=== PATIENT | male | born 1935 | race Caucasian/White ===

== ENCOUNTER 2020-02-03 10:58 | Emergency (ER) | payer MEDICARE, OTHER, SELFPAY ==
[2020-02-03 11:02] VITALS: BP 136/77; PULSE 86; RESP 18; TEMP 35.9; O2SAT 96; BMI 25.1
--- NOTE | 2020-02-03 11:24 | ED_ITS ---
HPI - General Adult General: Chief complaint: General Medical Stated complaint: BLOOD IN STOOL Time Seen by Provider: 02/03/20 11:22 Source: patient and RN notes reviewed History of Present Illness: HPI narrative: 84-year-old male with bright red blood sometimes little darker in his stool for several days. He states it is painful when he has a bowel movement and feels like he cannot empty his bowels. He is on chronic opiates for back pain but there is been no change in dosages. He tells me he is tried senna and prune juice but not a stool softener, these did not help. Denies any bleeding of his gums or blood in his urine. He is on Eliquis for CABG and stent. No fever no other symptoms. Associated symptoms: Deny chest pain, dyspnea, headache(s), nausea, rash or vomiting Review of Systems General: Reports: 10 or more systems reviewed and unremarkable except in HPI and below Const: Denies: fever(s) or chills Eyes: Denies: change in vision ENMT: Denies: throat pain Card: Denies: chest pain Resp: Denies: dyspnea GI: Reports: change in bowel habits; Denies: abdominal pain, nausea or vomiting Musc: Denies: muscle weakness Skin/Breast: Denies: rash Neuro: Denies: headache(s) Psych: Denies: hopelessness or suicidal ideation Endo: Denies: polyuria Nghia/Lymph: Denies: easy bruising or easy bleeding All/Imm: Denies: urticaria PFSH ED PFSH: Medical History (Updated 02/03/20 @ 12:26 by Nelda Raymundo MD) Essential (primary) hypertension Hypercholesteremia Surgical History History of back surgery x9 History of coronary artery bypass graft History of coronary artery stent placement History of hernia repair History of mandibular surgery Status post aortic coarctation stent placement Family History Sister Cancer Brother Cancer Mother Myocardial infarct Father Alcoholism Social History Smoking and tobacco status: former smoker Alcohol intake: current Alcohol intake frequency: holidays/special occasions only Household members: spouse Housing: House Marital status: Current occupational status: retired History of recent travel: No Physical Exam Const: COMMON NORMALS: no acute distress, average body habitus, patient oriented x3, no limitations, healthy appearing, alert and well nourished HENMT: COMMON NORMALS: normocephalic, external ears normal and Normal external nose present HEAD & SCALP: normocephalic NOSE: Normal external nose presen t EXTERNAL EAR: Yes external ears normal MOUTH: Normal oral and palatal mucosa present THROAT: posterior oropharynx normal Eye: COMMON NORMALS: Equal, round and reactive pupils present, EOMs intact bilaterally, conjunctivae normal, no scleral icterus and normal visual schreiber by confrontation CONJUNCTIVA: Yes conjunctivae normal PUPIL: Yes Equal, round and reactive pupils present Neck/C-Spine: COMMON NORMALS: full ROM, no lymphadenopathy, supple, no meningeal signs and no JVD CERVICAL SPINE: Yes cervical ROM normal Lymph: LYMPHATIC: no lymphadenopathy noted Chest: COMMONS NORMALS: normal inspection of the chest Resp: COMMON NORMALS: normal respiratory effort, No retractions, No use of accessory muscles and clear to auscultation bilaterally AUSCULTATION: clear to auscultation bilaterally Cardio: COMMON NORMALS: no JVD, regular rate, regular rhythm, No gallops present (Cardio), No clicks present (Cardio), No murmurs present (Cardio) and No rub (Cardio) RATE: regular rate RHYTHM: regular rhythm GI: COMMON NORMALS: Normal to inspection, nondistended, normoactive bowel svetlana nds present, Soft to palpation and non-tender AUSCULTATION: Yes normoactive bowel sounds PALPATION: Yes Soft to palpation RECTAL EXAM: Yes visual inspection normal and No hemorrhoids : COMMON NORMALS: Yes no CVA tenderness BLADDER/KIDNEY EXAM: Yes no CVA tenderness Back/Pelvis: COMMON NORMALS: no CVA tenderness Extremity: COMMON NORMALS: normal to inspection Neuro: COMMON NORMALS: patient oriented x3 SENSORIUM/ORIENTATION: Yes alert MENINGEAL SIGNS: Yes no meningeal signs SPEECH: speech normal Psych: COMMON NORMALS: mental status grossly normal, Normal thought process present, cooperative, normal affect, speech normal, activity/motor behavior normal, denies hallucinations, denies homicidal ideation and denies suicidal ideation SPEECH: Yes normal speech THOUGHT PROCESS: Normal thought process present Skin: COMMON NORMALS: no rashes or lesions noted GENERAL SKIN EXAM: no rashes or lesions noted Course Vital Signs: Vital signs: Vital Signs Temperature 96.7 F L 02/03/20 11:02 Pulse Rate 71 02/03/20 12:52 Respiratory Rate 16 02/03/20 12:52 Blood Pressure 117/64 02/03/20 12:52 Pulse Oximetry 95 02/03/20 12:52 MDM - General Adult MDM Narrative: Medical decision making narrative: 84 yo on opiods for chronic pain with constipation. will start on colace and send home with bottle of mag citrate. xray does not show large area of impaction near rectum Lab Data: Labs: Lab Results 02/03/20 02/03/20 Range/Units 11:38 11:38 WBC 4.6 (4.0-10.0) 10^3/ uL RBC 3.86 L (4.1-5.3) 10^6/u L Hgb 11.9 (11.7-16.6) g/dL Hct 37.3 L (42.0-52.0) % MCV 96.6 H (80-94) fL MCH 30.8 (28.0-34.0) pg MCHC 31.9 (30.0-36.0) g/dL RDW 13.2 (12.1-15.1) % Plt Count 103 L (130-400) 10^3/c mm MPV 8.4 (7.4-10.4) fL Neut % (Auto) 53.8 % Lymph % (Auto) 25.9 % [place] % (Auto) 11.9 % Eos % (Auto) 7.3 % Baso % (Auto) 0.9 % Neut # (Auto) 2.49 (1.8-7.7) 10^3/u L Lymph # (Auto) 1.2 (0.8-4.8) 10^3/u L [place] # (Auto) 0.6 (0.2-0.9) 10^3/u L Eos # (Auto) 0.3 (0.0-0.8) 10^3/u L Baso # (Auto) 0.0 (0.0-0.1) 10^3/u L Nucleated RBC % (a uto) 0 % Nucleated RBCs # 0.0 /100WBC Sodium 139 (136-145) mmol/L Potassium 3.9 (3.5-5.1) mmol/L Chloride 105 (98-107) mmol/L Carbon Dioxide 26 (22-29) mmol/L Anion Gap 11.9 (5-19) BUN 23 (8-23) mg/dL Creatinine 1.5 H (0.7-1.2) mg/dL Glucose 82 (65-115) mg/dL Calculated Osmolal ity 284 L (285-295) mOsm/k g Calcium 9.0 (8.5-10.5) mg/dL Total Bilirubin 0.5 (0.15-1.2) mg/dL AST 15 (0-40) U/L ALT < 5 (0-41) U/L Alkaline Phosphata se 70 (40-130) IU/L Total Protein 6.8 (6.6-8.7) g/dL Albumin 4.3 (3.5-5.2) g/dL Globulin 2.5 (1.3-4.6) g/dL Imaging Data^: AAS xray: My impression: some retained stool no AFL's no free air Discharge Plan Discharge Patient Disposition: Home, Self-Care Clinical Impression: Hematochezia Constipation Qualifiers: Constipation type: unspecified constipation type Qualified Code(s): K59.00 - Constipation, unspecified Condition: Stable Prescriptions: New Colace 100 mg capsule 100 mg PO BID Qty: 30 RF: 0 No Action carvedilol 3.125 mg tablet 3.125 mg PO BID RF: 0 albuterol sulfate [ProAir HFA] 90 mcg/actuation HFA aerosol inhaler 2 puff INHALATION Q6H PRN (Reason: Shortness Of Breath) RF: 0 nitroglycerin [Nitrostat] 0.4 mg tablet, sublingual 0.4 mg SUBLINGUAL Q5M PRN (Reason: Chest Pain) RF: 0 Eliquis 5 mg tablet 5 mg PO BID RF: 0 isosorbide mononitrate 30 mg tablet extended release 24 hr 30 mg PO DAILY RF: 0 aspirin [Adult Aspirin Regimen] 81 mg tablet,delayed release (DR/EC) 81 mg PO DAILY RF: 0 morphine 30 mg tablet extended release 30 mg PO Q12H 30 Days Qty: 60 RF: 0 senna 2 tab PO BID RF: 0 furosemide 20 mg tablet 20 mg PO DAILY RF: 0 Lexapro 10 mg tablet 10 mg PO DAILY RF: 0 Referrals: Cristofer Barrera MD [Primary Care Provider] - Patient Instructions: Constipation - Adult, Rectal Bleeding (ED) Activity Restrictions/Additional Instructions: drink entire bottle of magnesium citrate when you get home today Start taking colace stool softener as prescribed. Call Dr Barrera for follow up appointment and return to the ER if worse Discharge Date/Time: 02/03/20 12:57 Coding Level of Care Code ED Exchange Operator for Marco Fwd Exam Comprehensive
[2020-02-03 11:38] VITALS: BP 106/66; PULSE 80; RESP 18; O2SAT 96
[2020-02-03 11:44] LABS: Basophils % 0.9 %; Eosinophils # 0.3 10^3/uL (0.0-0.8); Eosinophils % 7.3 %; Hematocrit 37.3 % (42.0-52.0); Hemoglobin 11.9 g/dL (11.7-16.6); Lymphocytes # 1.2 10^3/uL (0.8-4.8); Lymphocytes % 25.9 %; Mean Corpuscular HGB Conc 31.9 g/dL (30.0-36.0); Mean Corpuscular Hemoglobin 30.8 pg (28.0-34.0); Mean Corpuscular Volume 96.6 fL (80-94); Mean Platelet Volume 8.4 fL (7.4-10.4); Monocytes # 0.6 10^3/uL (0.2-0.9); Monocytes % 11.9 %; Neutrophils # 2.49 10^3/uL (1.8-7.7); Neutrophils % 53.8 %; Nucleated Red Blood Cells % 0 %; Platelet Count 103 10^3/cmm (130-400); Red Blood Count 3.86 10^6/uL (4.1-5.3); Red Cell Distribution Width 13.2 % (12.1-15.1); White Blood Count 4.6 10^3/uL (4.0-10.0)
[2020-02-03 11:58] LABS: Alanine Aminotransferase < 5 U/L (0-41); Albumin Level 4.3 g/dL (3.5-5.2); Alkaline Phosphatase 70 IU/L (40-130); Anion Gap 11.9 (5-19); Aspartate Amino Transferase 15 U/L (0-40); Blood Urea Nitrogen 23 mg/dL (8-23); Carbon Dioxide 26 mmol/L (22-29); Chloride 105 mmol/L (98-107); Creatinine Clr Calc Pharmacy 39.6401; Globulin 2.5 g/dL (1.3-4.6); Glucose 82 mg/dL (65-115); Osmolality Calculated 284 mOsm/kg (285-295); Potassium 3.9 mmol/L (3.5-5.1); Sodium 139 mmol/L (136-145); Total Bilirubin 0.5 mg/dL (0.15-1.2); Total Protein 6.8 g/dL (6.6-8.7)
--- NOTE | 2020-02-03 12:03 | XRR_ITS ---
PROCEDURE INFORMATION: Exam: XR Abdomen, 2 Views Exam date and time: 02/03/2020 12:18 PM Age: 84 years old Clinical indication: Other: Blood in stool, abd pain; Additional info: Blood in stool, belly pain. Shortness of breath and weakness TECHNIQUE: Imaging protocol: XR of the abdomen. Views: 2 Views. COMPARISON: CT Abdomen/Pelvis Renal 10392 09/16/2018 11:06 AM FINDINGS: Tubes, catheters and devices: Left subclavian dual lead pacemaker in place. Heart/Mediastinum: Probable prior CABG. Mild cardiomegaly. Gastrointestinal tract: Benign-appearing bowel gas pattern with modest amount of air and stool throughout the colon. Intraperitoneal space: Normal. No free air. Vasculature: Ectatic thoracic aorta. Aortoiliac stent graft in place. Bones/joints: Prior lumbar surgery with transpedicular screw and posterior tracy fixation hardware in place. XR/XR acute abdomen series 22853 IMPRESSION: No acute process evident. Chronic and postoperative findings as described above.
[2020-02-03] MEDS: magnesium citrate Btl 296 mL 150 ML PO (12:50)
[2020-02-03 12:52] VITALS: BP 117/64; PULSE 71; RESP 16; O2SAT 95
--- NOTE | 2020-02-03 12:55 | PC.NURSE ---
INFORMED DR. CHÁVEZ OF 150 ML OF MAGNESIUM CITRATE WAS PROVIDED TO PT TO TAKE WHEN HOME. DR. CHÁVEZ VERBALIZED UNDERSTANDING NO FURTHER ORDERS.
== END 2020-02-03 12:57 | disposition home or self-care (01) ==
PROVIDERS: Emergency Provider Emergency Medicine; PCP Internal Medicine
DX: K92.1 Melena (principal); K59.00 Constipation, unspecified; Z79.01 Long term (current) use of anticoagulants; Z79.82 Long term (current) use of aspirin; I10 Essential (primary) hypertension; Z95.1 Presence of aortocoronary bypass graft; Z87.891 Personal history of nicotine dependence
CPT/HCPCS: 12345; 36415; 74022; 80053; 85025; 99281; 99283

== ENCOUNTER 2020-04-27 08:46 | Outpatient (CLI) | payer MEDICARE, OTHER, SELFPAY ==
--- NOTE | 2020-04-27 08:50 | CT_ITS ---
WS: [id number] CT ABDOMEN PELVIS TECHNIQUE: Noncontrast CT of the abdomen and contrast-enhanced CT of the abdomen and pelvis with caitlyn nal and sagittal reformatted images. CLINICAL INFORMATION: GROSS HEMATURIA COMPARISON: and October 30, 2017. DLP: 2398.[address] scans at [facility] use at least one of these dose optimization techniques: automat ed exposure control; mA and/or kV adjustment per patient size (includes targeted exams where dose is matched to clinical indication); or iterative reconstruction. FINDINGS: Mild diffuse fatty infiltration liver. Portal vein and splenic vein are patent. Normal gallbladder. S mall esophageal hiatal hernia. Lung bases are well aerated. Splenic granulomas. Fatty atrophy of the pancreas. Adrenal glands are normal. Normal renal parenchymal enhancement. Bilateral renal cysts. Lar gest cyst left kidney measuring 4.5 x 3.3cm. No hydronephrosis in either kidney. Aortic endograft wit h biiliac extension. IVC filter. Normal sized periaortic lymph nodes. Hoffman catheter. Tip of the Hoffman catheter extends eccentric into the left aspect of the bladder exten ding into a small diverticulum/lobulation with soft tissue thickening. Bladder is decompressed. Prost ate calcification. Normal ureteral excretion on the delayed imaging. Left inguinal hernia containing a loop of slightly dilated bowel similar to the prior examination. No pelvic lymphadenopathy. Extensive prior postoperative changes pedicle screw fixation L2-S1. CT/CT abdomen pelvis wo/w [id number] IMPRESSION: 1. Normal bilateral renal parenchymal enhancement. No hydronephrosis. 2. Bilateral renal cysts larger on the left measuring 4.5 x 3.3 CM. 3. Both ureters are decompressed. No hydronephrosis. 4. Normal excretion on the delayed imaging. 5. Hoffman catheter in place with decompressed bladder. Hoffman catheter tip exten ds into the left aspect of the bladder within a diverticulum/lobulation with mi ld soft tissue thickening in this area. This may be related to the hematuria. 6. Prior aortic endograft with biiliac extension. 7. No other significant changes from previous. 8. Stable left inguinal hernia with herniated bowel is similar to the prior ex amination. 9. Prior postoperative changes pedicle screw fixation L2-S1.
[2020-04-27 10:06] LABS: Blood Urea Nitrogen 22 mg/dL (8-23)
[2020-04-27] MEDS: iohexol 300 mg/mL 100 mL Btl IV (10:18)
== END 2020-04-27 08:47 | disposition home or self-care (01) ==
LOC: RAD 08:49
PROVIDERS: PCP Internal Medicine; Visit Provider Nurse Practitioner Family
DX: R31.0 Gross hematuria (principal); Q61.02 Congenital multiple renal cysts; Z96.0 Presence of urogenital implants; K40.90 Unilateral inguinal hernia, without obstruction or gangrene, not specified as recurrent
CPT/HCPCS: 36415; 74178; 82565; 84520

== ENCOUNTER → 2020-04-29 12:38 | Outpatient (BNVA) | payer MEDICARE, OTHER, SELFPAY | PROVIDERS: PCP Internal Medicine; Visit Provider Urology | DX: Z11.59 Encounter for screening for other viral diseases (principal); R31.0 Gross hematuria | CPT/HCPCS: 87635 ==

== ENCOUNTER 2020-05-02 16:14 | Observation (INO) | payer MEDICARE, OTHER, SELFPAY ==
[2020-04-29 18:45] VITALS: BMI 25.1
[2020-05-02] VITALS (14 sets, daily range): BP systolic 111–157; BP diastolic 54–91; PULSE 65–70; RESP 16–20; TEMP 36.1–36.6; O2SAT 92–100
[2020-05-02] MEDS: sodium chloride 0.9% 1,000 ML 30 ML IV (14:02)
--- NOTE | 2020-05-02 14:41 | ANES.PREANE2 ---
Pre-Anesthetic Assessment Pre-Anesthetic Assessment: Height/Weight: Height 1.78 m Weight 79.379 kg Temp Pulse Resp BP Pulse Ox 97.7 F 66 18 129/69 96 05/02/20 13:30 05/02/20 13:30 05/02/20 13:30 05/02/20 13:30 05/02/20 13:30 Preop Diagnosis: Newly diagnosed bladder tumor Proposed Procedure: Operation Date: 05/02/20 14:35 Proposed Procedures p Cystoscopy 66116 C67.9(Not Applicable) - Angel Pittman MD s Transurethral Resection Bladder Tumor(Not Applicable) - Angel Pittman MD Familial anesthetic complications: none Was Beta Nichole taken within 24 hours: Yes Last intake: Intake Last Liquid Date 05/02/20 Last Liquid Time 12:00 Last Solid Date 05/01/20 Last Solid Time 19:00 Social: Social History: No alcohol and No tobacco Comment: former smoker Exam: Pre-Anes Outpt Exam: alert, oriented x 3, clear to auscultation bilaterally and regular rate & rhythm Airway: Cervical ROM: WNL (hx broken neck) MP: 2 Dentition: False Additional comments: mandibular surgery Pulmonary: Pulmonary: COPD (?) Comments: wears 2-3 L NC CV/HEM: CV/HEM: Afib (s/p cardioversion , off eliquis for several days), CAD and HTN Comments: CABG, stents, aortic coarctation stent placement Metabolic: Metabolic: Hyperlipidemia Anesthetic Plan: ASA status: 3 Anesthesia: General Risk of > 500 ml blood loss (7ml/kg in children): No Meds/Allergies Current Medications: Current Medications Generic Name Dose Route Start Last Admin Trade Name Freq PRN Reason Stop Dose Admin Sodium Chloride 1,000 mls @ 30 ml s/hr 05/02/20 13:15 05/02/20 14:02 Sodium Chloride 0.9% IV 05/03/20 13:14 30 mls/hr .Q24H MARK Administration PFSH Anesthesia PFSH: Medical History BPH loc w urin obs/LUTS Essential (primary) hypertension Gross hematuria Hypercholesteremia Surgical History History of back surgery x9 History of coronary artery bypass graft History of coronary artery stent placement History of hernia repair History of mandibular surgery Status post aortic coarctation stent placement Family History Sister Cancer Brother Cancer Mother , AT AGE 70 Myocardial infarct Father , AT AGE 70 Alcoholism Social History Smoking and tobacco status: former smoker Alcohol intake: current Alcohol intake frequency: holidays/special occasions only Household members: spouse Housing: House Marital status: Current occupational status: retired History of recent travel: No Data Anesthesia Cardiac Studies: No Data to Display
--- NOTE | 2020-05-02 14:42 | ECG_ITS ---
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 Measurements Intervals [place] Rate: 64 P: 18 NH: 273 QRS: 0 QRSD: 153 T: 224 QT: 474 QTc: 492 Interpretive Statements ELECTRONIC ATRIAL PACEMAKER LEFT BUNDLE BRANCH BLOCK [120+ ms QRS DURATION, 80+ ms Q/S IN V1/V2, 85+ ms R IN I/aVL/V5/V6] Compared to ECG 01/27/2018 06:14:01 No significant changes Electronically Signed On 05-02-2020 20:13:59 CDT by Lo Meneses M.D. [email or web address]
[2020-05-02] MEDS: levofloxacin-dextrose 5 % 500 MG/100 ML PREMIX 100 MG IV (14:58)
--- NOTE | 2020-05-02 15:01 | P.HPUD_ITS ---
Surgery/Procedure H&P Update DATE OF PROCEDURE: May 02, 2020 DATE H&P PERFORMED: 04/29/20 H&P UPDATE INFORMATION: I have reviewed H&P completed within last 30 days, I have examined patient prior to procedure, No changes to prior documentation and H&P is in [facility] E[place] on date indicated PREOP DIAGNOSIS: Newly diagnosed bladder tumor PLANNED PROCEDURE: Operation Date: 05/02/20 14:35 Proposed Procedures p Cystoscopy 64697 C67.9(Not Applicable) - Angel Pittman MD s Transurethral Resection Bladder Tumor(Not Applicable) - Angel Pittman MD
[2020-05-02] MEDS: lidocaine 2% Urojet 20 mL TOPICAL (15:29)
--- NOTE | 2020-05-02 15:43 | PM.OP ---
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 Multiple areas resected and broader area of about 4 cm fulgurated with the button probe. At the completion of the procedure no residual lesions remained Condition: stable Disposition: PACU Brief History: Mr. Wilks is a delightful 84-year-old white male recently evaluated in clinic for suspicious CT scan showing thickening of the bladder wall done at time of urinary retention. 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 No contraindications to proceeding with intervention. Procedure: After routine preoperative evaluation examination and obtaining of informed consent the patient was taken to the operating suite on 05/02/2020 where general anesthesia was administered without difficulty after appropriate timeout was performed, SCDs confirmed to be functioning, preoperative antibiotics administered, beta-ina protocol confirmed. Prepped and draped in the usual sterile fashion in dorsolithotomy position pain careful attention to avoiding pressure points. 21 [place] cystoscope with 30 degree lens was introduced into the urethral meatus and into the bladder. Bladder was systematically examined with both a 70 and 30 degree lenses. Findings as described above and consistent with TCCA of the left lateral wall. The urethra was then calibrated with [place] sounds and easily accommodated 30 [place]. 2% lidocaine jelly was instilled into the urethra and then a 25 continuous flow resectoscope sheath with visual obturator in place was advanced into the bladder without difficulty. The gyrus bipolar system with the super loop was utilized for resection. The papillary areas were resected and then multiple areas of suspicious mucosa more of a flat variety were also resected and all the specimens were sent together. The button probe was then utilized to obtain hemostasis but also to fulgurate multiple areas of suspicious mucosa more of the flat variety. At the completion of the procedure all chips were confirmed to be removed from the bladder (Deepikaik evacuator) and hemostasis was visually confirmed. The bladder was drained with a 20 [place] three-way Hoffman catheter with 10 cc placed in the balloon. Irrigation was clear. Low-flow CBI with normal saline was initiated. Tolerated the procedure well without complications and was awakened in the operating room and returned to the recovery room in stable condition. PLANS: 1. Admit to observation status and observe overnight. 2. Voiding trial tomorrow after mitomycin instillation.
--- NOTE | 2020-05-02 16:20 | PM.PACU ---
PACU note Post-Anesthesia Exam: awake and vital signs stable Disposition: admitted
[2020-05-02] MEDS: lactated ringers 1,000 ML 30 ML IV (17:12)
[2020-05-02] MEDS: docusate sodium 100 mg Capsule PO (17:13)
[2020-05-02] MEDS: carvedilol 3.125 mg Tablet PO (17:13)
[2020-05-02] MEDS: morphine ER (12 HR) 30 mg tablet PO (23:02)
[2020-05-03 04:36] VITALS: BP 146/68; PULSE 67; RESP 18; TEMP 36.9; O2SAT 98
--- NOTE | 2020-05-03 07:50 | PM.DCS ---
Discharge Providers Date of Admission: 05/02/20 16:14 Date of Discharge: May 03, 2020 Attending Provider at Admission: Angel Pittman MD Attending Provider at Discharge: Angel Pittman MD Primary Care Provider: Cristofer Barrera MD Diagnoses at Discharge Discharge Diagnosis (1) Bladder tumor: Status: Acute Problem details: TURBT 05/02/2020 (2) BPH loc w urin obs/LUTS: Status: Acute (3) Essential (primary) hypertension: Status: Acute Reason for Visit Reason for Visit: cystoschopy transurethral resection bladder tumor Hospital Course Hospital Course: Admitted on the day of the procedure which went well. He had several areas suspicious for TCCA that were completely resected. Total resection/fulguration diameter about 4 cm. Urine remained clear postoperatively and on postop day #1 he underwent mitomycin instillation into the bladder which he tolerated well. Catheter removed after draining mitomycin voided spontaneously with adequate emptying as per bladder scan. Discharged on the afternoon of postoperative day #1 for further convalescence at home. Physical Exam Const: COMMON NORMALS: no acute distress, alert and well nourished GENERAL APPEARANCE: well kempt and well developed ORIENTATION/CONSCIOUSNESS: not confused Neck/C-Spine: COMMON NORMALS: full ROM Resp: COMMON NORMALS: normal respiratory effort EFFORT & INSPECTION: No labored and No Actively coughing GI: COMMON NORMALS: Soft to palpation and non-tender PALPATION: Yes Soft to palpation : PENIS: normal penis MEATUS: meatus normal, no meatla discharge and No Blood at meatus present Neuro: COMMON NORMALS: no focal motor deficits SENSORIUM/ORIENTATION: Yes alert Psych: COMMON NORMALS: mental status grossly normal APPEARANCE: Yes grossly normal and Yes well kempt ATTITUDE: Yes calm and Yes engaged Skin: COMMON NORMALS: no rashes or lesions noted and no jaundice GENERAL SKIN EXAM: no rashes or lesions noted Urinary Catheter Management^: 3-way Urethral CBI: Cath Placed During This Visit: no Reason for Continuing Indwelling Catheter: Other Discharge Data Data Completed and Pending: Pending at discharge Category Date Time Status Pathology: Surgic al [PTH] Routine Pth 05/02/20 15:58 Ordered Vitals: Last Vital Signs Temp 98.4 F 05/03/20 04:36 Pulse 67 05/03/20 04:36 Resp 18 05/03/20 04:36 BP 146/68 05/03/20 04:36 Pulse Ox 98 05/03/20 04:36 Discharge Plan Discharge Patient Disposition: Home Condition: Stable Prescriptions: Continued carvedilol 3.125 mg tablet 3.125 mg PO BID RF: 0 nitroglycerin [Nitrostat] 0.4 mg tablet, sublingual 0.4 mg SUBLINGUAL Q5M PRN (Reason: Chest Pain) RF: 0 isosorbide mononitrate 30 mg tablet extended release 24 hr 30 mg PO DAILY RF: 0 amiodarone 100 mg tablet 100 mg PO DAILY RF: 0 tamsulosin 0.4 mg capsule 0.4 mg PO .at bedtime Qty: 30 RF: 12 morphine 30 mg tablet extended release 30 mg PO Q12H 30 Days Qty: 60 RF: 0 furosemide 20 mg tablet 20 mg PO DAILY Qty: 30 RF: 3 docusate sodium [Colace] 100 mg capsule 100 mg PO BID Qty: 30 RF: 0 escitalopram oxalate [Lexapro] 10 mg tablet 10 mg PO DAILY RF: 0 Discharge Orders: Discharge Order (Routine); Ordered 05/03/20 Ordered By: Angel Pittman Referrals: Angel Pittman MD [Physician] - 07/06/20 8:15 am Discharge Diet: Usual diet Discharge Activity: Limit activity as instructed Patient Instructions: Cystoscopy, Transurethral Resection of Bladder Tumors (GEN) Activity Restrictions/Additional Instructions: 1. Avoid lifting >10 pounds for 1 month. 2. We will need to communicate over the phone either late this week or Saturday afternoon regarding the pathology report. 3. If your urine becomes bloody it is important to drink a lot of fluids to help flush the bladder and to avoid clot formation which could potentially if it is bad because obstruction 4. We will plan on a follow-up in about 2 months for a recheck of the inside of your bladder. Discharge Attestations Time Spent in Discharge Care*: greater than 30 min Quality Metrics Clinical Quality Measures During this hospital stay, did patient experience: None Coding Level of Care Code Acute In School Suspension Coordinator for Dannag Fwd Exam Comprehensive Diagnoses Bladder tumor D49.4 BPH loc w urin obs/LUTS N40.1 Essential (primary) hypertension I10
[2020-05-03 08:10] VITALS: BP 148/56; PULSE 86; RESP 18; TEMP 36.8; O2SAT 95
--- NOTE | 2020-05-03 08:10 | ANE.PACU2 ---
Inpatient post-anesthesia follow up: Airway intact: Yes Vital signs: Temperature 98.4 F Pulse Rate 67 Respiratory Rate 18 Blood Pressure 146/68 Pulse Oximetry 98 Oxygen Delivery Me thod Nasal Cannula Oxygen Flow Rate 3 Fraction of Inspir ed Oxygen Hydration adequate: Yes Nausea and vomiting: No Pain level: 1 Mental status: Baseline
[2020-05-03] MEDS: morphine ER (12 HR) 30 mg tablet PO (08:13)
[2020-05-03] MEDS: docusate sodium 100 mg Capsule PO (08:13)
[2020-05-03] MEDS: carvedilol 3.125 mg Tablet PO (08:13)
[2020-05-03] MEDS: amiodarone 200 mg Tablet 100 MG PO (08:14)
[2020-05-03] MEDS: isosorbide mononitrate ER 30 mg Tablet PO (08:14)
[2020-05-03] MEDS: escitalopram 10 mg Tablet PO (08:14)
[2020-05-03] MEDS: FUROsemide 20 mg Tablet PO (08:14)
--- NOTE | 2020-05-03 08:55 | PC.NURSE ---
0845 moreno removal Patient moreno drained of urine with 200 ml of yellow urine noted to bag. Bladder drained of mitomycin of 120 ml noted with moreno removed after bladder being drained. Catheter balloon noted to have 10 ml ns in with removal. Catheter intact. Patient tolerated well. Patient educated on 6 bottle voic and alerting nurse to urination. Patient verbalized understanding.
--- NOTE | 2020-05-03 09:05 | PC.CHAP ---
Pastoral Care Encounter/Spiritual Assessment Type of Contact [] Declined local flatbed driver visit [] Patient/Family/Request visit [] Outpatient visit [] Follow-up visit [] Physician referral [] Code/Alert [] Routine visit [] Staff referral [] Actively dying [] Patient sleeping [] Family support [] [] Out of room [] Palliative care [] [] Receiving care in room [] Pre-surgical visit [] Trauma [] Long length of stay [] ICU visit [] Other: Relational/Emotional Strength [x] Patient feels connected with others/family/visitors/staff [] Distress [] Loneliness/isolation [] Abandonment Spirituality of Patient [x] Person of Latricia [] Attends Yarsani of their Latricia [] Believes in Prayer [] Reads Bible or Bahai materials [] There are Spiritual issues to be addressed 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 Courier Interventions [x] Prayer [] Active listening [] Non-anxious presence [] Spiritual/emotional support [] Crisis/trauma care [] Spiritual counseling [] Bereavement support [] Provided bereavement packet [] Provided Bible/devotional materials [] Provided toy/stuffed animal, coloring book to patient or family member [] Provided Communion [] Anointing/[place] [] Salvation [] Completed spiritual assessment [] Other: Impact on Illness or Injury [] Angry [] Fearful [] Anxious [] Often cries [] Exhaustion [] Unable to work [] Unable to attend yazdanism [] Unable to walk/stand [] Unable to read [] Unable to drive [] Unable to eat/drink [] Unable to sleep [] Unable to be with family [] Patient intubated [] Other: Summary patient feeling better 15 min Time spent with patient
--- NOTE | 2020-05-03 10:07 | PC.NURSE ---
Urination note Patient able to urinate 100 ml of clear margarita urine. Post void bladder scan showed less than 16 ml left in bladder. Will continue to monitor.
--- NOTE | 2020-05-03 11:57 | PC.NURSE ---
2nd void Patient voided 150 ml clear yellow urine. Bladder scan showed less than 13 ml in bladder. Will continue to monitor.
[2020-05-03 12:00] VITALS: BP 138/61; PULSE 65; RESP 18; TEMP 36.7; O2SAT 97
[2020-05-03 14:38] VITALS: BP 138/61; PULSE 65; RESP 18; TEMP 36.7; O2SAT 97
--- NOTE | 2020-05-04 15:44 | PC.RESP ---
Pulmonary Rehab packet sent to patient.
== END 2020-05-03 14:25 | disposition home or self-care (01) ==
LOC: MEDSURG 16:15
PROVIDERS: Admitting Provider Urology; PCP Internal Medicine; Visit Provider Urology
PROC: 0TJB8ZZ Inspection of Bladder, Via Natural or Artificial Opening Endoscopic (ICD-10-PCS; CPT 52000; principal; 2020-05-02 14:35)
PROC: 0TBB8ZZ Excision of Bladder, Via Natural or Artificial Opening Endoscopic (ICD-10-PCS; CPT 52235; 2020-05-02 14:35)
DX: D49.4 Neoplasm of unspecified behavior of bladder (principal); N40.1 Benign prostatic hyperplasia with lower urinary tract symptoms; N13.8 Other obstructive and reflux uropathy; J44.9 Chronic obstructive pulmonary disease, unspecified; I48.91 Unspecified atrial fibrillation; I25.10 Atherosclerotic heart disease of native coronary artery without angina pectoris; I10 Essential (primary) hypertension; Z95.1 Presence of aortocoronary bypass graft; Z95.5 Presence of coronary angioplasty implant and graft; E78.5 Hyperlipidemia, unspecified; E78.00 Pure hypercholesterolemia, unspecified; Z87.891 Personal history of nicotine dependence
CPT/HCPCS: 52235; 12345; 88305; 93005; 94664; G0378; J1956; J2405; J2704; J3010; J3490; J7030

== ENCOUNTER → 2020-09-15 12:07 | Outpatient (BNVA) | payer MEDICARE, OTHER, SELFPAY | PROVIDERS: PCP Internal Medicine; Referring Provider Internal Medicine; Visit Provider Anesthesiology Pain Medicine | DX: M51.17 Intervertebral disc disorders with radiculopathy, lumbosacral region (principal); M54.9 Dorsalgia, unspecified; Z79.899 Other long term (current) drug therapy; Z79.891 Long term (current) use of opiate analgesic | CPT/HCPCS: 99205 ==

== ENCOUNTER 2020-09-19 14:58 | Outpatient (CLI) | payer MEDICARE, OTHER, SELFPAY ==
--- NOTE | 2020-09-19 15:30 | CT_ITS ---
WS: [id number] CT LUMBAR SPINE TECHNIQUE: Noncontrast CT of the lumbar spine with coronal and sagittal reformatted images. CLINICAL INFORMATION: M54.16 - Radiculopathy, lumbar region COMPARISON: CT August 28, 2016 and DLP: 2004.[address] scans at [facility] use at least one of these dose optimization techniques: automat ed exposure control; mA and/or kV adjustment per patient size (includes targeted exams where dose is matched to clinical indication); or iterative reconstruction. FINDINGS: 4 nonrib-bearing lumbar vertebral bodies. L5 is sacralized. Alignment is unchanged from previous. Sta ble appearing postoperative changes pedicle screw fixation L1-L5 with dorsal interconnecting rods. Do rsal lateral bony fusion with laminectomy defects. No high-grade central canal stenosis. Interbody jean ny fusion L2-3. Degenerative disc disease with endplate degenerative changes and vacuum disc phenomen on at T12-L1. Epidural calcification unchanged from previous. Left renal cyst measuring 2.9 x 4.8 cm. This is increased in size since 2017. No significant screw loosening. Dorsal interconnecting rods ap pear intact. Disc space narrowing T12-L1 with vacuum disc phenomenon and mild disc bulging. Mild central canal jacinta nosis at this level. L1-L2: Prior postoperative changes. Mild bilateral bony foraminal narrowing. Spinal canal is patent. L2-L3: Postoperative changes interbody bony fusion. Stable pedicle screw fixation. Mild left and no s ignificant right foraminal narrowing. Spinal canal is patent. Laminectomy defects. Moderate facet art hropathy. L3-L4: Postoperative changes pedicle screw fixation. Laminectomy defects. Spinal canal is patent. For amen are patent. Moderate facet arthropathy. L4-L5: Mild annular bulging with vacuum disc phenomenon. Mild to moderate left and no significant rig ht foraminal narrowing. Advanced facet arthropathy. Laminectomy defects. L5-S1: L5 is sacralized. Spinal canal and foramen are patent. Moderate facet arthropathy IVC filter. Tortuous infrarenal abdominal aorta. Aortic biiliac endograft. CT/CT lumbar spine wo con* [id number] IMPRESSION: 4 nonrib-bearing lumbar vertebral bodies. L5 is sacralized. Recomme nd plain film correlation prior to surgical intervention. 1. Stable postoperative changes L1-L5 with pedicle screw fixation and dorsal i nterconnecting rods. Dorsal lateral bony fusion. No significant hardware loosen ing. 2. Prior interbody bony fusion at L2-3 with anterior wedging. 3. Laminectomy defects. No significant central canal stenosis. Stable epidural calcification. 4. IVC filter. Aortic biiliac endograft. 5. Disc space narrowing T12-L1 with vacuum disc phenomenon and mild disc bulgi ng. Mild central canal stenosis at this level. 6. Overall no significant changes since 2017
== END 2020-09-19 14:59 | disposition home or self-care (01) ==
LOC: RADWPI 15:07
PROVIDERS: PCP Internal Medicine; Visit Provider Anesthesiology Pain Medicine
DX: M54.16 Radiculopathy, lumbar region (principal); M96.1 Postlaminectomy syndrome, not elsewhere classified; M43.26 Fusion of spine, lumbar region
CPT/HCPCS: 72131

== ENCOUNTER → 2020-10-12 10:47 | Outpatient (BNVA) | payer MEDICARE, OTHER, SELFPAY | PROVIDERS: PCP Internal Medicine; Visit Provider Anesthesiology Pain Medicine | DX: M54.41 Lumbago with sciatica, right side (principal); M54.42 Lumbago with sciatica, left side; M54.9 Dorsalgia, unspecified; Z79.891 Long term (current) use of opiate analgesic | CPT/HCPCS: 99214 ==

== ENCOUNTER → 2020-10-20 11:00 | Outpatient (BNVA) | payer MEDICARE, OTHER, SELFPAY | PROVIDERS: PCP Internal Medicine; Visit Provider Internal Medicine | DX: E87.6 Hypokalemia (principal); G89.28 Other chronic postprocedural pain; I10 Essential (primary) hypertension; N40.1 Benign prostatic hyperplasia with lower urinary tract symptoms; M54.16 Radiculopathy, lumbar region; D49.4 Neoplasm of unspecified behavior of bladder | CPT/HCPCS: 80048 ==

== ENCOUNTER → 2020-11-22 10:00 | Outpatient (BNVA) | payer MEDICARE, OTHER, SELFPAY | PROVIDERS: PCP Internal Medicine; Visit Provider Internal Medicine | DX: R54 Age-related physical debility (principal); I10 Essential (primary) hypertension; G89.28 Other chronic postprocedural pain; N40.1 Benign prostatic hyperplasia with lower urinary tract symptoms | CPT/HCPCS: 80053; 82607; 82746; 84443; 85025 ==

== ENCOUNTER → 2021-02-15 14:03 | Outpatient (BNVA) | payer MEDICARE, OTHER, SELFPAY | PROVIDERS: PCP Internal Medicine; Visit Provider Urology | DX: D49.4 Neoplasm of unspecified behavior of bladder (principal) | CPT/HCPCS: 81003 ==

== ENCOUNTER 2021-07-06 10:22 | Outpatient (CLI) | payer MEDICARE, OTHER, SELFPAY ==
--- NOTE | 2021-07-06 10:30 | MM_ITS ---
WS: [id number] DIAGNOSTIC BILATERAL DIGITAL MAMMOGRAM WITH CAD LEFT breast ultrasound, limited HISTORY: LEFT breast nodule. COMPARISON: None available. TECHNIQUE: Bilateral craniocaudad, mediolateral oblique, and mediolateral views are submitted. Spot c ompression LEFT MLO. Computer aided detection utilized. Breast composition: The breasts are almost entirely fatty. Increased density posterior to the LEFT ni pple. Flame-shaped configuration. Most likely gynecomastia. Similar findings but much smaller on the RIGHT. RIGHT breast ultrasound, limited. Irregularly-shaped area with dendritic projections posterior to the LEFT nipple. This hypoechoic mass measures 11 x 7 x 13 mm. There is mild increased peripheral vascularity. Similar findings posterior to the RIGHT nipple. MM/[place] [id number] IMPRESSION: BI-RADS: 2-Benign FOLLOW UP: See Report Bilateral gynecomastia, slightly greater involvement in the LEFT subareolar reg ion corresponds to the painful nodule.
--- NOTE | 2021-07-06 11:00 | US_ITS ---
WS: [id number] DIAGNOSTIC BILATERAL DIGITAL MAMMOGRAM WITH CAD LEFT breast ultrasound, limited HISTORY: LEFT breast nodule. COMPARISON: None available. TECHNIQUE: Bilateral craniocaudad, mediolateral oblique, and mediolateral views are submitted. Spot c ompression LEFT MLO. Computer aided detection utilized. Breast composition: The breasts are almost entirely fatty. Increased density posterior to the LEFT ni pple. Flame-shaped configuration. Most likely gynecomastia. Similar findings but much smaller on the RIGHT. RIGHT breast ultrasound, limited. Irregularly-shaped area with dendritic projections posterior to the LEFT nipple. This hypoechoic mass measures 11 x 7 x 13 mm. There is mild increased peripheral vascularity. Similar findings posterior to the RIGHT nipple. US/US breast LT limited* [id number] IMPRESSION: BI-RADS: 2-Benign FOLLOW UP: See Report Bilateral gynecomastia, slightly greater involvement in the LEFT subareolar reg ion corresponds to the painful nodule.
== END 2021-07-06 10:23 | disposition home or self-care (01) ==
LOC: RADSHAW 10:28
PROVIDERS: PCP Internal Medicine; Visit Provider Internal Medicine
DX: N63.22 Unspecified lump in the left breast, upper inner quadrant (principal); N62 Hypertrophy of breast; R53.83 Other fatigue
CPT/HCPCS: 76642; 77066; 80053; 83550; 84443

== ENCOUNTER → 2021-10-10 15:30 | Outpatient (BNVA) | payer MEDICARE, OTHER, SELFPAY | PROVIDERS: PCP Internal Medicine; Visit Provider Urology | DX: D49.4 Neoplasm of unspecified behavior of bladder (principal) | CPT/HCPCS: 81003 ==

== ENCOUNTER 2022-01-14 22:19 | Emergency (ER) | payer MEDICARE, OTHER, SELFPAY ==
[2022-01-14 23:18] VITALS: BP 132/63; PULSE 71; RESP 18; TEMP 36.7; O2SAT 100; BMI 24.3
[2022-01-15 02:10] LABS: Basophils % 0.5 %; Eosinophils # 0.1 10^3/uL (0.0-0.8); Eosinophils % 3.6 %; Hematocrit 30.8 % (42.0-52.0); Lymphocytes # 1.3 10^3/uL (0.8-4.8); Lymphocytes % 32.1 %; Mean Corpuscular HGB Conc 32.5 g/dL (30.0-36.0); Mean Corpuscular Hemoglobin 31.8 pg (28.0-34.0); Mean Corpuscular Volume 98.1 fl (80-94); Mean Platelet Volume 9.3 fL (7.4-10.4); Monocytes # 0.4 10^3/uL (0.2-0.9); Monocytes % 10.5 %; Neutrophils # 2.06 10^3/uL (1.8-7.7); Nucleated Red Blood Cells % 0 %; Platelet Count 80 10^3/cmm (130-400); Red Blood Count 3.14 10^6/uL (4.1-5.3); Red Cell Distribution Width 14.5 % (12.1-15.1); White Blood Count 3.9 10^3/uL (4.0-10.0)
[2022-01-15 02:23] LABS: Partial Thromboplastin Time 31.5 SECONDS (23.9-36.7)
[2022-01-15 02:41] VITALS: BP 125/78; PULSE 70; RESP 16; O2SAT 98
[2022-01-15 02:57] LABS: INR 1.47 (0.8-1.2)
--- NOTE | 2022-01-16 02:35 | ED_ITS ---
HPI - Epistaxis General: Chief complaint: Epistaxis Stated complaint: NOSEBLEED Time Seen by Provider: 01/15/22 00:50 Source: patient History of Present Illness: 86 year old gentleman on anti coagulants. He presents with a right sided anterior Nosebleed for several hours. He notes that he lost quite a bit of blood. No bleeding from other orifices including gums, or rectum. No other recent illness. No fever. No chest pain or syncope. Bleeding has now stopped after continuous pressure. MD complaint: epistaxis Location: right nostril Onset (ago): hour(s) Duration: constant and now resolved Context: other anticoagulant use Associated symptoms: Deny fever(s), headache(s), sinus pain, syncope, vomiting or weakness Treatment prior to arrival: nose pinching Review of Systems Const: Denies: fever(s) ENMT: Denies: throat pain or sinus pain Card: Denies: chest pain or syncope GI: Denies: abdominal pain or vomiting Neuro: Denies: headache(s) [facility] ED PFSH: Medical History (Updated 01/15/22 @ 02:29 by Bright Washington DO) BPH loc w urin obs/LUTS Essential (primary) hypertension Gross hematuria H/O cervical fracture surgical repair H/O deep venous thrombosis History of COPD Hypercholesteremia Osteoarthritis Recurrent ventral hernia Surgical History History of back surgery x9 History of cataract extraction History of colonoscopy History of coronary artery bypass graft History of coronary artery stent placement History of hemorrhoidectomy History of hernia repair History of mandibular surgery History of surgery on arm History of testicular surgery S/P excision of lipoma Status post aortic coarctation stent placement Status post surgical removal and fulguration of bladder neoplasm Family History Sister Cancer Brother Cancer Mother , AT AGE 70 Myocardial infarct Father , AT AGE 70 Alcoholism Social History Smoking and tobacco status: former smoker Alcohol intake: current Alcohol intake frequency: holidays/special occasions only Household members: spouse Housing: House Marital status: Current occupational status: retired History of recent travel: No Physical Exam Const: COMMON NORMALS: no acute distress HENMT: COMMON NORMALS: normocephalic, atraumatic and Normal external nose present HEAD & SCALP: normocephalic and atraumatic FACE & SINUS: normal facial exam, sinuses nontender and face symmetric NOSE: Normal external nose present, No nasal discharge present and Abnormal mucous membranes and turbinates present (fresh clot apparent on exam of anterior right nare. ); no Epistaxis present MOUTH: Normal oral and palatal mucosa present Eye: COMMON NORMALS: Equal, round and reactive pupils present and EOMs intact bilaterally PUPIL: Yes Equal, round and reactive pupils present Neck/C-Spine: GENERAL: Yes normal visual inspection Chest: COMMONS NORMALS: normal inspection of the chest Resp: COMMON NORMALS: normal respiratory effort and No retractions Cardio: COMMON NORMALS: regular rate and regular rhythm RATE: regular rate RHYTHM: regular rhythm Course Vital Signs: Vital signs: Vital Signs Temperature 98.0 F 01/14/22 23:18 Pulse Rate 70 01/15/22 02:41 Respiratory Rate 16 01/15/22 02:41 Blood Pressure 125/78 01/15/22 02:41 Pulse Oximetry 98 01/15/22 02:41 MDM - Epistaxis Medical Decision Making Bleeding has stopped with pressure alone. No evidence or rebleeding. The patient's platelet count is in the 50s, which is concerning. He appears to have a downward trend when looking back at his indices. He will need repeat CBC later this week. He was told to stop his anticoagulants for at least 48 hours, call his doctor, and ask for advice on when to resume. In the meantime, he'll be prescribed on Afrin for vasoconstriction of the nose, for no more than three days. Lab Data : 01/15/22 02:04 Laboratory Results WBC 3.9 10^3/uL (4.0-10.0) L 01/15/22 02:04 RBC 3.14 10^6/uL (4.1-5.3) L 01/15/22 02:04 Hgb 10.0 g/dL (11.7-16.6) L 01/15/22 02:04 Hct 30.8 % (42.0-52.0) L 01/15/22 02:04 MCV 98.1 fl (80-94) H 01/15/22 02:04 MCH 31.8 pg (28.0-34.0) 01/15/22 02:04 MCHC 32.5 g/dL (30.0-36.0) 01/15/22 02:04 RDW 14.5 % (12.1-15.1) 01/15/22 02:04 Plt Count 80 10^3/cmm (130-400) L 01/15/22 02:04 MPV 9.3 fL (7.4-10.4) 01/15/22 02:04 Neut % (Auto) 53.0 % 01/15/22 02:04 Lymph % (Auto) 32.1 % 01/15/22 02:04 Hitchcock % (Auto) 10.5 % 01/15/22 02:04 Eos % (Auto) 3.6 % 01/15/22 02:04 Baso % (Auto) 0.5 % 01/15/22 02:04 Neut # (Auto) 2.06 10^3/uL (1.8-7.7) 01/15/22 02:04 Lymph # (Auto) 1.3 10^3/uL (0.8-4.8) 01/15/22 02:04 Hitchcock # (Auto) 0.4 10^3/uL (0.2-0.9) 01/15/22 02:04 Eos # (Auto) 0.1 10^3/uL (0.0-0.8) 01/15/22 02:04 Baso # (Auto) 0.0 10^3/uL (0.0-0.1) 01/15/22 02:04 Nucleated RBC % (auto) 0 % 01/15/22 02:04 Nucleated RBCs # 0.0 /100WBC 01/15/22 02:04 PT 18.10 SECONDS (12.1-14.9) H 01/15/22 02:04 INR 1.47 (0.8-1.2) H 01/15/22 02:04 APTT 31.5 SECONDS (23.9-36.7) 01/15/22 02:04 Discharge Plan Discharge Patient Disposition: Home Clinical Impression: Epistaxis, Thrombocytopenia Condition: Stable Prescriptions: No Action nitroglycerin [Nitrostat] 0.4 mg tablet, sublingual 0.4 mg SUBLINGUAL Q5M PRN (Reason: Chest Pain) 0RF isosorbide mononitrate 30 mg tablet extended release 24 hr 30 mg PO DAILY 0RF docusate sodium [Colace] 100 mg capsule 100 mg PO .PRN 0RF potassium chloride 20 mEq tablet extended release 20 meq PO DAILY 0RF amoradine 200 mg PO DAILY 0RF apixaban 5 mg tablet 5 mg PO BID 0RF furosemide 40 mg tablet 40 mg PO DAILY Qty: 90 3RF tizanidine 2 mg tablet 2 mg PO BID PRN (Reason: muscle spasticity) Qty: 60 0RF gabapentin 300 mg capsule 300 mg PO DAILY Qty: 30 0RF carvedilol 3.125 mg tablet 3.125 mg PO BID Qty: 180 3RF tamsulosin 0.4 mg capsule 0.4 mg PO .at bedtime Qty: 30 12RF escitalopram oxalate 10 mg tablet See Rx Instructions .ROUTE .COMPLEX Qty: 90 3RF Dose Instruction: TAKE ONE TABLET BY MOUTH EVERY DAY Rx Instructions: TAKE ONE TABLET BY MOUTH EVERY DAY Discharge Orders: Discharge ED (Routine); Ordered 01/15/22 Ordered By: Bright Washington Referrals: Cristofer Barrera MD [Primary Care Provider] - 1-3 days Patient Instructions: Nosebleed (ED), Thrombocytopenia (ED) Activity Restrictions/Additional Instructions: Hold your Eliquis for 2 days. Call your doctor later today. They may wish you to hold the medication for longer. Your platelet count was low this morning. You should have it rechecked this week. Nasal medication 2 sprays to the nostril twice a day for 3 days Coding Level of Care Code ED Scouring Machine Operator for Marco Taylor
== END 2022-01-15 02:42 | disposition home or self-care (01) ==
PROVIDERS: Emergency Provider Emergency Medicine; PCP Internal Medicine
DX: R04.0 Epistaxis (principal); D69.6 Thrombocytopenia, unspecified; I10 Essential (primary) hypertension; J44.9 Chronic obstructive pulmonary disease, unspecified; Z95.1 Presence of aortocoronary bypass graft; Z87.891 Personal history of nicotine dependence
CPT/HCPCS: 85025; 85610; 85730; 99282

== ENCOUNTER 2022-01-27 10:57 | Emergency (ER) | payer MEDICARE, OTHER, SELFPAY ==
[2022-01-27 11:01] VITALS: BP 130/62; PULSE 69; RESP 18; TEMP 36.6; O2SAT 98
--- NOTE | 2022-01-27 11:27 | XRR_ITS ---
PROCEDURE INFORMATION: Exam: XR Chest Exam date and time: 01/27/2022 11:54 AM Age: 86 years old Clinical indication: Cough and dyspnea; Prior surgery; Additional info: Dyspnea/cough TECHNIQUE: Imaging protocol: Radiologic exam of the chest. Views: 1 view. COMPARISON: CT abdomen pelvis wo/w [id number] 04/27/2020 10:12 AM FINDINGS: Tubes, catheters and devices: A pacemaker device is present, and its leads are in appropriate position. Lungs: There is interstitial prominence compatible with fibrosis, bronchitis, viral pneumonitis or mild interstitial edema. There is no lobar consolidation. Pleural spaces: Unremarkable. No pleural effusion. No pneumothorax. Heart/Mediastinum: The heart is enlarged. Bones/joints: Sternotomy wires and mediastinal surgical clips are present, consistent with previous coronary arterial bypass grafting. Osteopenia and diffuse moderate to severe degenerative changes are noted. XR/XR chest 1V portable [id number] IMPRESSION: There is interstitial prominence compatible with fibrosis, bronchitis, viral pneumonitis or mild interstitial edema. No lobar consolidation.
[2022-01-27 11:34] VITALS: BP 135/71; PULSE 61; RESP 14; O2SAT 95
[2022-01-27 11:55] LABS: Basophils % 0.6 %; Eosinophils # 0.1 10^3/uL (0.0-0.8); Eosinophils % 0.9 %; Hematocrit 35.2 % (42.0-52.0); Lymphocytes # 0.6 10^3/uL (0.8-4.8); Lymphocytes % 11.3 %; Mean Corpuscular HGB Conc 31.3 g/dL (30.0-36.0); Mean Corpuscular Hemoglobin 32.3 pg (28.0-34.0); Mean Corpuscular Volume 103.2 fl (80-94); Mean Platelet Volume 9.7 fL (7.4-10.4); Monocytes # 0.7 10^3/uL (0.2-0.9); Monocytes % 13.1 %; Neutrophils # 3.93 10^3/uL (1.8-7.7); Neutrophils % 73.7 %; Nucleated Red Blood Cells % 0 %; Platelet Count 105 10^3/cmm (130-400); Red Blood Count 3.41 10^6/uL (4.1-5.3); Red Cell Distribution Width 14.3 % (12.1-15.1); White Blood Count 5.3 10^3/uL (4.0-10.0)
[2022-01-27 12:04] VITALS: BP 120/57; PULSE 72; RESP 15; O2SAT 98
[2022-01-27 12:06] LABS: Alanine Aminotransferase 30 U/L (0-41); Albumin Level 4.2 g/dL (3.5-5.2); Alkaline Phosphatase 97 IU/L (40-130); Anion Gap 16.2 (5-19); Calcium 8.9 mg/dL (8.5-10.5); Carbon Dioxide 26 mmol/L (22-29); Chloride 101 mmol/L (98-107); Globulin 3.6 g/dL (1.3-4.6); Glucose 94 mg/dL (65-115); Potassium 4.2 mmol/L (3.5-5.1); Sodium 139 mmol/L (136-145); Total Bilirubin 1.1 mg/dL (0.15-1.2); Total Protein 7.8 g/dL (6.6-8.7)
[2022-01-27 12:34] VITALS: BP 135/62; PULSE 59; RESP 16; O2SAT 100
[2022-01-27 12:40] LABS: Aspartate Amino Transferase 51 U/L (0-40); Blood Urea Nitrogen 36 mg/dL (8-23); Osmolality Calculated 296 mOsm/kg (285-295)
[2022-01-27 13:08] VITALS: BP 135/62; PULSE 60; RESP 15; O2SAT 100
[2022-01-27 14:44] LABS: Adenovirus Not Detected (NOT DETECT); Chlamydia Pneumoniae Not Detected (NOT DETECT); Coronavirus 229E,HKU1,NL63,OC4 Not Detected (NOT DETECT); Human Metapneumovirus Not Detected (NOT DETECT); Human Rhinovirus/Enterovirus Not Detected (NOT DETECT); Influenza A Not Detected (NOT DETECT); Influenza A H1 Not Detected (NOT DETECT); Influenza A H1-2009 Not Detected (NOT DETECT); Influenza A H3 Not Detected (NOT DETECT); Influenza B Not Detected (NOT DETECT); Mycoplasma Pneumoniae Not Detected (NOT DETECT); Parainfluenza Virus Type 1 Not Detected (NOT DETECT); Parainfluenza Virus Type 2 Not Detected (NOT DETECT); Parainfluenza Virus Type 3 Not Detected (NOT DETECT); Parainfluenza Virus Type 4 Not Detected (NOT DETECT); Respiratory Syncytial Virus A Not Detected (NOT DETECT); Respiratory Syncytial Virus B Not Detected (NOT DETECT); SARS-COV-2 Detected (NOT DETECT)
--- NOTE | 2022-01-29 07:25 | ED_ITS ---
HPI - SOB/Dyspnea General: Chief Complaint: Shortness of Breath/Dyspnea Stated Complaint: Coughing, congestion Time Seen by Provider: 01/27/22 11:00 Source: patient Mode of arrival: ambulatory Limitations: no limitations History of Present Illness: HPI Narrative: 86-year-old male presents to the emergency room with complaints of shortness of breath productive cough for the last week. Decreased appetite generally feeling weak. Patient does not require any oxygen, does not normally use oxygen denies any hemoptysis no chest pain. MD elicited complaint: shortness of breath and cough Pertinent past history: COPD Onset (ago): day(s) Context: recent illness Timing: constant Severity: mild Exacerbating factors: exertion and coughing Relieving factors: rest Known history of: COPD Associated symptoms: Reports chest congestion and cough; Deny abdominal pain, chest pain, diaphoresis, dizziness, extremity pain, fever(s), hemoptysis, lightheadedness, myalgias, nausea, orthopnea, palpitations, paresthesias, polydipsia, polyuria, rash, sense of impending doom, syncope or vomiting Treatment prior to arrival: none Review of Systems Const: Denies: fever(s), chills, fatigue, malaise or diaphoresis ENMT: Denies: throat pain, ear or mastoid pain, nasal discharge or nasal congestion Card: Denies: chest pain, palpitations, lightheadedness, syncope or orthopnea Resp: Reports: dyspnea, productive cough, wheezing and chest congestion; Denies: hemoptysis GI: Denies: abdominal pain, nausea or vomiting : Denies: flank pain, dysuria, urinary frequency or urinary urgency Musc: Denies: extremity pain Skin/Breast: Denies: rash or pruritus Neuro: Denies: dizziness Endo: Denies: polyuria or polydipsia PFS ED PFSH: Medical History (Updated 01/27/22 @ 12:28 by Carlos Silverman DO) BPH loc w urin obs/LUTS Essential (primary) hypertension Gross hematuria H/O cervical fracture surgical repair H/O deep venous thrombosis History of COPD Hypercholesteremia Osteoarthritis Recurrent ventral hernia Surgical History History of back surgery x9 History of cataract extraction History of colonoscopy History of coronary artery bypass graft History of coronary artery stent placement History of hemorrhoidectomy History of hernia repair History of mandibular surgery History of surgery on arm History of testicular surgery S/P excision of lipoma Status post aortic coarctation stent placement Status post surgical removal and fulguration of bladder neoplasm Family History Sister Cancer Brother Cancer Mother , AT AGE 70 Myocardial infarct Father , AT AGE 70 Alcoholism Social History Smoking and tobacco status: former smoker Alcohol intake: current Alcohol intake frequency: holidays/special occasions only Household members: spouse Housing: House Marital status: Current occupational status: retired History of recent travel: No Physical Exam Const: COMMON NORMALS: no acute distress GENERAL APPEARANCE: cooperative and comfortable ORIENTATION/CONSCIOUSNESS: Yes awake, Yes oriented to person, Yes oriented to place and Yes oriented to time HENMT: COMMON NORMALS: normocephalic and atraumatic HEAD & SCALP: normocephalic and atraumatic Resp: AUSCULTATION: wheezes Cardio: COMMON NORMALS: regular rate, regular rhythm and No murmurs present (Cardio) RATE: regular rate RHYTHM: regular rhythm GI: COMMON NORMALS: Soft to palpation and No hepatosplenomegaly present AUSCULTATION: Yes normoactive bowel sounds PALPATION: Yes Soft to palpation, No Tenderness to palpation present (GI), No Guarding due to palpation present (GI) and Yes No hepatosplenomegaly present Extremity: COMMON NORMALS: normal to inspection, capillary refill normal, no clubbing, cyanosis or edema, no calf tenderness and no pedal edema Neuro: SENSORIUM/ORIENTATION: Yes oriented to person, Yes oriented to place and Yes oriented to time Skin: COMMON NORMALS: no rashes or lesions noted GENERAL SKIN EXAM: no rashes or lesions noted Course Vital Signs: Vital signs: Vital Signs Temperature 97.9 F 01/27/22 11:01 Pulse Rate 60 01/27/22 13:08 Respiratory Rate 15 01/27/22 13:08 Blood Pressure 135/62 01/27/22 13:08 Pulse Oximetry 100 01/27/22 13:08 MDM - SOB/Dyspnea Medical Decision Making Perihilar thickening. Slight expiratory wheeze started on steroids antibiotics and nebulizers return if not improving or follow-up with primary care Medical Records I reviewed the patient's medical records. Lab Data I reviewed the patient's lab results. : 01/27/22 11:40 01/27/22 11:40 Labs/Radiology: Radiology Impressions Chest X-Ray 01/27/22 11:27 IMPRESSION: There is interstitial prominence compatible with fibrosis, bronchitis, viral pneumonitis or mild interstitial edema. No lobar consolidation. Laboratory Results WBC 5.3 10^3/uL (4.0-10.0) 01/27/22 11:40 RBC 3.41 10^6/uL (4.1-5.3) L 01/27/22 11:40 Hgb 11.0 g/dL (11.7-16.6) L 01/27/22 11:40 Hct 35.2 % (42.0-52.0) L 01/27/22 11:40 MCV 103.2 fl (80-94) H 01/27/22 11:40 MCH 32.3 pg (28.0-34.0) 01/27/22 11:40 MCHC 31.3 g/dL (30.0-36.0) 01/27/22 11:40 RDW 14.3 % (12.1-15.1) 01/27/22 11:40 Plt Count 105 10^3/cmm (130-400) L 01/27/22 11:40 MPV 9.7 fL (7.4-10.4) 01/27/22 11:40 Neut % (Auto) 73.7 % 01/27/22 11:40 Lymph % (Auto) 11.3 % 01/27/22 11:40 Mcmullen % (Auto) 13.1 % 01/27/22 11:40 Eos % (Auto) 0.9 % 01/27/22 11:40 Baso % (Auto) 0.6 % 01/27/22 11:40 Neut # (Auto) 3.93 10^3/uL (1.8-7.7) 01/27/22 11:40 Lymph # (Auto) 0.6 10^3/uL (0.8-4.8) L 01/27/22 11:40 Mcmullen # (Auto) 0.7 10^3/uL (0.2-0.9) 01/27/22 11:40 Eos # (Auto) 0.1 10^3/uL (0.0-0.8) 01/27/22 11:40 Baso # (Auto) 0.0 10^3/uL (0.0-0.1) 01/27/22 11:40 Nucleated RBC % (auto) 0 % 01/27/22 11:40 Nucleated RBCs # 0.0 /100WBC 01/27/22 11:40 Sodium 139 mmol/L (136-145) 01/27/22 11:40 Potassium 4.2 mmol/L (3.5-5.1) 01/27/22 11:40 Chloride 101 mmol/L (98-107) 01/27/22 11:40 Carbon Dioxide 26 mmol/L (22-29) 01/27/22 11:40 Anion Gap 16.2 (5-19) 01/27/22 11:40 BUN 36 mg/dL (8-23) H 01/27/22 11:40 Creatinine 1.9 mg/dL (0.7-1.2) H 01/27/22 11:40 GFR Calculation Not Reportable 01/27/22 11:40 Glucose 94 mg/dL (65-115) 01/27/22 11:40 Calculated Osmolality 296 mOsm/kg (285-295) H 01/27/22 11:40 Calcium 8.9 mg/dL (8.5-10.5) 01/27/22 11:40 Total Bilirubin 1.1 mg/dL (0.15-1.2) 01/27/22 11:40 AST 51 U/L (0-40) H 01/27/22 11:40 ALT 30 U/L (0-41) 01/27/22 11:40 Alkaline Phosphatase 97 IU/L (40-130) 01/27/22 11:40 Total Protein 7.8 g/dL (6.6-8.7) 01/27/22 11:40 Albumin 4.2 g/dL (3.5-5.2) 01/27/22 11:40 Globulin 3.6 g/dL (1.3-4.6) 01/27/22 11:40 Coronavirus 229E (PCR) Not detected (NOT DETECT) 01/27/22 11:45 SARS-CoV-2 (PCR) Detected (NOT DETECT) A 01/27/22 11:45 Discharge Plan Discharge Patient Disposition: Home Clinical Impression: Suspected COVID-19 virus infection Condition: Stable Prescriptions: No Action nitroglycerin [Nitrostat] 0.4 mg tablet, sublingual 0.4 mg SUBLINGUAL Q5M PRN (Reason: Chest Pain) 0RF isosorbide mononitrate 30 mg tablet extended release 24 hr 30 mg PO DAILY 0RF docusate sodium [Colace] 100 mg capsule 100 mg PO .PRN 0RF potassium chloride 20 mEq tablet extended release 20 meq PO DAILY 0RF apixaban 5 mg tablet 5 mg PO BID 0RF furosemide 40 mg tablet 40 mg PO DAILY Qty: 90 3RF tizanidine 2 mg tablet 2 mg PO BID PRN (Reason: muscle spasticity) Qty: 60 0RF gabapentin 300 mg capsule 300 mg PO DAILY Qty: 30 0RF carvedilol 3.125 mg tablet 3.125 mg PO BID Qty: 180 3RF amiodarone 200 mg tablet 200 mg PO DAILY 0RF metoprolol succinate 25 mg tablet extended release 24 hr 25 mg PO DAILY 0RF tamsulosin 0.4 mg capsule 0.4 mg PO BEDTIME 0RF escitalopram oxalate 10 mg tablet 10 mg PO DAILY 0RF Discharge Orders: Discharge ED (Routine); Ordered 01/27/22 Ordered By: Carlos Silverman Referrals: Cristofer Barrera MD [Primary Care Provider] - Discharge Diet: Usual diet Discharge Activity: Increase activity as tolerated Patient Instructions: COVID-19 (Coronavirus Disease 2019) (ED), Opioid Safety Activity Restrictions/Additional Instructions: Clinically suspect that you do have COVID. We will contact you with the results when they become available. Recommend you maintain self quarantine until results are available beyond that as per recommendation of health department. Return if you have worsening shortness of breath. Coding Level of Care Code ED Agronomy Supervisor for Marco Taylor
== END 2022-01-27 13:10 | disposition home or self-care (01) ==
PROVIDERS: Emergency Provider Family Medicine; PCP Internal Medicine
DX: R06.2 Wheezing (principal); R06.02 Shortness of breath; R05.9 Cough, unspecified
CPT/HCPCS: 71045; 80053; 85025; 87635; 99284

== ENCOUNTER 2023-05-11 09:08 | Inpatient (IN) | payer MEDICARE, OTHER, SELFPAY ==
[2023-05-11] VITALS (17 sets, daily range): BP systolic 147–204; BP diastolic 72–105; PULSE 65–100; RESP 16–25; TEMP 36.5–36.7; O2SAT 88–100; BMI 23.7
--- NOTE | 2023-05-11 09:39 | XRR_ITS ---
PROCEDURE INFORMATION: Exam: XR Chest Exam date and time: 05/11/2023 9:53 AM Age: 87 years old Clinical indication: Shortness of breath; Prior surgery; Surgery date: 6+ months; Surgery type: Pacer; Additional info: SOB and near syncope TECHNIQUE: Imaging protocol: Radiologic exam of the chest. Views: 1 view. COMPARISON: CR XR chest 1V portable [id number] 01/27/2022 11:54 AM FINDINGS: Tubes, catheters and devices: A permanent pacemaker overlies and obscures the lateral left chest and axilla with atrial and ventricular wire leads. Lungs: There are mildly increased interstitial markings noted. Pleural spaces: There is opacity at the right costophrenic sulcus may represent small effusion. No pneumothorax. Heart/Mediastinum: Unremarkable. No cardiomegaly. Bones/joints: The patient is post sternotomy with surgical clips overlying mediastinum. The bones are osteopenic. XR/XR chest 1V portable [id number] IMPRESSION: Mild interstitial disease. Query small right pleural effusion.
--- NOTE | 2023-05-11 09:40 | ECG_ITS ---
[facility] Test Date: 2023-05-11 Pat Name: Popeye Wilks Department: Room: Gender: Male Director Nursing Service: : 1935 Requested By: Mehul Galicia Order Number: [id number] Phan MD: Lo Meneses M.D. Measurements Intervals [place] Rate: 66 P: 194 TX: 237 QRS: 24 QRSD: 166 T: 258 QT: 437 QTc: 460 Interpretive Statements ELECTRONIC ATRIAL PACEMAKER LEFT BUNDLE BRANCH BLOCK [120+ ms QRS DURATION, 80+ ms Q/S IN V1/V2, 85+ ms R IN I/aVL/V5/V6] Compared to ECG 05/02/2020 14:54:44 No significant changes Electronically Signed On 05-13-2023 12:43:46 CDT by Lo Meneses M.D. [email or web address].[email or web address]/store/NU/[id number]
--- NOTE | 2023-05-11 09:41 | W.ED.SOB ---
HPI - SOB/Dyspnea General: Chief Complaint: Shortness of Breath/Dyspnea Stated Complaint: SOB Time Seen by Provider: 05/11/23 09:21 History of Present Illness: HPI Narrative: Popeye Wilks is an 87-year-old man that presents to the emergency department with complaints of shortness of breath. He has chronicly short of breath but in the last 48 hours it is worsened. He has a nonproductive cough but he reports this is unchanged from baseline. He is on home O2?3 L. At baseline he is unable to ambulate very far due to his shortness of breath He has a history of heart disease, DVT, hypertension, and COPD. He also reports GI bleeding on and off for the last 2 years. This morning he again notes bright red stools. He is anticoagulated with apixaban. He is also on amiodarone, carvedilol, isosorbide. For his COPD he is treated with albuterol and Advair. He 8% but on 3 L 93. He denies fever chills. Denies chest pain. Reports presyncope. He states that he was lying in bed when he felt Like he could pass out . Associated symptoms: Reports orthopnea; Deny abdominal pain, chest congestion, chest pain, dizziness, extremity pain, fever(s), hemoptysis, nausea, palpitations, polydipsia, polyuria or vomiting Review of Systems General: Reports: 10 or more systems reviewed and unremarkable except in HPI and below Const: Denies: fever(s), chills, change in appetite, change in weight, fatigue or malaise Eyes: Denies: change in vision, eye discomfort, eye discharge or eye redness ENMT: Denies: throat pain, enlarged tonsils, odynophagia, hoarseness, ear or mastoid pain, ear discharge, change in hearing, tinnitus, nasal discharge, nasal congestion, post nasal drip or sinus pain Card: Reports: edema, swelling of feet/ankles, pre-syncope, dyspnea on exertion and orthopnea; Denies: chest pain, palpitations, irregular heart rhythm or leg pain with exertion Resp: Reports: dyspnea and non-productive cough; Denies: productive cough, wheezing, stridor, change in phlegm color, hemoptysis or chest congestion GI: Denies: abdominal pain, nausea, vomiting, dysphagia, diarrhea, constipation, bloating, GI cramping or hematochezia : Denies: flank pain, dysuria, urinary frequency, urinary urgency, urinary hesitancy, oliguria or hematuria Musc: Denies: neck pain, back pain, extremity pain, joint pain, joint swelling, joint redness, joint warmth or muscle weakness Skin/Breast: Denies: rash, pruritus, erythema, photosensitivity or new lesions Neuro: Denies: headache(s), numbness in extremities, weakness in extremities, sensory changes, lack of coordination, difficulty walking, frequent falls, dizziness, confusion, Slurred speech present, difficulty communicating thoughts, seizure-like activity or involuntary movements Endo: Denies: polyuria, polydipsia or tired all the time Nghia/Lymph: Denies: easy bruising or easy bleeding PFSH ED PFSH: Medical History (Updated 05/11/23 @ 15:50 by PAUL Wanye) BPH loc w urin obs/LUTS Essential (primary) hypertension Gross hematuria H/O cervical fracture surgical repair H/O deep venous thrombosis History of COPD Hypercholesteremia Osteoarthritis Recurrent ventral hernia Surgical History History of back surgery x9 History of cataract extraction History of colonoscopy History of coronary artery bypass graft History of coronary artery stent placement History of hemorrhoidectomy History of hernia repair History of mandibular surgery History of surgery on arm History of testicular surgery S/P excision of lipoma Status post aortic coarctation stent placement Status post surgical removal and fulguration of bladder neoplasm Family History Sister Cancer Brother Cancer Mother , AT AGE 70 Myocardial infarct Father , AT AGE 70 Alcoholism Social History Smoking and tobacco/nicotine status: former use of tobacco/nicotine Alcohol intake: current Alcohol intake frequency: holidays/special occasions only Substance/Drug Use: never Household members: spouse Housing: House Marital status: Current occupational status: retired Physical Exam Const: COMMON NORMALS: no acute distress, patient oriented x3 and alert GENERAL APPEARANCE: cooperative ORIENTATION/CONSCIOUSNESS: Yes awake, Yes oriented to person, Yes oriented to place and Yes oriented to time HENMT: COMMON NORMALS: normocephalic and atraumatic HEAD & SCALP: normocephalic and atraumatic FACE & SINUS: normal facial exam MOUTH: Normal oral and palatal mucosa present THROAT: posterior oropharynx normal Eye: COMMON NORMALS: Equal, round and reactive pupils present, EOMs intact bilaterally, conjunctivae normal and no scleral icterus GENERAL EYE: appearance normal, both eyes and all related structures ALIGNMENT: Yes alignment normal PERIORBITAL: periorbital findings normal CONJUNCTIVA: Yes conjunctivae normal PUPIL: Yes Equal, round and reactive pupils present Neck/C-Spine: COMMON NORMALS: full ROM GENERAL: Yes normal visual inspection Lymph: LYMPHATIC: no lymphadenopathy noted Chest: COMMONS NORMALS: normal inspection of the chest Breast/axilla inspection: Yes no chest deformity, asymmetry, normal contours, no nodules, masses, tenderness Resp: COMMON NORMALS: normal respiratory effort, No retractions and No use of accessory muscles EFFORT & INSPECTION: Yes able to speak in complete sentences, Yes symmetric chest movement, Yes tachypneic, No respiratory distress, No decreased respiratory effort, No labored and Yes other (Coarse bs) AUSCULTATION: crackles Laterality: bilateral Cardio: COMMON NORMALS: regular rate, regular rhythm and Peripheral pulses 2+ throughout RATE: regular rate RHYTHM: regular rhythm PERIPHERAL PULSES: Peripheral pulses 2+ throughout GI: COMMON NORMALS: Normal to inspection, nondistended, normoactive bowel sounds present, Soft to palpation, non-tender and No hepatosplenomegaly present INSPECTION: Yes normal to inspection and No Laceration(s) present (GI) AUSCULTATION: Yes normoactive bowel sounds PALPATION: Yes Soft to palpation and Yes No hepatosplenomegaly present RECTAL EXAM: Yes visual inspection normal, Yes normal sphincter tone, Yes heme positive stool gross blood, No hemorrhoids, No Rectal prolapse and No Laceration(s) present (GI) Extremity: COMMON NORMALS: normal to inspection GENERAL: Yes normal exam except as noted Neuro: COMMON NORMALS: patient oriented x3 SENSORIUM/ORIENTATION: Yes alert, Yes oriented to person, Yes oriented to place and Yes oriented to time CRANIAL NERVES: Yes CN normal except as noted Psych: COMMON NORMALS: mental status grossly normal, Normal thought process present, cooperative, activity/motor behavior normal, denies homicidal ideation and denies suicidal ideation THOUGHT PROCESS: Normal thought process present Skin: COMMON NORMALS: no rashes or lesions noted, no wounds and turgor normal GENERAL SKIN EXAM: no rashes or lesions noted and turgor normal Course Vital Signs: Vital signs: Vital Signs Temperature 98.1 F 05/11/23 09:09 Pulse Rate 85 05/11/23 14:58 Respiratory Rate 19 H 05/11/23 12:42 Blood Pressure 204/105 05/11/23 14:58 Pulse Oximetry 93 05/11/23 12:42 Oxygen Delivery Me thod Nasal Cannula 05/11/23 09:54 Oxygen Flow Rate 3 05/11/23 09:54 MDM - SOB/Dyspnea Medical Decision Making Patient was evaluated in the emergency department for shortness of breath. Incidentally the patient notes that he has some bright red stools which is unchanged from baseline over the last 2 years. Patient denies any abdominal pain, nausea vomiting or diarrhea. He does report bright red stools this morning. Patient primary concern is his shortness of breath. His differential diagnosis includes pneumonia, COPD exacerbation, anemia, AMI, heart failure, Patient has a history of anemia and underwent laboratory evaluation. His hemoglobin is 9.4 which is lower than what it usually is. He is also thrombocytopenic; while this is unchanged from his baseline he is at 80 on his platelet count which is usually around 100. He has no leukocytosis. His chest x-ray reveals mild interstitial disease. He also underwent a troponin and BNP which were both elevated. His initial troponin was 27 and his delta was 0.55. His BNP is 6800. Creatinine is elevated, 2.0, above his normal. In all, patient's anemia is worsening with worsening thrombocytopenia and his BNP is mildly elevated. EKGs completed today revealed a paced rhythm without ST elevation or ectopy. They are unchanged from previous EKGs. I did perform a Hemoccult with his rectal exam which is grossly positive. Hospitalist consulted 1400 and to see patient [id number] Lab Data 05/11/23 09:19 05/11/23 09:19 Labs/Radiology: Radiology Impressions Chest X-Ray 05/11/23 09:39 IMPRESSION: Mild interstitial disease. Query small right pleural effusion. Laboratory Results WBC 5.19 10^3/uL (3.29-11.43) 05/11/23 09:19 RBC 2.94 10^6/uL (3.85-5.65) L 05/11/23 09:19 Hgb 9.40 g/dL (11.27-16.99) L 05/11/23 09:19 Hct 31.3 % (37-53) L 05/11/23 09:19 MCV 106.5 fl (82-101) H 05/11/23 09:19 MCH 32.0 pg (27-33) 05/11/23 09:19 MCHC 30.0 g/dL (30-55) 05/11/23 09:19 RDW 13.9 % (12.1-15.1) 05/11/23 09:19 Plt Count 80 10^3/cmm (157-399) L 05/11/23 09:19 MPV 9.2 fL (7.4-10.4) 05/11/23 09:19 Neut % (Auto) 71.9 % 05/11/23 09:19 Lymph % (Auto) 14.8 % 05/11/23 09:19 Dawes % (Auto) 9.4 % 05/11/23 09:19 Eos % (Auto) 3.1 % 05/11/23 09:19 Baso % (Auto) 0.4 % 05/11/23 09:19 Neut # (Auto) 3.73 10^3/uL (1.8-7.7) 05/11/23 09:19 Lymph # (Auto) 0.8 10^3/uL (0.8-4.8) 05/11/23 09:19 Dawes # (Auto) 0.5 10^3/uL (0.2-0.9) 05/11/23 09:19 Eos # (Auto) 0.2 10^3/uL (0.0-0.8) 05/11/23 09:19 Baso # (Auto) 0.0 10^3/uL (0.0-0.1) 05/11/23 09:19 Nucleated RBC % (auto) 0 % 05/11/23 09:19 Nucleated RBCs # 0.0 /100WBC 05/11/23 09:19 PT 17.10 SECONDS (12.1-14.9) H 05/11/23 09:19 INR 1.34 (0.8-1.2) H 05/11/23 09:19 Sodium 141 mmol/L (136-145) 05/11/23 09:19 Potassium 4.8 mmol/L (3.5-5.1) 05/11/23 09:19 Chloride 108 mmol/L (98-107) H 05/11/23 09:19 Carbon Dioxide 24 mmol/L (22-29) 05/11/23 09:19 Anion Gap 13.8 (5-19) 05/11/23 09:19 BUN 28 mg/dL (8-23) H 05/11/23 09:19 Creatinine 2.0 mg/dL (0.7-1.2) H 05/11/23 09:19 GFR Calculation Not Reportable 05/11/23 09:19 Glucose 90 mg/dL (65-115) 05/11/23 09:19 Calculated Osmolality 297 mOsm/kg (285-295) H 05/11/23 09:19 Calcium 8.2 mg/dL (8.5-10.5) L 05/11/23 09:19 Total Bilirubin 0.5 mg/dL (0.15-1.2) 05/11/23 09:19 AST 49 U/L (0-40) H 05/11/23 09:19 ALT 25 U/L (0-41) 05/11/23 09:19 Alkaline Phosphatase 83 U/L (40-130) 05/11/23 09:19 Troponin T Baseline 27 ng/L (0-15) H 05/11/23 09:19 Troponin T 120 Minute 27.55 ng/L (0-15) H 05/11/23 11:02 Delta Troponin T 0.55 ABS# (0-10) 05/11/23 11:02 NT-Pro-B Natriuret Pep 6928 pg/mL (0-450) H 05/11/23 09:19 Total Protein 6.0 g/dL (6.6-8.7) L 05/11/23 09:19 Albumin 3.7 g/dL (3.5-5.2) 05/11/23 09:19 Globulin 2.3 g/dL (1.3-4.6) 05/11/23 09:19 SARS-CoV-2 Ag (Rapid) negative (Negative) 05/11/23 09:57 All radiology interpretation(s) finalized by discharge Discharge Plan Discharge Patient Disposition: Admitted As Inpatient Clinical Impression: Breath shortness, Chronic shortness of breath, Thrombocytopenia, Anemia, GI (gastrointestinal bleed), COPD (chronic obstructive pulmonary disease) Condition: Stable Prescriptions: No Action carvedilol 3.125 mg tablet 3.125 mg PO BID Qty: 180 3RF nitroglycerin [Nitrostat] 0.4 mg tablet, sublingual 0.4 mg SUBLINGUAL Q5M PRN (Reason: Chest Pain) Qty: 30 3RF Aspir-81 81 mg Tablet,Delayed Release (Dr/Ec) 81 mg PO QAM Advair Diskus 500-50 mcg/dose blister with device 1 inh INHALATION BID albuterol sulfate 90 mcg/actuation HFA aerosol inhaler 2 inh INHALATION Q4H PRN (Reason: Shortness Of Breath) amiodarone 200 mg tablet 100 mg PO QAM isosorbide mononitrate 30 mg tablet extended release 24 hr 30 mg PO QAM apixaban 5 mg tablet 2.5 mg PO BID potassium chloride 20 mEq tablet extended release 20 meq PO QAM Referrals: Cristofer Barrera MD [Primary Care Provider] - Coding Level of Care Code ED [employer] for Marco Taylor
[2023-05-11 09:55] LABS: Basophils % 0.4 %; Eosinophils # 0.2 10^3/uL (0.0-0.8); Eosinophils % 3.1 %; Hematocrit 31.3 % (37-53); Lymphocytes # 0.8 10^3/uL (0.8-4.8); Lymphocytes % 14.8 %; Mean Corpuscular Volume 106.5 fl (82-101); Mean Platelet Volume 9.2 fL (7.4-10.4); Monocytes # 0.5 10^3/uL (0.2-0.9); Monocytes % 9.4 %; Neutrophils # 3.73 10^3/uL (1.8-7.7); Neutrophils % 71.9 %; Nucleated Red Blood Cells % 0 %; Platelet Count 80 10^3/cmm (157-399); Red Blood Count 2.94 10^6/uL (3.85-5.65); Red Cell Distribution Width 13.9 % (12.1-15.1); White Blood Count 5.19 10^3/uL (3.29-11.43)
[2023-05-11] MEDS: ipratropium-albuterol 3 mL Neb INHALATION ×3 (09:55→21:40)
[2023-05-11 09:59] LABS: INR 1.34 (0.8-1.2)
[2023-05-11 10:08] LABS: Troponin(5th) Baseline 27 ng/L (0-15)
[2023-05-11 10:12] LABS: Alanine Aminotransferase 25 U/L (0-41); Albumin Level 3.7 g/dL (3.5-5.2); Alkaline Phosphatase 83 U/L (40-130); Anion Gap 13.8 (5-19); Aspartate Amino Transferase 49 U/L (0-40); Blood Urea Nitrogen 28 mg/dL (8-23); Calcium 8.2 mg/dL (8.5-10.5); Carbon Dioxide 24 mmol/L (22-29); Chloride 108 mmol/L (98-107); Globulin 2.3 g/dL (1.3-4.6); Glucose 90 mg/dL (65-115); NT Pro B Type Natriuretic Pept 6928 pg/mL (0-450); Osmolality Calculated 297 mOsm/kg (285-295); Potassium 4.8 mmol/L (3.5-5.1); Sodium 141 mmol/L (136-145); Total Bilirubin 0.5 mg/dL (0.15-1.2)
[2023-05-11 10:50] LABS: SARS Covid-2 Antigen negative (Negative)
[2023-05-11 11:27] LABS: Troponin 5 2HR 27.55 ng/L (0-15)
[2023-05-11 11:30] LABS: Troponin 5 2HR Delta 0.55 ABS# (0-10)
[2023-05-11] MEDS: methylPREDNISolone sod succ 125 MG in water for injection-sterile 2 ML 24 MG IVP (11:40)
--- NOTE | 2023-05-11 11:46 | ECG_ITS ---
[facility] Test Date: 2023-05-11 Pat Name: Popeye Wilks Department: Room: Gender: Male Uat Tester: : 1935 Requested By: Mehul Galicia Order Number: [id number] Phan MD: Lo Meneses M.D. Measurements Intervals [place] Rate: 65 P: 196 CT: 250 QRS: -4 QRSD: 169 T: 234 QT: 450 QTc: 468 Interpretive Statements ELECTRONIC ATRIAL PACEMAKER LEFT BUNDLE BRANCH BLOCK [120+ ms QRS DURATION, 80+ ms Q/S IN V1/V2, 85+ ms R IN I/aVL/V5/V6] Compared to ECG 05/11/2023 09:11:01 No significant changes Electronically Signed On 05-13-2023 12:45:17 CDT by Lo Meneses M.D. [email or web address].[employer]/store/OM/[id number]
--- NOTE | 2023-05-11 15:40 | ECG_ITS ---
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 Measurements Intervals [place] Rate: 83 P: 159 ME: 240 QRS: 5 QRSD: 178 T: 250 QT: 435 QTc: 513 Interpretive Statements ELECTRONIC ATRIAL PACEMAKER LEFT BUNDLE BRANCH BLOCK [120+ ms QRS DURATION, 80+ ms Q/S IN V1/V2, 85+ ms R IN I/aVL/V5/V6] Compared to ECG 05/11/2023 11:46:19 No significant changes Electronically Signed On 05-13-2023 12:44:42 CDT by Lo Meneses M.D. [email or web address] Group[facility].[email or web address]/store/OM/[id number]
--- NOTE | 2023-05-11 15:47 | PM.HP ---
Providers/Chief Complaint Primary Care Provider: Cristofer Barrera MD Chief Complaint: SOB History of Present Illness Popeye Wilks is a 87 year old male With history of prostate cancer was following up with Dr. Pittman, hypertensive, DVT, on Eliquis, bright blood per rectum, uses oxygen 3 L at baseline, lives alone presented with chief complaint of shortness of breath. Patient has been experiencing shortness of breath for last few months which has gotten worse in last 48 hours, he has not noticed any fever productive cough, he is endorsing bright bleed per rectum, he is taking Eliquis, he never had EGD or colonoscopy, his oxygen requirement has not worsened however he is extremely short of breath on exertion, on ambulation and heart rate does go up however blood pressure did not drop he is hypertensive, requested COVID PCR, patient uses a cane to ambulate at home, but stating that he would like to stay full code and outlive his who is demented at the skilled nursing at [place]. He is denying chest pain, fever, Review of Systems Const: Reports: change in weight; Denies: fever(s) Eyes: Denies: change in vision ENMT: Denies: throat pain Card: Reports: swelling of feet/ankles; Denies: chest pain Resp: Reports: dyspnea; Denies: productive cough GI: Reports: nausea : Denies: flank pain Musc: Reports: neck pain and back pain Medications/Allergies Home Medications Medication Instructions Recorded Confirmed Last Taken Type carvedilol 3.125 mg tablet 3.125 mg PO BID #180 tabs 05/21/22 05/11/23 05/11/23 Rx nitroglycerin 0.4 mg sublingual 0.4 mg sublingual Q5M PRN Chest 05/21/22 05/11/23 Unknown Rx tablet (Nitrostat) Pain #30 tabs albuterol sulfate 90 mcg/actuation 2 inh inhalation Q4H PRN Shortness 05/11/23 05/11/23 Unknown History aerosol inhaler Of Breath amiodarone 200 mg tablet 100 mg PO QAM 05/11/23 05/11/23 05/11/23 History apixaban 5 mg tablet 2.5 mg PO BID 05/11/23 05/11/23 05/11/23 History aspirin 81 mg tablet,delayed 81 mg PO QAM 10/05/11/23 05/11/23 History release fluticasone 500 mcg-salmeterol 50 1 inh inhalation BID 05/11/23 05/11/23 Unknown History mcg/dose blistr powdr for inhalation (Advair Diskus) isosorbide mononitrate 30 mg 30 mg PO QAM 05/11/23 05/11/23 05/11/23 History tablet,extended release 24 hr potassium chloride 20 mEq 20 meq PO QAM 05/11/23 05/11/23 05/11/23 History tablet,extended release Allergies Allergy/AdvReac Type Severity Reaction Status Date / Time erythromycin base Allergy Unknown Verified 05/11/23 09:17 lorazepam [From Ativan] Allergy Unknown Verified 05/11/23 09:17 PFSH Acute PFSH: Medical History (Updated 05/11/23 @ 16:07 by Helen Lares MD) BPH loc w urin obs/LUTS Essential (primary) hypertension Gross hematuria H/O cervical fracture surgical repair H/O deep venous thrombosis History of COPD Hypercholesteremia Osteoarthritis Recurrent ventral hernia Surgical History History of back surgery x9 History of cataract extraction History of colonoscopy History of coronary artery bypass graft History of coronary artery stent placement History of hemorrhoidectomy History of hernia repair History of mandibular surgery History of surgery on arm History of testicular surgery S/P excision of lipoma Status post aortic coarctation stent placement Status post surgical removal and fulguration of bladder neoplasm Family History Sister Cancer Brother Cancer Mother , AT AGE 70 Myocardial infarct Father , AT AGE 70 Alcoholism Social History Smoking and tobacco/nicotine status: former use of tobacco/nicotine Alcohol intake: current Alcohol intake frequency: holidays/special occasions only Substance/Drug Use: never Household members: spouse Housing: House Marital status: Current occupational status: retired Vitals/I&O/Wt Last Vital Signs Temp 98.1 F 05/11/23 09:09 Pulse 85 05/11/23 14:58 Resp 19 H 05/11/23 12:42 BP 204/105 05/11/23 14:58 Pulse Ox 93 05/11/23 12:42 O2 Del Method Nasal Cannula 05/11/23 09:54 O2 Flow Rate 3 05/11/23 09:54 05/11/23 05/11/23 05/11/23 06:59 14:59 22:59 Intake Total 2 / 2 Balance 2 / 2 Weight last 48 hrs Weight 77.111 kg Physical Exam Narrative: Frail male Currently on 3 L Hypertensive GCS 15 Nonfocal neuro exam Lower extremity edema 2+ Abdomen soft S1, S2 variable Paced rhythm Conversational dyspnea Pleasant and cooperative Data 05/11/23 09:19 05/11/23 09:19 A&P Assessment and plan (1) Breath shortness: (2) Chronic shortness of breath: (3) Thrombocytopenia: (4) Anemia: (5) GI (gastrointestinal bleed): (6) COPD (chronic obstructive pulmonary disease): (7) Fatigue: (8) BPH loc w urin obs/LUTS: (9) Bladder cancer: Plan Acute on chronic shortness of breath Patient extremely short of breath on minimal exertion At baseline requires 3 L, on ambulation requires more than 3 L We will give him doxycycline X-ray showing interstitial disease Low extremity edema, check echo to rule out CHF Patient clinically looks fluid overloaded I do believe he has new onset congestive heart failure We will add Lasix Acute on chronic GI blood loss anemia Hemoglobin 9, blood pressure stable, We will consult general surgery for endoscopy We will keep him n.p.o. after midnight Start Protonix Discontinue Eliquis Hypertensive Add hydralazine Not a candidate to be on ARTHUR or ARB because of chronic kidney disease Add amlodipine Continue Coreg Patient wants to stay full code and stating that he would like to outlive his who is demented and at the skilled nursing Stating that he has not seen his children for about a year Full code Clear liquid diet N.p.o. after midnight DVT prophylaxis contraindicated Prostate cancer, he does not want to pursue any treatment Attestations Medical Necessity Statement*: More than 2 midnights anticipated Diagnoses Breath shortness R06.02 Chronic shortness of breath R06.02 Thrombocytopenia D69.6 Anemia D64.9 GI (gastrointestinal bleed) K92.2 COPD (chronic obstructive pulmonary disease) J44.9 Fatigue R53.83 BPH loc w urin obs/LUTS N40.1 Bladder cancer C67.9
[2023-05-11 16:04] LABS: Troponin 5 6HR 27.78 ng/L (0-15)
[2023-05-11 16:07] LABS: Troponin 5 6HR Delta 0.78 ng/L (0-12)
[2023-05-11 16:27] LABS: Procalcitonin 0.08 ng/mL (0-0.5)
--- NOTE | 2023-05-11 18:06 | XRR_ITS ---
PROCEDURE INFORMATION: Exam: XR Chest Exam date and time: 05/11/2023 6:15 PM Age: 87 years old Clinical indication: Condition or disease; Lung condition and disease; Other: SOB; Prior surgery; Surgery date: 6+ months; Surgery type: Pacemaker TECHNIQUE: Imaging protocol: Radiologic exam of the chest. Views: 1 view. COMPARISON: CR (CHEST, ) 05/11/2023 9:53 AM FINDINGS: Tubes, catheters and devices: Pacemaker. Lungs: Patchy bilateral airspace infiltrates. Pleural spaces: Small bilateral pleural effusions. Heart/Mediastinum: Cardiomegaly. Bones/joints: Sternotomy wires. XR/XR chest 1V portable [id number] IMPRESSION: 1. Small bilateral pleural effusions. 2. Patchy bilateral airspace infiltrates. 3. Cardiomegaly. 4. Pacemaker. 5. Sternotomy wires.
[2023-05-11 18:39] LABS: ABG PCO2 47.5 mmHg (35-45); ABG PH Result 7.23 (7.35-7.45); Alveolar-Arterial Oxygen Gradi 16.6 mmHg (5-10); Arterial Blood Gas Hematocrit 37.1 % (42-52); Base Excess ABG -7.4 mmol/L (-2.0-2.0); Blood Gas Operator Identificat AMH; Blood Gas Sample Site Brachial, left; Blood Gas Sample Type Arterial; Carboxyhemoglobin 1.6 %THgb (0.4-20.1); HGB O2 Sat 90.4 % (95-100); Ionized Calcium Level - ABG 1.2 mmol/L (1.1-1.4); Methemoglobin 0.8 % (0.4-1.5); Oxygen Device NC; Oxygen Saturation ABG 92.6; PO2 ABG 69.5 mmHg (80.0-100.0); Potassium Level - ABG 5.4 mmol/L (3.5-5.0); Total Hemoglobin 12.1 g/dL (14-18)
[2023-05-11 19:57] LABS: Thyroid Stimulating Hormone 1.45 uIU/mL (0.27-4.20); Vitamin B12 259 pg/mL (232-1245)
[2023-05-11] MEDS: doxycycline 100 mg Tablet PO (20:15)
[2023-05-11] MEDS: carvedilol 3.125 mg Tablet PO (20:15)
[2023-05-11] MEDS: hyDRALAzine 25 mg Tablet PO (20:15)
[2023-05-11] MEDS: FUROsemide 10 mg/mL SDV 4mL 40 MG IVP (20:28)
[2023-05-11] MEDS: pantoprazole 40 mg SDV IVP (20:29)
[2023-05-11 21:21] LABS: Estmated Average Glucose 103; Hemoglobin A1C 5.2 % (4.0-6.0)
[2023-05-11 23:00] LABS: Adenovirus Not Detected (NOT DETECT); Chlamydia Pneumoniae Not Detected (NOT DETECT); Coronavirus 229E,HKU1,NL63,OC4 Not Detected (NOT DETECT); Human Metapneumovirus Not Detected (NOT DETECT); Human Rhinovirus/Enterovirus Detected (NOT DETECT); Influenza A Not Detected (NOT DETECT); Influenza A H1 Not Detected (NOT DETECT); Influenza A H1-2009 Not Detected (NOT DETECT); Influenza A H3 Not Detected (NOT DETECT); Influenza B Not Detected (NOT DETECT); Mycoplasma Pneumoniae Not Detected (NOT DETECT); Parainfluenza Virus Type 1 Not Detected (NOT DETECT); Parainfluenza Virus Type 2 Not Detected (NOT DETECT); Parainfluenza Virus Type 3 Not Detected (NOT DETECT); Parainfluenza Virus Type 4 Not Detected (NOT DETECT); Respiratory Syncytial Virus A Not Detected (NOT DETECT); Respiratory Syncytial Virus B Not Detected (NOT DETECT); SARS-COV-2 Not Detected (NOT DETECT)
[2023-05-11 23:01] LABS: Human Metapneumovirus Not Detected (NOT DETECT); Human Rhinovirus/Enterovirus Detected (NOT DETECT); Results from GEN
[2023-05-12] VITALS (8 sets, daily range): BP systolic 115–164; BP diastolic 51–73; PULSE 68–83; RESP 16–20; TEMP 36.4–36.8; O2SAT 96–100
--- NOTE | 2023-05-12 06:00 | USR_ITS ---
PROCEDURE INFORMATION: Exam: US Duplex Lower Extremity Veins, Bilateral Exam date and time: 05/12/2023 6:32 AM Age: 87 years old Clinical indication: Screening exam; Additional info: Dvt TECHNIQUE: Imaging protocol: Real-time duplex ultrasound of the bilateral extremities with 2-D lozada scale, color Doppler flow and spectral waveform analysis including responses to compression and other maneuvers (when performed) with image documentation. Complete exam focused on the lower extremity veins. COMPARISON: CT abdomen pelvis wo/w [id number] 04/27/2020 10:12 AM FINDINGS: Right deep veins: Unremarkable. The common femoral, femoral, proximal profunda femoral and popliteal veins are patent without thrombus. Normal Doppler waveforms. Normal compressibility and/or augmentation response. Left deep veins: Unremarkable. The common femoral, femoral, proximal profunda femoral and popliteal veins are patent without thrombus. Normal Doppler waveforms. Normal compressibility and/or augmentation response. Superficial veins: Bilateral saphenofemoral junctions are patent without thrombus. Soft tissues: Unremarkable. US/CV venous duplex [facility] [id number] IMPRESSION: No evidence of deep vein thrombosis.
--- NOTE | 2023-05-12 06:00 | USCV_ITS ---
Popeye Wilks Age: 87 Gender: M : 1935 Exam Date: 05/12/2023 06:54 Ordering Phys: Helen Lares MD Technologist: Gideon Gutierrez Exam Location: [facility] [place] Indication: Congestive heart failure BP: 122 / 60 HR: 61 Rhythm: Sinus Technical Quality: Adequate MEASUREMENTS (Male / Female) Normal Values 2D ECHO LVOT Diameter 2.2 cm LV Ejection Fraction MOD 2C 27.1 % LV Ejection Fraction 2C AL 29.1 % LA Diameter 3.8 cm LA Width 3.2 cm LA Height 5.5 cm RA Width 3.8 cm RA Height 4.2 cm Aorta at Sinotubular Diameter 2.6 cm M-MODE Aortic Annulus Diameter 3.2 cm LA Ao Ratio MM 1.2 MV E Point Septal Separation 1.6 cm DOPPLER AV Peak Velocity 230.0 cm/s LVOT Peak Velocity 69.0 cm/s AV Area Cont Eq vti 1.2 cm squared AV Area Cont Eq pk 1.1 cm squared MV Peak Velocity 162.0 cm/s MV Area PHT 2.7 cm squared Mitral E to A Ratio 0.8 MV E' Velocity 36.0 cm/s Mitral E to MV E' Ratio 14.2 Mitral E to LV E' Lateral Ratio 15.5 Mitral E to LV E' Septal Ratio 13.1 TR Peak Velocity 211.4 cm/s TR Peak Gradient 17.9 mmHg TR Mean Velocity 139.3 cm/s TR Mean Gradient 9.2 mmHg TR Velocity Time Integral 56.3 cm Right Atrial Pressure 8.0 mmHg Pulmonary Artery Systolic Pressu 25.9 mmHg PV Peak Velocity 88.0 cm/s RV Acceleration Time 0.1 s RV Ejection Time 0.3 s RV AcT/ET 0.4 FINDINGS Left Ventricle Dilated left ventricle. Severely decreased left ventricular systolic function. Left ventricular ejection fraction is estimated at 15 %. Severe global left ventricular hypokinesis. Grade II diastolic dysfunction, moderately elevated filling pressures. Right Ventricle Normal right ventricular size and systolic function. Right Atrium Right atrium not well visualized. Left Atrium Left atrium not well visualized. Probably mildly increased left atrial size. Mitral Valve Moderate mitral annular calcification. Mildly thickened mitral valve. No mitral valve stenosis. Aortic Valve Mildly thickened trileaflet aortic valve. Mild aortic valve regurgitation. Tricuspid Valve Structurally normal tricuspid valve. Pulmonic Valve Pulmonic valve not well visualized. No pulmonary valve stenosis. No significant pulmonary valve regurgitation. Pericardium No pericardial effusion. Aorta Normal size aortic root and proximal ascending aorta. IVC Inferior vena cava not visualized. CONCLUSIONS 1. Dilated left ventricle. Severely decreased left ventricular systolic function. Left ventricular ejection fraction is estimated at 15 %. Severe global left ventricular hypokinesis. Grade II diastolic dysfunction, moderately elevated filling pressures. 2. Mild aortic valve regurgitation. 3. No prior similar studies to compare. Lo Meneses MD (Electronically Signed) Final Date: 12 May 2023 11:28 S
[2023-05-12 06:19] LABS: Hematocrit 32.7 % (37-53); Lymphocytes # 0.3 10^3/uL (0.8-4.8); Lymphocytes % 5.5 %; Mean Corpuscular HGB Conc 31.2 g/dL (30-55); Mean Corpuscular Hemoglobin 32.3 pg (27-33); Mean Corpuscular Volume 103.5 fl (82-101); Mean Platelet Volume 9.5 fL (7.4-10.4); Monocytes # 0.3 10^3/uL (0.2-0.9); Neutrophils # 4.83 10^3/uL (1.8-7.7); Neutrophils % 88.1 %; Nucleated Red Blood Cells % 0 %; Platelet Count 80 10^3/cmm (157-399); Red Blood Count 3.16 10^6/uL (3.85-5.65); Red Cell Distribution Width 13.6 % (12.1-15.1); White Blood Count 5.48 10^3/uL (3.29-11.43)
[2023-05-12] MEDS: amiodarone 200 mg Tablet 100 MG PO (06:37)
[2023-05-12] MEDS: isosorbide mononitrate ER 30 mg Tablet PO (06:37)
[2023-05-12 06:39] LABS: Blood Urea Nitrogen 37 mg/dL (8-23); C Reactive Protein 7.3 mg/L (0.0-4.9); Calcium 8.9 mg/dL (8.5-10.5); Carbon Dioxide 25 mmol/L (22-29); Chloride 104 mmol/L (98-107); Glucose 141 mg/dL (65-115); Magnesium 2.3 mg/dL (1.7-2.3); Osmolality Calculated 301 mOsm/kg (285-295); Sodium 140 mmol/L (136-145)
[2023-05-12] MEDS: pantoprazole 40 mg SDV IVP ×2 (08:19→17:26)
[2023-05-12] MEDS: doxycycline 100 mg Tablet PO ×2 (08:19→17:26)
[2023-05-12] MEDS: FUROsemide 10 mg/mL SDV 4mL 40 MG IVP (08:19)
[2023-05-12] MEDS: carvedilol 3.125 mg Tablet PO ×2 (08:20→17:26)
[2023-05-12] MEDS: hyDRALAzine 25 mg Tablet PO ×2 (08:20→17:26)
[2023-05-12] MEDS: peg /e-lyte soln 4,000 mL Btl 4000 ML PO (10:52)
--- NOTE | 2023-05-12 14:15 | PM.PN ---
Subjective Subjective: No overnight events. Says that he does feel some better today. He is aware that he is having EGD and colonoscopy tomorrow for GI bleed eval. No questions at this time. Medications: Reviewed: Yes Vitals/I&O/Wt Last Vital Signs Temp 97.6 F 05/12/23 12:00 Pulse 69 05/12/23 12:00 Resp 16 05/12/23 12:00 BP 127/61 05/12/23 12:00 Pulse Ox 98 05/12/23 12:00 O2 Del Method Nasal Cannula 05/12/23 12:00 O2 Flow Rate 3 05/12/23 08:00 FiO2 40 05/12/23 01:03 05/11/23 05/12/23 05/12/23 22:59 06:59 14:59 Intake Total 240 / 240 Output Total 1999 900 / 900 Balance -1999 -660 / -660 Weight last 48 hrs Weight 170 lb Physical Exam Narrative: General: Cooperative patient in no apparent distress. Well developed. HEENT: Normocephalic, Atraumatic. External ears normal. Nasal passages patent without drainage. MMM. Heart: Irregular rhythm, normal rate. 2/6 systolic murmur. Resp: LCTA. No respiratory distress, no use of accessory muscles. Abd: Soft, mild epigastric tenderness non-distended. Extremities: No edema. Skin: No rash or lesions on exposed areas. Urinary Catheter Management: Hoffman: Cath Placed During This Visit: yes Reason for Continuing Indwelling Catheter: Other Urinary Catheter Date of Insertion: 05/11/23 Urinary Catheter Time of Insertion: 20:08 Data 05/12/23 05:11 05/12/23 05:11 Micro: Microbiology 05/11/23 21:49 Occult Blood (FIT) - Final Stool - Stool Aspirate A&P Assessment and plan (1) Breath shortness: (2) Chronic shortness of breath: (3) Thrombocytopenia: (4) Anemia: (5) GI (gastrointestinal bleed): (6) COPD (chronic obstructive pulmonary disease): (7) Fatigue: (8) BPH loc w urin obs/LUTS: (9) Bladder cancer: Plan 87-year-old male admitted for acute on chronic GI bleed, dyspnea, CHF. Continue close inpatient monitoring. NPO at midnight tonight for EGD, colonoscopy. Dyspnea is improved. Remains on 3 L oxygen with sats in the 90s. Continue doxycycline for now. Discussed his echo results with Dr. Meneses. His EF was noted to be 15%. No previous records are available for comparison. Uncertain at this time as to the chronicity. Continue amiodorone for A-fib. Can consider cardiology referral in the a.m. For his persistent dyspnea, continue O2 protocol, RAAT and BIPAP as needed. Continue IV diuresis for now. Hgb is currently stable at 10.2 Start Go-Litely in prep for endoscopy. NPO after midnight tonight. Continue protonix. Holding Eliquis for now. BP is stable. Currently 127/61. Continue antihypertensives as ordered. Currently diagnosed with prostate CA. He does not wish to pursue treatment at this time. Code Status: Full code IVF: None DVT PPx: None GI PPx: Protonix ABx: Doxycycline Diet: Clear liquid, NPO after midnight. Discharge plan: TBD. Attestations Medical Necessity Statement*: More than 2 midnights anticipated for work-up on GI bleed, dyspnea, and HFrEF. Coding Level of Care Code Acute Code for Chg Fwd Moderate MDM includes number and complexity of problems actively addressed during encounter, amount and/or complexity of data reviewed/ordered and described risk of complication, morbidity or mortality of management as documented Diagnoses Breath shortness R06.02 Chronic shortness of breath R06.02 Thrombocytopenia D69.6 Anemia D64.9 GI (gastrointestinal bleed) K92.2 COPD (chronic obstructive pulmonary disease) J44.9 Fatigue R53.83 BPH loc w urin obs/LUTS N40.1 Bladder cancer C67.9
--- NOTE | 2023-05-12 16:56 | PM.CONSULT ---
Providers/Reason For Consult Consulting Physician/Specialty*: Dr. Theo Low, DO/General surgery Reason for Consult*: GI bleed Attending Physician: Helen Lares MD Primary Care Provider: Cristofer Barrera MD History of Present Illness History of Present Illness Popeye Wilks is a 87 year old male who presented to the hospital with weakness. He was found to be anemic and having hematochezia in the ER. He takes Eliquis at home. His last colonoscopy was greater than 10 years ago he believes. Many of his siblings have had colon cancer. He denies any nausea, emesis, diarrhea, constipation, and/or heartburn. He is unsure how long hematochezia is been going on because he has not noticed it. Review of Systems General: Reports: 10 or more systems reviewed and unremarkable except in HPI and below Medications/Allergies Home Medications Medication Instructions Recorded Confirmed Last Taken Type carvedilol 3.125 mg tablet 3.125 mg PO BID #180 tabs 05/21/22 05/11/23 05/11/23 Rx nitroglycerin 0.4 mg sublingual 0.4 mg sublingual Q5M PRN Chest 05/21/22 05/11/23 Unknown Rx tablet (Nitrostat) Pain #30 tabs albuterol sulfate 90 mcg/actuation 2 inh inhalation Q4H PRN Shortness 05/11/23 05/11/23 Unknown History aerosol inhaler Of Breath amiodarone 200 mg tablet 100 mg PO QAM 05/11/23 05/11/23 05/11/23 History apixaban 5 mg tablet 2.5 mg PO BID 05/11/23 05/11/23 05/11/23 History aspirin 81 mg tablet,delayed 81 mg PO QAM 05/11/23 05/11/23 05/11/23 History release fluticasone 500 mcg-salmeterol 50 1 inh inhalation BID 05/11/23 05/11/23 Unknown History mcg/dose blistr powdr for inhalation (Advair Diskus) isosorbide mononitrate 30 mg 30 mg PO QAM 05/11/23 05/11/23 05/11/23 History tablet,extended release 24 hr potassium chloride 20 mEq 20 meq PO QAM 05/11/23 05/11/23 05/11/23 History tablet,extended release Allergies Allergy/AdvReac Type Severity Reaction Status Date / Time erythromycin base Allergy Unknown Verified 05/11/23 09:17 lorazepam [From Ativan] Allergy Unknown Verified 05/11/23 09:17 Current Medications Generic Name Dose Route Start Last Admin Trade Name Freq PRN Reason Stop Dose Admin Albuterol/Ipratropium 3 ml 05/11/23 18:49 05/11/23 21:40 Ipratropium-Albuterol 3 Ml Neb INHALATION 3 ml Q6H PRN Administration SHORTNESS OF BREATH Amiodarone HCl 100 mg 05/12/23 06:00 05/12/23 06:37 Amiodarone 200 Mg Tablet PO 100 mg QAM MARK Administration Carvedilol 3.125 mg 05/11/23 18:49 05/12/23 08:20 Carvedilol 3.125 Mg Tablet PO 3.125 mg BID MARK Administration Doxycycline Monohydrate 100 mg 05/11/23 18:49 05/12/23 08:19 Doxycycline 100 Mg Tablet PO 100 mg BID MARK Administration Protocol Furosemide 40 mg 05/11/23 18:49 05/12/23 08:19 Furosemide 10 Mg/Ml Sdv 4ml IVP 40 mg DAILY MRAK Administration Hydralazine HCl 25 mg 05/11/23 18:49 05/12/23 08:20 Hydralazine 25 Mg Tablet PO 25 mg BID MARK Administration Isosorbide Mononitrate 30 mg 05/12/23 06:00 05/12/23 06:37 Isosorbide Mononitrate Er 30 Mg Tablet PO 30 mg QAM MARK Administration Pantoprazole Sodium 40 mg 05/11/23 18:49 05/12/23 08:19 Pantoprazole 40 Mg Sdv IVP 40 mg BID MARK Administration PFSH Acute PFSH: Medical History BPH loc w urin obs/LUTS Essential (primary) hypertension Gross hematuria H/O cervical fracture surgical repair H/O deep venous thrombosis History of COPD Hypercholesteremia Osteoarthritis Recurrent ventral hernia Surgical History History of back surgery x9 History of cataract extraction History of colonoscopy History of coronary artery bypass graft History of coronary artery stent placement History of hemorrhoidectomy History of hernia repair History of mandibular surgery History of surgery on arm History of testicular surgery S/P excision of lipoma Status post aortic coarctation stent placement Status post surgical removal and fulguration of bladder neoplasm Family History Sister Cancer Brother Cancer Mother , AT AGE 70 Myocardial infarct Father , AT AGE 70 Alcoholism Social History Smoking and tobacco/nicotine status: former use of tobacco/nicotine Alcohol intake: current Alcohol intake frequency: holidays/special occasions only Substance/Drug Use: never Household members: spouse Housing: House Marital status: Current occupational status: retired Vitals/I&O/Wt Last Vital Signs Temp 97.7 F 05/12/23 15:58 Pulse 70 05/12/23 15:58 Resp 18 05/12/23 15:58 BP 143/62 05/12/23 15:58 Pulse Ox 100 05/12/23 15:58 O2 Del Method Nasal Cannula 05/12/23 15:58 O2 Flow Rate 3 05/12/23 14:31 FiO2 40 05/12/23 01:03 05/12/23 05/12/23 05/12/23 06:59 14:59 22:59 Intake Total 240 / 240 Output Total 1999 900 / 900 Balance -1999 / -1997 -660 / -660 Weight last 48 hrs Weight 170 lb Physical Exam Narrative: General : Patient is well developed , no acute distress, oriented x3 Head : Normal cephalic, a-traumatic. Ears : Pinnae and external canal are normal. Hearing is normal. Eyes : PERRLA, Sclera and injection are normal. No conjunctival discharge. Nose : Mucous membranes are without erythema. Throat : buccal mucosa is normal, gums are without significant recession or hypertrophy. Lungs : Equal chest rise bilaterally, no use of accessory muscles, trachea is midline. Cor : Rate and rhythm are normal. Abdomen : Soft, ND, NT, no g/r/m Extremities : No edema, no cyanosis or clubbing, dorsalis pedis pulses are present bilaterally, non-tender to palpation of calves. Upper extremities are normal bilaterally. Back : non-tender to palpation, no CVA tenderness. Neuro : CN II - XII intact, Upper and lower extremities have equal and full strength Urinary Catheter Management: Hoffman: Cath Placed During This Visit: yes Reason for Continuing Indwelling Catheter: Other Urinary Catheter Date of Insertion: 05/11/23 Urinary Catheter Time of Insertion: 20:08 Data 05/12/23 05:11 05/12/23 05:11 Micro: Microbiology 05/11/23 21:49 Occult Blood (FIT) - Final Stool - Stool Aspirate A&P Assessment and plan (1) GI (gastrointestinal bleed): (2) Anemia: Plan EGD Diagnostic colonoscopy The risks and benefits of the procedure, including bleeding, infection, intestinal perforation requiring surgery, missed lesion were explained to the patient. The patient is understanding of the risks and wishes to proceed. Coding Level of Care Code 84774 Diagnoses GI (gastrointestinal bleed) K92.2 Anemia D64.9
[2023-05-12] MEDS: magnesium citrate Btl 296 mL PO (17:26)
[2023-05-13] VITALS (10 sets, daily range): BP systolic 121–155; BP diastolic 50–68; PULSE 68–76; RESP 14–20; TEMP 36.1–37; O2SAT 90–100
[2023-05-13 05:04] LABS: Basophils % 0.3 %; Eosinophils # 0.1 10^3/uL (0.0-0.8); Eosinophils % 0.8 %; Hematocrit 32.7 % (37-53); Lymphocytes # 0.9 10^3/uL (0.8-4.8); Lymphocytes % 12.7 %; Mean Corpuscular HGB Conc 31.5 g/dL (30-55); Mean Corpuscular Hemoglobin 32.4 pg (27-33); Mean Corpuscular Volume 102.8 fl (82-101); Mean Platelet Volume 9.2 fL (7.4-10.4); Monocytes % 13.5 %; Neutrophils # 5.24 10^3/uL (1.8-7.7); Neutrophils % 72.4 %; Nucleated Red Blood Cells % 0 %; Platelet Count 106 10^3/cmm (157-399); Red Blood Count 3.18 10^6/uL (3.85-5.65); Red Cell Distribution Width 13.9 % (12.1-15.1); White Blood Count 7.24 10^3/uL (3.29-11.43)
[2023-05-13] MEDS: amiodarone 200 mg Tablet 100 MG PO (05:31)
[2023-05-13] MEDS: isosorbide mononitrate ER 30 mg Tablet PO (05:31)
[2023-05-13 05:37] LABS: Anion Gap 15.3 (5-19); Blood Urea Nitrogen 37 mg/dL (8-23); Calcium 8.9 mg/dL (8.5-10.5); Carbon Dioxide 27 mmol/L (22-29); Chloride 105 mmol/L (98-107); Glucose 83 mg/dL (65-115); NT Pro B Type Natriuretic Pept 16272 pg/mL (0-450); Osmolality Calculated 304 mOsm/kg (285-295); Potassium 4.3 mmol/L (3.5-5.1); Sodium 143 mmol/L (136-145)
--- NOTE | 2023-05-13 07:07 | P.PN_ITS ---
Vitals/I&O/Wt Last Vital Signs Temp 98.3 F 05/13/23 04:00 Pulse 71 05/13/23 04:00 Resp 18 05/13/23 04:00 BP 149/66 05/13/23 04:00 Pulse Ox 90 05/13/23 04:00 O2 Del Method Nasal Cannula 05/12/23 20:00 O2 Flow Rate 3 05/12/23 20:00 FiO2 40 05/12/23 01:03 05/12/23 05/13/23 05/13/23 22:59 06:59 14:59 Output Total 2425 / 3325 Balance -2425 / -3085 Weight last 48 hrs Weight 170 lb Physical Exam Urinary Catheter Management: Hoffman: Cath Placed During This Visit: yes Reason for Continuing Indwelling Catheter: Acute Urinary Retention or Ob struction Urinary Catheter Date of Insertion: 05/11/23 Urinary Catheter Time of Insertion: 20:08 Data 05/13/23 04:20 05/13/23 04:20 A&P Assessment and plan (1) GI (gastrointestinal bleed): (2) Anemia: Plan EGD Diagnostic colonoscopy The risks and benefits of the procedure, including bleeding, infection, intestinal perforation requiring surgery, missed lesion were explained to the patient. The patient is understanding of the risks and wishes to proceed. Attestations Medical Necessity Statement*: Per primary Coding Level of Care Code Acute Code for Chg Fwd Diagnoses GI (gastrointestinal bleed) K92.2 Anemia D64.9
[2023-05-13] MEDS: carvedilol 3.125 mg Tablet PO ×2 (07:54→17:14)
[2023-05-13] MEDS: hyDRALAzine 25 mg Tablet PO (07:54)
[2023-05-13] MEDS: doxycycline 100 mg Tablet PO ×2 (07:54→17:14)
[2023-05-13] MEDS: sodium chloride 0.9% 1,000 ML 30 ML IV (09:20)
--- NOTE | 2023-05-13 10:58 | ANES.PREANE2 ---
Pre-Anesthetic Assessment Height/Weight: Height 1.8 m Weight 77.111 kg Temp Pulse Resp BP Pulse Ox O2 Del Method O2 Flow Rate 97 F L 72 18 150/68 100 Nasal Cannula 3 05/13/23 09:17 05/13/23 09:17 05/13/23 09:17 05/13/23 09:17 05/13/23 09:17 05/13/23 09:17 05/13/23 09:17 FiO2 40 05/12/23 01:03 Operation Date: 05/13/23 10:10 Proposed Procedures p EGD(Not Applicable) - Theo Low DO s Colonoscopy(Not Applicable) - Theo Low DO Familial anesthetic complications: none Was Beta Nichole taken within 24 hours: Yes Was Clonidine taken within 24 hours: N/A Last intake: Intake Last Liquid Date 05/12/23 Last Solid Date 05/10/23 Social No alcohol and No tobacco (h/o smoking) Exam alert, oriented x 3 and regular rate & rhythm Airway Submandibular: within normal limits Cervical ROM: within normal limits Mallampati: Class II Dentition: false Pulmonary Chronic Obstructive Pulmonary Disease Home O2 3-4L CV/HEM Atrial Fibrillation, Anemia, Coronary Artery Disease, Congestive Heart Failure (EF 15%), Deep Vein Thrombosis and Hypertension ?CONCLUSIONS ?1. Dilated left ventricle. Severely decreased left ventricular ?systolic function. Left ventricular ejection fraction is ?estimated at 15 %.? Severe global left ventricular hypokinesis. ?Grade II diastolic dysfunction, moderately elevated filling ?pressures. ?2. Mild aortic valve regurgitation. ?3. No prior similar studies to compare. ?Lo Mensees MD ?(Electronically Signed) ?Final Date:? ? ? 12 May 2023 Bladder CA Neuropsych Chronic pain Anesthetic Plan ASA status: 4 Anesthesia: MAC Medications/Allergies Home Medications Medication Instructions Recorded Confirmed Last Taken Type carvedilol 3.125 mg tablet 3.125 mg PO BID #180 tabs 05/21/22 05/11/23 05/11/23 Rx nitroglycerin 0.4 mg sublingual 0.4 mg sublingual Q5M PRN Chest 05/21/22 05/11/23 Unknown Rx tablet (Nitrostat) Pain #30 tabs albuterol sulfate 90 mcg/actuation 2 inh inhalation Q4H PRN Shortness 05/11/23 05/11/23 Unknown History aerosol inhaler Of Breath amiodarone 200 mg tablet 100 mg PO QAM 05/11/23 05/11/23 05/11/23 History apixaban 5 mg tablet 2.5 mg PO BID 05/11/23 05/11/23 05/11/23 History aspirin 81 mg tablet,delayed 81 mg PO QAM 05/11/23 05/11/23 05/11/23 History release fluticasone 500 mcg-salmeterol 50 1 inh inhalation BID 05/11/23 05/11/23 Unknown History mcg/dose blistr powdr for inhalation (Advair Diskus) isosorbide mononitrate 30 mg 30 mg PO QAM 05/11/23 05/11/23 05/11/23 History tablet,extended release 24 hr potassium chloride 20 mEq 20 meq PO QAM 05/11/23 05/11/23 05/11/23 History tablet,extended release Allergies Allergy/AdvReac Type Severity Reaction Status Date / Time erythromycin base Allergy Unknown Verified 05/11/23 09:17 lorazepam [From Ativan] Allergy Unknown Verified 05/11/23 09:17 Current Medications Generic Name Dose Route Start Last Admin Trade Name Freq PRN Reason Stop Dose Admin Albuterol/Ipratropium 3 ml 05/11/23 18:49 05/11/23 21:40 Ipratropium-Albuterol 3 Ml Neb INHALATION 3 ml Q6H PRN Administration SHORTNESS OF BREATH Amiodarone HCl 100 mg 05/12/23 06:00 05/13/23 05:31 Amiodarone 200 Mg Tablet PO 100 mg QAM MARK Administration Carvedilol 3.125 mg 05/11/23 18:49 05/13/23 07:54 Carvedilol 3.125 Mg Tablet PO 3.125 mg BID MARK Administration Doxycycline Monohydrate 100 mg 05/11/23 18:49 05/13/23 07:54 Doxycycline 100 Mg Tablet PO 100 mg BID MARK Administration Protocol Furosemide 40 mg 05/11/23 18:49 05/12/23 08:19 Furosemide 10 Mg/Ml Sdv 4ml IVP 40 mg DAILY MARK Administration Hydralazine HCl 25 mg 05/11/23 18:49 05/13/23 07:54 Hydralazine 25 Mg Tablet PO 25 mg BID MARK Administration Isosorbide Mononitrate 30 mg 05/12/23 06:00 05/13/23 05:31 Isosorbide Mononitrate Er 30 Mg Tablet PO 30 mg QAM MARK Administration Pantoprazole Sodium 40 mg 05/11/23 18:49 05/12/23 17:26 Pantoprazole 40 Mg Sdv IVP 40 mg BID MARK Administration PFSH Anesthesia Medical History BPH loc w urin obs/LUTS Essential (primary) hypertension Gross hematuria H/O cervical fracture surgical repair H/O deep venous thrombosis History of COPD Hypercholesteremia Osteoarthritis Recurrent ventral hernia Surgical History History of back surgery x9 History of cataract extraction History of colonoscopy History of coronary artery bypass graft History of coronary artery stent placement History of hemorrhoidectomy History of hernia repair History of mandibular surgery History of surgery on arm History of testicular surgery S/P excision of lipoma Status post aortic coarctation stent placement Status post surgical removal and fulguration of bladder neoplasm Family History Sister Cancer Brother Cancer Mother , AT AGE 70 Myocardial infarct Father , AT AGE 70 Alcoholism Social History Smoking and tobacco/nicotine status: former use of tobacco/nicotine Alcohol intake: current Alcohol intake frequency: holidays/special occasions only Substance/Drug Use: never Household members: spouse Housing: House Marital status: Current occupational status: retired Data Anesthesia 05/13/23 04:20 05/13/23 04:20 Short CBC 05/12/23 05/13/23 Range/Units 05:11 04:20 WBC 5.48 7.24 (3.29-11.43) 10^3/uL Hgb 10.20 L 10.30 L (11.27-16.99) g/dL Hct 32.7 L 32.7 L (37-53) % MCV 103.5 H 102.8 H (82-101) fl Plt Count 80 L 106 L D (157-399) 10^3/cmm Neut % (Auto) 88.1 72.4 % Neut # (Auto) 4.83 5.24 (1.8-7.7) 10^3/uL BMP 05/12/23 05/13/23 05:11 04:20 Sodium 140 143 Potassium 5.0 4.3 Chloride 104 105 Carbon Dioxide 25 27 BUN 37 H 37 H Creatinine 2.2 H 2.2 H Glucose 141 H 83 Calcium 8.9 8.9 Cardiac Enzymes 05/11/23 05/11/23 05/13/23 Range/Units 11:02 15:20 04:20 Troponin T 120 Minute 27.55 H (0-15) ng/L Delta Troponin T 0.55 (0-10) ABS# Troponin T Hi Sens 6Hr 27.78 H (0-15) ng/L Troponin T Hi Sens 6Hr Delta 0.78 (0-12) ng/L NT-Pro-B Natriuret Pep 51624 H (0-450) pg/mL COVID Results 05/11/23 20:30 Coronavirus 229E (PCR) Not detected SARS-CoV-2 (PCR) Not detected Coags 05/12/23 05:11 C-Reactive Protein 7.3 H ABG 05/11/23 18:28 Specimen Type Arterial Sample Site Brachial, left ABG pH 7.23 L ABG pCO2 47.5 H ABG pO2 69.5 L ABG HCO3 20.0 L ABG O2 Saturation 92.6 ABG Base Excess -7.4 L A-a O2 Gradient 16.6 H O2 Delivery Device Nc O2 Liters/Min 4.0 FiO2 36.0 Cardiac Studies: Echocardiogram 05/12/23
--- NOTE | 2023-05-13 12:28 | PM.PN ---
Subjective Subjective: Hemoglobin 10.3 Status post EGD and colonoscopy, 2 polyps were removed EGD showed no active signs of bleeding, patient has been started on regular diet with Protonix Vitals/I&O/Wt Last Vital Signs Temp 97 F L 05/13/23 11:58 Pulse 69 05/13/23 12:12 Resp 18 05/13/23 12:12 BP 137/60 05/13/23 12:12 Pulse Ox 100 05/13/23 12:12 O2 Del Method Nasal Cannula 05/13/23 12:12 O2 Flow Rate 3 05/13/23 12:12 FiO2 40 05/12/23 01:03 05/12/23 05/13/23 05/13/23 22:59 06:59 14:59 Intake Total 800 / 800 Output Total 2425 / 3325 Balance -2425 / -3085 800 / 800 Physical Exam Narrative: Signs of fluid overload Hemodynamically stable GCS 15 Awake and alert Pleasant and cooperative S1, S2 Currently on 3 L nasal cannula Urinary Catheter Management: Hoffman: Cath Placed During This Visit: yes Reason for Continuing Indwelling Catheter: Acute Urinary Retention or Obstruction Urinary Catheter Date of Insertion: 05/11/23 Urinary Catheter Time of Insertion: 20:08 Data 05/13/23 04:20 05/13/23 04:20 A&P Assessment and plan (1) Bladder cancer: (2) Breath shortness: (3) Chronic shortness of breath: (4) Thrombocytopenia: (5) Anemia: (6) GI (gastrointestinal bleed): (7) COPD (chronic obstructive pulmonary disease): (8) New onset of congestive heart failure: (9) BPH loc w urin obs/LUTS: (10) Bladder tumor: (11) Essential (primary) hypertension: Plan Acute GI blood loss anemia Status post blood transfusion Status post EGD and colonoscopy 2 sigmoid polyps removed, no active gastric ulcer bleed Acute systolic CHF exacerbation Continue Lasix EF 15% Not a good candidate for angiogram Optimize goal-directed medical therapy Acute on chronic kidney disease Likely cardiorenal in nature Continue diuresis Poor functional status Currently on cardiac diet Guarded prognosis History of prostate cancer Full code Cardiac diet Attestations Medical Necessity Statement*: Patient will need cardiac evaluation Diagnoses Bladder cancer C67.9 Breath shortness R06.02 Chronic shortness of breath R06.02 Thrombocytopenia D69.6 Anemia D64.9 GI (gastrointestinal bleed) K92.2 COPD (chronic obstructive pulmonary disease) J44.9 New onset of congestive heart failure I50.9 BPH loc w urin obs/LUTS N40.1 Bladder tumor D49.4 Essential (primary) hypertension I10
--- NOTE | 2023-05-13 12:52 | ANE.PACU2 ---
Inpatient post-anesthesia follow up: Airway intact: Yes Vital signs: Temperature 97 F Pulse Rate [Orthos tatic 100 Standing Left Brac hial] Pulse Rate [Orthos tatic 90 Sitting Left Brach ial] Pulse Rate [Orthos tatic Lying 85 Left Brachial] Pulse Rate 69 Respiratory Rate 18 Blood Pressure [Or thostatic 183/98 Standing Left Arm] Blood Pressure [Or thostatic 176/90 Sitting Left Arm] Blood Pressure [Or thostatic 204/105 Lying Left Arm] Blood Pressure 137/60 Pulse Oximetry 100 Oxygen Delivery Me thod Nasal Cannula Oxygen Flow Rate 3 Fraction of Inspir ed Oxygen 40 Hydration adequate: Yes Nausea and vomiting: No Pain level: 2 Mental status: Baseline
[2023-05-14] VITALS (7 sets, daily range): BP systolic 110–153; BP diastolic 46–65; PULSE 67–76; RESP 16–17; TEMP 36.3–37; O2SAT 98–100
[2023-05-14] MEDS: isosorbide mononitrate ER 30 mg Tablet PO (06:02)
[2023-05-14] MEDS: amiodarone 200 mg Tablet 100 MG PO (06:02)
[2023-05-14 06:24] LABS: Basophils % 0.2 %; Eosinophils # 0.1 10^3/uL (0.0-0.8); Eosinophils % 1.8 %; Hematocrit 30.5 % (37-53); Lymphocytes # 0.9 10^3/uL (0.8-4.8); Lymphocytes % 16.6 %; Mean Corpuscular HGB Conc 31.5 g/dL (30-55); Mean Corpuscular Volume 101.7 fl (82-101); Mean Platelet Volume 8.8 fL (7.4-10.4); Monocytes # 0.8 10^3/uL (0.2-0.9); Monocytes % 13.4 %; Neutrophils % 67.6 %; Nucleated Red Blood Cells % 0 %; Platelet Count 97 10^3/cmm (157-399); Red Cell Distribution Width 14.1 % (12.1-15.1); White Blood Count 5.61 10^3/uL (3.29-11.43)
[2023-05-14 06:42] LABS: Anion Gap 10.1 (5-19); Blood Urea Nitrogen 37 mg/dL (8-23); Calcium 8.9 mg/dL (8.5-10.5); Carbon Dioxide 29 mmol/L (22-29); Chloride 106 mmol/L (98-107); Glucose 95 mg/dL (65-115); Osmolality Calculated 300 mOsm/kg (285-295); Potassium 4.1 mmol/L (3.5-5.1); Sodium 141 mmol/L (136-145)
[2023-05-14] MEDS: carvedilol 3.125 mg Tablet PO ×2 (09:09→17:24)
[2023-05-14] MEDS: doxycycline 100 mg Tablet PO ×2 (09:09→17:24)
[2023-05-14] MEDS: hyDRALAzine 25 mg Tablet PO ×2 (09:09→17:24)
[2023-05-14] MEDS: pantoprazole 40 mg SDV IVP (09:10)
[2023-05-14] MEDS: FUROsemide 10 mg/mL SDV 4mL 40 MG IVP (09:10)
--- NOTE | 2023-05-14 11:34 | P.PN_ITS ---
Subjective Subjective: We will consult cardiology today, patient is stating that he would opt for any intervention that is needed to prolong his life He is willing to take the risk if angiogram is needed No overnight events Patient endorsing feeling better Currently on 3 L at baseline Vitals/I&O/Wt Last Vital Signs Temp 98.4 F 05/14/23 08:00 Pulse 72 05/14/23 08:12 Resp 17 05/14/23 08:12 BP 146/65 05/14/23 08:00 Pulse Ox 98 05/14/23 08:12 O2 Del Method Nasal Cannula 05/14/23 08:12 O2 Flow Rate 3 05/14/23 08:12 FiO2 40 05/12/23 01:03 05/13/23 05/14/23 05/14/23 22:59 06:59 14:59 Intake Total 360 / 1160 120 / 1280 360 / 360 Output Total 900 / 900 200 / 1100 600 / 600 Balance -540 / 260 -80 / 180 -240 / -240 Physical Exam Narrative: At 3 L Awake and alert Signs of fluid load improving Abdomen soft Pleasant and cooperative GCS 15 Nonfocal neuro exam S1, S2 Pleasant and cooperative In good spirits Urinary Catheter Management: Hoffman: Cath Placed During This Visit: yes Reason for Continuing Indwelling Catheter: Accurate Measurement of Urinary Output in Critically Ill Patients Urinary Catheter Date of Insertion: 05/11/23 Urinary Catheter Time of Insertion: 20:08 Data 05/14/23 06:13 05/14/23 06:13 A&P Assessment and plan (1) New onset of congestive heart failure: (2) Bladder cancer: (3) Breath shortness: (4) Chronic shortness of breath: (5) Anemia: (6) GI (gastrointestinal bleed): (7) COPD (chronic obstructive pulmonary disease): (8) Fatigue: (9) Essential (primary) hypertension: Plan New onset systolic CHF exacerbation Continue IV Lasix Adequate response Patient endorsing feeling better No active chest pain, troponin without significant delta Chronic hypoxia at baseline uses 3 L Acute GI blood loss anemia EGD colonoscopy done by Dr. Low No active gastric ulcer 2 polyps were removed Acute on chronic kidney disease: Baseline creatinine seems to be around 1.5-2 improving with diuresis Chronic fatigue: Likely exacerbation from heart failure Poor functional status, currently on cardiac diet Patient carries history of prostate cancer, patient stating that he did not opt for treatment of prostate cancer he has seen Dr. Pittman in the past He is full code Cardiac diet We will follow-up with cardiology recommendations Patient is stating that he does not have any family, his fourth is demented and currently in a half-way He is not in touch with his children who are currently in [place] He thinks his caregiver is a trustworthy friend but she is not DURABLE POWER OF DIRECTOR PUBLIC POLICY stating that he will appoint her as DPOA once he is discharged from the hospital Attestations Medical Necessity Statement*: Continue medical management Diagnoses New onset of congestive heart failure I50.9 Bladder cancer C67.9 Breath shortness R06.02 Chronic shortness of breath R06.02 Anemia D64.9 GI (gastrointestinal bleed) K92.2 COPD (chronic obstructive pulmonary disease) J44.9 Fatigue R53.83 Essential (primary) hypertension I10
--- NOTE | 2023-05-14 12:07 | PM.CONSULT ---
Providers/Reason For Consult Consulting Physician/Specialty*: Magdy Trevizo MD/ Cardiology Reason for Consult*: Congestive heart failure Requesting Physician: Dr Lares Attending Physician: Helen Lares MD Primary Care Provider: Cristofer Barrera MD History of Present Illness History of Present Illness Popeye Wilks is a 87 year old male with past medical history of prostate cancer, DVT on Eliquis who presented to hospital with shortness of breath. He also was having GI bleeding. At he underwent EGD and polyps were removed however no active source of bleeding was noted. Echocardiogram showed severely reduced LV systolic function with EF of 15%. He denies chest pain. EKG not showing ischemic changes. He also has lower extremity edema. Review of Systems Const: Reports: change in weight; Denies: fever(s) Eyes: Denies: change in vision ENMT: Denies: throat pain Card: Reports: swelling of feet/ankles; Denies: chest pain Resp: Reports: dyspnea; Denies: productive cough GI: Reports: nausea : Denies: flank pain Musc: Reports: neck pain and back pain Medications/Allergies Home Medications Medication Instructions Recorded Confirmed Last Taken Type carvedilol 3.125 mg tablet 3.125 mg PO BID #180 tabs 05/21/22 05/22/23 05/11/23 Rx nitroglycerin 0.4 mg sublingual 0.4 mg sublingual Q5M PRN Chest 05/21/22 05/22/23 Unknown Rx tablet (Nitrostat) Pain #30 tabs albuterol sulfate 90 mcg/actuation 2 inh inhalation Q4H PRN Shortness 05/11/23 05/22/23 Unknown History aerosol inhaler Of Breath amiodarone 200 mg tablet 100 mg PO QAM 05/11/23 05/22/23 05/11/23 History apixaban 5 mg tablet 2.5 mg PO BID 05/11/23 05/22/23 05/11/23 History fluticasone 500 mcg-salmeterol 50 1 inh inhalation BID 05/11/23 05/22/23 Unknown History mcg/dose blistr powdr for inhalation (Advair Diskus) isosorbide mononitrate 30 mg 30 mg PO QAM 05/11/23 05/22/23 05/11/23 History tablet,extended release 24 hr furosemide 20 mg tablet (Lasix) 20 mg PO DAILY #90 tabs 05/15/23 05/22/23 Unknown Rx hydralazine 25 mg tablet 25 mg PO BID #60 tabs 05/15/23 05/22/23 Unknown Rx potassium chloride 20 mEq 20 meq PO QAM #60 tabs 05/15/23 05/22/23 05/11/23 Rx tablet,extended release Allergies Allergy/AdvReac Type Severity Reaction Status Date / Time erythromycin base Allergy Unknown Verified 05/22/23 10:47 lorazepam [From Ativan] Allergy Unknown Verified 05/22/23 10:47 Current Medications Generic Name Dose Route Start Last Admin Trade Name Freq PRN Reason Stop Dose Admin Albuterol/Ipratropium 3 ml 05/11/23 18:49 05/11/23 21:40 Ipratropium-Albuterol 3 Ml Neb INHALATION 3 ml Q6H PRN Administration SHORTNESS OF BREATH Amiodarone HCl 100 mg 05/12/23 06:00 05/14/23 06:02 Amiodarone 200 Mg Tablet PO 100 mg QAM MARK Administration Carvedilol 3.125 mg 05/11/23 18:49 05/14/23 09:09 Carvedilol 3.125 Mg Tablet PO 3.125 mg BID MARK Administration Doxycycline Monohydrate 100 mg 05/11/23 18:49 05/14/23 09:09 Doxycycline 100 Mg Tablet PO 100 mg BID MARK Administration Protocol Furosemide 40 mg 05/11/23 18:49 05/14/23 09:10 Furosemide 10 Mg/Ml Sdv 4ml IVP 40 mg DAILY MARK Administration Hydralazine HCl 25 mg 05/11/23 18:49 05/14/23 09:09 Hydralazine 25 Mg Tablet PO 25 mg BID MARK Administration Isosorbide Mononitrate 30 mg 05/12/23 06:00 05/14/23 06:02 Isosorbide Mononitrate Er 30 Mg Tablet PO 30 mg QAM MARK Administration Pantoprazole Sodium 40 mg 05/14/23 09:00 05/14/23 09:10 Pantoprazole 40 Mg Sdv IVP 40 mg DAILY MARK Administration PFSH Acute PFSH: Medical History (Updated 05/22/23 @ 12:43 by HAL Barr) Anemia Bladder cancer Bladder tumor TURBT 05/02/2020 BPH loc w urin obs/LUTS Breath shortness Chronic shortness of breath COPD (chronic obstructive pulmonary disease) 3 L at baseline Essential (primary) hypertension Fatigue GI (gastrointestinal bleed) Gross hematuria H/O cervical fracture surgical repair H/O deep venous thrombosis History of COPD Hypercholesteremia New onset of congestive heart failure Osteoarthritis Recurrent ventral hernia Thrombocytopenia Surgical History History of back surgery x9 History of cataract extraction History of colonoscopy History of coronary artery bypass graft History of coronary artery stent placement History of hemorrhoidectomy History of hernia repair History of mandibular surgery History of surgery on arm History of testicular surgery S/P excision of lipoma Status post aortic coarctation stent placement Status post surgical removal and fulguration of bladder neoplasm Family History Sister Cancer Brother Cancer Mother , AT AGE 70 Myocardial infarct Father , AT AGE 70 Alcoholism Social History Smoking and tobacco/nicotine status: former use of tobacco/nicotine Alcohol intake: current Alcohol intake frequency: holidays/special occasions only Substance/Drug Use: never Household members: spouse Housing: House Marital status: Current occupational status: retired Vitals/I&O/Wt Last Vital Signs Temp 98.4 F 05/14/23 08:00 Pulse 72 05/14/23 08:12 Resp 17 05/14/23 08:12 BP 146/65 05/14/23 08:00 Pulse Ox 98 05/14/23 08:12 O2 Del Method Nasal Cannula 05/14/23 08:12 O2 Flow Rate 3 05/14/23 08:12 FiO2 40 05/12/23 01:03 05/13/23 05/14/23 05/14/23 22:59 06:59 14:59 Intake Total 360 / 1160 120 / 1280 360 / 360 Output Total 900 / 900 200 / 1100 600 / 600 Balance -540 / 260 -80 / 180 -240 / -240 Physical Exam Narrative: GENERAL: Patient is alert, awake and oriented x3. [] NECK: No jugular vein distension. [] HEENT: No cyanosis. No icterus. No pallor. [] HEART: Regular S1 and S2. No murmur, rub or gallop. [] LUNGS: Clear to auscultate bilaterally. [] CENTRAL NERVOUS SYSTEM: Grossly nonfocal. [] EXTREMITIES: Lower extremities with 1+ edema bilaterally. Urinary Catheter Management: Hoffman: Cath Placed During This Visit: yes Reason for Continuing Indwelling Catheter: Accurate Measurement of Urinary Output in Critically Ill Patients Urinary Catheter Date of Insertion: 05/11/23 Urinary Catheter Time of Insertion: 20:08 Data 05/15/23 05:55 05/15/23 05:55 A&P Assessment and plan (1) New onset of congestive heart failure: Plan I had a detailed discussion with patient regarding all possible options including medical therapy versus invasive angiogram. He has decided to proceed with medical therapy at this time. Renal function is also abnormal. Has Gi bleed too Beta-ina and Lasix. Thank you for involving us with care of this patient. We will continue to follow. Please call with questions. Consult Attestations Medical Necessity Statement: Care expected to cross 2 midnights. Coding Level of Care Code Acute Code for Chg Fwd Diagnoses New onset of congestive heart failure I50.9
[2023-05-15] VITALS: BP 111/64; PULSE 74; RESP 18; TEMP 36.8; O2SAT 99
[2023-05-15 04:57] VITALS: BP 110/66; PULSE 76; RESP 17; TEMP 37.1; O2SAT 99
[2023-05-15 06:10] LABS: Basophils % 0.4 %; Eosinophils # 0.2 10^3/uL (0.0-0.8); Hematocrit 29.3 % (37-53); Lymphocytes # 1.2 10^3/uL (0.8-4.8); Lymphocytes % 20.9 %; Mean Corpuscular HGB Conc 31.4 g/dL (30-55); Mean Corpuscular Hemoglobin 32.3 pg (27-33); Mean Corpuscular Volume 102.8 fl (82-101); Mean Platelet Volume 9.2 fL (7.4-10.4); Monocytes # 0.9 10^3/uL (0.2-0.9); Monocytes % 15.3 %; Neutrophils # 3.44 10^3/uL (1.8-7.7); Neutrophils % 60.2 %; Nucleated Red Blood Cells % 0 %; Platelet Count 90 10^3/cmm (157-399); Red Blood Count 2.85 10^6/uL (3.85-5.65); Red Cell Distribution Width 13.9 % (12.1-15.1)
[2023-05-15] MEDS: amiodarone 200 mg Tablet 100 MG PO (06:23)
[2023-05-15] MEDS: isosorbide mononitrate ER 30 mg Tablet PO (06:24)
[2023-05-15 06:29] LABS: Anion Gap 8.9 (5-19); Blood Urea Nitrogen 40 mg/dL (8-23); Calcium 8.7 mg/dL (8.5-10.5); Carbon Dioxide 33 mmol/L (22-29); Chloride 107 mmol/L (98-107); Glucose 100 mg/dL (65-115); Osmolality Calculated 310 mOsm/kg (285-295); Potassium 3.9 mmol/L (3.5-5.1); Sodium 145 mmol/L (136-145)
[2023-05-15 08:00] VITALS: PULSE 71; RESP 16; O2SAT 100
--- NOTE | 2023-05-15 08:03 | PM.DCS ---
Discharge Providers Date of Admission: 05/11/23 15:48 Date of Discharge: May 15, 2023 Attending Provider at Admission: Helen Lares MD Attending Provider at Discharge: Helen Lares MD Primary Care Provider: Cristofer Barrera MD Diagnoses at Discharge Discharge Diagnosis (1) New onset of congestive heart failure: Status: Acute (2) Bladder cancer: Status: Acute (3) Breath shortness: Status: Acute (4) Chronic shortness of breath: Status: Acute (5) Anemia: Status: Acute (6) GI (gastrointestinal bleed): Status: Acute (7) COPD (chronic obstructive pulmonary disease): Status: Acute Permanent problem details: 3 L at baseline (8) Fatigue: Status: Acute (9) Essential (primary) hypertension: Status: Acute Reason for Visit Reason for Visit: SOB Hospital Course Hospital Course 87-year-old male who was admitted for management evaluation of generalized weakness and fatigue, positive occult blood Dr. Low was consulted, hemoglobin remained stable, EGD unremarkable colonoscopy 2 sigmoid polyps were removed, patient had new onset systolic CHF diagnosis during this hospitalization, EF 15%, troponin unremarkable, no active chest pain, patient remained hypertensive, cardiology was consulted, patient has chronic kidney disease which improved to some extent with diuresis, patient stating that he is feeling better with diuresis his breathing is much easier, at baseline he is using 3 L of oxygen. He has refused interventions offered by cardiology including LifeVest. He has change his CODE STATUS to DNR/DNI as well patient is stating that he has to take care of a lot of things before he dies and he wants to go home today I will discontinue aspirin at the time of discharge, hold Eliquis for a few days, patient may need enteroscopy to find etiology of occult GI bleed. Patient has remained hypertensive, added hydralazine, patient will get potassium and Lasix on daily basis Continue Imdur and Coreg. I had a pretty bridget discussion with the patient regarding his refusal for angiogram and LifeVest, he will be considered high risk for sudden cardiac arrest including ventricular arrhythmia, V-fib, patient is stating that he has left his life and does not want to be resuscitated or shocked he wants to change his CODE STATUS to DNR/DNI, Physical Exam Narrative: Awake and alert Signs of fluid load improving GCS 15 Currently on 3 L S1S2 Urinary Catheter Management: Hoffman: Cath Placed During This Visit: yes Reason for Continuing Indwelling Catheter: Other Urinary Catheter Date of Insertion: 05/11/23 Urinary Catheter Time of Insertion: 20:08 Discharge Data Studies Completed and Pending Completed Studies During Hospitalization Category Date Time Status XR chest 1V portable [id number] Routine Exams 05/11/23 18:06 Completed XR chest 1V portable [id number] Stat Exams 05/11/23 09:39 Completed Pathology: Surgical [PTH] Routine Pth 05/13/23 11:57 [place] [id number] Routine Ultrasound 05/12/23 06:00 Completed CV. echo complete* [id number] Routine Ultrasound 05/12/23 06:00 Completed Pending at discharge Category Date Time Status Sputum Culture and Gram Stain Stat Lab 05/11/23 15:50 Uncollected Radiology Impressions Chest X-Ray 05/11/23 18:06 IMPRESSION: 1. Small bilateral pleural effusions. 2. Patchy bilateral airspace infiltrates. 3. Cardiomegaly. 4. Pacemaker. 5. Sternotomy wires. Venous Duplex 05/12/23 06:00 IMPRESSION: No evidence of deep vein thrombosis. Laboratory Results WBC 5.70 10^3/uL (3.29-11.43) 05/15/23 05:55 RBC 2.85 10^6/uL (3.85-5.65) L 05/15/23 05:55 Hgb 9.20 g/dL (11.27-16.99) L 05/15/23 05:55 Hct 29.3 % (37-53) L 05/15/23 05:55 MCV 102.8 fl (82-101) H 05/15/23 05:55 MCH 32.3 pg (27-33) 05/15/23 05:55 MCHC 31.4 g/dL (30-55) 05/15/23 05:55 RDW 13.9 % (12.1-15.1) 05/15/23 05:55 Plt Count 90 10^3/cmm (157-399) L 05/15/23 05:55 MPV 9.2 fL (7.4-10.4) 05/15/23 05:55 Neut % (Auto) 60.2 % 05/15/23 05:55 Lymph % (Auto) 20.9 % 05/15/23 05:55 Osborne % (Auto) 15.3 % 05/15/23 05:55 Eos % (Auto) 3.0 % 05/15/23 05:55 Baso % (Auto) 0.4 % 05/15/23 05:55 Neut # (Auto) 3.44 10^3/uL (1.8-7.7) 05/15/23 05:55 Lymph # (Auto) 1.2 10^3/uL (0.8-4.8) 05/15/23 05:55 Osborne # (Auto) 0.9 10^3/uL (0.2-0.9) 05/15/23 05:55 Eos # (Auto) 0.2 10^3/uL (0.0-0.8) 05/15/23 05:55 Baso # (Auto) 0.0 10^3/uL (0.0-0.1) 05/15/23 05:55 Nucleated RBC % (auto) 0 % 05/15/23 05:55 Nucleated RBCs # 0.0 /100WBC 05/15/23 05:55 PT 17.10 SECONDS (12.1-14.9) H 05/11/23 09:19 INR 1.34 (0.8-1.2) H 05/11/23 09:19 Specimen Type Arterial 05/11/23 18:28 Sample Site Brachial, left 05/11/23 18:28 ABG pH 7.23 (7.35-7.45) L 05/11/23 18:28 ABG pCO2 47.5 mmHg (35-45) H 05/11/23 18:28 ABG pO2 69.5 mmHg (80.0-100.0) L 05/11/23 18:28 ABG HCO3 20.0 mmol/L (22-26) L 05/11/23 18:28 ABG O2 Saturation 92.6 05/11/23 18:28 ABG Base Excess -7.4 mmol/L (-2.0-2.0) L 05/11/23 18:28 Guero Test N/a 05/11/23 18:28 A-a O2 Gradient 16.6 mmHg (5-10) H 05/11/23 18:28 Hematocrit 37.1 % (42-52) L 05/11/23 18:28 Hgb O2 Saturation 90.4 % (95-100) L 05/11/23 18:28 Carboxyhemoglobin 1.6 %THgb (0.4-20.1) 05/11/23 18:28 Methemoglobin 0.8 % (0.4-1.5) 05/11/23 18:28 Total Hemoglobin 12.1 g/dL (14-18) L 05/11/23 18:28 Sodium 140.0 mmol/L (131-143) 05/11/23 18:28 Potassium 5.4 mmol/L (3.5-5.0) H 05/11/23 18:28 Glucose 172.0 mg/dL (70-115) H 05/11/23 18:28 Ionized Calcium 1.2 mmol/L (1.1-1.4) 05/11/23 18:28 O2 Delivery Device Nc 05/11/23 18:28 O2 Liters/Min 4.0 % 05/11/23 18:28 FiO2 36.0 % 05/11/23 18:28 Retail Worker ID Amh 05/11/23 18:28 Sodium 145 mmol/L (136-145) 05/15/23 05:55 Potassium 3.9 mmol/L (3.5-5.1) 05/15/23 05:55 Chloride 107 mmol/L (98-107) 05/15/23 05:55 Carbon Dioxide 33 mmol/L (22-29) H 05/15/23 05:55 Anion Gap 8.9 (5-19) 05/15/23 05:55 BUN 40 mg/dL (8-23) H 05/15/23 05:55 Creatinine 2.1 mg/dL (0.7-1.2) H 05/15/23 05:55 GFR Calculation Not Reportable 05/15/23 05:55 Glucose 100 mg/dL (65-115) 05/15/23 05:55 Estimat Average Glucose 103 05/11/23 09:09 Hemoglobin A1c 5.2 % (4.0-6.0) 05/11/23 09:09 Calculated Osmolality 310 mOsm/kg (285-295) H 05/15/23 05:55 Calcium 8.7 mg/dL (8.5-10.5) 05/15/23 05:55 Magnesium 2.3 mg/dL (1.7-2.3) 05/12/23 05:11 Total Bilirubin 0.5 mg/dL (0.15-1.2) 05/11/23 09:19 AST 49 U/L (0-40) H 05/11/23 09:19 ALT 25 U/L (0-41) 05/11/23 09:19 Alkaline Phosphatase 83 U/L (40-130) 05/11/23 09:19 Troponin T Baseline 27 ng/L (0-15) H 05/11/23 09:19 Troponin T 120 Minute 27.55 ng/L (0-15) H 05/11/23 11:02 Delta Troponin T 0.55 ABS# (0-10) 05/11/23 11:02 Troponin T Hi Sens 6Hr 27.78 ng/L (0-15) H 05/11/23 15:20 Troponin T Hi Sens 6Hr Delta 0.78 ng/L (0-12) 05/11/23 15:20 C-Reactive Protein 7.3 mg/L (0.0-4.9) H 05/12/23 05:11 NT-Pro-B Natriuret Pep 96778 pg/mL (0-450) H 05/13/23 04:20 Total Protein 6.0 g/dL (6.6-8.7) L 05/11/23 09:19 Albumin 3.7 g/dL (3.5-5.2) 05/11/23 09:19 Globulin 2.3 g/dL (1.3-4.6) 05/11/23 09:19 Vitamin B12 259 pg/mL (232-1245) 05/11/23 15:20 Procalcitonin 0.08 ng/mL (0-0.5) 05/11/23 15:20 TSH 1.45 uIU/mL (0.27-4.20) 05/11/23 15:20 Coronavirus 229E (PCR) Not detected (NOT DETECT) 05/11/23 20:30 Human Metapneumovir PCR Not detected (NOT DETECT) 05/11/23 23:01 Entero/Rhino (PCR) Detected (NOT DETECT) A 05/11/23 23:01 SARS-CoV-2 (PCR) Not detected (NOT DETECT) 05/11/23 20:30 SARS-CoV-2 Ag (Rapid) negative (Negative) 05/11/23 09:57 Vitals Last Vital Signs Temp 98.8 F 05/15/23 04:57 Pulse 76 05/15/23 04:57 Resp 17 05/15/23 04:57 BP 110/66 05/15/23 04:57 Pulse Ox 99 05/15/23 04:57 O2 Del Method Nasal Cannula 05/14/23 20:00 O2 Flow Rate 3 05/14/23 20:00 FiO2 40 05/12/23 01:03 Discharge Plan Discharge Patient Disposition: Home Condition: Stable Prescriptions: New hydralazine 25 mg Tablet 25 mg PO BID Qty: 60 0RF furosemide [Lasix] 20 mg tablet 20 mg PO DAILY Qty: 90 3RF Continued carvedilol 3.125 mg tablet 3.125 mg PO BID Qty: 180 3RF nitroglycerin [Nitrostat] 0.4 mg tablet, sublingual 0.4 mg SUBLINGUAL Q5M PRN (Reason: Chest Pain) Qty: 30 3RF Advair Diskus 500-50 mcg/dose blister with device 1 inh INHALATION BID albuterol sulfate 90 mcg/actuation HFA aerosol inhaler 2 inh INHALATION Q4H PRN (Reason: Shortness Of Breath) amiodarone 200 mg tablet 100 mg PO QAM isosorbide mononitrate 30 mg tablet extended release 24 hr 30 mg PO QAM Changed potassium chloride 20 mEq tablet extended release 20 meq PO QAM Qty: 60 0RF Held apixaban 5 mg tablet 2.5 mg PO BID Hold Instructions: Resume on 05/22/23. Discontinued Aspir-81 81 mg Tablet,Delayed Release (Dr/Ec) 81 mg PO QAM Discharge Orders: Discharge Order (Routine); Ordered 05/15/23 Ordered By: Helen Lares Referrals: Cristofer Barrera MD [Primary Care Provider] - 7-10 days Discharge Diet: Cardiac Discharge Activity: Increase activity as tolerated Patient Instructions: GI Discharge Instructions, Opioid Safety Discharge Attestations Time Spent in Discharge Care*: greater than 30 min Quality Metrics Clinical Quality Measures [ No reported AMI, CVA or VTE this stay] Coding Level of Care Code Acute Code for Chg Fwd Diagnoses New onset of congestive heart failure I50.9 Bladder cancer C67.9 Breath shortness R06.02 Chronic shortness of breath R06.02 Anemia D64.9 GI (gastrointestinal bleed) K92.2 COPD (chronic obstructive pulmonary disease) J44.9 Fatigue R53.83 Essential (primary) hypertension I10
--- NOTE | 2023-05-15 08:13 | PM.PN ---
Subjective Subjective: Patient doing well. Denies chest pain. Vitals/I&O/Wt Last Vital Signs Temp 98.8 F 05/15/23 04:57 Pulse 76 05/15/23 04:57 Resp 17 05/15/23 04:57 BP 110/66 05/15/23 04:57 Pulse Ox 99 05/15/23 04:57 O2 Del Method Nasal Cannula 05/14/23 20:00 O2 Flow Rate 3 05/14/23 20:00 FiO2 40 05/12/23 01:03 05/14/23 05/15/23 05/15/23 22:59 06:59 14:59 Intake Total 720 / 1560 240 / 1800 Output Total 300 / 1400 1700 / 3100 Balance 420 / 160 -1460 / -1300 Physical Exam Narrative: GENERAL: Patient is alert, awake and oriented x3. [] NECK: No jugular vein distension. [] HEENT: No cyanosis. No icterus. No pallor. [] HEART: Regular S1 and S2. No murmur, rub or gallop. [] LUNGS: Diminished air entry CENTRAL NERVOUS SYSTEM: Grossly nonfocal. [] EXTREMITIES: Lower extremities with 1+ edema bilaterally. Urinary Catheter Management: Hoffman: Cath Placed During This Visit: yes Reason for Continuing Indwelling Catheter: Other Urinary Catheter Date of Insertion: 05/11/23 Urinary Catheter Time of Insertion: 20:08 Data 05/15/23 05:55 05/15/23 05:55 A&P Assessment and plan (1) New onset of congestive heart failure: Plan Continue aggressive medical therapy. As decision made to pursue medical therapy,we will sign off. Can follow-up with cardiology as outpatient. Please call with questions. Attestations Medical Necessity Statement*: Care expected to cross 2 midnight Coding Level of Care Code Acute Code for Chg Fwd Diagnoses New onset of congestive heart failure I50.9
[2023-05-15] MEDS: doxycycline 100 mg Tablet PO (09:27)
[2023-05-15] MEDS: pantoprazole 40 mg SDV IVP (09:27)
[2023-05-15] MEDS: carvedilol 3.125 mg Tablet PO (09:27)
[2023-05-15] MEDS: hyDRALAzine 25 mg Tablet PO (09:27)
[2023-05-15] MEDS: FUROsemide 10 mg/mL SDV 4mL 40 MG IVP (09:27)
--- NOTE | 2023-05-15 10:40 | PC.CHAP ---
Pastoral Care Encounter/Spiritual Assessment Type of Contact [] Declined political researcher visit [] Patient/Family/Request visit [] Outpatient visit [] Follow-up visit [] Physician referral [] Code/Alert [] Routine visit [x] Staff referral [x] Actively dying [] Patient sleeping [] Family support [] [] Out of room [] Palliative care [] [] Receiving care in room [] Pre-surgical visit [] Trauma [] Long length of stay [] ICU visit [] Other: Relational/Emotional Strength [] Patient feels connected with others/family/visitors/staff [] Distress [] Loneliness/isolation [] Abandonment Spirituality of Patient [] Person of Latricia [] Attends Episcopalian of their Latricia [x] Believes in Prayer [] Reads Bible or Evangelical materials [] There are Spiritual issues to be addressed Passenger Car Cleaning Supervisor Interventions [x] Prayer [] Active listening [] Non-anxious presence [x] Spiritual/emotional support [] Crisis/trauma care [] Spiritual counseling [] Bereavement support [] Provided bereavement packet [] Provided Bible/devotional materials [] Provided toy/stuffed animal, coloring book to patient or family member [] Provided Communion [] Anointing/[place] [] Salvation [] Completed spiritual assessment [] Other: Impact on Illness or Injury [] Angry [] Fearful [] Anxious [] Often cries [] Exhaustion [] Unable to work [] Unable to attend yazdanism [] Unable to walk/stand [] Unable to read [] Unable to drive [] Unable to eat/drink [] Unable to sleep [] Unable to be with family [] Patient intubated [] Other: Summary Popeye, has heart problem, Shannan elmore believe he has much longer. Spoke with him about his Spiritual welfare. He professes to know the Lord, been born Again. Praise God, Glory to God. Time spent with patient 20 min
[2023-05-15 12:31] VITALS: O2SAT 87
[2023-05-15 14:06] VITALS: PULSE 71; RESP 16; O2SAT 100
== END 2023-05-15 14:07 | disposition home or self-care (01) | DRG 377 ==
LOC: ER 15:50 → MEDSURG 18:27
PROVIDERS: Family Medicine; Surgery; Admitting Provider Internal Medicine; Emergency Provider Nurse Practitioner; PCP Internal Medicine; Visit Provider Internal Medicine
PROC: 0DJ08ZZ Inspection of Upper Intestinal Tract, Via Natural or Artificial Opening Endoscopic (ICD-10-PCS; CPT 43235; principal; 2023-05-13 10:10)
PROC: 0DJD8ZZ Inspection of Lower Intestinal Tract, Via Natural or Artificial Opening Endoscopic (ICD-10-PCS; CPT 45378; 2023-05-13 10:10)
DX: K92.2 Gastrointestinal hemorrhage, unspecified (principal); I50.21 Acute systolic (congestive) heart failure; I13.0 Hypertensive heart and chronic kidney disease with heart failure and stage 1 through stage 4 chronic kidney disease, or unspecified chronic kidney disease; D62 Acute posthemorrhagic anemia; N17.9 Acute kidney failure, unspecified; N18.9 Chronic kidney disease, unspecified; D37.4 Neoplasm of uncertain behavior of colon; Z85.51 Personal history of malignant neoplasm of bladder; J44.9 Chronic obstructive pulmonary disease, unspecified; Z99.81 Dependence on supplemental oxygen; Z66 Do not resuscitate; Z95.0 Presence of cardiac pacemaker; C61 Malignant neoplasm of prostate; Z86.718 Personal history of other venous thrombosis and embolism; Z79.01 Long term (current) use of anticoagulants; Z11.52 Encounter for screening for COVID-19; N40.1 Benign prostatic hyperplasia with lower urinary tract symptoms; K44.9 Diaphragmatic hernia without obstruction or gangrene; I48.91 Unspecified atrial fibrillation; D69.6 Thrombocytopenia, unspecified; Z87.891 Personal history of nicotine dependence; Z95.1 Presence of aortocoronary bypass graft; Z95.5 Presence of coronary angioplasty implant and graft; M19.90 Unspecified osteoarthritis, unspecified site; E78.00 Pure hypercholesterolemia, unspecified
CPT/HCPCS: 36415; 36600; 43235; 45382; 45385; 51702; 71045; 80048; 80051; 80053; 82274; 82330; 82607; 82805; 83036; 83735; 83880; 84145; 84443; 84484; 85025; 85610; 86140; 87426; 87635; 87801; 88305; 93005; 93306; 93970; 94640; 94660; 94760; 96374; 97116; 97161; 97530; 99285; C9113; J1940; J2704; J2930; J7030

== ENCOUNTER → 2023-05-22 10:37 | Outpatient (BNVA) | payer MEDICARE, OTHER, SELFPAY | PROVIDERS: PCP Internal Medicine; Visit Provider Nurse Practitioner Family | DX: I11.0 Hypertensive heart disease with heart failure (principal); I50.20 Unspecified systolic (congestive) heart failure; Z87.891 Personal history of nicotine dependence | CPT/HCPCS: 99213 ==

== ENCOUNTER 2023-06-07 11:06 | Emergency (ER) | payer OTHER, SELFPAY ==
[2023-06-07 11:07] VITALS: BP 180/82; PULSE 75; RESP 25; TEMP 37.1; O2SAT 100; BMI 25.1
[2023-06-07 11:20] VITALS: BP 180/82; PULSE 71; RESP 25; O2SAT 98
--- NOTE | 2023-06-07 11:33 | XR_ITS ---
WS: [id number] Exam: XR chest 1V portable [id number] Date/Time of Exam: 06/07/2023 11:33 AM Reason For Exam: SOB Comparison 05/11/2023. There is marked cardiac enlargement unchanged. No consolidating infiltrates are seen. Probable residu al left-sided pleural effusion is noted. No pneumothorax. Signs of previous CABG surgery. A permanent cardiac pacer superimposes the LEFT chest. Bony structures are intact. IMPRESSION: 1. Marked cardiac enlargement unchanged. Small left-sided pleural effusion. 2. No consolidating infiltrates noted.
[2023-06-07 11:48] LABS: Basophils % 0.4 %; Eosinophils # 0.1 10^3/uL (0.0-0.8); Eosinophils % 2.8 %; Hematocrit 28.6 % (37-53); Lymphocytes # 0.6 10^3/uL (0.8-4.8); Lymphocytes % 12.4 %; Mean Corpuscular HGB Conc 30.4 g/dL (30-55); Mean Corpuscular Hemoglobin 32.5 pg (27-33); Mean Corpuscular Volume 106.7 fl (82-101); Monocytes # 0.7 10^3/uL (0.2-0.9); Neutrophils # 3.45 10^3/uL (1.8-7.7); Nucleated Red Blood Cells % 0 %; Platelet Count 76 10^3/cmm (157-399); Red Blood Count 2.68 10^6/uL (3.85-5.65); White Blood Count 4.93 10^3/uL (3.29-11.43)
[2023-06-07 12:14] LABS: Influenza A by IFA negative (Negative); Influenza B by IFA negative (Negative)
[2023-06-07 12:14] LABS: Anion Gap 15.4 (5-19); Blood Urea Nitrogen 30 mg/dL (8-23); Calcium 8.7 mg/dL (8.5-10.5); Carbon Dioxide 25 mmol/L (22-29); Chloride 106 mmol/L (98-107); Glucose 98 mg/dL (65-115); NT Pro B Type Natriuretic Pept 6060 pg/mL (0-450); Osmolality Calculated 300 mOsm/kg (285-295); Potassium 4.4 mmol/L (3.5-5.1); Sodium 142 mmol/L (136-145)
--- NOTE | 2023-06-07 13:02 | PC.PHAR ---
pt states he takes care of his own medications-pt states he doesnt think he takes metoprolol succinate er 25mg daily ext shows last filled 09/20/22 [facility] states pt had them dc rx in september-pt states he is unsure if he is taking flomax 0.4mg hs ext shows last filled 09/03/22 [facility] states rx has [facility] only mail eliquis 2.5mg bid to the pt ext shows last filled 04/22/23 90d[facility] [place] [facility]-still waiting for hi med list
[2023-06-07 13:13] VITALS: BP 114/82; PULSE 70; RESP 24; O2SAT 100
[2023-06-07 13:41] LABS: Adenovirus Not Detected (NOT DETECT); Chlamydia Pneumoniae Not Detected (NOT DETECT); Coronavirus 229E,HKU1,NL63,OC4 Not Detected (NOT DETECT); Human Metapneumovirus Not Detected (NOT DETECT); Human Rhinovirus/Enterovirus Not Detected (NOT DETECT); Influenza A Detected (NOT DETECT); Influenza A H1 Not Detected (NOT DETECT); Influenza A H1-2009 Detected (NOT DETECT); Influenza A H3 Not Detected (NOT DETECT); Influenza B Not Detected (NOT DETECT); Mycoplasma Pneumoniae Not Detected (NOT DETECT); Parainfluenza Virus Type 1 Not Detected (NOT DETECT); Parainfluenza Virus Type 2 Not Detected (NOT DETECT); Parainfluenza Virus Type 3 Not Detected (NOT DETECT); Parainfluenza Virus Type 4 Not Detected (NOT DETECT); Respiratory Syncytial Virus A Not Detected (NOT DETECT); Respiratory Syncytial Virus B Not Detected (NOT DETECT); SARS-COV-2 Not Detected (NOT DETECT)
[2023-06-07 13:52] LABS: Influenza A Detected (NOT DETECT); Influenza A H1 Not Detected (NOT DETECT); Influenza A H1-2009 Detected (NOT DETECT); Influenza A H3 Not Detected (NOT DETECT); Influenza B Not Detected (NOT DETECT); Results from GEN
[2023-06-07 15:15] VITALS: BP 167/69; PULSE 72; RESP 14; O2SAT 99
[2023-06-07 15:26] LABS: Add Urine Culture? No; Add Urine Microscopic? YES; Bacteria Urine TRACE /hpf; Bilirubin Urine Neg (Negative); Blood Urine 3+ (Negative); Glucose Urine UA Norm (Normal); Ketones Urine Negative (Negative); Leukocyte Esterase Urine Negative (Negative); Nitrate Urine Negative (Negative); Protein Urine Neg (Negative); RBC Urine 0-4 /hpf (0-2); Specific Gravity, Urine 1.005 (1.005-1.030); Squamous Epithelial Cell Urine RARE /hpf (0-5); Urine Appearance Clear (CLEAR); Urine Color Yellow (Yellow); Urobilinogen Urine Neg (Negative); WBC Urine RARE /hpf (0-5); pH Urine 5 (5-7)
[2023-06-07 16:16] VITALS: BP 167/69; PULSE 72; RESP 14; O2SAT 99
--- NOTE | 2023-06-07 16:44 | ED_ITS ---
HPI - Weakness General: Chief complaint: Shortness of Breath/Dyspnea Stated complaint: SOB, Weakness Time Seen by Provider: 06/07/23 11:10 History of Present Illness: This patient is an 87-year-old white male who presents to the emergency department stating that he woke up this morning with generalized weakness. He does have shortness of breath but he states that is chronic and unchanged. He has not had a fever. No chest pain. Has not had any nausea or vomiting. No constipation or diarrhea. No urinary symptoms. Patient does have a history of COPD and does wear 3 L of oxygen at home. He also has a history of anemia, bladder cancer, hypertension, DVT and congestive heart failure. Review of Systems General: Reports: 10 or more systems reviewed and unremarkable except in HPI and below Const: Reports: other (Generalized weakness) [facility] PFSH: Medical History (Updated 06/07/23 @ 15:55 by Cristopher Ramires MD) Anemia Bladder cancer Bladder tumor TURBT 05/02/2020 BPH loc w urin obs/LUTS Breath shortness Chronic shortness of breath COPD (chronic obstructive pulmonary disease) 3 L at baseline Essential (primary) hypertension Fatigue GI (gastrointestinal bleed) Gross hematuria H/O cervical fracture surgical repair H/O deep venous thrombosis History of COPD Hypercholesteremia New onset of congestive heart failure Osteoarthritis Recurrent ventral hernia Thrombocytopenia Surgical History History of back surgery x9 History of cataract extraction History of colonoscopy History of coronary artery bypass graft History of coronary artery stent placement History of hemorrhoidectomy History of hernia repair History of mandibular surgery History of surgery on arm History of testicular surgery S/P excision of lipoma Status post aortic coarctation stent placement Status post surgical removal and fulguration of bladder neoplasm Family History Sister Cancer Brother Cancer Mother , AT AGE 70 Myocardial infarct Father , AT AGE 70 Alcoholism Social History Smoking and tobacco/nicotine status: former use of tobacco/nicotine Alcohol intake: current Alcohol intake frequency: holidays/special occasions only Substance/Drug Use: never Household members: spouse Housing: House Marital status: Current occupational status: retired Physical Exam Const: COMMON NORMALS: no acute distress, patient oriented x3 and no limitations GENERAL APPEARANCE: cooperative and comfortable HENMT: COMMON NORMALS: normocephalic, atraumatic, Normal nasal mucous membranes and turbinates present, moist oral mucous membranes and oropharynx normal HEAD & SCALP: normal to inspection, normocephalic and atraumatic FACE & SINUS: normal facial exam NOSE: Normal nasal mucous membranes and turbinates present Eye: COMMON NORMALS: Equal, round and reactive pupils present, EOMs intact bilaterally and conjunctivae normal GENERAL EYE: appearance normal, both eyes and all related structures CONJUNCTIVA: Yes conjunctivae normal PUPIL: Yes Equal, round and reactive pupils present Neck/C-Spine: COMMON NORMALS: supple and no JVD Chest: COMMONS NORMALS: normal inspection of the chest Resp: COMMON NORMALS: normal respiratory effort and clear to auscultation bilaterally AUSCULTATION: clear to auscultation bilaterally Cardio: COMMON NORMALS: no JVD, regular rate, regular rhythm, No gallops present (Cardio), No murmurs present (Cardio) and No rub (Cardio) RATE: regular rate RHYTHM: regular rhythm GI: COMMON NORMALS: Normal to inspection, nondistended, normoactive bowel sounds present, Soft to palpation and non-tender AUSCULTATION: Yes no rmoactive bowel sounds PALPATION: Yes Soft to palpation : COMMON NORMALS: Yes no CVA tenderness BLADDER/KIDNEY EXAM: Yes no CVA tenderness Back/Pelvis: COMMON NORMALS: no CVA tenderness and thoracic and lumbar spine normal to inspection Extremity: COMMON NORMALS: normal to inspection Neuro: COMMON NORMALS: patient oriented x3 and CN's II-XII intact bilaterally Psych: COMMON NORMALS: mental status grossly normal, Normal thought process present and cooperative THOUGHT PROCESS: Normal thought process present Skin: COMMON NORMALS: no rashes or lesions noted, turgor normal and no jaundice GENERAL SKIN EXAM: no rashes or lesions noted and turgor normal Course Vital Signs: Vital signs: Vital Signs Temperature 98.7 F 06/07/23 11:07 Pulse Rate 72 06/07/23 16:16 Respiratory Rate 14 06/07/23 16:16 Blood Pressure 167/69 06/07/23 16:16 Pulse Oximetry 99 06/07/23 16:16 Oxygen Delivery Me thod Room Air 06/07/23 15:15 Oxygen Flow Rate 3 06/07/23 11:20 MDM - Weakness Medical Decision Making CBC reveals a hemoglobin of 8.7, recently it was 9.2. Platelet count 76 and patient also has a chronically low platelet count. His BUN was 30 with a creatinine of 2.3 and these levels are also stable. BNP was 6060 again this is stable for him. Influenza and COVID-negative. Urinalysis was normal. Chest x- ray reveals cardiomegaly with a small left pleural effusion and no infiltrates. Cardiomegaly is unchanged. Not sure what is causing the patient's sudden onset of generalized weakness. I discussed this with him as and went over all of his tests. He is feeling better after a lengthy stay in the emergency department. I do not see any indication for admission at this time. Recommended he follow- up with his primary care provider for recheck next week. He was discharged in stable condition. Lab Data 06/07/23 11:44 06/07/23 11:44 Laboratory Results WBC 4.93 10^3/uL (3.29-11.43) 06/07/23 11:44 RBC 2.68 10^6/uL (3.85-5.65) L 06/07/23 11:44 Hgb 8.70 g/dL (11.27-16.99) L 06/07/23 11:44 Hct 28.6 % (37-53) L 06/07/23 11:44 MCV 106.7 fl (82-101) H 06/07/23 11:44 MCH 32.5 pg (27-33) 06/07/23 11:44 MCHC 30.4 g/dL (30-55) 06/07/23 11:44 RDW 14.0 % (12.1-15.1) 06/07/23 11:44 Plt Count 76 10^3/cmm (157-399) L 06/07/23 11:44 MPV 9.0 fL (7.4-10.4) 06/07/23 11:44 Neut % (Auto) 70.0 % 06/07/23 11:44 Lymph % (Auto) 12.4 % 06/07/23 11:44 [place] % (Auto) 14.0 % 06/07/23 11:44 Eos % (Auto) 2.8 % 06/07/23 11:44 Baso % (Auto) 0.4 % 06/07/23 11:44 Neut # (Auto) 3.45 10^3/uL (1.8-7.7) 06/07/23 11:44 Lymph # (Auto) 0.6 10^3/uL (0.8-4.8) L 06/07/23 11:44 Hall # (Auto) 0.7 10^3/uL (0.2-0.9) 06/07/23 11:44 Eos # (Auto) 0.1 10^3/uL (0.0-0.8) 06/07/23 11:44 Baso # (Auto) 0.0 10^3/uL (0.0-0.1) 06/07/23 11:44 Nucleated RBC % (auto) 0 % 06/07/23 11:44 Nucleated RBCs # 0.0 /100WBC 06/07/23 11:44 Sodium 142 mmol/L (136-145) 06/07/23 11:44 Potassium 4.4 mmol/L (3.5-5.1) 06/07/23 11:44 Chloride 106 mmol/L (98-107) 06/07/23 11:44 Carbon Dioxide 25 mmol/L (22-29) 06/07/23 11:44 Anion Gap 15.4 (5-19) 06/07/23 11:44 BUN 30 mg/dL (8-23) H 06/07/23 11:44 Creatinine 2.3 mg/dL (0.7-1.2) H 06/07/23 11:44 GFR Calculation Not Reportable 06/07/23 11:44 Glucose 98 mg/dL (65-115) 06/07/23 11:44 Calculated Osmolality 300 mOsm/kg (285-295) H 06/07/23 11:44 Calcium 8.7 mg/dL (8.5-10.5) 06/07/23 11:44 NT-Pro-B Natriuret Pep 6060 pg/mL (0-450) H 06/07/23 11:44 Urine Color Yellow (Yellow) 06/07/23 14:52 Urine Appearance Clear (CLEAR) 06/07/23 14:52 Urine pH 5 (5-7) 06/07/23 14:52 Ur Specific [place] 1.005 (1.005-1.030) 06/07/23 14:52 Urine Protein Neg (Negative) 06/07/23 14:52 Urine Glucose (UA) Norm (Normal) 06/07/23 14:52 Urine Ketones Negative (Negative) 06/07/23 14:52 Urine Blood 3+ (Negative) H 06/07/23 14:52 Urine Nitrate Negative (Negative) 06/07/23 14:52 Urine Bilirubin Neg (Negative) 06/07/23 14:52 Urine Urobilinogen Neg mg/dL (Negative) 06/07/23 14:52 Ur Leukocyte Esterase Negative (Negative) 06/07/23 14:52 Urine RBC 0-4 /hpf (0-2) H 06/07/23 14:52 Urine WBC Rare /hpf (0-5) 06/07/23 14:52 Ur Squamous Epith Cells Rare /hpf (0-5) 06/07/23 14:52 Amorphous Sediment Not Reportable 06/07/23 14:52 Urine Bacteria Trace /hpf (NONE) 06/07/23 14:52 Nasal Influ A H1 2009 PCR Detected (NOT DETECT) A 06/07/23 13:51 Coronavirus 229E (PCR) Not detected (NOT DETECT) 06/07/23 11:51 Influenza A (H1) PCR Not detected (NOT DETECT) 06/07/23 13:51 Influenza A (H3) PCR Not detected (NOT DETECT) 06/07/23 13:51 Influenza Type A Ag negative (Negative) 06/07/23 11:51 Influenza Type A (PCR) Detected (NOT DETECT) A 06/07/23 13:51 Influenza Type B Ag negative (Negative) 06/07/23 11:51 Influenza Type B (PCR) Not detected (NOT DETECT) 06/07/23 13:51 SARS-CoV-2 (PCR) Not detected (NOT DETECT) 06/07/23 11:51 All radiology interpretation(s) finalized by discharge Discharge Plan Discharge Patient Disposition: Home Clinical Impression: Generalized weakness Condition: Stable Prescriptions: No Action carvedilol 3.125 mg tablet 3.125 mg PO BID Qty: 180 3RF nitroglycerin [Nitrostat] 0.4 mg Tablet, Sublingual 0.4 mg SUBLINGUAL Q5M PRN (Reason: Chest Pain) Rx Instructions: do not exceed 3 doses per episode Eliquis 2.5 mg tablet 2.5 mg PO BID Lasix 20 mg tablet 20 mg PO QAM Colace 100 mg Capsule 100 mg PO DAILY PRN (Reason: Constipation) fluticasone propion-salmeterol [Advair Diskus] 500-50 mcg/dose blister with device 1 inh INHALATION BID albuterol sulfate 90 mcg/actuation HFA aerosol inhaler 2 inh INHALATION Q4H PRN (Reason: Shortness Of Breath) amiodarone 200 mg tablet 100 mg PO QAM isosorbide mononitrate 30 mg tablet extended release 24 hr 30 mg PO QAM hydralazine 25 mg Tablet 25 mg PO BID Qty: 60 0RF potassium chloride 20 mEq tablet extended release 20 meq PO QAM Qty: 60 0RF Discharge Orders: Discharge ED (Routine); Ordered 06/07/23 Ordered By: Cristopher Ramires Referrals: Cristofer Barrera MD [Primary Care Provider] - Patient Instructions: Weakness (Generalized) Coding Level of Care Code ED Surgery Aide for Marco Taylor
== END 2023-06-07 16:18 | disposition home or self-care (01) ==
PROVIDERS: Emergency Provider Emergency Medicine; PCP Internal Medicine
DX: R53.1 Weakness (principal); Z79.01 Long term (current) use of anticoagulants; Z11.52 Encounter for screening for COVID-19; Z87.891 Personal history of nicotine dependence; Z85.51 Personal history of malignant neoplasm of bladder; J44.9 Chronic obstructive pulmonary disease, unspecified; I11.0 Hypertensive heart disease with heart failure; I50.9 Heart failure, unspecified; Z95.1 Presence of aortocoronary bypass graft
CPT/HCPCS: 36415; 71045; 80048; 81001; 83880; 85025; 87631; 87635; 87804; 99284

== ENCOUNTER 2023-06-08 07:19 | Inpatient (IN) | payer OTHER, SELFPAY ==
[2023-06-08] VITALS (22 sets, daily range): BP systolic 131–161; BP diastolic 54–91; PULSE 75–98; RESP 18–30; TEMP 37.3; O2SAT 90–96; BMI 25.8
--- NOTE | 2023-06-08 07:26 | XRR_ITS ---
PROCEDURE INFORMATION: Exam: XR Chest Exam date and time: 06/08/2023 7:28 AM Age: 87 years old Clinical indication: Cough and dyspnea; Additional info: Dyspnea/cough TECHNIQUE: Imaging protocol: Radiologic exam of the chest. Views: 1 view. COMPARISON: CR XR chest 1V portable [id number] 06/07/2023 11:48 AM FINDINGS: Tubes, catheters and devices: Multi lead pacemaker/defibrillator. Lungs: Scattered pulmonary infiltrates, greatest in the right lower lobe. Multifocal pneumonia versus CHF with edema. Pleural spaces: Unremarkable. No pleural effusion. No pneumothorax. Heart/Mediastinum: Cardiomegaly. Bones/joints: Status post median sternotomy. XR/XR chest 1V portable [id number] IMPRESSION: CHF versus pneumonia.
--- NOTE | 2023-06-08 07:26 | ECG_ITS ---
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 Measurements Intervals [place] Rate: 88 P: 0 ID: 0 QRS: 4 QRSD: 167 T: 267 QT: 413 QTc: 501 Interpretive Statements Demand AV paced rhythm Further interpretation is not possible Electronically Signed On 06-08-2023 15:39:05 HYDROSTATIC TESTER by Winter Mcconnell M.D. [id number]
--- NOTE | 2023-06-08 07:27 | ED_ITS ---
HPI - SOB/Dyspnea General: Chief Complaint: Shortness of Breath/Dyspnea Stated Complaint: SOB Time Seen by Provider: 06/08/23 07:24 Source: patient Mode of arrival: ambulatory History of Present Illness: HPI Narrative: 79-year-old male presents emergency room complaining of shortness of breath difficulty breathing his home oxygen is usually at 2 L/min he is increased to 3 EMS increased to 4 when they arrived there and is maintaining sats in the low 90s. He has had some increasing productive cough as well as some back pain he denies any chest pain. MD elicited complaint: shortness of breath and cough Pertinent past history: COPD Exacerbating factors: nothing Relieving factors: nothing Known history of: COPD Associated symptoms: Deny abdominal pain, chest congestion, chest pain, cough, diaphoresis, dizziness, extremity pain, fever(s), hemoptysis, lightheadedness, myalgias, nausea, orthopnea, palpitations, paresthesias, polydipsia, polyuria, rash, sense of impending doom, syncope or vomiting Review of Systems Const: Denies: fever(s), chills, fatigue, malaise or diaphoresis Card: Denies: chest pain, palpitations, lightheadedness, syncope or orthopnea Resp: Denies: dyspnea, hemoptysis or chest congestion GI: Denies: abdominal pain, nausea or vomiting : Reports: flank pain; Denies: dysuria, urinary frequency or urinary urgency Musc: Denies: extremity pain Skin/Breast: Denies: rash Neuro: Denies: dizziness Endo: Denies: polyuria or polydipsia PFSH ED PFSH: Medical History Anemia Bladder cancer Bladder tumor TURBT 05/02/2020 BPH loc w urin obs/LUTS Breath shortness Chronic shortness of breath COPD (chronic obstructive pulmonary disease) 3 L at baseline Essential (primary) hypertension Fatigue GI (gastrointestinal bleed) Gross hematuria H/O cervical fracture surgical repair H/O deep venous thrombosis History of COPD Hypercholesteremia New onset of congestive heart failure Osteoarthritis Recurrent ventral hernia Thrombocytopenia Surgical History History of back surgery x9 History of cataract extraction History of colonoscopy History of coronary artery bypass graft History of coronary artery stent placement History of hemorrhoidectomy History of hernia repair History of mandibular surgery History of surgery on arm History of testicular surgery S/P excision of lipoma Status post aortic coarctation stent placement Status post surgical removal and fulguration of bladder neoplasm Family History Sister Cancer Brother Cancer Mother , AT AGE 70 Myocardial infarct Father , AT AGE 70 Alcoholism Social History Smoking and tobacco/nicotine status: former use of tobacco/nicotine Alcohol intake: current Alcohol intake frequency: holidays/special occasions on ly Substance/Drug Use: never Household members: spouse Housing: House Marital status: Current occupational status: retired Physical Exam Const: GENERAL APPEARANCE: cooperative and lethargic ORIENTATI ON/CONSCIOUSNESS: Yes lethargic HENMT: COMMON NORMALS: normocephalic, atraumatic and hearing grossly normal bilaterally HEAD & SCALP: normocephalic and atraumatic Resp: COMMON NORMALS: normal respiratory effort, No retractions and No use of accessory muscles AUSCULTATION: rhonchi and wheezes Cardio: COMMON NORMALS: regular rate, regular rhythm and No murmurs present (Cardio) RATE: regular rate RHYTHM: regular rhythm GI: COMMON NORMALS: Soft to palpation and No hepatosplenomegaly present AUSCULTATION: Yes normoactive bowel sounds PALPATION: Yes Soft to palpation, No Tenderness to palpation present (GI), No Guarding due to palpation present (GI) and Yes No hepatosplenomegaly present Extremity: COMMON NORMALS: normal to inspection, capillary refill normal, no clubbing, cyanosis or edema, no calf tenderness and no pedal edema Neuro: SENSORIUM/ORIENTATION: Yes lethargic Skin: COMMON NORMALS: no rashes or lesions noted GENERAL SKIN EXAM: no rashes or lesions noted Course Vital Signs: Vital signs: Vital Signs Temperature 97.7 F 06/15/23 13:54 Pulse Rate 79 06/15/23 13:54 Respiratory Rate 18 06/15/23 11:22 Blood Pressure 123/51 06/15/23 13:54 Pulse Oximetry 93 06/15/23 13:54 Oxygen Delivery Me thod Nasal Cannula 06/15/23 12:00 Oxygen Flow Rate 2 06/15/23 11:22 Fraction of Inspir ed Oxygen 35 06/15/23 07:51 MDM - SOB/Dyspnea Medical Decision Making Admit with acute exacerbation congestive heart failure exacerbation COPD. Patient given Lasix in the ER. Will admit discussed with hospitalist orders written Medical Records I reviewed the patient's medical records. Lab Data I reviewed the patient's lab results. 06/15/23 04:47 06/15/23 04:47 Labs/Radiology: Radiology Impressions Gallbladder Ultrasound 06/08/23 08:42 IMPRESSION: 1. Mild hepatic findings are nonspecific and could be artifactual or possibly indicate hepatitis or other infiltrative process. Correlate with laboratory values. 2. Small right pleural effusion. 3. Right renal atrophy with increased echogenicity compatible with medical renal disease. Venous Duplex 06/08/23 11:58 IMPRESSION: 1. No evidence of acute deep vein thrombosis. 2. 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 Chest CT 06/09/23 08:52 IMPRESSION: 1. Cardiomegaly and coronary atherosclerosis. 2. Multifocal ground-glass opacities, somewhat more geographically distributed than is typical for edema although that remains a possibility. Atypical infection including COVID-19 could produce such an appearance. Follow-up recommended to confirm resolution. 3. Multifocal small nodular/tree-in-bud opacities, suggesting bronchiolitis or aspiration. Follow-up recommended to confirm resolution. 4. Few enlarged mediastinal nodes, nonspecific but likely reactive in this context. 5. Dilatation of the ascending aorta at 4 cm diameter, clinical assessment and follow-up recommended. 6. Dilated main pulmonary artery, finding which may be associated with pulmonary hypertension. 7. 5 cm left renal cyst incompletely characterized. New line 8. COMMENTS: 1. Consistent with the [place] [employer]'s Incidental Findings Committee white paper (J Am Ann Radiol 2018): Any incidental renal lesion less than 1 cm or classified as too small to characterize, or any incidental cystic renal lesion characterized as simple-appearing, is likely benign. No follow-up imaging is recommended for these lesions per consensus recommendations based on imaging criteria. 2. Consistent with the [place]'s Incidental Findings Committee white paper (J Am Ann Radiol 2015): In patients aged 35 years and older with an incidental thyroid nodule equal to or greater than 1.[address], MRI or extrathyroidal US, further evaluation with dedicated thyroid US is recommended for patients with normal life expectancy and without comorbidities. For smaller nodules without suspicious features, no further evaluation or follow up is recommended. Chest X-Ray 06/13/23 08:58 IMPRESSION: 1. No acute findings. 2. Waxing and waning infiltrates. Abdomen Ultrasound 06/14/23 08:33 IMPRESSION: No acute findings. Laboratory Results WBC 6.01 10^3/uL (3.29-11.43) 06/08/23 07:34 RBC 3.05 10^6/uL (3.85-5.65) L 06/08/23 07:34 Hgb 9.80 g/dL (11.27-16.99) L 06/08/23 07:34 Hct 31.7 % (37-53) L 06/08/23 07:34 MCV 103.9 fl (82-101) H 06/08/23 07:34 MCH 32.1 pg (27-33) 06/08/23 07:34 MCHC 30.9 g/dL (30-55) 06/08/23 07:34 RDW 13.9 % (12.1-15.1) 06/08/23 07:34 Plt Count 91 10^3/cmm (157-399) L 06/08/23 07:34 MPV 9.8 fL (7.4-10.4) 06/08/23 07:34 Neut % (Auto) 79.4 % 06/08/23 07:34 Lymph % (Auto) 7.3 % 06/08/23 07:34 Jack % (Auto) 12.3 % 06/08/23 07:34 Eos % (Auto) 0.2 % 06/08/23 07:34 Baso % (Auto) 0.3 % 06/08/23 07:34 Neut # (Auto) 4.77 10^3/uL (1.8-7.7) 06/08/23 07:34 Lymph # (Auto) 0.4 10^3/uL (0.8-4.8) L 06/08/23 07:34 Jack # (Auto) 0.7 10^3/uL (0.2-0.9) 06/08/23 07:34 Eos # (Auto) 0.0 10^3/uL (0.0-0.8) 06/08/23 07:34 Baso # (Auto) 0.0 10^3/uL (0.0-0.1) 06/08/23 07:34 Nucleated RBC % (auto) 0 % 06/08/23 07:34 Nucleated RBCs # 0.0 /100WBC 06/08/23 07:34 PT 17.40 SECONDS (12.1-14.9) H 06/08/23 07:34 INR 1.37 (0.8-1.2) H 06/08/23 07:34 Sodium 142 mmol/L (136-145) 06/08/23 07:34 Potassium 5.1 mmol/L (3.5-5.1) 06/08/23 07:34 Chloride 106 mmol/L (98-107) 06/08/23 07:34 Carbon Dioxide 22 mmol/L (22-29) 06/08/23 07:34 Anion Gap 19.1 (5-19) H 06/08/23 07:34 BUN 28 mg/dL (8-23) H 06/08/23 07:34 Creatinine 2.0 mg/dL (0.7-1.2) H 06/08/23 07:34 GFR Calculation Not Reportable 06/08/23 07:34 Glucose 144 mg/dL (65-115) H 06/08/23 07:34 Calculated Osmolality 302 mOsm/kg (285-295) H 06/08/23 07:34 Lactic Acid 2.0 mmol/L (0.5-2.2) 06/08/23 07:34 Calcium 9.0 mg/dL (8.5-10.5) 06/08/23 07:34 Total Bilirubin 1.3 mg/dL (0.15-1.2) H 06/08/23 07:34 AST 61 U/L (0-40) H 06/08/23 07:34 ALT 36 U/L (0-41) 06/08/23 07:34 Alkaline Phosphatase 120 U/L (40-130) 06/08/23 07:34 Troponin T Baseline 40 ng/L (0-15) H 06/08/23 07:34 NT-Pro-B Natriuret Pep 92939 pg/mL (0-450) H 06/08/23 07:34 Total Protein 6.7 g/dL (6.6-8.7) 06/08/23 07:34 Albumin 3.9 g/dL (3.5-5.2) 06/08/23 07:34 Globulin 2.8 g/dL (1.3-4.6) 06/08/23 07:34 Procalcitonin 0.22 ng/mL (0-0.5) 06/08/23 07:34 All radiology interpretation(s) finalized by discharge Discharge Plan Discharge Patient Disposition: Admitted As Inpatient Admit Provider: Umair Wilson Clinical Impression: Acute hypoxemic respiratory failure, Influenza A, Systolic congestive heart failure, Pneumonia Condition: Stable Discharge Diet: Cardiac Discharge Activity: Resume usual activity Coding Level of Care Code ED Window Shade Cutter And Mounter for Marco Taylor
[2023-06-08 07:43] LABS: Basophils % 0.3 %; Eosinophils % 0.2 %; Hematocrit 31.7 % (37-53); Lymphocytes # 0.4 10^3/uL (0.8-4.8); Lymphocytes % 7.3 %; Mean Corpuscular HGB Conc 30.9 g/dL (30-55); Mean Corpuscular Hemoglobin 32.1 pg (27-33); Mean Corpuscular Volume 103.9 fl (82-101); Mean Platelet Volume 9.8 fL (7.4-10.4); Monocytes # 0.7 10^3/uL (0.2-0.9); Monocytes % 12.3 %; Neutrophils # 4.77 10^3/uL (1.8-7.7); Neutrophils % 79.4 %; Nucleated Red Blood Cells % 0 %; Platelet Count 91 10^3/cmm (157-399); Red Blood Count 3.05 10^6/uL (3.85-5.65); Red Cell Distribution Width 13.9 % (12.1-15.1); White Blood Count 6.01 10^3/uL (3.29-11.43)
--- NOTE | 2023-06-08 07:56 | PC.PHAR ---
pt states his meds are the same as they were yesterday when he was here on 06/07/23-pt states only gets eliquis from mail order ([facility]) ext shows last filled 04/22/23 90d/s
[2023-06-08 08:11] LABS: Troponin(5th) Baseline 40 ng/L (0-15)
[2023-06-08 08:12] LABS: Alanine Aminotransferase 36 U/L (0-41); Albumin Level 3.9 g/dL (3.5-5.2); Alkaline Phosphatase 120 U/L (40-130); Anion Gap 19.1 (5-19); Aspartate Amino Transferase 61 U/L (0-40); Blood Urea Nitrogen 28 mg/dL (8-23); Carbon Dioxide 22 mmol/L (22-29); Chloride 106 mmol/L (98-107); Globulin 2.8 g/dL (1.3-4.6); Glucose 144 mg/dL (65-115); Osmolality Calculated 302 mOsm/kg (285-295); Potassium 5.1 mmol/L (3.5-5.1); Sodium 142 mmol/L (136-145); Total Bilirubin 1.3 mg/dL (0.15-1.2); Total Protein 6.7 g/dL (6.6-8.7)
--- NOTE | 2023-06-08 08:42 | USR_ITS ---
PROCEDURE INFORMATION: Exam: US Abdomen, Limited; Right Upper Quadrant Exam date and time: 06/08/2023 9:02 AM Age: 87 years old Clinical indication: Abdominal pain; Generalized; Additional info: Elevated t bili TECHNIQUE: Imaging protocol: Real time ultrasound of the abdomen with image documentation. Limited exam focused on the right upper quadrant. COMPARISON: CT abdomen pelvis wo/w [id number] 04/27/2020 10:12 AM FINDINGS: Pleural spaces: Small right pleural effusion. Liver: Mild relative hypoechogenic parenchyma with some scattered small hyperechoic foci. Gallbladder: Normal. No gallstones. There is no gallbladder wall thickening. Biliary ducts: Normal. No stones. No dilation. Visualized common duct measures 3 mm in diameter. Pancreas: Obscured by poor acoustic windows with shadowing bowel gas. Right kidney: Atrophic, measuring 8.6 cm in length, with mildly increased echogenicity. 1.0 x 0.9 x 1.5 cm circumscribed round avascular anechoic simple cyst. Smaller simple cysts also noted. No solid mass. No hydronephrosis. US/US gall bladder [id number] IMPRESSION: 1. Mild hepatic findings are nonspecific and could be artifactual or possibly indicate hepatitis or other infiltrative process. Correlate with laboratory values. 2. Small right pleural effusion. 3. Right renal atrophy with increased echogenicity compatible with medical renal disease.
[2023-06-08 08:58] LABS: NT Pro B Type Natriuretic Pept 19511 pg/mL (0-450)
--- NOTE | 2023-06-08 09:26 | ECG_ITS ---
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 Measurements Intervals [place] Rate: 91 P: -28 [place]: 119 QRS: -6 QRSD: 170 T: -89 QT: 406 QTc: 502 Interpretive Statements Positive SINUS RHYTHM WITH SHORT [place] INTERVAL LEFT BUNDLE BRANCH BLOCK [120+ ms QRS DURATION, 80+ ms Q/S IN V1/V2, 85+ ms R IN I/aVL/V5/V6] Compared to ECG 06/08/2023 07:39:50 Short [place] interval now present Electronically Signed On 06-08-2023 16:02:32 SOLO MUSICIAN by Winter Mcconnell M.D. [id number]
[2023-06-08] MEDS: FUROsemide 10 mg/mL SDV 4mL 40 MG IVP ×2 (10:03→16:00)
--- NOTE | 2023-06-08 10:35 | PM.HP ---
Providers/Chief Complaint Primary Care Provider: Cristofer Barrera MD Chief Complaint: SOB History of Present Illness Popeye Wilks is a 87 year old male with a history of systolic CHF, newly diagnosed with EF of 15%, history of Hemoccult positive stool with anemia, EGD unremarkable, colonoscopy polyps removed, patient during his last hospitalization declined angiogram, LifeVest, who presents to [facility] due to worsening shortness of breath. Patient tells me that for the last few days, he continues to feel short of breath, shortness of breath with exertion, lower extremity FREDY, no chest pain, no palpitations, does report a nonproductive cough, no fevers, no chills, does report fatigue, malaise, patient tells me he understands his end-stage heart failure, he tells me that he has been on the ventilator before, he has been near in the past before, he has had extensive neck surgery back surgery, in the past, and had postoperative complications, at that time he thought he was going to , he tells me that he wants to remain a full code, however he does not want to remain on life support for the rest of his life significantly, and he does not want to have heroic measures, but he understands the severity and morbidity and mortality of his underlying heart disease Review of Systems Const: Denies: fever(s) Card: Denies: chest pain Resp: Reports: dyspnea and non-productive cough GI: Denies: abdominal pain : Denies: flank pain Musc: Denies: neck pain or back pain Neuro: Denies: headache(s) Medications/Allergies Home Medications Medication Instructions Recorded Confirmed Last Taken Type carvedilol 3.125 mg tablet 3.125 mg PO BID #180 tabs 05/21/22 06/08/23 06/06/23 Rx albuterol sulfate 90 mcg/actuation 2 inh inhalation Q4H PRN Shortness 05/11/23 06/08/23 Unknown History aerosol inhaler Of Breath amiodarone 200 mg tablet 100 mg PO QAM 05/11/23 06/08/23 05/11/23 History fluticasone 500 mcg-salmeterol 50 1 inh inhalation BID 05/11/23 06/08/23 Unknown History mcg/dose blistr powdr for inhalation (Advair Diskus) isosorbide mononitrate 30 mg 30 mg PO QAM 05/11/23 06/08/23 06/06/23 History tablet,extended release 24 hr hydralazine 25 mg tablet 25 mg PO BID #60 tabs 05/15/23 06/08/23 06/06/23 Rx potassium chloride 20 mEq 20 meq PO QAM #60 tabs 05/15/23 06/08/23 06/06/23 Rx tablet,extended release apixaban 2.5 mg tablet (Eliquis) 2.5 mg PO BID 06/07/23 06/08/23 06/06/23 History docusate sodium 100 mg capsule 100 mg PO DAILY PRN Constipation 06/07/23 06/08/23 Unknown History (Colace) furosemide 20 mg tablet (Lasix) 20 mg PO QAM 06/07/23 06/08/23 06/06/23 History nitroglycerin 0.4 mg sublingual 0.4 mg sublingual Q5M PRN Chest 06/07/23 06/08/23 Unknown History tablet (Nitrostat) Pain Allergies Allergy/AdvReac Type Severity Reaction Status Date / Time erythromycin base Allergy Unknown Verified 06/08/23 07:54 lorazepam [From Ativan] Allergy Unknown Verified 06/08/23 07:54 PFSH Acute PFSH: Medical History Anemia Bladder cancer Bladder tumor TURBT 05/02/2020 BPH loc w urin obs/LUTS Breath shortness Chronic shortness of breath COPD (chronic obstructive pulmonary disease) 3 L at baseline Essential (primary) hypertension Fatigue GI (gastrointestinal bleed) Gross hematuria H/O cervical fracture surgical repair H/O deep venous thrombosis History of COPD Hypercholesteremia New onset of congestive heart failure Osteoarthritis Recurrent ventral hernia Thrombocytopenia Surgical History History of back surgery x9 History of cataract extraction History of colonoscopy History of coronary artery bypass graft History of coronary artery stent placement History of hemorrhoidectomy History of hernia repair History of mandibular surgery History of surgery on arm History of testicular surgery S/P excision of lipoma Status post aortic coarctation stent placement Status post surgical removal and fulguration of bladder neoplasm Family History Sister Cancer Brother Cancer Mother , AT AGE 70 Myocardial infarct Father , AT AGE 70 Alcoholism Social History Smoking and tobacco/nicotine status: former use of tobacco/nicotine Alcohol intake: current Alcohol intake frequency: holidays/special occasions only Substance/Drug Use: never Household members: spouse Housing: House Marital status: Current occupational status: retired Vitals/I&O/Wt Last Vital Signs Pulse 85 06/08/23 07:57 Resp 27 H 06/08/23 07:19 BP 153/91 06/08/23 07:57 Pulse Ox 92 06/08/23 07:57 O2 Del Method Nasal Cannula 06/08/23 07:57 O2 Flow Rate 4 06/08/23 07:57 Weight last 48 hrs Weight 81.647 kg Physical Exam Const: COMMON NORMALS: no acute distress and patient oriented x3 HENMT: COMMON NORMALS: normocephalic HEAD & SCALP: normocephalic Eye: COMMON NORMALS: Equal, round and reactive pupils present and EOMs intact bilaterally Resp: COMMON NORMALS: normal respiratory effort, No retractions and No use of accessory muscles AUSCULTATION: crackles and wheezes Cardio: COMMON NORMALS: no JVD, regular rate, regular rhythm, S1 normal heart sound present and S2 normal heart sound present RATE: regular rate RHYTHM: regular rhythm HEART SOUNDS: S1 normal heart sound present and S2 normal heart sound present GI: COMMON NORMALS: Normal to inspection, nondistended, normoactive bowel sounds present, Soft to palpation and non-tender Extremity: NARRATIVE EXTREMITY EXAM: 3+ pitting edema lower extremities OTHER: On examination, does have left leg swelling, does have calf and thigh muscle wasting, bilateral shoulder and arm wasting, bilateral temporal muscle wasting Neuro: COMMON NORMALS: patient oriented x3 Psych: COMMON NORMALS: mental status grossly normal Data 06/08/23 07:34 06/08/23 07:34 A&P Assessment and plan (1) Acute hypoxemic respiratory failure: (2) 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, NYHA class 4: (3) Systolic CHF, acute: (4) Physical deconditioning: (5) Protein calorie malnutrition: (6) Muscle wasting: (7) Acute renal failure: (8) Cardiac cirrhosis: (9) Influenza A: (10) Pneumonia: Plan Acute hypoxic respiratory failure ? Multifactorial, ? From pneumonia, influenza A, acute systolic CHF Pneumonia, ? Sputum cultures, blood cultures, ? CT of the chest, ? Rocephin, azithromycin, ? DuoNeb, ?, Monitor respiratory status closely, Influenza A, ? Tested positive yesterday, has not received treatment, ? Given his shortness of breath, fatigue, malaise, will treat for influenza A, ? Renally dose, Tamiflu 30 mg p.o. once daily for 5 days ? Isolation precautions, Acute on chronic systolic CHF exacerbation, ? EF of 15%, etiology unclear, could be ischemic cardiomyopathy versus nonischemic ? New onset, patient has declined LifeVest, and angiogram, ? Place Hoffman catheter, ? We will discuss with cardiology about potentially placing on Entresto ? Fluid restrictions at 1000 cc, ? Lasix 40 IV every 8 hours ? Might require dobutamine drip to help with diuresis based on clinical progress ? Monitor creatinine, monitor urine output, ? We will consider further diuretics based on clinical progress History of DVT ? Continue Eliquis, History of GI bleed, negative EGD, status post polypectomy, monitor hemoglobin closely no reported bloody or black stools, Hypertension, continue home blood pressure medications, No complaints of chest pain, serial EKGs, serial troponins, telemetry monitoring, Congestive hepatopathy, cardiac cirrhosis, likely secondary to heart failure, monitor bili, monitor liver function Physical deconditioning, protein calorie malnutrition, muscle wasting, PT OT, consult dietary, consult speech ? Likely secondary to end-stage heart failure Full code, ? Eliquis for DVT prophylaxis Attestations Medical Necessity Statement*: Patient requires hospitalization, inpatient, greater than 2 midnights, for acute hypoxic respiratory failure secondary to systolic CHF, influenza A, concerns for pneumonia, Diagnoses Acute hypoxemic respiratory failure J96.01 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, NYHA class 4 I50.20 Systolic CHF, acute I50.21 Physical deconditioning R53.81 Protein calorie malnutrition E46 Muscle wasting M62.50 Acute renal failure N17.9 Cardiac cirrhosis K76.1 Influenza A J10.1 Pneumonia J18.9
[2023-06-08 10:36] LABS: Troponin 5 2HR 39.66 ng/L (0-15)
[2023-06-08 10:37] LABS: Troponin 5 2HR Delta -0.34 ABS# (0-10)
[2023-06-08 11:09] LABS: Procalcitonin 0.22 ng/mL (0-0.5)
--- NOTE | 2023-06-08 11:14 | PC.NURSE ---
Report called to JAELYN Gonzales
[2023-06-08 11:17] LABS: Add Urine Microscopic? YES; Bilirubin Urine Neg (Negative); Blood Urine 2+ (Negative); Glucose Urine UA Norm (Normal); Ketones Urine Negative (Negative); Leukocyte Esterase Urine Negative (Negative); Nitrate Urine Negative (Negative); Protein Urine Neg (Negative); Specific Gravity, Urine 1.015 (1.005-1.030); Urine Appearance Clear (CLEAR); Urine Color Yellow (Yellow); Urobilinogen Urine Norm (Negative); pH Urine 5 (5-7)
[2023-06-08 11:18] LABS: Add Urine Culture? No; Bacteria Urine 1+ /hpf; Squamous Epithelial Cell Urine 0-4 /hpf (0-5)
[2023-06-08 11:24] LABS: INR 1.37 (0.8-1.2)
[2023-06-08 11:41] LABS: ABG PCO2 40.9 mmHg (35-45); ABG PH Result 7.38 (7.35-7.45); Arterial Blood Gas Hematocrit 30.5 % (42-52); Base Excess ABG -1.2 mmol/L (-2.0-2.0); Blood Gas Allen Test Pos; Blood Gas Operator Identificat CAK; Blood Gas Sample Site Radial, left; Blood Gas Sample Type Arterial; HCO3 ABG 23.9 mmol/L (22-26); Oxygen Device NC; PO2 ABG 72.3 mmHg (80.0-100.0)
[2023-06-08] MEDS: cefTRIAXone 1,000 MG in sodium chloride 0.9% (plus) 50 ML 100 MG IV (11:57)
--- NOTE | 2023-06-08 11:58 | USR_ITS ---
PROCEDURE INFORMATION: Exam: US Duplex Lower Extremity Veins, Bilateral Exam date and time: 06/08/2023 1:43 PM Age: 87 years old Clinical indication: Swelling (edema) of limb; Lower extremity, bilateral; Additional info: Leg swelling TECHNIQUE: Imaging protocol: Real-time duplex ultrasound of the bilateral extremities with 2-D lozada scale, color Doppler flow and spectral waveform analysis including responses to compression and other maneuvers (when performed) with image documentation. Complete exam focused on the lower extremity veins. COMPARISON: 1. CT abdomen pelvis wo/w [id number] 04/27/2020 10:12 AM 2. [place] [id number] 05/12/2023 6:32 AM FINDINGS: Right deep veins: Thin linear echoes within the compressible common femoral and proximal profunda femoral veins suggest chronic nonocclusive thrombus. Normal Doppler waveforms. The femoral and popliteal veins are patent without thrombus. Normal Doppler waveforms. Normal compressibility and/or augmentation response. Interrogated peroneal and posterior tibial veins are patent. Left deep veins: Mild peripheral shadowing calcification at the compressible posterior common femoral vein corresponds to similar finding on comparison CT from April 2020. Normal Doppler waveform. The femoral, proximal profunda femoral and popliteal veins are patent without thrombus. Normal Doppler waveforms. Normal compressibility and/or augmentation response. Interrogated peroneal and posterior tibial veins are patent. Superficial veins: Bilateral saphenofemoral junctions are patent without thrombus. Soft tissues: Reticulated superficial soft tissue edema at the level of the calves. US/[place] [id number] IMPRESSION: 1. No evidence of acute deep vein thrombosis. 2. 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
[2023-06-08] MEDS: pantoprazole 40 mg SDV IVP (11:59)
[2023-06-08] MEDS: oseltamivir phosphate 30 mg Capsule PO (11:59)
[2023-06-08] MEDS: azithromycin 500 MG in sodium chloride 0.9% 250 ML 250 MG IV (12:27)
[2023-06-08] MEDS: ipratropium-albuterol 3 mL Neb INHALATION ×3 (12:27→20:44)
--- NOTE | 2023-06-08 12:31 | ECG_ITS ---
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 Measurements Intervals [place] Rate: 92 P: -36 OK: 123 QRS: 6 QRSD: 173 T: -46 QT: 410 QTc: 509 Interpretive Statements SINUS RHYTHM LEFT BUNDLE BRANCH BLOCK [120+ ms QRS DURATION, 80+ ms Q/S IN V1/V2, 85+ ms R IN I/aVL/V5/V6] Compared to ECG 06/08/2023 09:24:26 Short OK interval no longer present Electronically Signed On 06-08-2023 16:03:10 [employer]AND[employer] by Winter Mcconnell M.D. [id number]
[2023-06-08 15:17] LABS: Adenovirus Not Detected (NOT DETECT); Chlamydia Pneumoniae Not Detected (NOT DETECT); Coronavirus 229E,HKU1,NL63,OC4 Not Detected (NOT DETECT); Human Metapneumovirus Not Detected (NOT DETECT); Human Rhinovirus/Enterovirus Not Detected (NOT DETECT); Influenza A Detected (NOT DETECT); Influenza A H1 Not Detected (NOT DETECT); Influenza A H1-2009 Detected (NOT DETECT); Influenza A H3 Not Detected (NOT DETECT); Influenza B Not Detected (NOT DETECT); Mycoplasma Pneumoniae Not Detected (NOT DETECT); Parainfluenza Virus Type 1 Not Detected (NOT DETECT); Parainfluenza Virus Type 2 Not Detected (NOT DETECT); Parainfluenza Virus Type 3 Not Detected (NOT DETECT); Parainfluenza Virus Type 4 Not Detected (NOT DETECT); Respiratory Syncytial Virus A Not Detected (NOT DETECT); Respiratory Syncytial Virus B Not Detected (NOT DETECT); SARS-COV-2 Not Detected (NOT DETECT)
[2023-06-08 15:53] LABS: Troponin 5 6HR 46.05 ng/L (0-15)
[2023-06-08 15:54] LABS: Troponin 5 6HR Delta 6.05 ng/L (0-12)
[2023-06-08] MEDS: apixaban 5 mg Tablet 2.5 MG PO (17:39)
[2023-06-08] MEDS: hyDRALAzine 25 mg Tablet PO (17:39)
[2023-06-08] MEDS: carvedilol 3.125 mg Tablet PO (17:39)
[2023-06-09] VITALS (15 sets, daily range): BP systolic 103–126; BP diastolic 51–68; PULSE 73–104; RESP 15–29; TEMP 36.7–37.9; O2SAT 92–98; BMI 25.8
[2023-06-09] MEDS: FUROsemide 10 mg/mL SDV 4mL 40 MG IVP ×2 (00:05→09:43)
[2023-06-09] MEDS: acetaminophen 325 mg Tablet 650 MG PO (00:06)
[2023-06-09] MEDS: ipratropium-albuterol 3 mL Neb INHALATION ×6 (00:40→19:50)
[2023-06-09 03:57] LABS: Basophils % 0.2 %; Hematocrit 27.8 % (37-53); Lymphocytes # 0.5 10^3/uL (0.8-4.8); Lymphocytes % 7.9 %; Mean Corpuscular HGB Conc 31.3 g/dL (30-55); Mean Corpuscular Hemoglobin 32.2 pg (27-33); Mean Platelet Volume 8.9 fL (7.4-10.4); Monocytes # 0.8 10^3/uL (0.2-0.9); Monocytes % 12.7 %; Neutrophils # 5.08 10^3/uL (1.8-7.7); Neutrophils % 78.6 %; Nucleated Red Blood Cells % 0 %; Platelet Count 70 10^3/cmm (157-399); White Blood Count 6.46 10^3/uL (3.29-11.43)
[2023-06-09 04:14] LABS: Alanine Aminotransferase 37 U/L (0-41); Albumin Level 3.2 g/dL (3.5-5.2); Alkaline Phosphatase 95 U/L (40-130); Anion Gap 15.5 (5-19); Aspartate Amino Transferase 67 U/L (0-40); Blood Urea Nitrogen 35 mg/dL (8-23); Calcium 8.5 mg/dL (8.5-10.5); Carbon Dioxide 26 mmol/L (22-29); Chloride 102 mmol/L (98-107); Globulin 2.7 g/dL (1.3-4.6); Glucose 109 mg/dL (65-115); Osmolality Calculated 299 mOsm/kg (285-295); Phosphorus 3.5 mg/dL (2.5-4.5); Potassium 3.5 mmol/L (3.5-5.1); Sodium 140 mmol/L (136-145); Total Bilirubin 0.8 mg/dL (0.15-1.2); Total Protein 5.9 g/dL (6.6-8.7)
[2023-06-09] MEDS: amiodarone 200 mg Tablet 100 MG PO (07:14)
[2023-06-09] MEDS: isosorbide mononitrate ER 30 mg Tablet PO (07:14)
--- NOTE | 2023-06-09 08:52 | CTR_ITS ---
PROCEDURE INFORMATION: Exam: CT Chest Without Contrast; Diagnostic Exam date and time: 06/09/2023 10:12 AM Age: 87 years old Clinical indication: Shortness of breath; Prior surgery; Surgery date: 6+ months; Surgery type: Pacer back open heart; Additional info: SOB TECHNIQUE: Imaging protocol: Diagnostic computed tomography of the chest without contrast. Radiation optimization: All CT scans at this facility use at least one of these dose optimization techniques: automated exposure control; mA and/or kV adjustment per patient size (includes targeted exams where dose is matched to clinical indication); or iterative reconstruction. REPORTING DATA: Count of CT and Cardiac NM exams in prior 12 months: This patient has received 0 known CTs and 0 known cardiac nuclear medicine studies in the 12 months prior to the current study. COMPARISON: CR (CHEST, ) 06/08/2023 7:28 AM RADIATION DOSE METRICS: Total DLP (mGy-cm): 401.99 FINDINGS: Tubes, catheters and devices: There is artifact from a cardiac pacemaker, the leads of which terminate in the right atrium and right ventricle. Thyroid: A 1.4 cm right thyroid nodule is present which can be further assessed by follow-up ultrasound. Trachea: Imaged portions of the distal trachea, as well as right and left mainstem bronchi, are patent. Lungs: Multifocal ground-glass opacities are demonstrated in the lungs bilaterally somewhat more so on the right. These have a somewhat geographic distribution. Additionally, there are multiple small nodular opacities, predominating in the right lower lobe. Tree-in-bud opacities are also noted in the left lower lobe. Pleural spaces: Small pleural effusion on the right, approximately 1.3 cm in depth. Trace left-sided pleural effusion. Heart: Moderate cardiomegaly.. No pericardial effusion. Aortic valve calcifications are also noted. Coronary arteries: Moderate coronary artery calcification, consistent with coronary artery atherosclerosis. Lymph nodes: There is an enlarged, 1.3 cm node immediately anterior to the proximal right mainstem bronchus, and a similarly enlarged subcarinal node. Small focus of calcification also appears to be associated with this subcarinal node. Right hilar shimon calcification also present. Assessment for hilar adenopathy is limited in the absence of IV contrast. Vasculature: There is dilatation of the ascending thoracic aorta at 4 cm diameter. Imaged upper abdomen demonstrates vascular stent in the aorta. The pulmonary artery is dilated at 3.3 cm diameter. Spleen: Granulomatous calcification of the spleen. Kidneys and ureters: Partially imaged and not fully evaluated is a 5 cm left renal cyst. Bones/joints: . Prior median sternotomy. Skeletal windows partially imaged hardware related to a previous lumbar fusion procedure. Multilevel degenerative changes Soft tissues: No acute abnormality identified in the subcutaneous tissues. CT/CT chest wo con [id number] IMPRESSION: 1. Cardiomegaly and coronary atherosclerosis. 2. Multifocal ground-glass opacities, somewhat more geographically distributed than is typical for edema although that remains a possibility. Atypical infection including COVID-19 could produce such an appearance. Follow-up recommended to confirm resolution. 3. Multifocal small nodular/tree-in-bud opacities, suggesting bronchiolitis or aspiration. Follow-up recommended to confirm resolution. 4. Few enlarged mediastinal nodes, nonspecific but likely reactive in this context. 5. Dilatation of the ascending aorta at 4 cm diameter, clinical assessment and follow-up recommended. 6. Dilated main pulmonary artery, finding which may be associated with pulmonary hypertension. 7. 5 cm left renal cyst incompletely characterized. New line 8. COMMENTS: 1. Consistent with the [employer]'s Incidental Findings Committee white paper (J Am Ann Radiol 2018): Any incidental renal lesion less than 1 cm or classified as too small to characterize, or any incidental cystic renal lesion characterized as simple-appearing, is likely benign. No follow-up imaging is recommended for these lesions per consensus recommendations based on imaging criteria. 2. Consistent with the [employer]'s Incidental Findings Committee white paper (J Am Ann Radiol 2015): In patients aged 35 years and older with an incidental thyroid nodule equal to or greater than 1.[address], MRI or extrathyroidal US, further evaluation with dedicated thyroid US is recommended for patients with normal life expectancy and without comorbidities. For smaller nodules without suspicious features, no further evaluation or follow up is recommended.
[2023-06-09] MEDS: apixaban 5 mg Tablet 2.5 MG PO ×2 (09:00→16:55)
[2023-06-09] MEDS: metOLazone 5 MG Tablet PO (09:43)
[2023-06-09] MEDS: potassium chloride ER 20 mEq Tablet 40 MEQ PO (09:43)
[2023-06-09] MEDS: hyDRALAzine 25 mg Tablet PO ×2 (09:44→16:55)
[2023-06-09] MEDS: carvedilol 3.125 mg Tablet PO ×2 (09:44→16:55)
[2023-06-09] MEDS: albumin 50 G/200 ML BAG 60 G IV (10:58)
[2023-06-09] MEDS: oseltamivir phosphate 30 mg Capsule PO (11:49)
[2023-06-09] MEDS: pantoprazole 40 mg SDV IVP (13:27)
[2023-06-09] MEDS: cefTRIAXone 1,000 MG in sodium chloride 0.9% (plus) 50 ML 100 MG IV (14:30)
--- NOTE | 2023-06-09 15:31 | PM.PN ---
Subjective Subjective: Patient was seen this morning, he tells me he feels significantly better his edema is improving, continues to have shortness of breath, wheezing on examination, no fevers overnight Vitals/I&O/Wt Last Vital Signs Temp 98.2 F 06/09/23 12:00 Pulse 81 06/09/23 12:00 Resp 26 H 06/09/23 12:00 BP 109/68 06/09/23 12:00 Pulse Ox 97 06/09/23 12:00 O2 Del Method Nasal Cannula 06/09/23 12:00 O2 Flow Rate 4 06/09/23 11:27 FiO2 30 06/09/23 07:34 06/09/23 06/09/23 06/09/23 06:59 14:59 22:59 Intake Total 800 / 800 50 / 850 Balance 800 / 800 50 / 850 Weight last 48 hrs Weight 81.647 kg Weight 81.647 kg Weight 81.647 kg Physical Exam Const: COMMON NORMALS: no acute distress and patient oriented x3 Resp: COMMON NORMALS: normal respiratory effort, No retractions and No use of accessory muscles AUSCULTATION: crackles Cardio: COMMON NORMALS: regular rate, regular rhythm, S1 normal heart sound present and S2 normal heart sound present RATE: regular rate RHYTHM: regular rhythm HEART SOUNDS: S1 normal heart sound present and S2 normal heart sound present GI: COMMON NORMALS: Normal to inspection, nondistended, normoactive bowel sounds present and non-tender Extremity: COMMON NORMALS: no pedal edema Neuro: COMMON NORMALS: patient oriented x3 Psych: COMMON NORMALS: mental status grossly normal Urinary Catheter Management: Hoffman: Cath Placed During This Visit: yes Reason for Continuing Indwelling Catheter: Not indwelling catheter Urinary Catheter Date of Insertion: 06/08/23 Urinary Catheter Time of Insertion: 12:30 Data 06/09/23 03:21 06/09/23 03:21 Micro: Microbiology 06/08/23 10:55 Blood Culture - Preliminary Blood NEGATIVE TO DATE 06/08/23 10:50 Blood Culture - Preliminary Blood NEGATIVE TO DATE A&P Assessment and plan (1) Acute hypoxemic respiratory failure: (2) 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 Multifactorial, ? From pneumonia, influenza A pneumonia, acute systolic CHF Pneumonia, bacterial ? Sputum cultures, blood cultures, ? CT of the chest, 1. ? Cardiomegaly and coronary atherosclerosis. 2. ? Multifocal ground-glass opacities, somewhat more geographically distributed than is typical for edema although that remains a possibility. Atypical infection including COVID-19 could produce such an appearance. Follow-up recommended to confirm resolution. 3. ? Multifocal small nodular/tree-in-bud opacities, suggesting bronchiolitis or aspiration.? Follow-up recommended to confirm resolution. ?4. ? Few enlarged mediastinal nodes, nonspecific but likely reactive in this context. 5. ? Dilatation of the ascending aorta at 4 cm diameter, clinical assessment and follow-up recommended. 6. ? Dilated main pulmonary artery, finding which may be associated with pulmonary hypertension. 7. ? 5 cm left renal cyst incompletely characterized.? -Speech therapy eval, aspiration precautions ? Rocephin, azithromycin, ? DuoNeb, ?, Monitor respiratory status closely, Influenza A, viral pneumonia ? Tested positive yesterday, has not received treatment, ? Given his shortness of breath, fatigue, malaise, will treat for influenza A, ? Renally dose, Tamiflu 30 mg p.o. once daily for 5 days ? Isolation precautions, Acute on chronic systolic CHF exacerbation, ? EF of 15%, etiology unclear, could be ischemic cardiomyopathy versus nonischemic ? New onset, patient has declined LifeVest, and angiogram, ? Place Hoffman catheter, ? We will discuss with cardiology about potentially placing on Entresto ? Fluid restrictions at 1000 cc, ? Lasix 40 IV, with metolazone, with albumin ? Might require dobutamine drip to help with diuresis based on clinical progress ? Monitor creatinine, monitor urine output, ? We will consider further diuretics based on clinical progress History of DVT ? Continue Eliquis, History of GI bleed, negative EGD, status post polypectomy, monitor hemoglobin closely no reported bloody or black stools, Hypertension, continue home blood pressure medications, No complaints of chest pain, serial EKGs, serial troponins, telemetry monitoring, Congestive hepatopathy, cardiac cirrhosis, likely secondary to heart failure, monitor bili, monitor liver function Physical deconditioning, protein calorie malnutrition, muscle wasting, PT OT, consult dietary, consult speech ? Likely secondary to end-stage heart failure Full code, ? Eliquis for DVT prophylaxis Attestations Medical Necessity Statement*: Patient requires hospitalization, inpatient, for viral pneumonia, influenza A, bacterial pneumonia, fluid overload requiring IV diuresis, Diagnoses Acute hypoxemic respiratory failure J96.01 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, NYHA class 4 I50.20 Systolic CHF, acute I50.21 Physical deconditioning R53.81 Protein calorie malnutrition E46 Muscle wasting M62.50 Acute renal failure N17.9 Cardiac cirrhosis K76.1 Influenza A J10.1 Pneumonia J18.9 Viral pneumonia J12.9
[2023-06-09] MEDS: azithromycin 500 MG in sodium chloride 0.9% 250 ML 250 MG IV (16:17)
[2023-06-09] MEDS: budesonide 0.5 mg/2 mL Neb INHALATION (19:50)
[2023-06-10] VITALS (15 sets, daily range): BP systolic 92–126; BP diastolic 41–66; PULSE 72–91; RESP 17–28; TEMP 36.8–38.1; O2SAT 93–98
[2023-06-10] MEDS: ipratropium-albuterol 3 mL Neb INHALATION ×5 (00:40→21:44)
[2023-06-10 04:23] LABS: Basophils % 0.2 %; Eosinophils % 0.3 %; Hematocrit 26.9 % (37-53); Lymphocytes # 0.7 10^3/uL (0.8-4.8); Lymphocytes % 12.3 %; Mean Corpuscular HGB Conc 31.6 g/dL (30-55); Mean Corpuscular Hemoglobin 31.6 pg (27-33); Mean Platelet Volume 9.5 fL (7.4-10.4); Monocytes # 0.8 10^3/uL (0.2-0.9); Monocytes % 14.4 %; Neutrophils # 4.22 10^3/uL (1.8-7.7); Neutrophils % 72.3 %; Nucleated Red Blood Cells % 0 %; Platelet Count 95 10^3/cmm (157-399); Red Blood Count 2.69 10^6/uL (3.85-5.65); Red Cell Distribution Width 13.9 % (12.1-15.1); White Blood Count 5.84 10^3/uL (3.29-11.43)
[2023-06-10 04:37] LABS: Alanine Aminotransferase 46 U/L (0-41); Albumin Level 3.6 g/dL (3.5-5.2); Alkaline Phosphatase 83 U/L (40-130); Anion Gap 14.4 (5-19); Aspartate Amino Transferase 82 U/L (0-40); Blood Urea Nitrogen 44 mg/dL (8-23); Calcium 8.7 mg/dL (8.5-10.5); Carbon Dioxide 31 mmol/L (22-29); Chloride 97 mmol/L (98-107); Globulin 2.5 g/dL (1.3-4.6); Glucose 98 mg/dL (65-115); Magnesium 2.1 mg/dL (1.7-2.3); Osmolality Calculated 299 mOsm/kg (285-295); Phosphorus 3.5 mg/dL (2.5-4.5); Potassium 3.4 mmol/L (3.5-5.1); Sodium 139 mmol/L (136-145); Total Bilirubin 0.7 mg/dL (0.15-1.2); Total Protein 6.1 g/dL (6.6-8.7)
[2023-06-10 05:08] LABS: NT Pro B Type Natriuretic Pept 29628 pg/mL (0-450)
[2023-06-10] MEDS: isosorbide mononitrate ER 30 mg Tablet PO (05:58)
[2023-06-10] MEDS: amiodarone 200 mg Tablet 100 MG PO (05:58)
[2023-06-10] MEDS: budesonide 0.5 mg/2 mL Neb INHALATION ×2 (07:54→21:44)
[2023-06-10] MEDS: pantoprazole 40 mg SDV IVP (09:19)
[2023-06-10] MEDS: oseltamivir phosphate 30 mg Capsule PO (09:20)
[2023-06-10] MEDS: potassium chloride ER 20 mEq Tablet 40 MEQ PO (09:20)
[2023-06-10] MEDS: hyDRALAzine 25 mg Tablet PO ×2 (09:20→18:15)
[2023-06-10] MEDS: apixaban 5 mg Tablet 2.5 MG PO ×2 (09:20→18:14)
[2023-06-10] MEDS: carvedilol 3.125 mg Tablet PO ×2 (09:20→18:15)
[2023-06-10] MEDS: lidocaine 5% Patch 1 PATCH TOPICAL (10:44)
[2023-06-10 13:49] LABS: Methicillin-Resist S.aureu PCR NOT DETECTED (NOT DETECTED)
--- NOTE | 2023-06-10 14:18 | P.PN_ITS ---
Subjective Subjective: Patient was seen this morning, he tells me he is feeling significantly better, no fevers, no chills, no cough, no chest pain, no palpitation continues to have generalized weakness Vitals/I&O/Wt Last Vital Signs Temp 100.6 F H 06/10/23 04:00 Pulse 79 06/10/23 12:00 Resp 24 H 06/10/23 12:00 BP 103/49 06/10/23 12:00 Pulse Ox 95 06/10/23 12:00 O2 Del Method Nasal Cannula 06/10/23 12:00 O2 Flow Rate 2 06/10/23 10:22 FiO2 30 06/09/23 19:52 06/09/23 06/10/23 06/10/23 22:59 06:59 14:59 Intake Total 1140 / 1940 600 / 600 Output Total 2400 / 4000 950 / 4950 Balance -1260 / -2060 -950 / -3010 600 / 600 Weight last 48 hrs Weight 81.647 kg Physical Exam Const: COMMON NORMALS: no acute distress and patient oriented x3 Resp: COMMON NORMALS: normal respiratory effort, No retractions and No use of accessory muscles AUSCULTATION: rhonchi and wheezes Cardio: COMMON NORMALS: regular rate, regular rhythm, S1 normal heart sound present and S2 normal heart sound present RATE: regular rate RHYTHM: regular rhythm HEART SOUNDS: S1 normal heart sound present and S2 normal heart sound present GI: COMMON NORMALS: Normal to inspection, nondistended, normoactive bowel sounds present and non-tender Extremity: COMMON NORMALS: no pedal edema Neuro: COMMON NORMALS: patient oriented x3 Psych: COMMON NORMALS: mental status grossly normal Urinary Catheter Management: Hoffman: Cath Placed During This Visit: yes Reason for Continuing Indwelling Catheter: Not indwelling catheter Urinary Catheter Date of Insertion: 06/08/23 Urinary Catheter Time of Insertion: 12:30 Data 06/10/23 03:50 06/10/23 03:50 Micro: Microbiology 06/09/23 15:15 Gram Stain - Final Sputum - Expectorated Sputum 06/08/23 10:55 Blood Culture - Preliminary Blood NEGATIVE TO DATE 06/08/23 10:50 Blood Culture - Preliminary Blood NEGATIVE TO DATE A&P Assessment and plan (1) Acute hypoxemic respiratory failure: (2) 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 Multifactorial, ? From pneumonia, influenza A pneumonia, acute systolic CHF Pneumonia, bacterial ? Sputum cultures, blood cultures, ? CT of the chest, 1. ? Cardiomegaly and coronary atherosclerosis. 2. ? Multifocal ground-glass opacities, somewhat more geographically distributed than is typical for edema although that remains a possibility. Atypical infection including COVID-19 could produce such an appearance. Follow-up recommended to confirm resolution. 3. ? Multifocal small nodular/tree-in-bud opacities, suggesting bronchiolitis or aspiration.? Follow-up recommended to confirm resolution. ?4. ? Few enlarged mediastinal nodes, nonspecific but likely reactive in this context. 5. ? Dilatation of the ascending aorta at 4 cm diameter, clinical assessment and follow-up recommended. 6. ? Dilated main pulmonary artery, finding which may be associated with pulmonary hypertension. 7. ? 5 cm left renal cyst incompletely characterized.? -Speech therapy eval, aspiration precautions ? Rocephin, azithromycin, ? DuoNeb, ?, Monitor respiratory status closely, Influenza A, viral pneumonia ? Tested positive yesterday, has not received treatment, ? Given his shortness of breath, fatigue, malaise, will treat for influenza A, ? Renally dose, Tamiflu 30 mg p.o. once daily for 5 days ? Isolation precautions, Acute on chronic systolic CHF exacerbation, ? EF of 15%, etiology unclear, could be ischemic cardiomyopathy versus nonischemic ? New onset, patient has declined LifeVest, and angiogram, ? Place Hoffman catheter, ? We will discuss with cardiology about potentially placing on Entresto ? Fluid restrictions at 1000 cc, ? Creatinine up to 2.4 hold Lasix for today, -5 L ? ? Monitor creatinine, monitor urine output, ? We will consider further diuretics based on clinical progress History of DVT ? Continue Eliquis, History of GI bleed, negative EGD, status post polypectomy, monitor hemoglobin closely no reported bloody or black stools, Hypertension, continue home blood pressure medications, No complaints of chest pain, serial EKGs, serial troponins, monitoring engineer ing, Congestive hepatopathy, cardiac cirrhosis, likely secondary to heart failure, monitor bili, monitor liver function Physical deconditioning, protein calorie malnutrition, muscle wasting, PT OT, consult dietary, consult speech ? Likely secondary to end-stage heart failure Full code, ? Eliquis for DVT prophylaxis Attestations Medical Necessity Statement*: Patient requires hospitalization for acute hypoxic respiratory failure with pneumonia, with systolic CHF with influenza A Coding Level of Care Code 69769 Moderate MDM includes number and complexity of problems actively addressed during encounter, amount and/or complexity of data reviewed/ordered and described risk of complication, morbidity or mortality of management as docu mented Diagnoses Acute hypoxemic respiratory failure J96.01 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, NYHA class 4 I50.20 Systolic CHF, acute I50.21 Physical deconditioning R53.81 Protein calorie malnutrition E46 Muscle wasting M62.50 Acute renal failure N17.9 Cardiac cirrhosis K76.1 Influenza A J10.1 Pneumonia J18.9 Viral pneumonia J12.9
[2023-06-10] MEDS: azithromycin 500 MG in sodium chloride 0.9% 250 ML 250 MG IV (16:10)
[2023-06-10] MEDS: cefTRIAXone 1,000 MG in sodium chloride 0.9% (plus) 50 ML 100 MG IV (16:10)
[2023-06-11] VITALS (20 sets, daily range): BP systolic 110–123; BP diastolic 52–63; PULSE 72–85; RESP 16–26; TEMP 36.8–37.7; O2SAT 92–99
[2023-06-11] MEDS: ipratropium-albuterol 3 mL Neb INHALATION ×7 (01:18→23:22)
[2023-06-11 04:55] LABS: Eosinophils % 0.5 %; Lymphocytes % 23.6 %; Mean Corpuscular HGB Conc 31.5 g/dL (30-55); Mean Corpuscular Hemoglobin 31.5 pg (27-33); Mean Platelet Volume 9.8 fL (7.4-10.4); Monocytes # 0.7 10^3/uL (0.2-0.9); Monocytes % 16.9 %; Neutrophils # 2.43 10^3/uL (1.8-7.7); Neutrophils % 58.5 %; Nucleated Red Blood Cells % 0 %; Platelet Count 87 10^3/cmm (157-399); Red Cell Distribution Width 13.5 % (12.1-15.1); White Blood Count 4.15 10^3/uL (3.29-11.43)
[2023-06-11] MEDS: amiodarone 200 mg Tablet 100 MG PO (05:16)
[2023-06-11] MEDS: isosorbide mononitrate ER 30 mg Tablet PO (05:16)
[2023-06-11 05:33] LABS: Alanine Aminotransferase 34 U/L (0-41); Albumin Level 3.4 g/dL (3.5-5.2); Alkaline Phosphatase 75 U/L (40-130); Anion Gap 17.3 (5-19); Aspartate Amino Transferase 57 U/L (0-40); Blood Urea Nitrogen 47 mg/dL (8-23); Calcium 8.2 mg/dL (8.5-10.5); Carbon Dioxide 25 mmol/L (22-29); Chloride 98 mmol/L (98-107); Globulin 2.2 g/dL (1.3-4.6); Glucose 89 mg/dL (65-115); Magnesium 2.1 mg/dL (1.7-2.3); NT Pro B Type Natriuretic Pept 21653 pg/mL (0-450); Osmolality Calculated 296 mOsm/kg (285-295); Phosphorus 2.7 mg/dL (2.5-4.5); Potassium 3.3 mmol/L (3.5-5.1); Sodium 137 mmol/L (136-145); Total Bilirubin 0.7 mg/dL (0.15-1.2); Total Protein 5.6 g/dL (6.6-8.7)
--- NOTE | 2023-06-11 07:42 | PC.SOCIAL ---
Late entry: IMM Update 06/10/23 @ 1000: IMM updated and reviewed w/ patient. Copy provided and Copy dated, initialed and placed in chart.
[2023-06-11] MEDS: oseltamivir phosphate 30 mg Capsule PO (09:39)
[2023-06-11] MEDS: hyDRALAzine 25 mg Tablet PO ×2 (09:39→17:38)
[2023-06-11] MEDS: potassium chloride ER 20 mEq Tablet 40 MEQ PO (09:39)
[2023-06-11] MEDS: apixaban 5 mg Tablet 2.5 MG PO ×2 (09:39→17:38)
[2023-06-11] MEDS: carvedilol 3.125 mg Tablet PO ×2 (09:39→17:38)
[2023-06-11] MEDS: lidocaine 5% Patch 1 PATCH TOPICAL (11:22)
[2023-06-11] MEDS: pantoprazole 40 mg SDV IVP (11:22)
[2023-06-11] MEDS: budesonide 0.5 mg/2 mL Neb INHALATION ×2 (11:27→19:20)
--- NOTE | 2023-06-11 12:19 | P.PN_ITS ---
Subjective Subjective: Patient tells me this morning that, he feels significantly better, no chest pain overnight, his edema is improving, still has generalized weakness, which is improving with physical therapy, also reports persistent wheezing, and shortness of breath but overall improving, no cough, no fevers, he does not want to go to halfway facility, Vitals/I&O/Wt Last Vital Signs Temp 98.3 F 06/11/23 08:00 Pulse 77 06/11/23 11:42 Resp 16 06/11/23 11:42 BP 122/58 06/11/23 08:00 Pulse Ox 97 06/11/23 11:42 O2 Del Method Nasal Cannula 06/11/23 11:42 O2 Flow Rate 2.5 06/11/23 11:42 FiO2 30 06/11/23 04:53 06/10/23 06/11/23 06/11/23 22:59 06:59 14:59 Intake Total 611 / 1211 360 / 360 Output Total 930 / 930 350 / 350 Balance -319 / 281 Weight last 48 hrs Weight 81.647 kg Physical Exam Const: COMMON NORMALS: no acute distress and patient oriented x3 Resp: COMMON NORMALS: normal respiratory effort, No retractions and No use of accessory muscles AUSCULTATION: crackles and wheezes Cardio: COMMON NORMALS: regular rate, regular rhythm, S1 normal heart sound present and S2 normal heart sound present RATE: regular rate RHYTHM: regular rhythm HEART SOUNDS: S1 normal heart sound present and S2 normal heart sound present GI: COMMON NORMALS: Normal to inspection, nondistended, normoactive bowel sounds present and non-tender Extremity: COMMON NORMALS: no pedal edema Neuro: COMMON NORMALS: patient oriented x3 Psych: COMMON NORMALS: mental status grossly normal Urinary Catheter Management: Hoffman: Cath Placed During This Visit: yes Reason for Continuing Indwelling Catheter: Accurate Measurement of Urinary Output in Critically Ill Patients Urinary Catheter Date of Insertion: 06/08/23 Urinary Catheter Time of Insertion: 12:30 Data 06/11/23 03:50 06/11/23 03:50 Micro: Microbiology 06/09/23 15:15 Gram Stain - Final Sputum - Expectorated Sputum A&P Assessment and plan (1) Acute hypoxemic respiratory failure: (2) 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 Multifactorial, ? From pneumonia, influenza A pneumonia, acute systolic CHF Pneumonia, bacterial ? Sputum cultures, blood cultures, ? CT of the chest, 1. ? Cardiomegaly and coronary atherosclerosis. 2. ? Multifocal ground-glass opacities, somewhat more geographically distributed than is typical for edema although that remains a possibility. Atypical infection including COVID-19 could produce such an appearance. Follow-up recommended to confirm resolution. 3. ? Multifocal small nodular/tree-in-bud opacities, suggesting bronchiolitis or aspiration.? Follow-up recommended to confirm resolution. ?4. ? Few enlarged mediastinal nodes, nonspecific but likely reactive in this context. 5. ? Dilatation of the ascending aorta at 4 cm diameter, clinical assessment and follow-up recommended. 6. ? Dilated main pulmonary artery, finding which may be associated with pulmonary hypertension. 7. ? 5 cm left renal cyst incompletely characterized.? -Speech therapy eval, aspiration precautions ? Rocephin, azithromycin, ? DuoNeb, ?, Monitor respiratory status closely, Influenza A, viral pneumonia ? Tested positive yesterday, has not received treatment, ? Given his shortness of breath, fatigue, malaise, will treat for influenza A, ? Renally dose, Tamiflu 30 mg p.o. once daily for 5 days ? Isolation precautions, Acute on chronic systolic CHF exacerbation, ? EF of 15%, etiology unclear, could be ischemic cardiomyopathy versus nonischemic ? New onset, patient has declined LifeVest, and angiogram, ? Place Hoffman catheter, ? We will discuss with cardiology about potentially placing on Entresto ? Fluid restrictions at 1000 cc, ? Creatinine up to 2.4 hold Lasix for today, -5 L ? ? Monitor creatinine, monitor urine output, ? We will consider further diuretics based on clinical progress History of DVT ? Continue Eliquis, History of GI bleed, negative EGD, status post polypectomy, monitor hemoglobin closely no reported bloody or black stools, Hypertension, continue home blood pressure medications, No complaints of chest pain, serial EKGs, serial troponins, telemetry monitoring, Congestive hepatopathy, cardiac cirrhosis, likely secondary to heart failure, monitor bili, monitor liver function Physical deconditioning, protein calorie malnutrition, muscle wasting, PT OT, consult dietary, consult speech ? Likely secondary to end-stage heart failure Full code, ? Eliquis for DVT prophylaxis Attestations Medical Necessity Statement*: Patient requires hospitalization for for pneumonia, fluid overload, influenza, requiring IV antibiotics, Tamiflu, creatinine up to 2.4 requiring inpatient monitoring Diagnoses Acute hypoxemic respiratory failure J96.01 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, NYHA class 4 I50.20 Systolic CHF, acute I50.21 Physical deconditioning R53.81 Protein calorie malnutrition E46 Muscle wasting M62.50 Acute renal failure N17.9 Cardiac cirrhosis K76.1 Influenza A J10.1 Pneumonia J18.9 Viral pneumonia J12.9
[2023-06-11] MEDS: cefTRIAXone 1,000 MG in sodium chloride 0.9% (plus) 50 ML 100 MG IV (15:51)
[2023-06-11] MEDS: azithromycin 500 MG in sodium chloride 0.9% 250 ML 250 MG IV (16:40)
[2023-06-12] VITALS (20 sets, daily range): BP systolic 113–134; BP diastolic 56–68; PULSE 7–86; RESP 16–26; TEMP 36.5–37.2; O2SAT 96–99
[2023-06-12] MEDS: ipratropium-albuterol 3 mL Neb INHALATION ×5 (03:14→20:22)
[2023-06-12] MEDS: isosorbide mononitrate ER 30 mg Tablet PO (06:07)
[2023-06-12] MEDS: amiodarone 200 mg Tablet 100 MG PO (06:07)
[2023-06-12] MEDS: budesonide 0.5 mg/2 mL Neb INHALATION ×2 (07:41→20:22)
--- NOTE | 2023-06-12 08:57 | PC.SOCIAL ---
IMM Update pg 2 of IMM updated and reviewed w/ patient. Copy provided and copy dated, initialed and placed in chart.
[2023-06-12 09:05] LABS: Basophils % 0.2 %; Eosinophils # 0.1 10^3/uL (0.0-0.8); Eosinophils % 2.9 %; Hematocrit 27.9 % (37-53); Mean Corpuscular HGB Conc 31.5 g/dL (30-55); Mean Corpuscular Volume 101.5 fl (82-101); Mean Platelet Volume 9.2 fL (7.4-10.4); Monocytes # 0.6 10^3/uL (0.2-0.9); Monocytes % 15.4 %; Neutrophils # 2.38 10^3/uL (1.8-7.7); Neutrophils % 57.3 %; Nucleated Red Blood Cells % 0 %; Platelet Count 79 10^3/cmm (157-399); Red Blood Count 2.75 10^6/uL (3.85-5.65); Red Cell Distribution Width 13.6 % (12.1-15.1); White Blood Count 4.16 10^3/uL (3.29-11.43)
[2023-06-12 09:30] LABS: Alanine Aminotransferase 27 U/L (0-41); Albumin Level 3.5 g/dL (3.5-5.2); Alkaline Phosphatase 79 U/L (40-130); Anion Gap 16.6 (5-19); Aspartate Amino Transferase 42 U/L (0-40); Blood Urea Nitrogen 45 mg/dL (8-23); Calcium 8.5 mg/dL (8.5-10.5); Carbon Dioxide 26 mmol/L (22-29); Chloride 99 mmol/L (98-107); Globulin 2.8 g/dL (1.3-4.6); Glucose 99 mg/dL (65-115); NT Pro B Type Natriuretic Pept 11617 pg/mL (0-450); Osmolality Calculated 298 mOsm/kg (285-295); Potassium 3.6 mmol/L (3.5-5.1); Sodium 138 mmol/L (136-145); Total Bilirubin 0.6 mg/dL (0.15-1.2); Total Protein 6.3 g/dL (6.6-8.7)
[2023-06-12] MEDS: hyDRALAzine 25 mg Tablet PO ×2 (10:23→17:48)
[2023-06-12] MEDS: apixaban 5 mg Tablet 2.5 MG PO ×2 (10:23→17:48)
[2023-06-12] MEDS: oseltamivir phosphate 30 mg Capsule PO (10:23)
[2023-06-12] MEDS: carvedilol 3.125 mg Tablet PO ×2 (10:24→17:48)
[2023-06-12] MEDS: pantoprazole 40 mg SDV IVP (11:17)
--- NOTE | 2023-06-12 12:10 | P.PN_ITS ---
Subjective Subjective: Patient was seen this morning, he denies any fevers, no chills, no cough, still has some wheezing, lower extremity edema has improved, Vitals/I&O/Wt Last Vital Signs Temp 98.9 F 06/12/23 12:00 Pulse 74 06/12/23 12:00 Resp 26 H 06/12/23 12:00 BP 113/56 06/12/23 12:00 Pulse Ox 98 06/12/23 12:00 O2 Del Method Nasal Cannula 06/12/23 12:00 O2 Flow Rate 3 06/12/23 11:24 FiO2 30 06/12/23 03:14 06/11/23 06/12/23 06/12/23 22:59 06:59 14:59 Intake Total 980 / 1700 240 / 240 Output Total 500 / 850 Balance 480 / 850 240 / 240 Weight last 48 hrs Weight 81.647 kg Weight 81.647 kg Physical Exam Const: COMMON NORMALS: no acute distress and patient oriented x3 Resp: COMMON NORMALS: normal respiratory effort, No retractions and No use of accessory muscles AUSCULTATION: crackles Cardio: COMMON NORMALS: regular rate, regular rhythm, S1 normal heart sound present and S2 normal heart sound present RATE: regular rate RHYTHM: regular rhythm HEART SOUNDS: S1 normal heart sound present and S2 normal heart sound present GI: COMMON NORMALS: Normal to inspection, nondistended, normoactive bowel sounds present and non-tender Extremity: COMMON NORMALS: no pedal edema Neuro: COMMON NORMALS: patient oriented x3 Psych: COMMON NORMALS: mental status grossly normal Urinary Catheter Management: Hoffman: Cath Placed During This Visit: yes Reason for Continuing Indwelling Catheter: Accurate Measurement of Urinary Outpu t in Critically Ill Patients Urinary Catheter Date of Insertion: 06/08/23 Urinary Catheter Time of Insertion: 12:30 Data 06/12/23 08:37 06/12/23 08:37 Micro: Microbiology 06/09/23 15:15 Gram Stain - Final Sputum - Expectorated Sputum Sputum Culture - Final A&P Assessment and plan (1) Acute hypoxemic respiratory failure: (2) 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 Multifactorial, ? From pneumonia, influenza A pneumonia, acute systolic CHF Pneumonia, bacterial ? Sputum cultures, blood cultures, ? CT of the chest, 1. ? Cardiomegaly and coronary atherosclerosis. 2. ? Multifocal ground-glass opacities, somewhat more geographically distributed than is typical for edema although that remains a possibility. Atypical infection including COVID-19 could produce such an appearance. Follow-up recommended to confirm resolution. 3. ? Multifocal small nodular/tree-in-bud opacities, suggesting bronchiolitis or aspiration.? Follow-up recommended to confirm resolution. ?4. ? Few enlarged mediastinal nodes, nonspecific but likely reactive in this context. 5. ? Dilatation of the ascending aorta at 4 cm diameter, clinical assessment and follow-up recommended. 6. ? Dilated main pulmonary artery, finding which may be associated with pulmonary hypertension. 7. ? 5 cm left renal cyst incompletely characterized.? -Speech therapy eval, aspiration precautions ? Rocephin, azithromycin, ? DuoNeb, ?, Monitor respiratory status closely, Influenza A, viral pneumonia ? Tested positive yesterday, has not received treatment, ? Given his shortness of breath, fatigue, malaise, will treat for influenza A, ? Renally dose, Tamiflu 30 mg p.o. once daily for 5 days ? Isolation precautions, Acute on chronic systolic CHF exacerbation, ? EF of 15%, etiology unclear, could be ischemic cardiomyopathy versus nonischemic ? New onset, patient has declined LifeVest, and angiogram, ? Place Hoffman catheter, ? We will discuss with cardiology about potentially placing on Entresto ? Fluid restrictions at 1000 cc, ? Creatinine up to 2.2, 1 more dose of IV Lasix today ? ? Monitor creatinine, monitor urine output, ? We will consider further diuretics based on clinical progress History of DVT ? Continue Eliquis, History of GI bleed, negative EGD, status post polypectomy, monitor hemoglobin closely no reported bloody or black stools, Hypertension, continue home blood pressure medications, No complaints of chest pain, serial EKGs, serial troponins, telemetry monitoring, Congestive hepatopathy, cardiac cirrhosis, likely secondary to heart failure, monitor bili, monitor liver function Physical deconditioning, protein calorie malnutrition, muscle wasting, PT OT, consult dietary, consult speech ? Likely secondary to end-stage heart failure Full code, ? Eliquis for DVT prophylaxis, Plan for IV Lasix today, continue antibiotics, Attestations Medical Necessity Statement*: Patient requires hospitalization for fluid overload, requiring diuresis, crackles on exam today, continue IV antibiotics Diagnoses Acute hypoxemic respiratory failure J96.01 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, NYHA class 4 I50.20 Systolic CHF, acute I50.21 Physical deconditioning R53.81 Protein calorie malnutrition E46 Muscle wasting M62.50 Acute renal failure N17.9 Cardiac cirrhosis K76.1 Influenza A J10.1 Pneumonia J18.9 Viral pneumonia J12.9
[2023-06-12] MEDS: FUROsemide 10 mg/mL SDV 4mL 40 MG IVP (12:27)
[2023-06-12] MEDS: potassium chloride ER 20 mEq Tablet 40 MEQ PO (12:27)
[2023-06-12] MEDS: cefTRIAXone 1,000 MG in sodium chloride 0.9% (plus) 50 ML 100 MG IV (15:36)
[2023-06-12] MEDS: azithromycin 500 MG in sodium chloride 0.9% 250 ML 250 MG IV (17:48)
[2023-06-13] VITALS (19 sets, daily range): BP systolic 118–137; BP diastolic 57–78; PULSE 69–78; RESP 14–28; TEMP 36.5–37; O2SAT 94–99; BMI 25.8
[2023-06-13] MEDS: ipratropium-albuterol 3 mL Neb INHALATION ×6 (00:57→22:09)
[2023-06-13 04:06] LABS: Basophils % 0.2 %; Eosinophils # 0.2 10^3/uL (0.0-0.8); Hematocrit 27.6 % (37-53); Lymphocytes # 0.8 10^3/uL (0.8-4.8); Lymphocytes % 15.2 %; Mean Corpuscular HGB Conc 30.8 g/dL (30-55); Mean Corpuscular Hemoglobin 30.8 pg (27-33); Mean Platelet Volume 9.6 fL (7.4-10.4); Monocytes # 0.7 10^3/uL (0.2-0.9); Neutrophils % 68.2 %; Nucleated Red Blood Cells % 0 %; Platelet Count 78 10^3/cmm (157-399); Red Blood Count 2.76 10^6/uL (3.85-5.65); Red Cell Distribution Width 13.5 % (12.1-15.1); White Blood Count 4.99 10^3/uL (3.29-11.43)
[2023-06-13 04:28] LABS: Alanine Aminotransferase 24 U/L (0-41); Albumin Level 3.4 g/dL (3.5-5.2); Alkaline Phosphatase 87 U/L (40-130); Anion Gap 15.8 (5-19); Aspartate Amino Transferase 37 U/L (0-40); Blood Urea Nitrogen 51 mg/dL (8-23); Calcium 8.5 mg/dL (8.5-10.5); Carbon Dioxide 30 mmol/L (22-29); Chloride 101 mmol/L (98-107); Globulin 2.8 g/dL (1.3-4.6); Glucose 112 mg/dL (65-115); Magnesium 2.3 mg/dL (1.7-2.3); Osmolality Calculated 310 mOsm/kg (285-295); Phosphorus 3.2 mg/dL (2.5-4.5); Potassium 3.8 mmol/L (3.5-5.1); Sodium 143 mmol/L (136-145); Total Bilirubin 0.4 mg/dL (0.15-1.2); Total Protein 6.2 g/dL (6.6-8.7)
[2023-06-13 04:39] LABS: NT Pro B Type Natriuretic Pept 11707 pg/mL (0-450)
[2023-06-13] MEDS: isosorbide mononitrate ER 30 mg Tablet PO (06:07)
[2023-06-13] MEDS: amiodarone 200 mg Tablet 100 MG PO (06:07)
[2023-06-13] MEDS: apixaban 5 mg Tablet 2.5 MG PO ×2 (08:52→17:42)
[2023-06-13] MEDS: carvedilol 3.125 mg Tablet PO ×2 (08:52→17:42)
[2023-06-13] MEDS: hyDRALAzine 25 mg Tablet PO ×2 (08:52→17:43)
[2023-06-13] MEDS: guaiFENesin 600 mg Tablet PO ×2 (08:52→17:42)
[2023-06-13] MEDS: oseltamivir phosphate 30 mg Capsule PO (08:52)
--- NOTE | 2023-06-13 08:58 | XRR_ITS ---
PROCEDURE INFORMATION: Exam: XR Chest Exam date and time: 06/13/2023 10:36 AM Age: 87 years old Clinical indication: Shortness of breath; Prior surgery; Surgery date: 6+ months; Surgery type: Pacemaker TECHNIQUE: Imaging protocol: Radiologic exam of the chest. Views: 1 view. COMPARISON: CT chest [facility] [id number] 06/09/2023 10:12 AM FINDINGS: Tubes, catheters and devices: Multi lead pacemaker/defibrillator. Lungs: Mild pulmonary infiltrates, greatest in the right upper lobe. When compared to the prior exam from 06/08/2023 the infiltrates are shifting, they have improved at the lung bases and progressed in the right upper lobe. Pleural spaces: Unremarkable. No pleural effusion. No pneumothorax. Heart/Mediastinum: See Vasculature finding. Vasculature: Mild/moderate cardiomegaly and uncoiling of the thoracic aorta each accentuated by the AP positioning. Bones/joints: Status post median sternotomy. XR/XR chest 1V portable [id number] IMPRESSION: 1. No acute findings. 2. Waxing and waning infiltrates.
[2023-06-13] MEDS: budesonide 0.5 mg/2 mL Neb INHALATION ×2 (09:10→22:08)
[2023-06-13] MEDS: pantoprazole 40 mg SDV IVP (12:38)
[2023-06-13] MEDS: lidocaine 5% Patch 1 PATCH TOPICAL (12:39)
--- NOTE | 2023-06-13 14:43 | PM.PN ---
Subjective Subjective: Patient was seen this morning, continues to complain of wheezing, shortness of breath, no fevers, no cough, feeling weak Vitals/I&O/Wt Last Vital Signs Temp 98.2 F 06/13/23 11:28 Pulse 77 06/13/23 14:00 Resp 18 06/13/23 12:39 BP 137/57 06/13/23 11:28 Pulse Ox 96 06/13/23 12:39 O2 Del Method Nasal Cannula 06/13/23 12:39 O2 Flow Rate 3 06/13/23 12:39 FiO2 35 06/13/23 04:05 06/12/23 06/13/23 06/13/23 22:59 06:59 14:59 Intake Total 540 / 1020 220 / 220 Output Total 350 / 350 550 / 550 Balance 190 / 670 -330 / -330 Weight last 48 hrs Weight 81.647 kg Weight 81.647 kg Physical Exam Const: COMMON NORMALS: no acute distress and patient oriented x3 Resp: COMMON NORMALS: normal respiratory effort, No retractions and No use of accessory muscles AUSCULTATION: wheezes Cardio: COMMON NORMALS: regular rate, regular rhythm, S1 normal heart sound present and S2 normal heart sound present RATE: regular rate RHYTHM: regular rhythm HEART SOUNDS: S1 normal heart sound present and S2 normal heart sound present GI: COMMON NORMALS: Normal to inspection, nondistended, normoactive bowel sounds present and non-tender Extremity: COMMON NORMALS: no pedal edema Neuro: COMMON NORMALS: patient oriented x3 Psych: COMMON NORMALS: mental status grossly normal Urinary Catheter Management: Hoffman: Cath Placed During This Visit: yes, but has since been removed by the nurse Reason for Continuing Indwelling Catheter: Accurate Measurement of Urinary Output in Critically Ill Patients Urinary Catheter Date of Insertion: 06/08/23 Urinary Catheter Time of Insertion: 12:30 Date Urinary Catheter Removed: 06/12/23 Time Urinary Catheter Discontinued: 18:36 Data 06/13/23 03:30 06/13/23 03:30 Micro: Microbiology 06/08/23 10:55 Blood Culture - Final Blood NO GROWTH AFTER 5 DAYS 06/08/23 10:50 Blood Culture - Final Blood NO GROWTH AFTER 5 DAYS 06/09/23 15:15 Gram Stain - Final Sputum - Expectorated Sputum Sputum Culture - Final A&P Assessment and plan (1) Acute hypoxemic respiratory failure: (2) 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 Multifactorial, ? From pneumonia, influenza A pneumonia, acute systolic CHF, COPD COPD exacerbation start Decadron, continue DuoNeb budesonide Pneumonia, bacterial ? Sputum cultures, blood cultures, ? CT of the chest, 1. ? Cardiomegaly and coronary atherosclerosis. 2. ? Multifocal ground-glass opacities, somewhat more geographically distributed than is typical for edema although that remains a possibility. Atypical infection including COVID-19 could produce such an appearance. Follow-up recommended to confirm resolution. 3. ? Multifocal small nodular/tree-in-bud opacities, suggesting bronchiolitis or aspiration.? Follow-up recommended to confirm resolution. ?4. ? Few enlarged mediastinal nodes, nonspecific but likely reactive in this context. 5. ? Dilatation of the ascending aorta at 4 cm diameter, clinical assessment and follow-up recommended. 6. ? Dilated main pulmonary artery, finding which may be associated with pulmonary hypertension. 7. ? 5 cm left renal cyst incompletely characterized.? -Speech therapy eval, aspiration precautions ? Rocephin, azithromycin, last dose today ? DuoNeb, ?, Monitor respiratory status closely, Influenza A, viral pneumonia ? Tested positive yesterday, has not received treatment, ? Given his shortness of breath, fatigue, malaise, will treat for influenza A, ? Renally dose, Tamiflu 30 mg p.o. once daily for 5 days, completed ? Isolation precautions, Acute on chronic systolic CHF exacerbation, ? EF of 15%, etiology unclear, could be ischemic cardiomyopathy versus nonischemic ? New onset, patient has declined LifeVest, and angiogram, ? Place Hoffman catheter, ? We will discuss with cardiology about potentially placing on Entresto ? Fluid restrictions at 1000 cc, ? Creatinine up to 2.4, looks euvolemic hold off on further Lasix ? ? Monitor creatinine, monitor urine output, ? We will consider further diuretics based on clinical progress History of DVT ? Continue Eliquis, History of GI bleed, negative EGD, status post polypectomy, monitor hemoglobin closely no reported bloody or black stools, Hypertension, continue home blood pressure medications, No complaints of chest pain, serial EKGs, serial troponins, telemetry monitoring, Congestive hepatopathy, cardiac cirrhosis, likely secondary to heart failure, monitor bili, monitor liver function Physical deconditioning, protein calorie malnutrition, muscle wasting, PT OT, consult dietary, consult speech ? Likely secondary to end-stage heart failure Full code, ? Eliquis for DVT prophylaxis, Plan for continue IV antibiotics, Decadron, due to respiratory treatment Attestations Medical Necessity Statement*: Patient requires hospitalization for acute hypoxic respiratory failure, now with a component of COPD exacerbation requiring steroids continue antibiotic therapy creatinine up to 2.4 holding Lasix, continue clinical monitoring Diagnoses Acute hypoxemic respiratory failure J96.01 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, NYHA class 4 I50.20 Systolic CHF, acute I50.21 Physical deconditioning R53.81 Protein calorie malnutrition E46 Muscle wasting M62.50 Acute renal failure N17.9 Cardiac cirrhosis K76.1 Influenza A J10.1 Pneumonia J18.9 Viral pneumonia J12.9
[2023-06-13] MEDS: dexamethasone 10 mg/mL INJ 6 MG IVP (15:07)
[2023-06-13] MEDS: cefTRIAXone 1,000 MG in sodium chloride 0.9% (plus) 50 ML 100 MG IV (15:59)
[2023-06-13] MEDS: azithromycin 500 MG in sodium chloride 0.9% 250 ML 250 MG IV (16:51)
[2023-06-13] MEDS: diphenhydrAMINE 50 mg/mL SDV 1mL 25 MG IVP (18:01)
--- NOTE | 2023-06-13 18:07 | PC.NURSE ---
Nurse goes into to patients room to give him his 1800 medications. After being in the room for several minutes patient started saying his arm was itchy. He had a rash on his left arm up to his axilla and a few spots his chest. Provider is called and ordered benadryl 25mg IVP which is given and azithromycin is stopped. Provider then ordered decadron 4mg IVP once. Order entered.
[2023-06-13] MEDS: dexamethasone 4 mg/mL INJ IVP (18:21)
[2023-06-13] MEDS: trazodone 50 mg Tablet PO (20:10)
[2023-06-14] VITALS (17 sets, daily range): BP systolic 111–138; BP diastolic 51–80; PULSE 70–77; RESP 14–23; TEMP 36.3–36.7; O2SAT 94–99
[2023-06-14] MEDS: ipratropium-albuterol 3 mL Neb INHALATION ×5 (01:43→19:18)
[2023-06-14] MEDS: amiodarone 200 mg Tablet 100 MG PO (04:03)
[2023-06-14] MEDS: isosorbide mononitrate ER 30 mg Tablet PO (04:03)
[2023-06-14 04:50] LABS: Hematocrit 28.5 % (37-53); Lymphocytes # 0.3 10^3/uL (0.8-4.8); Lymphocytes % 12.8 %; Mean Corpuscular HGB Conc 31.2 g/dL (30-55); Mean Corpuscular Hemoglobin 31.4 pg (27-33); Mean Corpuscular Volume 100.7 fl (82-101); Monocytes # 0.1 10^3/uL (0.2-0.9); Neutrophils # 1.86 10^3/uL (1.8-7.7); Neutrophils % 82.3 %; Nucleated Red Blood Cells % 0 %; Platelet Count 92 10^3/cmm (157-399); Red Blood Count 2.83 10^6/uL (3.85-5.65); Red Cell Distribution Width 13.4 % (12.1-15.1); White Blood Count 2.26 10^3/uL (3.29-11.43)
[2023-06-14 05:23] LABS: Alanine Aminotransferase 89 U/L (0-41); Albumin Level 3.5 g/dL (3.5-5.2); Alkaline Phosphatase 285 U/L (40-130); Aspartate Amino Transferase 203 U/L (0-40); Blood Urea Nitrogen 50 mg/dL (8-23); Calcium 8.9 mg/dL (8.5-10.5); Carbon Dioxide 29 mmol/L (22-29); Chloride 99 mmol/L (98-107); Globulin 3.2 g/dL (1.3-4.6); Glucose 159 mg/dL (65-115); Magnesium 2.5 mg/dL (1.7-2.3); NT Pro B Type Natriuretic Pept 13659 pg/mL (0-450); Osmolality Calculated 311 mOsm/kg (285-295); Phosphorus 4.5 mg/dL (2.5-4.5); Sodium 142 mmol/L (136-145); Total Bilirubin 0.4 mg/dL (0.15-1.2); Total Protein 6.7 g/dL (6.6-8.7)
[2023-06-14 05:25] LABS: Slide Review Slide Review Perform
[2023-06-14] MEDS: budesonide 0.5 mg/2 mL Neb INHALATION ×2 (07:41→19:18)
--- NOTE | 2023-06-14 08:00 | PC.SOCIAL ---
IMM Update pg 2 of IMM updated and reviewed w/ patient. Copy provided and copy dated, initialed and placed in chart.
[2023-06-14] MEDS: carvedilol 3.125 mg Tablet PO ×2 (08:19→17:30)
[2023-06-14] MEDS: hyDRALAzine 25 mg Tablet PO ×2 (08:19→17:30)
[2023-06-14] MEDS: fluticasone nasal spray 16gm Btl 1 SPRAY NASAL ×2 (08:19→17:31)
[2023-06-14] MEDS: lidocaine 5% Patch 1 PATCH TOPICAL (08:19)
[2023-06-14] MEDS: guaiFENesin 600 mg Tablet PO ×2 (08:19→17:30)
[2023-06-14] MEDS: apixaban 5 mg Tablet 2.5 MG PO ×2 (08:19→17:30)
--- NOTE | 2023-06-14 08:33 | USR_ITS ---
PROCEDURE INFORMATION: Exam: US Abdomen, Limited; Right Upper Quadrant Exam date and time: 06/14/2023 2:16 PM Age: 87 years old Clinical indication: Abdominal pain; Generalized; Additional info: Gallbladder and liver, patient just ate breakfast. Nurse notified to keep him npo and will scan TECHNIQUE: Imaging protocol: Real time ultrasound of the abdomen with image documentation. Limited exam focused on the right upper quadrant. COMPARISON: US gall bladder [id number] 06/08/2023 9:02 AM FINDINGS: Liver: Normal. No masses. Gallbladder: Normal. No gallstones. There is no gallbladder wall thickening. Biliary ducts: Normal. No stones. No dilation. 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 No solid mass. No hydronephrosis. US/US abdomen limited [id number] IMPRESSION: No acute findings.
--- NOTE | 2023-06-14 11:49 | PM.PN ---
Subjective Subjective: Patient was seen this morning, he continues to complain of weakness, fatigue, we discussed his elevated liver functions alk phos, no nausea, vomiting, abdominal pain, no right upper quadrant tenderness, will do ultrasound gallbladder, Vitals/I&O/Wt Last Vital Signs Temp 98.0 F 06/14/23 07:30 Pulse 71 06/14/23 11:31 Resp 20 H 06/14/23 11:31 BP 111/51 06/14/23 07:30 Pulse Ox 98 06/14/23 11:31 O2 Del Method Nasal Cannula 06/14/23 11:31 O2 Flow Rate 2 06/14/23 11:31 FiO2 35 06/13/23 22:09 06/13/23 06/14/23 06/14/23 22:59 06:59 14:59 Intake Total 300 / 520 1100 / 1620 120 / 120 Output Total 200 / 750 200 / 950 Balance 100 / -230 900 / 670 120 / 120 Weight last 48 hrs Weight 81.647 kg Weight 81.647 kg Physical Exam Const: COMMON NORMALS: no acute distress and patient oriented x3 Resp: COMMON NORMALS: normal respiratory effort, No retractions, No use of accessory muscles and clear to auscultation bilaterally AUSCULTATION: clear to auscultation bilaterally Cardio: COMMON NORMALS: regular rate, regular rhythm, S1 normal heart sound present and S2 normal heart sound present RATE: regular rate RHYTHM: regular rhythm HEART SOUNDS: S1 normal heart sound present and S2 normal heart sound present GI: COMMON NORMALS: Normal to inspection, nondistended, normoactive bowel sounds present and non-tender Extremity: COMMON NORMALS: no pedal edema Neuro: COMMON NORMALS: patient oriented x3 Psych: COMMON NORMALS: mental status grossly normal Urinary Catheter Management: Hoffman: Cath Placed During This Visit: yes, but has since been removed by the nurse Reason for Continuing Indwelling Catheter: Accurate Measurement of Urinary Output in Critically Ill Patients Urinary Catheter Date of Insertion: 06/08/23 Urinary Catheter Time of Insertion: 12:30 Date Urinary Catheter Removed: 06/12/23 Time Urinary Catheter Discontinued: 18:36 Data 06/14/23 03:55 06/14/23 03:55 Micro: Microbiology 06/08/23 10:55 Blood Culture - Final Blood NO GROWTH AFTER 5 DAYS 06/08/23 10:50 Blood Culture - Final Blood NO GROWTH AFTER 5 DAYS A&P Assessment and plan (1) Acute hypoxemic respiratory failure: (2) 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 Multifactorial, ? From pneumonia, influenza A pneumonia, acute systolic CHF, COPD COPD exacerbation start Decadron, continue DuoNeb budesonide Pneumonia, bacterial ? Sputum cultures, blood cultures, ? CT of the chest, 1. ? Cardiomegaly and coronary atherosclerosis. 2. ? Multifocal ground-glass opacities, somewhat more geographically distributed than is typical for edema although that remains a possibility. Atypical infection including COVID-19 could produce such an appearance. Follow-up recommended to confirm resolution. 3. ? Multifocal small nodular/tree-in-bud opacities, suggesting bronchiolitis or aspiration.? Follow-up recommended to confirm resolution. ?4. ? Few enlarged mediastinal nodes, nonspecific but likely reactive in this context. 5. ? Dilatation of the ascending aorta at 4 cm diameter, clinical assessment and follow-up recommended. 6. ? Dilated main pulmonary artery, finding which may be associated with pulmonary hypertension. 7. ? 5 cm left renal cyst incompletely characterized.? -Speech therapy eval, aspiration precautions ? Rocephin, azithromycin, has completed 5 days of IV antibiotics, ? DuoNeb, ?, Monitor respiratory status closely, Influenza A, viral pneumonia ? Tested positive yesterday, has not received treatment, ? Given his shortness of breath, fatigue, malaise, will treat for influenza A, ? Renally dose, Tamiflu 30 mg p.o. once daily for 5 days, completed ? Isolation precautions, Acute on chronic systolic CHF exacerbation, ? EF of 15%, etiology unclear, could be ischemic cardiomyopathy versus nonischemic ? New onset, patient has declined LifeVest, and angiogram, ? Place Hoffman catheter, ? We will discuss with cardiology about potentially placing on Entresto ? Fluid restrictions at 1000 cc, ? Creatinine up to 2.4, looks euvolemic hold off on further Lasix ? ? Monitor creatinine, monitor urine output, ? We will consider further diuretics based on clinical progress History of DVT ? Continue Eliquis, History of GI bleed, negative EGD, status post polypectomy, monitor hemoglobin closely no reported bloody or black stools, Hypertension, continue home blood pressure medications, No complaints of chest pain, serial EKGs, serial troponins, telemetry monitoring, Congestive hepatopathy, cardiac cirrhosis, likely secondary to heart failure, monitor bili, monitor liver function Physical deconditioning, protein calorie malnutrition, muscle wasting, PT OT, consult dietary, consult speech ? Likely secondary to end-stage heart failure Allergic reaction, possibly sec to azithromycin, likely stopped yesterday, received Decadron Full code, ? 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
[2023-06-15] VITALS (13 sets, daily range): BP systolic 111–129; BP diastolic 51–66; PULSE 70–79; RESP 15–24; TEMP 36.5–36.6; O2SAT 93–100; BMI 23.2
[2023-06-15] MEDS: ipratropium-albuterol 3 mL Neb INHALATION ×3 (00:13→07:51)
[2023-06-15 06:05] LABS: Hematocrit 27.2 % (37-53); Lymphocytes # 0.6 10^3/uL (0.8-4.8); Mean Corpuscular HGB Conc 31.3 g/dL (30-55); Mean Corpuscular Hemoglobin 31.3 pg (27-33); Mean Platelet Volume 9.9 fL (7.4-10.4); Monocytes # 0.5 10^3/uL (0.2-0.9); Neutrophils # 3.24 10^3/uL (1.8-7.7); Neutrophils % 74.3 %; Nucleated Red Blood Cells % 0 %; Platelet Count 132 10^3/cmm (157-399); Red Blood Count 2.72 10^6/uL (3.85-5.65); Red Cell Distribution Width 13.2 % (12.1-15.1); White Blood Count 4.36 10^3/uL (3.29-11.43)
[2023-06-15 06:20] LABS: Alanine Aminotransferase 52 U/L (0-41); Albumin Level 3.3 g/dL (3.5-5.2); Alkaline Phosphatase 210 U/L (40-130); Anion Gap 15.2 (5-19); Aspartate Amino Transferase 82 U/L (0-40); Blood Urea Nitrogen 58 mg/dL (8-23); Calcium 8.6 mg/dL (8.5-10.5); Carbon Dioxide 29 mmol/L (22-29); Chloride 101 mmol/L (98-107); Globulin 2.9 g/dL (1.3-4.6); Glucose 114 mg/dL (65-115); Magnesium 2.6 mg/dL (1.7-2.3); Osmolality Calculated 309 mOsm/kg (285-295); Phosphorus 3.3 mg/dL (2.5-4.5); Potassium 4.2 mmol/L (3.5-5.1); Sodium 141 mmol/L (136-145); Total Bilirubin 0.3 mg/dL (0.15-1.2); Total Protein 6.2 g/dL (6.6-8.7)
[2023-06-15] MEDS: isosorbide mononitrate ER 30 mg Tablet PO (06:46)
[2023-06-15] MEDS: amiodarone 200 mg Tablet 100 MG PO (06:46)
[2023-06-15 07:07] LABS: NT Pro B Type Natriuretic Pept 12748 pg/mL (0-450)
[2023-06-15] MEDS: budesonide 0.5 mg/2 mL Neb INHALATION (07:51)
[2023-06-15] MEDS: carvedilol 3.125 mg Tablet PO (09:14)
[2023-06-15] MEDS: apixaban 5 mg Tablet 2.5 MG PO (09:14)
[2023-06-15] MEDS: pantoprazole DR 40 mg Tablet PO (09:14)
[2023-06-15] MEDS: lidocaine 5% Patch 1 PATCH TOPICAL (09:14)
[2023-06-15] MEDS: guaiFENesin 600 mg Tablet PO (09:14)
[2023-06-15] MEDS: hyDRALAzine 25 mg Tablet PO (09:14)
--- NOTE | 2023-06-15 10:57 | P.DS_ITS ---
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, NYHA class 4: Status: Acute (3) Systolic CHF, acute: Status: Acute (4) Physical deconditioning: Status: Acute (5) Protein calorie malnutrition: Status: Acute (6) Muscle wasting: Status: Acute (7) Acute renal failure: Status: Acute (8) Cardiac cirrhosis: Status: Acute (9) Influenza A: Status: Acute (10) Pneumonia: Status: Acute (11) Viral pneumonia: Status: Acute Reason for Visit Reason for Visit: SOB Hospital Course Hospital Course Popeye Wilks is a 87 year old male with a history of systolic CHF, newly diagnosed with EF of 15%, history of Hemoccult positive stool with anemia, EGD unremarkable, colonoscopy polyps removed, patient during his last hospitalization declined angiogram, LifeVest, who presents to [facility] due to worsening shortness of breath.? Patient tells me that for the last few days, he continues to feel short of breath, shortness of breath with exertion, lower extremity FREDY, no chest pain, no palpitations, does report a nonproductive cough, no fevers, no chills, does report fatigue, malaise, patient tells me he understands his end-stage heart failure, he tells me that he has been on the ventilator before, he has been near in the past before, he has had extensive neck surgery back surgery, in the past, and had postoperative complications, at that time he thought he was going to , he tells me that he wants to remain a full code, however he does not want to remain on life support for the rest of his life significantly, and he does not want to have heroic measures, but he understands the severity and morbidity and mortality of his underlying heart disease, Patient had a prolonged hospitalization due to acute hypoxic respiratory failure, multifactorial from pneumonia, bacterial pneumonia, influenza A, acute systolic CHF, COPD, For bacterial pneumonia, received broad-spectrum antibiotic therapy, completed inpatient IV of antibiotic therapy, discharged home For influenza A, viral pneumonia, received 5 days of Tamiflu as inpatient, COPD exacerbation received Decadron, as inpatient, For acute on chronic systolic CHF exacerbation, EF 15%, patient has declined LifeVest, and angiogram as per documentation, we had extensive discussion during his hospitalization for now he continues to decline. He understands morbidity and mortality, associated with his systolic CHF, concern for underlying CAD, however he does not want aggressive interventions, he tells me that he knows that it is time, and he has made peace with it. Discussed risks and benefits of LifeVest and angiogram, he voiced understanding, all questions are, declined for now. Due to his blood pressures unfortunately Entresto is not a reasonable option due to concerns for hypotension. He was diuresed as inpatient, did quite well, creatinine went up to 2.4 requiring diuresis to be held, on discharge she will be discharged on Lasix 20 mg once daily and potassium replacement therapy. I was upfront and honest with patient, given his low ejection fraction he has a high risk of recurrent hospitalizations, morbidity or mortality with CHF exacerbations, CAD, he voiced understanding, all questions answered, shared decision making declines angiogram, declines LifeVest, declines going to a [place] [facility] facility For his physical deconditioning, protein calorie malnutrition, physical deconditioning, muscle wasting, he has a high risk of falls, I am worried about morbidity or mortality about him going home without enough help, however he has declined [place] [facility] Congestive hepatopathy, cardiac cirrhosis, likely secondary to heart failure, monitor bili, monitor liver function Physical Exam Const: COMMON NORMALS: no acute distress and patient oriented x3 Resp: COMMON NORMALS: normal respiratory effort, No retractions, No use of accessory muscles and clear to auscultation bilaterally AUSCULTATION: clear to auscultation bilaterally Cardio: COMMON NORMALS: regular rate, regular rhythm, S1 normal heart sound p resent and S2 normal heart sound present RATE: regular rate RHYTHM: regular rhythm HEART SOUNDS: S1 normal heart sound present and S2 normal heart sound present GI: COMMON NORMALS: Normal to inspection, nondistended, normoactive bowel sounds present and non-tender Extremity: COMMON NORMALS: no pedal edema Neuro: COMMON NORMALS: patient oriented x3 Psych: COMMON NORMALS: mental status grossly normal Urinary Catheter Management: Hoffman: Cath Placed During This Visit: yes, but has since been removed by the nurse Reason for Continuing Indwelling Catheter: Accurate Measurement of Urinary Output in Critically Ill Patients Urinary Catheter Date of Insertion: 06/08/23 Urinary Catheter Time of Insertion: 12:30 Date Urinary Catheter Removed: 06/12/23 Time Urinary Catheter Discontinued: 18:36 Discharge Data Studies Completed and Pending Completed Studies During Hospitalization Category Date Time Status CT chest wo con [id number] Stat Cat Scan 06/09/23 08:52 Completed XR chest 1V portable [id number] Routine Exams 06/13/23 08:58 Completed XR chest 1V portable [id number] Stat Exams 06/08/23 07:26 [place] [id number] Routine Ultrasound 06/08/23 11:58 Completed US abdomen limited [id number] Stat Ultrasound 06/14/23 08:33 Completed US gall bladder [id number] Stat Ultrasound 06/08/23 08:42 Completed Radiology Impressions Gallbladder Ultrasound 06/08/23 08:42 IMPRESSION: 1. Mild hepatic findings are nonspecific and could be artifactual or possibly indicate hepatitis or other infiltrative process. Correlate with laboratory values. 2. Small right pleural effusion. 3. Right renal atrophy with increased echogenicity compatible with medical renal disease. Venous Duplex 06/08/23 11:58 IMPRESSION: 1. No evidence of acute deep vein thrombosis. 2. 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 Chest CT 06/09/23 08:52 IMPRESSION: 1. Cardiomegaly and coronary atherosclerosis. 2. Multifocal ground-glass opacities, somewhat more geographically distributed than is typical for edema although that remains a possibility. Atypical infection including COVID-19 could produce such an appearance. Follow-up recommended to confirm resolution. 3. Multifocal small nodular/tree-in-bud opacities, suggesting bronchiolitis or aspiration. Follow-up recommended to confirm resolution. 4. Few enlarged mediastinal nodes, nonspecific but likely reactive in this context. 5. Dilatation of the ascending aorta at 4 cm diameter, clinical assessment and follow-up recommended. 6. Dilated main pulmonary artery, finding which may be associated with pulmonary hypertension. 7. 5 cm left renal cyst incompletely characterized. New line 8. COMMENTS: 1. Consistent with the [employer]'s Incidental Findings Committee white paper (J Am Ann Radiol 2018): Any incidental renal lesion less than 1 cm or classified as too small to characterize, or any incidental cystic renal lesion characterized as simple-appearing, is likely benign. No follow-up imaging is recommended for these lesions per consensus recommendations based on imaging criteria. 2. Consistent with the [employer]'s Incidental Findings Committee white paper (J Am Ann Radiol 2015): In patients aged 35 years and older with an incidental thyroid nodule equal to or greater than 1.[address], MRI or extrathyroidal US, further evaluation with dedicated thyroid US is recommended for patients with normal life expectancy and without comorbidities. For smaller nodules without suspicious features, no further evaluation or follow up is recommended. Chest X-Ray 06/13/23 08:58 IMPRESSION: 1. No acute findings. 2. Waxing and waning infiltrates. Abdomen Ultrasound 06/14/23 08:33 IMPRESSION: No acute findings. Laboratory Results WBC 4.36 10^3/uL (3.29-11.43) 06/15/23 04:47 RBC 2.72 10^6/uL (3.85-5.65) L 06/15/23 04:47 Hgb 8.50 g/dL (11.27-16.99) L 06/15/23 04:47 Hct 27.2 % (37-53) L 06/15/23 04:47 MCV 100.0 fl (82-101) 06/15/23 04:47 MCH 31.3 pg (27-33) 06/15/23 04:47 MCHC 31.3 g/dL (30-55) 06/15/23 04:47 RDW 13.2 % (12.1-15.1) 06/15/23 04:47 Plt Count 132 10^3/cmm (157-399) L D 06/15/23 04:47 MPV 9.9 fL (7.4-10.4) 06/15/23 04:47 Neut % (Auto) 74.3 % 06/15/23 04:47 Lymph % (Auto) 14.0 % 06/15/23 04:47 [place] % (Auto) 11.0 % 06/15/23 04:47 Eos % (Auto) 0.0 % 06/15/23 04:47 Baso % (Auto) 0.0 % 06/15/23 04:47 Neut # (Auto) 3.24 10^3/uL (1.8-7.7) 06/15/23 04:47 Lymph # (Auto) 0.6 10^3/uL (0.8-4.8) L 06/15/23 04:47 [place] # (Auto) 0.5 10^3/uL (0.2-0.9) 06/15/23 04:47 Eos # (Auto) 0.0 10^3/uL (0.0-0.8) 06/15/23 04:47 Baso # (Auto) 0.0 10^3/uL (0.0-0.1) 06/15/23 04:47 Nucleated RBC % (auto) 0 % 06/15/23 04:47 Nucleated RBCs # 0.0 /100WBC 06/15/23 04:47 PT 17.40 SECONDS (12.1-14.9) H 06/08/23 07:34 INR 1.37 (0.8-1.2) H 06/08/23 07:34 Specimen Type Arterial 06/08/23 11:30 Sample Site Radial, left 06/08/23 11:30 ABG pH 7.38 (7.35-7.45) 06/08/23 11:30 ABG pCO2 40.9 mmHg (35-45) 06/08/23 11:30 ABG pO2 72.3 mmHg (80.0-100.0) L 06/08/23 11:30 ABG HCO3 23.9 mmol/L (22-26) 06/08/23 11:30 ABG Base Excess -1.2 mmol/L (-2.0-2.0) 06/08/23 11:30 Guero Test Pos 06/08/23 11:30 Hematocrit 30.5 % (42-52) L 06/08/23 11:30 O2 Delivery Device Nc 06/08/23 11:30 O2 Liters/Min 5.0 % 06/08/23 11:30 [employer]fuels Operations Manager ID Cak 06/08/23 11:30 Sodium 141 mmol/L (136-145) 06/15/23 04:47 Potassium 4.2 mmol/L (3.5-5.1) 06/15/23 04:47 Chloride 101 mmol/L (98-107) 06/15/23 04:47 Carbon Dioxide 29 mmol/L (22-29) 06/15/23 04:47 Anion Gap 15.2 (5-19) 06/15/23 04:47 BUN 58 mg/dL (8-23) H 06/15/23 04:47 Creatinine 2.2 mg/dL (0.7-1.2) H 06/15/23 04:47 GFR Calculation Not Reportable 06/15/23 04:47 Glucose 114 mg/dL (65-115) 06/15/23 04:47 Calculated Osmolality 309 mOsm/kg (285-295) H 06/15/23 04:47 Lactic Acid 2.0 mmol/L (0.5-2.2) 06/08/23 07:34 Calcium 8.6 mg/dL (8.5-10.5) 06/15/23 04:47 Phosphorus 3.3 mg/dL (2.5-4.5) 06/15/23 04:47 Magnesium 2.6 mg/dL (1.7-2.3) H 06/15/23 04:47 Total Bilirubin 0.3 mg/dL (0.15-1.2) 06/15/23 04:47 AST 82 U/L (0-40) H 06/15/23 04:47 ALT 52 U/L (0-41) H 06/15/23 04:47 Alkaline Phosphatase 210 U/L (40-130) H 06/15/23 04:47 Troponin T Baseline 40 ng/L (0-15) H 06/08/23 07:34 Troponin T 120 Minute 39.66 ng/L (0-15) H 06/08/23 10:06 Delta Troponin T -0.34 ABS# (0-10) L 06/08/23 10:06 Troponin T Hi Sens 6Hr 46.05 ng/L (0-15) H 06/08/23 15:15 Troponin T Hi Sens 6Hr Delta 6.05 ng/L (0-12) 06/08/23 15:15 NT-Pro-B Natriuret Pep 65380 pg/mL (0-450) H 06/15/23 04:47 Total Protein 6.2 g/dL (6.6-8.7) L 06/15/23 04:47 Albumin 3.3 g/dL (3.5-5.2) L 06/15/23 04:47 Globulin 2.9 g/dL (1.3-4.6) 06/15/23 04:47 Procalcitonin 0.22 ng/mL (0-0.5) 06/08/23 07:34 Urine Color Yellow (Yellow) 06/08/23 10:55 Urine Appearance Clear (CLEAR) 06/08/23 10:55 Urine pH 5 (5-7) 06/08/23 10:55 Ur Specific [place] 1.015 (1.005-1.030) 06/08/23 10:55 Urine Protein Neg (Negative) 06/08/23 10:55 Urine Glucose (UA) Norm (Normal) 06/08/23 10:55 Urine Ketones Negative (Negative) 06/08/23 10:55 Urine Blood 2+ (Negative) H 06/08/23 10:55 Urine Nitrate Negative (Negative) 06/08/23 10:55 Urine Bilirubin Neg (Negative) 06/08/23 10:55 Urine Urobilinogen Norm mg/dL (Negative) 06/08/23 10:55 Ur Leukocyte Esterase Negative (Negative) 06/08/23 10:55 Urine RBC 5-10 /hpf (0-2) H 06/08/23 10:55 Urine WBC None /hpf (0-5) 06/08/23 10:55 Ur Squamous Epith Cells 0-4 /hpf (0-5) H 06/08/23 10:55 Amorphous Sediment Not Reportable 06/08/23 10:55 Urine Bacteria 1+ /hpf (NONE) H 06/08/23 10:55 Nasal Influ A H1 2008 PCR Detected (NOT DETECT) A 06/08/23 12:30 Adenovirus (PCR) Not detected (NOT DETECT) 06/08/23 12:30 C. pneumoniae DNA (PCR) Not detected (NOT DETECT) 06/08/23 12:30 Coronavirus 229E (PCR) Not detected (NOT DETECT) 06/08/23 12:30 Human Metapneumovir PCR Not detected (NOT DETECT) 06/08/23 12:30 Influenza A (H1) PCR Not detected (NOT DETECT) 06/08/23 12:30 Influenza A (H3) PCR Not detected (NOT DETECT) 06/08/23 12:30 Influenza Type A (PCR) Detected (NOT DETECT) A 06/08/23 12:30 Influenza Type B (PCR) Not detected (NOT DETECT) 06/08/23 12:30 M. pneumoniae (PCR) Not detected (NOT DETECT) 06/08/23 12:30 Parainfluenza 1 (PCR) Not detected (NOT DETECT) 06/08/23 12:30 Parainfluenza 2 (PCR) Not detected (NOT DETECT) 06/08/23 12:30 Parainfluenza 3 (PCR) Not detected (NOT DETECT) 06/08/23 12:30 Parainfluenza 4 (PCR) Not detected (NOT DETECT) 06/08/23 12:30 RSV Type A (PCR) Not detected (NOT DETECT) 06/08/23 12:30 RSV Type B (PCR) Not detected (NOT DETECT) 06/08/23 12:30 Entero/Rhino (PCR) Not detected (NOT DETECT) 06/08/23 12:30 SARS-CoV-2 (PCR) Not detected (NOT DETECT) 06/08/23 12:30 MRSA (PCR) Not detected (NOT DETECTED) 06/08/23 12:30 Vitals Last Vital Signs Temp 97.8 F 06/15/23 05:04 Pulse 70 06/15/23 07:51 Resp 18 06/15/23 07:51 BP 111/55 06/15/23 07:45 Pulse Ox 100 06/15/23 07:51 O2 Del Method BiPAP 06/15/23 07:51 O2 Flow Rate 3 06/14/23 20:00 FiO2 35 06/15/23 07:51 Discharge Plan Discharge Patient Disposition: Home Health Service Condition: Stable Prescriptions: Continued carvedilol 3.125 mg tablet 3.125 mg PO BID Qty: 180 3RF nitroglycerin [Nitrostat] 0.4 mg Tablet, Sublingual 0.4 mg SUBLINGUAL Q5M PRN (Reason: Chest Pain) Rx Instructions: do not exceed 3 doses per episode Eliquis 2.5 mg tablet 2.5 mg PO BID furosemide [Lasix] 20 mg tablet 20 mg PO QAM docusate sodium [Colace] 100 mg Capsule 100 mg PO DAILY PRN (Reason: Constipation) fluticasone propion-salmeterol [Advair Diskus] 500-50 mcg/dose blister with device 1 inh INHALATION BID albuterol sulfate 90 mcg/actuation HFA aerosol inhaler 2 inh INHALATION Q4H PRN (Reason: Shortness Of Breath) amiodarone 200 mg tablet 100 mg PO QAM isosorbide mononitrate 30 mg tablet extended release 24 hr 30 mg PO QAM hydralazine 25 mg Tablet 25 mg PO BID Qty: 60 0RF potassium chloride 20 mEq tablet extended release 20 meq PO QAM Qty: 60 0RF Discharge Orders: Discharge Order (Routine); Ordered 06/15/23 Ordered By: Umair Wilson Referrals: [facility] ([facility]) [Outside] Cristofer Barrera MD [Primary Care Provider] - 1-3 days Magdy Trevizo M.D [Physician] - 1-3 days Discharge Diet: Cardiac Discharge Activity: Resume usual activity Patient Instructions: Heart Failure (DC), CHF Stoplight, Opioid Safety Activity Restrictions/Additional Instructions: ? Please limit fluid intake to 1 L of fluid a day, ? Take Lasix 20 mg once daily with potassium replacement therapy, ? Please have your primary care provider recheck your kidney function on Saturday, ? Please have your primary care provider follow your liver function ? If you have worsening shortness of breath please go to emergency room Discharge Attestations Time Spent in Discharge Care*: greater than 30 min Quality Metrics Clinical Quality Measures [ No reported AMI, CVA or VTE this stay] Coding Level of Care Code 95638 Total time (in minutes) for Discharge: 45 Diagnoses Acute hypoxemic respiratory failure J96.01 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, NYHA class 4 I50.20 Systolic CHF, acute I50.21 Physical deconditioning R53.81 Protein calorie malnutrition E46 Muscle wasting M62.50 Acute renal failure N17.9 Cardiac cirrhosis K76.1 Influenza A J10.1 Pneumonia J18.9 Viral pneumonia J12.9
--- NOTE | 2023-06-15 14:35 | PC.NURSE ---
called [facility] for a portable oxygen and they brought it now. called a cartender for his transportation per patient request. her ride carla(friend) was called this morning, and she is unable to pick him up today due to work. discharge papers provided to pt. educated pt on his continued meds and doctors additional instructions.
== END 2023-06-15 14:39 | disposition home health service (06) | DRG 291 ==
LOC: ER 08:25 → ICU 10:46 → CSU 06-09 01:04
PROVIDERS: Admitting Provider Family Medicine; Emergency Provider Family Medicine; PCP Internal Medicine; Visit Provider Family Medicine
DX: I11.0 Hypertensive heart disease with heart failure (principal); I50.23 Acute on chronic systolic (congestive) heart failure; J96.01 Acute respiratory failure with hypoxia; J12.9 Viral pneumonia, unspecified; J15.9 Unspecified bacterial pneumonia; E46 Unspecified protein-calorie malnutrition; N17.9 Acute kidney failure, unspecified; J44.1 Chronic obstructive pulmonary disease with (acute) exacerbation; J44.0 Chronic obstructive pulmonary disease with (acute) lower respiratory infection; K76.1 Chronic passive congestion of liver; J10.1 Influenza due to other identified influenza virus with other respiratory manifestations; I50.84 End stage heart failure; N40.0 Benign prostatic hyperplasia without lower urinary tract symptoms; E78.00 Pure hypercholesterolemia, unspecified; I25.10 Atherosclerotic heart disease of native coronary artery without angina pectoris; Z86.718 Personal history of other venous thrombosis and embolism; Z85.51 Personal history of malignant neoplasm of bladder; Z79.01 Long term (current) use of anticoagulants; Z68.23 Body mass index [BMI] 23.0-23.9, adult; Z11.52 Encounter for screening for COVID-19; Z95.1 Presence of aortocoronary bypass graft; Z95.5 Presence of coronary angioplasty implant and graft; Z87.891 Personal history of nicotine dependence
CPT/HCPCS: 36415; 36600; 51702; 71045; 71250; 76705; 80053; 81001; 82803; 83605; 83735; 83880; 84100; 84145; 84484; 85025; 85610; 87040; 87070; 87205; 87486; 87581; 87633; 87641; 92526; 92610; 93005; 93970; 94640; 94660; 96365; 96366; 96375; 96376; 97110; 97116; 97161; 97165; 97530; 99285; C9113; J0456; J0696; J1100; J1200; J1940; J7050; J7626; P9046

== ENCOUNTER 2023-06-29 16:31 | Inpatient (IN) | payer OTHER, SELFPAY ==
[2023-06-29 16:32] VITALS: BP 130/57; PULSE 70; RESP 18; TEMP 36.7; O2SAT 100; BMI 25.8
--- NOTE | 2023-06-29 16:42 | ED_ITS ---
HPI - SOB/Dyspnea 2 General: Chief Complaint: Shortness of Breath/Dyspnea Stated Complaint: LEFT CHEST PRESSURE Time Seen by Provider: 06/29/23 16:32 History of Present Illness: HPI Narrative: 87-year-old male presents to the emergen cy department stating that he feels like he is losing his breath . He states this has been ongoing for the previous 1 month and that he was initially hospitalized here and then has recently been in a long-term care rehabilitation facility. He states he normally uses 4 L of nasal cannula oxygen and has not had an increase in his oxygen demand. He states he feels like he has pressure to the middle of his back when he attempts to take a deep breath in. He states he has seen his primary care provider within the last 2 weeks and that there is nothing additional that was provided for his treatment of feeling like he is losing his breath. Review of Systems 2 General: Reports: 10 or more systems reviewed and unremarkable except in HPI and below Resp: Reports: dyspnea PFSH ED 2 PFSH: Medical History New onset of congestive heart failure Bladder cancer COPD (chronic obstructive pulmonary disease) 3 L at baseline GI (gastrointestinal bleed) Anemia Thrombocytopenia Chronic shortness of breath Breath shortness Fatigue History of COPD Recurrent ventral hernia H/O deep venous thrombosis Osteoarthritis H/O cervical fracture surgical repair Bladder tumor TURBT 05/02/2020 BPH loc w urin obs/LUTS Gross hematuria Hypercholesteremia Essential (primary) hypertension Surgical History History of colonoscopy S/P excision of lipoma History of cataract extraction History of hemorrhoidectomy History of testicular surgery History of surgery on arm Status post surgical removal and fulguration of bladder neoplasm History of coronary artery bypass graft History of coronary artery stent placement Status post aortic coarctation stent placement History of mandibular surgery History of hernia repair History of back surgery x9 Family History Sister Cancer Brother Cancer Mother , AT AGE 70 Myocardial infarct Father , AT AGE 70 Alcoholism Social History Smoking and tobacco/nicotine status: former use of tobacco/nicotine Alcohol intake: current Alcohol intake frequency: holidays/special occasions only Substance/Drug Use: never Household members: spouse Housing: House Marital status: Current occupational status: retired Physical Exam 2 Narrative: EXAM NARRATIVE: Constitutional: the patient appears well nourished and with normal development. Vital signs reviewed as documented. HENMT: Normocephalic, atraumatic. Extermal ears with normal appearance without drainage. Nose without drainage, normal appearance. Mucus membranes moist. Neck is supple, No jugular venous distension, trachea is midline, no appreciable carotid bruits. No lymphadenopathy. No meningeal signs. Flexion, extension and lateral rotation is without pain. Eyes: Pupils are equal, round, reactive to light and accommodation. No scleral icterus. Extra-ocular movement are intact. Thorax is symmetrical and with equal rise and fall with respirations. Resp: Decreased bilaterally in the bases. Intermittent mild expiratory wheezes bilaterally. No rales, crackles or ronchi at present. Cardio: Dual-chamber pacemaker rate controlled. Positive S1, S2. No appreciable murmurs, rubs or gallops. GI: Abdominal exam reveals normal bowel sounds to all quadrants. No organomegaly. No obvious palpable masses noted. No hepatomegally appreciated. Soft, nontender to palpation. Extremity: Extremities are non-edematous and both femoral and pedal pulses are 2+ and equal bilaterally. Moves all extremities well, sensation in all extremities. Neuro: Alert and oriented x4, person, place, time and situation. Cranial nerves II through XII are grossly intact, there is no focal neurological deficits that I can appreciate at present. Motor strength in the upper and lower extremities are equal and bilateral 5/5. Psych: Cooperative, calm, normal thought process, appropriate judgment. Skin: No lesions, rashes. No gross abnormalities noted. Back: Symmetrical, no obvious deformity, No CVA tenderness Course 2 Vital Signs: Vital signs: Vital Signs Temperature 97.9 F 06/30/23 04:00 Pulse Rate 67 06/30/23 09:58 Respiratory Rate 20 H 06/30/23 09:58 Blood Pressure 132/69 06/30/23 04:00 Pulse Oximetry 98 06/30/23 09:58 Oxygen Delivery Me thod Nasal Cannula 06/30/23 09:58 Oxygen Flow Rate 3 06/30/23 09:58 MDM - SOB/Dyspnea Medical Decision Making Physical exam completed and documented, I will obtain serial cardiac enzymes, serial twelve-lead EKGs, chest x-ray, CBC, CMP, urinalysis, B-type natriuretic peptide, PT/PTT/INR, and a chest x-ray. I will provide for additional evaluation a CT scan of the chest with IV contrast given his chest x-ray findings. I have reviewed any pervious and pertinent medical records for assist in obtaining beneficial medical information to improved the care and treatment of the patient. I will contact the hospitalist for admission of the patient for his acute on chronic renal failure and congestive heart failure. Medical Records I reviewed the patient's medical records. Lab Data 06/30/23 04:15 06/30/23 04:15 Labs/Radiology: Radiology Impressions Chest X-Ray 06/29/23 16:43 IMPRESSION: 1. Patchy bilateral ground-glass airspace opacities may reflect a combination of alveolar edema and bronchopneumonia. 2. Left-sided pacemaker. 3. Sternotomy wires. 4. Cardiomegaly. 5. Small right pleural effusion. Laboratory Results WBC 5.95 10^3/uL (3.29-11.43) 06/29/23 17:02 RBC 2.56 10^6/uL (3.85-5.65) L 06/29/23 17:02 Hgb 8.10 g/dL (11.27-16.99) L 06/29/23 17:02 Hct 26.9 % (37-53) L 06/29/23 17:02 MCV 105.1 fl (82-101) H 06/29/23 17:02 MCH 31.6 pg (27-33) 06/29/23 17:02 MCHC 30.1 g/dL (30-55) 06/29/23 17:02 RDW 14.4 % (12.1-15.1) 06/29/23 17:02 Plt Count 103 10^3/cmm (157-399) L 06/29/23 17:02 MPV 9.6 fL (7.4-10.4) 06/29/23 17:02 Neut % (Auto) 65.9 % 06/29/23 17:02 Lymph % (Auto) 18.8 % 06/29/23 17:02 Gosper % (Auto) 12.8 % 06/29/23 17:02 Eos % (Auto) 1.5 % 06/29/23 17:02 Baso % (Auto) 0.5 % 06/29/23 17:02 Neut # (Auto) 3.92 10^3/uL (1.8-7.7) 06/29/23 17:02 Lymph # (Auto) 1.1 10^3/uL (0.8-4.8) 06/29/23 17:02 Gosper # (Auto) 0.8 10^3/uL (0.2-0.9) 06/29/23 17:02 Eos # (Auto) 0.1 10^3/uL (0.0-0.8) 06/29/23 17:02 Baso # (Auto) 0.0 10^3/uL (0.0-0.1) 06/29/23 17:02 Nucleated RBC % (auto) 0 % 06/29/23 17:02 Nucleated RBCs # 0.0 /100WBC 06/29/23 17:02 PT 17.80 SECONDS (12.1-14.9) H 06/29/23 17:02 INR 1.42 (0.8-1.2) H 06/29/23 17:02 Specimen Type Arterial 06/29/23 16:49 Sample Site Brachial, left 06/29/23 16:49 ABG pH 7.35 (7.35-7.45) 06/29/23 16:49 ABG pCO2 41.9 mmHg (35-45) 06/29/23 16:49 ABG pO2 125.0 mmHg (80.0-100.0) H 06/29/23 16:49 ABG PO2/FiO2 Ratio 0 06/29/23 16:49 ABG HCO3 23.3 mmol/L (22-26) 06/29/23 16:49 ABG Base Excess -2.2 mmol/L (-2.0-2.0) L 06/29/23 16:49 Guero Test N/a 06/29/23 16:49 Hematocrit 25.0 % (42-52) L 06/29/23 16:49 Hgb O2 Saturation 97.1 % (95-100) 06/29/23 16:49 Carboxyhemoglobin 1.6 %THgb (0.4-20.1) 06/29/23 16:49 Methemoglobin 1.1 % (0.4-1.5) 06/29/23 16:49 Total Hemoglobin 8.2 g/dL (14-18) L 06/29/23 16:49 O2 Delivery Device Nc 06/29/23 16:49 O2 Liters/Min 4.0 % 06/29/23 16:49 FiO2 36.0 % 06/29/23 16:49 Is/It Project Manager ID [id number] 06/29/23 16:49 Sodium 141 mmol/L (136-145) 06/29/23 18:39 Potassium 4.7 mmol/L (3.5-5.1) 06/29/23 18:39 Chloride 106 mmol/L (98-107) 06/29/23 18:39 Carbon Dioxide 23 mmol/L (22-29) 06/29/23 18:39 Anion Gap 16.7 (5-19) 06/29/23 18:39 BUN 48 mg/dL (8-23) H 06/29/23 18:39 Creatinine 2.6 mg/dL (0.7-1.2) H 06/29/23 18:39 GFR Calculation Not Reportable 06/29/23 18:39 Glucose 89 mg/dL (65-115) 06/29/23 18:39 Calculated Osmolality 304 mOsm/kg (285-295) H 06/29/23 18:39 Calcium 8.5 mg/dL (8.5-10.5) 06/29/23 18:39 Total Bilirubin 0.6 mg/dL (0.15-1.2) 06/29/23 18:39 AST 82 U/L (0-40) H 06/29/23 18:39 ALT 52 U/L (0-41) H 06/29/23 18:39 Alkaline Phosphatase 136 U/L (40-130) H 06/29/23 18:39 Troponin T Baseline 41 ng/L (0-15) H 06/29/23 17:02 Troponin T 120 Minute 40.51 ng/L (0-15) H 06/29/23 18:39 Delta Troponin T -0.49 ABS# (0-10) L 06/29/23 18:39 NT-Pro-B Natriuret Pep 58758 pg/mL (0-450) H 06/29/23 18:39 Total Protein 6.1 g/dL (6.6-8.7) L 06/29/23 18:39 Albumin 3.6 g/dL (3.5-5.2) 06/29/23 18:39 Globulin 2.5 g/dL (1.3-4.6) 06/29/23 18:39 All radiology interpretation(s) finalized by discharge EKG Data EKG 1: Interpretation: Twelve-lead EKG obtained at 1736 and reviewed at 1739 demonstrates a ventricular paced rhythm at 69 bpm, QRS duration 229, QTc 521, QTc 541, there is no ST elevation or depression to demonstrate or and for acute infarction or ischemia at present. Discharge Plan Discharge Patient Disposition: Admitted As Inpatient Admit Provider: Helen Lares Clinical Impression: CHF exacerbation Condition: Stable Coding Level of Care Code ED Video Recorder Mechanic for Marco Taylor
--- NOTE | 2023-06-29 16:43 | XRR_ITS ---
PROCEDURE INFORMATION: Exam: XR Chest Exam date and time: 06/29/2023 4:46 PM Age: 87 years old Clinical indication: Dyspnea TECHNIQUE: Imaging protocol: Radiologic exam of the chest. Views: 1 view. COMPARISON: CR (CHEST, ) 06/13/2023 10:36 AM FINDINGS: Tubes, catheters and devices: Left-sided pacemaker. Lungs: Patchy bilateral ground-glass airspace opacities may reflect a combination of alveolar edema and bronchopneumonia. Pleural spaces: Small right pleural effusion. Heart/Mediastinum: Cardiomegaly. Bones/joints: Sternotomy wires. XR/XR chest 1V portable [id number] IMPRESSION: 1. Patchy bilateral ground-glass airspace opacities may reflect a combination of alveolar edema and bronchopneumonia. 2. Left-sided pacemaker. 3. Sternotomy wires. 4. Cardiomegaly. 5. Small right pleural effusion.
[2023-06-29 17:00] LABS: ABG PCO2 41.9 mmHg (35-45); ABG PH Result 7.35 (7.35-7.45); Base Excess ABG -2.2 mmol/L (-2.0-2.0); Blood Gas Operator Identificat AMH; Blood Gas Sample Site Brachial, left; Blood Gas Sample Type Arterial; Carboxyhemoglobin 1.6 %THgb (0.4-20.1); HCO3 ABG 23.3 mmol/L (22-26); HGB O2 Sat 97.1 % (95-100); Methemoglobin 1.1 % (0.4-1.5); Oxygen Device NC; PO2 FiO2 Ratio Arterial Blood 0; Total Hemoglobin 8.2 g/dL (14-18)
[2023-06-29 17:12] LABS: Basophils % 0.5 %; Eosinophils # 0.1 10^3/uL (0.0-0.8); Eosinophils % 1.5 %; Hematocrit 26.9 % (37-53); Lymphocytes # 1.1 10^3/uL (0.8-4.8); Lymphocytes % 18.8 %; Mean Corpuscular HGB Conc 30.1 g/dL (30-55); Mean Corpuscular Hemoglobin 31.6 pg (27-33); Mean Corpuscular Volume 105.1 fl (82-101); Mean Platelet Volume 9.6 fL (7.4-10.4); Monocytes # 0.8 10^3/uL (0.2-0.9); Monocytes % 12.8 %; Neutrophils # 3.92 10^3/uL (1.8-7.7); Neutrophils % 65.9 %; Nucleated Red Blood Cells % 0 %; Platelet Count 103 10^3/cmm (157-399); Red Blood Count 2.56 10^6/uL (3.85-5.65); Red Cell Distribution Width 14.4 % (12.1-15.1); White Blood Count 5.95 10^3/uL (3.29-11.43)
[2023-06-29 17:35] LABS: INR 1.42 (0.8-1.2)
--- NOTE | 2023-06-29 17:36 | ECG_ITS ---
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 Measurements Intervals [place] Rate: 69 P: 0 OK: 0 QRS: -68 QRSD: 229 T: 112 QT: 521 QTc: 562 Interpretive Statements ELECTRONIC VENTRICULAR PACEMAKER ABNORMAL RHYTHM ECG Compared to ECG 06/08/2023 12:31:12 Sinus rhythm no longer present Left bundle-branch block no longer present Electronically Signed On 06-30-2023 8:35:24 BOTTOM POLISHER by Santana Wooten M.D. [id number]
[2023-06-29 17:46] LABS: Troponin(5th) Baseline 41 ng/L (0-15)
--- NOTE | 2023-06-29 18:43 | ECG_ITS ---
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 Measurements Intervals [place] Rate: 69 P: 0 [place]: 0 QRS: -69 QRSD: 229 T: 108 QT: 513 QTc: 553 Interpretive Statements ELECTRONIC VENTRICULAR PACEMAKER ABNORMAL RHYTHM ECG Compared to ECG 06/29/2023 17:36:04 No significant changes Electronically Signed On 06-30-2023 8:40:20 CORPORATE TAX PREPARER by Santana Wooten M.D. [id number]
[2023-06-29 19:24] LABS: Troponin 5 2HR 40.51 ng/L (0-15)
[2023-06-29 19:25] LABS: Troponin 5 2HR Delta -0.49 ABS# (0-10)
[2023-06-29 19:45] LABS: Alanine Aminotransferase 52 U/L (0-41); Albumin Level 3.6 g/dL (3.5-5.2); Alkaline Phosphatase 136 U/L (40-130); Anion Gap 16.7 (5-19); Aspartate Amino Transferase 82 U/L (0-40); Blood Urea Nitrogen 48 mg/dL (8-23); Calcium 8.5 mg/dL (8.5-10.5); Carbon Dioxide 23 mmol/L (22-29); Chloride 106 mmol/L (98-107); Globulin 2.5 g/dL (1.3-4.6); Glucose 89 mg/dL (65-115); NT Pro B Type Natriuretic Pept 12373 pg/mL (0-450); Osmolality Calculated 304 mOsm/kg (285-295); Potassium 4.7 mmol/L (3.5-5.1); Sodium 141 mmol/L (136-145); Total Bilirubin 0.6 mg/dL (0.15-1.2); Total Protein 6.1 g/dL (6.6-8.7)
--- NOTE | 2023-06-29 20:50 | P.HP_ITS ---
Providers/Chief Complaint 2 Primary Care Provider: Cristofer Barrera MD Chief Complaint: LEFT CHEST PRESSURE History of Present Illness Popeye Wilks is a 87 year old male with history of systolic CHF EF 15%, patient did not want angiogram or LifeVest, presenting from home, he lives alone, not able to care for himself requesting halfway placement long-term, he was discharged last month after management of CHF exacerbation, he also has chronic kidney disease presenting with chief complaint of worsening of shortness of breath. Patient is stating that baseline he requires 3 to 4 L of oxygen, experiencing orthopnea PND and shortness of breath on minimal activity, he has not increased his oxygen more than 3 L at home, he has not noticed fever, diarrhea, chest pain. In the ER he has been diagnosed with pneumonia and CHF exacerbation patient is in hypervolemic state Patient is DNR/DNI Physically very deconditioned Patient was recently treated for influenza A with Tamiflu he received Decadron as well on previous admission Review of Systems 2 Const: Denies: fever(s) Eyes: Denies: change in vision ENMT: Denies: throat pain Card: Reports: swelling of feet/ankles; Denies: chest pain Resp: Reports: dyspnea GI: Denies: abdominal pain : Denies: flank pain Musc: Denies: neck pain Skin/Breast: Denies: rash Neuro: Denies: headache(s) Psych: Reports: anxiety Medications/Allergies Home Medications Medication Instructions Recorded Confirmed Last Taken Type carvedilol 3.125 mg tablet 3.125 mg PO BID #180 tabs 05/21/22 06/08/23 06/06/23 Rx albuterol sulfate 90 mcg/actuation 2 inh inhalation Q4H PRN Shortness 05/11/23 06/08/23 Unknown History aerosol inhaler Of Breath amiodarone 200 mg tablet 100 mg PO QAM 05/11/23 06/08/23 05/11/23 History fluticasone 500 mcg-salmeterol 50 1 inh inhalation BID 05/11/23 06/08/23 Unknown History mcg/dose blistr powdr for inhalation (Advair Diskus) isosorbide mononitrate 30 mg 30 mg PO QAM 05/11/23 06/08/23 06/06/23 History tablet,extended release 24 hr hydralazine 25 mg tablet 25 mg PO BID #60 tabs 05/15/23 06/08/23 06/06/23 Rx potassium chloride 20 mEq 20 meq PO QAM #60 tabs 05/15/23 06/08/23 06/06/23 Rx tablet,extended release apixaban 2.5 mg tablet (Eliquis) 2.5 mg PO BID 06/07/23 06/08/23 06/06/23 History docusate sodium 100 mg capsule 100 mg PO DAILY PRN Constipation 06/07/23 06/08/23 Unknown History (Colace) furosemide 20 mg tablet (Lasix) 20 mg PO QAM 06/07/23 06/08/23 06/06/23 History nitroglycerin 0.4 mg sublingual 0.4 mg sublingual Q5M PRN Chest 06/07/23 06/08/23 Unknown History tablet (Nitrostat) Pain Allergies Allergy/AdvReac Type Severity Reaction Status Date / Time erythromycin base Allergy Unknown Verified 06/08/23 07:54 lorazepam [From Ativan] Allergy Unknown Verified 06/08/23 07:54 PFSH Acute 2 PFSH: Medical History New onset of congestive heart failure Bladder cancer COPD (chronic obstructive pulmonary disease) 3 L at baseline GI (gastrointestinal bleed) Anemia Thrombocytopenia Chronic shortness of breath Breath shortness Fatigue History of COPD Recurrent ventral hernia H/O deep venous thrombosis Osteoarthritis H/O cervical fracture surgical repair Bladder tumor TURBT 05/02/2020 BPH loc w urin obs/LUTS Gross hematuria Hypercholesteremia Essential (primary) hypertension Surgical History History of colonoscopy S/P excision of lipoma History of cataract extraction History of hemorrhoidectomy History of testicular surgery History of surgery on arm Status post surgical removal and fulguration of bladder neoplasm History of coronary artery bypass graft History of coronary artery stent placement Status post aortic coarctation stent placement History of mandibular surgery History of hernia repair History of back surgery x9 Family History Sister Cancer Brother Cancer Mother , AT AGE 70 Myocardial infarct Father , AT AGE 70 Alcoholism Social History Smoking and tobacco/nicotine status: former use of tobacco/nicotine Alcohol intake: current Alcohol intake frequency: holidays/special occasions only Substance/Drug Use: never Household members: spouse Housing: House Marital status: Current occupational status: retired Vitals/I&O/Wt Last Vital Signs Temp 98.0 F 06/29/23 16:32 Pulse 70 06/29/23 16:32 Resp 18 06/29/23 16:32 BP 130/57 06/29/23 16:32 Pulse Ox 100 06/29/23 16:32 O2 Del Method Nasal Cannula 06/29/23 16:32 O2 Flow Rate 3 06/29/23 16:32 Weight last 48 hrs Weight 81.647 kg Physical Exam 2 Narrative: Patient is clinically fluid overloaded Currently on 3 L GCS 15 Pleasant cooperative Anasarca Lower extremity 3+ edema GCS 15 Nonfocal neuroexam Mild rhonchi and crackles Abdomen distended nontender Data 06/29/23 17:02 06/29/23 18:39 A&P Assessment and plan (1) Pneumonia: (2) Systolic congestive heart failure: (3) Cardiac cirrhosis: (4) Muscle wasting: (5) Protein calorie malnutrition: (6) Physical deconditioning: (7) 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, NYHA class 4: Plan Acute systolic CHF exacerbation Patient lives alone Requesting halfway placement Sodium restricted diet Will continue Lasix drip overnight however to avoid hypotension and further kidney worsening will switch to IV Lasix twice daily regimen in the morning Aggressive electrolyte replenishment Patient was newly diagnosed with reduced ejection fraction heart failure EF 15% he refused angiogram and LifeVest Patient is stating that he is DNR/DNI he does not have any family, Physical deconditioning Will require PT, patient requesting halfway placement Acute on chronic kidney disease baseline creatinine 2.2-2.4 Anticipate improvement with diuresis History of A-fib continue amiodarone Coreg and Eliquis DNR/DNI Cardiac diet Chronic hypoxia requires 3 L at baseline no acute worsening Community-acquired pneumonia we will give him antibiotics no signs of sepsis Attestations 2 Medical Necessity Statement*: More than 2 midnights anticipated Diagnoses Pneumonia J18.9 Systolic congestive heart failure I50.20 Cardiac cirrhosis K76.1 Muscle wasting M62.50 Protein calorie malnutrition E46 Physical deconditioning R53.81 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, NYHA class 4 I50.20
[2023-06-29 21:18] VITALS: BP 152/76; PULSE 70; RESP 16; O2SAT 97
[2023-06-29] MEDS: FUROsemide 100 MG in sodium chloride 0.9% 40 ML 10 MG IV (21:39)
[2023-06-29 22:04] VITALS: BMI 25.9
[2023-06-29] MEDS: cyanocobalamin 1,000 mcg/mL SDV 1000 MCG IM (22:43)
--- NOTE | 2023-06-29 22:43 | ECG_ITS ---
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 Measurements Intervals [place] Rate: 69 P: 0 HI: 0 QRS: -66 QRSD: 229 T: 108 QT: 523 QTc: 564 Interpretive Statements ELECTRONIC VENTRICULAR PACEMAKER ABNORMAL RHYTHM ECG Compared to ECG 06/29/2023 18:57:04 No significant changes Electronically Signed On 06-30-2023 8:40:26 SHIRT IRONER SUPERVISOR by Santana Wooten M.D. [email or web address] [id number]
[2023-06-29 23:13] VITALS: BP 131/69; PULSE 70; RESP 17; TEMP 36.6; O2SAT 98
[2023-06-30] VITALS (69 sets, daily range): BP systolic 113–155; BP diastolic 53–89; PULSE 63–98; RESP 13–29; TEMP 36.6–36.8; O2SAT 90–100
[2023-06-30 00:27] LABS: Troponin 5 6HR 41.84 ng/L (0-15); Troponin 5 6HR Delta 0.84 ng/L (0-12)
[2023-06-30] MEDS: FUROsemide 100 MG in sodium chloride 0.9% 40 ML 10 MG IV (01:39)
[2023-06-30 04:52] LABS: Basophils % 0.6 %; Eosinophils # 0.1 10^3/uL (0.0-0.8); Hematocrit 27.1 % (37-53); Lymphocytes # 1.1 10^3/uL (0.8-4.8); Lymphocytes % 23.7 %; Mean Corpuscular HGB Conc 29.9 g/dL (30-55); Mean Corpuscular Hemoglobin 31.6 pg (27-33); Mean Corpuscular Volume 105.9 fl (82-101); Mean Platelet Volume 9.4 fL (7.4-10.4); Monocytes # 0.6 10^3/uL (0.2-0.9); Monocytes % 12.3 %; Neutrophils # 2.83 10^3/uL (1.8-7.7); Nucleated Red Blood Cells % 0 %; Platelet Count 93 10^3/cmm (157-399); Red Blood Count 2.56 10^6/uL (3.85-5.65); Red Cell Distribution Width 14.4 % (12.1-15.1); White Blood Count 4.72 10^3/uL (3.29-11.43)
[2023-06-30 05:11] LABS: Anion Gap 15.3 (5-19); Blood Urea Nitrogen 45 mg/dL (8-23); Calcium 8.6 mg/dL (8.5-10.5); Carbon Dioxide 23 mmol/L (22-29); Chloride 106 mmol/L (98-107); Glucose 74 mg/dL (65-115); Magnesium 2.4 mg/dL (1.7-2.3); Osmolality Calculated 300 mOsm/kg (285-295); Phosphorus 3.6 mg/dL (2.5-4.5); Potassium 4.3 mmol/L (3.5-5.1); Sodium 140 mmol/L (136-145)
[2023-06-30] MEDS: amiodarone 200 mg Tablet 100 MG PO (06:03)
[2023-06-30] MEDS: sennosides-docusate Tablet 1 TAB PO (09:04)
[2023-06-30] MEDS: apixaban 5 mg Tablet 2.5 MG PO ×2 (09:05→17:52)
[2023-06-30] MEDS: potassium chloride ER 20 mEq Tablet 40 MEQ PO ×2 (09:05→17:52)
[2023-06-30] MEDS: FUROsemide 10 mg/mL SDV 10mL 40 MG IVP (09:28)
--- NOTE | 2023-06-30 10:35 | DCPLANNER ---
Patient's family does not want patient to return to [facility]
--- NOTE | 2023-06-30 14:10 | P.PN_ITS ---
Subjective 2 Subjective: Denies chest pain or pressure. Breathing is okay with current oxygenation. Vitals/I&O/Wt Last Vital Signs Temp 97.9 F 06/30/23 04:00 Pulse 67 06/30/23 09:58 Resp 20 H 06/30/23 09:58 BP 132/69 06/30/23 04:00 Pulse Ox 98 06/30/23 09:58 O2 Del Method Nasal Cannula 06/30/23 09:58 O2 Flow Rate 3 06/30/23 09:58 06/29/23 06/30/23 06/30/23 22:59 06:59 14:59 Intake Total 85 / 85 Output Total 950 / 950 Balance -865 / -865 Weight last 48 hrs Weight 81.42 kg Weight 82.191 kg Weight 81.647 kg Physical Exam 2 Narrative: Accompanied by female visitor. Const: COMMON NORMALS: patient oriented x3 and alert GENERAL APPEARANCE: c ooperative ORIENTATION/CONSCIOUSNESS: Yes awake HENMT: COMMON NORMALS: oropharynx normal Neck/C-Spine: COMMON NORMALS: no JVD Resp: COMMON NORMALS: normal respiratory effort and clear to auscultation bilaterally AUSCULTATION: clear to auscultation bilaterally Cardio: COMMON NORMALS: no JVD, regular rhythm, S1 normal heart sound present, S2 normal heart sound present and No murmurs present (Cardio) RHYTHM: regular rhythm HEART SOUNDS: S1 normal heart sound present and S2 normal heart sound present GI: COMMON NORMALS: Normal to inspection, nondistended, normoactive bowel sounds present, Soft to palpation and non-tender PALPATION: Yes Soft to palpation Extremity: COMMON NORMALS: no joint enlargement GENERAL: Yes edema (3+) Neuro: COMMON NORMALS: patient oriented x3 and moves all extremities S ENSORIUM/ORIENTATION: Yes alert Skin: COMMON NORMALS: no rashes or lesions noted GENERAL SKIN EXAM: no rashes or lesions noted Urinary Catheter Management: Hoffman: Cath Placed During This Visit: yes Reason for Continuing Indwelling Catheter: Other Urinary Catheter Date of Insertion: 06/29/23 Urinary Catheter Time of Insertion: 21:30 Data 06/30/23 04:15 06/30/23 04:15 A&P Assessment and plan (1) Pneumonia: (2) Systolic congestive heart failure: (3) Cardiac cirrhosis: (4) Muscle wasting: (5) Protein calorie malnutrition: (6) Physical deconditioning: (7) 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, NYHA class 4: Plan Acute systolic CHF exacerbation Continue IV diuretics. At risk of electrolyte related, renal dysfunction, reassess chemistry in the morning. Reviewed chemistry, BUN, creatinine, reviewed phosphorus, reviewed magnesium. Reviewed troponin series. Mild to moderate elevation, flat trend, he is chest pain-free. Noted significant elevation of NT proBNP but in the setting of KLARISSA on CKD. Renal function unchanged today. Continue cautious diuresis with Lasix drip. Monitor on telemetry due to risk of arrhythmia. He is quite deconditioned on trying to get up with physical therapy. Would benefit from rehabilitation. Discussed with physical therapist. Case management consultation requested. He additionally reports productive cough with yellow sputum. Chest x-ray noted with suspected possible pneumonia. Not on antibiotics. Allergy to erythromycin. Will start ceftriaxone, doxycycline. Request sputum culture. Patient was newly diagnosed with reduced ejection fraction heart failure EF 15% he refused angiogram and LifeVest Patient is stating that he is DNR/DNI he does not have any family, Acute on chronic kidney disease baseline creatinine 2.2-2.4 Anticipate improvement with diuresis History of A-fib continue amiodarone Coreg and Eliquis DNR/DNI Cardiac diet Chronic hypoxia requires 3 L at baseline no acute worsening Community-acquired pneumonia: As above. Attestations 2 Medical Necessity Statement*: Continue admission for assessment management of decompensated CHF, community- acquired pneumonia initial management with acute kidney injury on chronic kidney disease of advanced age, disposition planning and arrangements with physical deconditioning. and High MDM includes amount and/or complexity of data reviewed/ordered [ resulted lab(s)/test(s), ordered lab(s)/test(s) and other healthcare professional discussion] and described risk of complication, morbidity or mortality of management as documented Diagnoses Pneumonia J18.9 Systolic congestive heart failure I50.20 Cardiac cirrhosis K76.1 Muscle wasting M62.50 Protein calorie malnutrition E46 Physical deconditioning R53.81 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, NYHA class 4 I50.20
[2023-06-30] MEDS: doxycycline 100 MG in sodium chloride 0.9% (plus) 100 ML IV (16:16)
[2023-06-30] MEDS: cefTRIAXone 1,000 MG in sodium chloride 0.9% (plus) 50 ML 100 MG IV (16:17)
[2023-07-01] VITALS (12 sets, daily range): BP systolic 101–151; BP diastolic 47–84; PULSE 71–78; RESP 16–30; TEMP 36.7–37.2; O2SAT 95–100
[2023-07-01] MEDS: doxycycline 100 MG in sodium chloride 0.9% (plus) 100 ML IV (02:57)
[2023-07-01 05:30] LABS: Basophils % 0.4 %; Eosinophils # 0.1 10^3/uL (0.0-0.8); Eosinophils % 2.6 %; Hematocrit 28.4 % (37-53); Lymphocytes # 1.1 10^3/uL (0.8-4.8); Lymphocytes % 20.1 %; Mean Corpuscular HGB Conc 30.6 g/dL (30-55); Mean Corpuscular Hemoglobin 31.8 pg (27-33); Mean Corpuscular Volume 103.6 fl (82-101); Mean Platelet Volume 9.7 fL (7.4-10.4); Monocytes # 0.9 10^3/uL (0.2-0.9); Monocytes % 15.7 %; Neutrophils # 3.28 10^3/uL (1.8-7.7); Neutrophils % 60.6 %; Nucleated Red Blood Cells % 0 %; Platelet Count 90 10^3/cmm (157-399); Red Blood Count 2.74 10^6/uL (3.85-5.65); Red Cell Distribution Width 14.6 % (12.1-15.1); White Blood Count 5.41 10^3/uL (3.29-11.43)
[2023-07-01 05:56] LABS: Alanine Aminotransferase 39 U/L (0-41); Albumin Level 3.5 g/dL (3.5-5.2); Alkaline Phosphatase 131 U/L (40-130); Anion Gap 16.5 (5-19); Aspartate Amino Transferase 48 U/L (0-40); Blood Urea Nitrogen 46 mg/dL (8-23); Calcium 8.7 mg/dL (8.5-10.5); Carbon Dioxide 21 mmol/L (22-29); Chloride 107 mmol/L (98-107); Globulin 2.9 g/dL (1.3-4.6); Glucose 112 mg/dL (65-115); Osmolality Calculated 301 mOsm/kg (285-295); Potassium 5.5 mmol/L (3.5-5.1); Sodium 139 mmol/L (136-145); Total Bilirubin 0.5 mg/dL (0.15-1.2); Total Protein 6.4 g/dL (6.6-8.7)
[2023-07-01] MEDS: amiodarone 200 mg Tablet 100 MG PO (06:12)
[2023-07-01] MEDS: potassium chloride ER 20 mEq Tablet 40 MEQ PO (09:12)
[2023-07-01] MEDS: apixaban 5 mg Tablet 2.5 MG PO ×2 (09:12→17:16)
[2023-07-01] MEDS: bumetanide 0.25 mg/mL SDV 10 mL 2 MG IVP ×2 (14:35→22:04)
[2023-07-01] MEDS: cefTRIAXone 1,000 MG in sodium chloride 0.9% (plus) 50 ML 100 MG IV (14:35)
[2023-07-01] MEDS: metOLazone 5 MG Tablet PO (14:35)
--- NOTE | 2023-07-01 15:56 | PC.SOCIAL ---
IMM Update pg 2 of IMM updated and reviewed w/ patient. Copy provided and copy dated, initialed and placed in chart.
--- NOTE | 2023-07-01 16:41 | P.PN_ITS ---
Subjective 2 Subjective: Hospital course, labs appreciated. Patient seen sitting up in recliner today. Denies any nausea, vomiting, headache. States he still having extreme weakness and difficulty in breathing on minimal ambulation. States he is able to lie down to sleep at night. Denies any orthopnea. Denies any chest pain. Patient is awake and alert x 3. Blood work appreciated. Vitals/I&O/Wt Last Vital Signs Temp 98.0 F 07/01/23 15:48 Pulse 74 07/01/23 15:48 Resp 20 H 07/01/23 15:48 BP 117/74 07/01/23 15:48 Pulse Ox 100 07/01/23 15:48 O2 Del Method Nasal Cannula 07/01/23 15:48 O2 Flow Rate 3 07/01/23 07:24 07/01/23 07/01/23 07/01/23 06:59 14:59 22:59 Intake Total 100 / 490 480 / 480 290 / 770 Output Total 300 / 790 Balance -200 / -300 480 / 480 290 / 770 Weight last 48 hrs Weight 83.461 kg Weight 81.42 kg Weight 82.191 kg Physical Exam 2 Narrative: General: No acute distress, AO x3, chronically sick appearing, pallor present HEENT: PERRLA, pupils bilaterally equal and reactive Chest: Normal vesicular breath sounds, bilateral fine crackles, decreased air entry bilaterally in lower zone, equal good air entry bilaterally CVS: S1-S2 regular, , no tachycardia, no gallops, no rubs Abdomen: Soft, nontender, no organomegaly, bowel sounds present Neuro: No focal deficits, no facial deformity, AO x3, power 5/5 in all limbs Urinary Catheter Management: Hoffman: Cath Placed During This Visit: yes Reason for Continuing Indwelling Catheter: Accurate Measurement of Urinary Output in Critically Ill Patients Urinary Catheter Date of Insertion: 06/29/23 Urinary Catheter Time of Insertion: 21:30 Data 07/01/23 04:31 07/01/23 04:31 A&P Assessment and plan (1) 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, NYHA class 4: (2) Pneumonia: (3) CKD (chronic kidney disease) stage 3, GFR 30-59 ml/min: (4) Hyperkalemia: (5) Cardiac cirrhosis: (6) Muscle wasting: (7) Protein calorie malnutrition: (8) Physical deconditioning: Plan Acute hypoxia in setting of acute decompensated systolic CHF exacerbation: Last known EF 15%. Patient had refused cardiac angiogram and LifeVest in past. Last dose of Lasix received yesterday morning. Start on Bumex 2 mg every 8 hourly, metolazone 5 mg daily. Strict input output charting, daily weights. Fluid restriction up to 1500 cc. Continue with IV ceftriaxone for community-acquired pneumonia though chances of pneumonia less likely for now. Sputum cultures so far uncollected. Oxygen supplementation keeping saturation over 90%. Wean accordingly. CKD: Baseline creatinine 2-2.4. Currently creatinine 2.6. Most likely patient is at baseline renal functions. Medical reconciliation done for nephrotoxic drugs. Patient does have hyperkalemia today going up to 5.5. Hold off on standing potassium supplementation for now. Monitor BMP daily. A-fib: Rate controlled. Continue with current dose of amiodarone. Patient also on Coreg which has been held to maximize diuresis for now. Continue with home dose of Eliquis. Protein energy malnutrition Physical deconditioning Cardiac cirrhosis Discussed safe discharge planning in detail with the patient. Discussed that given his severe deconditioning and congestive heart failure he would need constant monitoring and further help taking care of his ADLs. Discussed that patient should be in more controlled settings and it would be not medically capellan for patient to live by himself. Patient's currently at shelter [facility]. Patient states he has a neighbor and a friend who is a caregiver. He wants to go back home. DPOA is patient's friend Ms. Stragne. She will be at bedside tomorrow for further discussion. CODE STATUS: Discussed in detail. DNR/DNI. Cardiac diet Famotidine for PUD prophylaxis Eliquis will suffice for DVT prophylaxis. Attestations 2 Medical Necessity Statement*: Requires further hospitalization for management of acute decompensated congestive heart failure while safe discharge planning to start, CKD, hyperkalemia Diagnoses 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, NYHA class 4 I50.20 Pneumonia J18.9 CKD (chronic kidney disease) stage 3, GFR 30-59 ml/min N18.30 Hyperkalemia E87.5 Cardiac cirrhosis K76.1 Muscle wasting M62.50 Protein calorie malnutrition E46 Physical deconditioning R53.81
[2023-07-01] MEDS: famotidine 20 mg Tablet PO (17:16)
[2023-07-01 18:16] LABS: Iron 38 ug/dL (59-158); Percent Saturation 19.7 % (20-50); Total Iron Binding Capacity 192 mcg/dl; Unsaturated Iron Binding 154 ug/dL (112-347)
[2023-07-02] VITALS (57 sets, daily range): BP systolic 106–166; BP diastolic 52–71; PULSE 70–82; RESP 16–34; TEMP 36.7; O2SAT 93–100; BMI 26.1; BMI 25.4
[2023-07-02 03:59] LABS: Basophils % 0.2 %; Eosinophils # 0.2 10^3/uL (0.0-0.8); Eosinophils % 3.5 %; Hematocrit 26.8 % (37-53); Lymphocytes # 1.3 10^3/uL (0.8-4.8); Lymphocytes % 24.1 %; Mean Corpuscular HGB Conc 30.2 g/dL (30-55); Mean Corpuscular Hemoglobin 30.9 pg (27-33); Mean Corpuscular Volume 102.3 fl (82-101); Mean Platelet Volume 9.5 fL (7.4-10.4); Monocytes # 0.8 10^3/uL (0.2-0.9); Monocytes % 14.6 %; Neutrophils # 3.07 10^3/uL (1.8-7.7); Neutrophils % 57.2 %; Nucleated Red Blood Cells % 0 %; Platelet Count 85 10^3/cmm (157-399); Red Blood Count 2.62 10^6/uL (3.85-5.65); Red Cell Distribution Width 14.6 % (12.1-15.1); White Blood Count 5.36 10^3/uL (3.29-11.43)
[2023-07-02 04:24] LABS: Alanine Aminotransferase 27 U/L (0-41); Albumin Level 3.3 g/dL (3.5-5.2); Alkaline Phosphatase 119 U/L (40-130); Anion Gap 13.5 (5-19); Aspartate Amino Transferase 31 U/L (0-40); Blood Urea Nitrogen 45 mg/dL (8-23); Calcium 8.9 mg/dL (8.5-10.5); Carbon Dioxide 27 mmol/L (22-29); Chloride 104 mmol/L (98-107); Chol HDL Ratio 4.45 mg/dL (1.0-5.00); Cholesterol 196 mg/dL (0-200); Globulin 2.9 g/dL (1.3-4.6); Glucose 93 mg/dL (65-115); HDL Cholesterol 44 mg/dL (60-100); LDL Cholesterol Calculated 140 mg/dL (50-129); Osmolality Calculated 301 mOsm/kg (285-295); Potassium 4.5 mmol/L (3.5-5.1); Sodium 140 mmol/L (136-145); Total Bilirubin 0.5 mg/dL (0.15-1.2); Total Protein 6.2 g/dL (6.6-8.7); Triglycerides 58 mg/dL (0-150); VLDL Cholestrol Calculation 12 mg/dL (0-30)
[2023-07-02 04:38] LABS: Folate Level 7.8 ng/mL (4.5-32.2)
[2023-07-02] MEDS: bumetanide 0.25 mg/mL SDV 10 mL 2 MG IVP ×3 (06:15→22:19)
[2023-07-02] MEDS: amiodarone 200 mg Tablet 100 MG PO (06:16)
[2023-07-02] MEDS: apixaban 5 mg Tablet 2.5 MG PO ×2 (09:07→17:07)
[2023-07-02] MEDS: sennosides-docusate Tablet 1 TAB PO (09:07)
[2023-07-02] MEDS: famotidine 20 mg Tablet PO ×2 (09:07→17:07)
[2023-07-02] MEDS: metOLazone 5 MG Tablet PO (09:07)
[2023-07-02] MEDS: cefTRIAXone 1,000 MG in sodium chloride 0.9% (plus) 50 ML 100 MG IV (14:10)
--- NOTE | 2023-07-02 15:29 | P.PN_ITS ---
Subjective 2 Subjective: No acute events overnight. Patient remains hemodynamically stable and afebrile. As per the nurse patient has had significant urine output since yesterday though documentation not corrected in the chart. Blood work appreciated. Vitals/I&O/Wt Last Vital Signs Temp 98.0 F 07/02/23 08:00 Pulse 72 07/02/23 12:00 Resp 18 07/02/23 12:00 BP 136/56 07/02/23 12:00 Pulse Ox 98 07/02/23 12:00 O2 Del Method Nasal Cannula 07/02/23 12:00 O2 Flow Rate 3 07/02/23 08:32 07/02/23 07/02/23 07/02/23 06:59 14:59 22:59 Intake Total 600 / 600 50 / 650 Output Total 1000 / 67706 2400 / 2400 Balance -1000 / -16881 -1800 / -1800 50 / -1750 Weight last 48 hrs Weight 80.371 kg Weight 82.639 kg Weight 83.461 kg Physical Exam 2 Narrative: General: No acute distress, AO x3, chronically sick appearing, pallor present HEENT: PERRLA, pupils bilaterally equal and reactive Chest: Normal vesicular breath sounds, bilateral fine crackles, decreased air entry bilaterally in lower zone, equal good air entry bilaterally CVS: S1-S2 regular, , no tachycardia, no gallops, no rubs Abdomen: Soft, nontender, no organomegaly, bowel sounds present Neuro: No focal deficits, no facial deformity, AO x3, power 5/5 in all limbs Urinary Catheter Management: Hoffman: Cath Placed During This Visit: yes Reason for Continuing Indwelling Catheter: Accurate Measurement of Urinary Output in Critically Ill Patients Urinary Catheter Date of Insertion: 06/29/23 Urinary Catheter Time of Insertion: 21:30 Data 07/02/23 03:26 07/02/23 03:26 A&P Assessment and plan (1) 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, NYHA class 4: (2) Pneumonia: (3) CKD (chronic kidney disease) stage 3, GFR 30-59 ml/min: (4) Hyperkalemia: (5) Cardiac cirrhosis: (6) Muscle wasting: (7) Protein calorie malnutrition: (8) Physical deconditioning: Plan Acute hypoxia in setting of acute decompensated systolic CHF exacerbation: Last known EF 15%. Patient had refused cardiac angiogram and LifeVest in past. Last dose of Lasix received yesterday morning. Start on Bumex 2 mg every 8 hourly, metolazone 5 mg daily. Strict input output charting, daily weights. Fluid restriction up to 1500 cc. Continue with IV ceftriaxone for community-acquired pneumonia though chances of pneumonia less likely for now. Sputum cultures so far uncollected. Oxygen supplementation keeping saturation over 90%. Wean accordingly. CKD: Baseline creatinine 2-2.4. Currently creatinine 2.6. Most likely patient is at baseline renal functions. Medical reconciliation done for nephrotoxic drugs. Patient does have hyperkalemia today going up to 5.5. Hold off on standing potassium supplementation for now. Monitor BMP daily. A-fib: Rate controlled. Continue with current dose of amiodarone. Patient also on Coreg which has been held to maximize diuresis for now. Continue with home dose of Eliquis. Protein energy malnutrition Physical deconditioning Cardiac cirrhosis Discussed safe discharge planning in detail with the patient. Discussed that given his severe deconditioning and congestive heart failure he would need constant monitoring and further help taking care of his ADLs. Discussed that patient should be in more controlled settings and it would be not medically capellan for patient to live by himself. Patient's currently at [facility]. Patient states he has a neighbor and a friend who is a caregiver. He wants to go back home. DPOA is patient's friend Ms. Strange. She will be at bedside tomorrow for further discussion. CODE STATUS: Discussed in detail. DNR/DNI. Cardiac diet Famotidine for PUD prophylaxis Eliquis will suffice for DVT prophylaxis. Plan for the day: Continue with aggressive IV diuresis with Bumex 2 mg every 8 hourly along with oral metolazone. Monitor BMP daily. Potassium so far stable. Hold off on oral potassium supplementation. As patient is on aggressive IV diuresis will plan for repeating potassium in afternoon. Continue with IV ceftriaxone for now. Continue with oral amiodarone. Holding off on home dose of Imdur and hydralazine for now. Out of bed to chair. Oxygen supplementation keeping saturation over 90%. Had a detailed discussion with case management, patient's DPOA and patient at bedside. Patient is agreeable for SNF placement today. Attestations 2 Medical Necessity Statement*: Requires further hospitalization for management of hypoxia in setting of acute decompensated systolic congestive heart failure by safe discharge planning is sought. Diagnoses 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, NYHA class 4 I50.20 Pneumonia J18.9 CKD (chronic kidney disease) stage 3, GFR 30-59 ml/min N18.30 Hyperkalemia E87.5 Cardiac cirrhosis K76.1 Muscle wasting M62.50 Protein calorie malnutrition E46 Physical deconditioning R53.81
[2023-07-02 17:07] LABS: Blood Urea Nitrogen 48 mg/dL (8-23); Calcium 8.6 mg/dL (8.5-10.5); Carbon Dioxide 29 mmol/L (22-29); Chloride 99 mmol/L (98-107); Glucose 112 mg/dL (65-115); Osmolality Calculated 305 mOsm/kg (285-295); Sodium 141 mmol/L (136-145)
[2023-07-02 17:10] LABS: Anion Gap 17.5 (5-19); Potassium 4.5 mmol/L (3.5-5.1)
[2023-07-03] VITALS (7 sets, daily range): BP systolic 124–128; BP diastolic 53–62; PULSE 70–73; RESP 14–19; TEMP 36.4–36.8; O2SAT 97–100
[2023-07-03 03:42] LABS: Basophils % 0.6 %; Eosinophils # 0.2 10^3/uL (0.0-0.8); Eosinophils % 4.2 %; Hematocrit 26.8 % (37-53); Lymphocytes # 1.4 10^3/uL (0.8-4.8); Lymphocytes % 25.9 %; Mean Corpuscular HGB Conc 31.3 g/dL (30-55); Mean Corpuscular Hemoglobin 31.5 pg (27-33); Mean Corpuscular Volume 100.4 fl (82-101); Mean Platelet Volume 9.7 fL (7.4-10.4); Monocytes # 0.8 10^3/uL (0.2-0.9); Monocytes % 15.5 %; Neutrophils # 2.79 10^3/uL (1.8-7.7); Neutrophils % 53.4 %; Nucleated Red Blood Cells % 0 %; Platelet Count 98 10^3/cmm (157-399); Red Blood Count 2.67 10^6/uL (3.85-5.65); Red Cell Distribution Width 14.6 % (12.1-15.1); White Blood Count 5.22 10^3/uL (3.29-11.43)
[2023-07-03 04:02] LABS: Alanine Aminotransferase 20 U/L (0-41); Albumin Level 3.3 g/dL (3.5-5.2); Alkaline Phosphatase 121 U/L (40-130); Anion Gap 13.9 (5-19); Aspartate Amino Transferase 22 U/L (0-40); Blood Urea Nitrogen 48 mg/dL (8-23); Calcium 8.8 mg/dL (8.5-10.5); Carbon Dioxide 32 mmol/L (22-29); Chloride 98 mmol/L (98-107); Globulin 2.9 g/dL (1.3-4.6); Glucose 87 mg/dL (65-115); Osmolality Calculated 302 mOsm/kg (285-295); Potassium 3.9 mmol/L (3.5-5.1); Sodium 140 mmol/L (136-145); Total Bilirubin 0.4 mg/dL (0.15-1.2); Total Protein 6.2 g/dL (6.6-8.7)
[2023-07-03] MEDS: bumetanide 0.25 mg/mL SDV 10 mL 2 MG IVP (05:42)
[2023-07-03] MEDS: amiodarone 200 mg Tablet 100 MG PO (05:42)
--- NOTE | 2023-07-03 09:08 | PC.SOCIAL ---
IMM Update pg 2 of IMM updated and reviewed w/ patient. Copy provided and copy dated, initialed and placed in chart.
[2023-07-03] MEDS: metOLazone 5 MG Tablet PO (09:09)
[2023-07-03] MEDS: apixaban 5 mg Tablet 2.5 MG PO (09:09)
[2023-07-03] MEDS: famotidine 20 mg Tablet PO (09:09)
--- NOTE | 2023-07-03 13:16 | PM.DCS ---
Discharge Providers Date of Admission: 06/29/23 20:12 Date of Discharge: July 03, 2023 Attending Provider at Admission: Helen Lares MD Attending Provider at Discharge: Jurgen Kinsey MD Primary Care Provider: Cristofer Barrera MD Diagnoses at Discharge Discharge Diagnosis (1) 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, NYHA class 4: Status: Acute (2) Pneumonia: Status: Acute (3) CKD (chronic kidney disease) stage 3, GFR 30-59 ml/min: Status: Acute (4) Hyperkalemia: Status: Acute (5) Cardiac cirrhosis: Status: Acute (6) Muscle wasting: Status: Acute (7) Protein calorie malnutrition: Status: Acute (8) Physical deconditioning: Status: Acute Reason for Visit Reason for Visit: LEFT CHEST PRESSURE Brief History: History as per HPI: Popeye Wilks is a 87 year old male with history of systolic CHF EF 15%, patient did not want angiogram or LifeVest, presenting from home, he lives alone, not able to care for himself requesting long-term placement long-term, he was discharged last month after management of CHF exacerbation, he also has chronic kidney disease presenting with chief complaint of worsening of shortness of breath. Patient is stating that baseline he requires 3 to 4 L of oxygen, experiencing orthopnea PND and shortness of breath on minimal activity, he has not increased his oxygen more than 3 L at home, he has not noticed fever, diarrhea, chest pain. In the ER he has been diagnosed with pneumonia and CHF exacerbation patient is in hypervolemic state Patient is DNR/DNI Physically very deconditioned Hospital Course Hospital Course Patient was admitted to the hospital further evaluation and management of hypoxia and deconditioning in setting of severe congestive heart failure. He was started on Lasix drip on admission which was later transitioned to IV diuretics. Patient responded well to the treatment and is back to his baseline respiratory status. Patient was overall 7 L negative. Given severe physical deconditioning, diagnosis of severe congestive heart failure safe discharge plan was discussed in detail. Patient lives by himself and has a caregiver and a friend who also agreed upon transfer to SNF. Patient at first was not agreeable but later agreed and is being transitioned over to SNF for further rehabitation. He is to continue with strict lifestyle modification as per heart failure guidelines. He is to take Bumex 2 mg twice daily as diuretics. Physical Exam Narrative: General: No acute distress, AO x3, chronically sick appearing, pallor present HEENT: PERRLA, pupils bilaterally equal and reactive Chest: Normal vesicular breath sounds, bilateral fine crackles, decreased air entry bilaterally in lower zone, equal good air entry bilaterally CVS: S1-S2 regular, , no tachycardia, no gallops, no rubs Abdomen: Soft, nontender, no organomegaly, bowel sounds present Neuro: No focal deficits, no facial deformity, AO x3, power 5/5 in all limbs Urinary Catheter Management: Hoffman: Cath Placed During This Visit: yes Reason for Continuing Indwelling Catheter: Accurate Measurement of Urinary Output in Critically Ill Patients Urinary Catheter Date of Insertion: 06/29/23 Urinary Catheter Time of Insertion: 21:30 Discharge Data Studies Completed and Pending Completed Studies During Hospitalization Category Date Time Status XR chest 1V portable [id number] Stat Exams 06/29/23 16:43 Completed Pending at discharge Category Date Time Status Sputum Culture and Gram Stain Routine Lab 06/30/23 14:40 Uncollected Radiology Impressions Chest X-Ray 06/29/23 16:43 IMPRESSION: 1. Patchy bilateral ground-glass airspace opacities may reflect a combination of alveolar edema and bronchopneumonia. 2. Left-sided pacemaker. 3. Sternotomy wires. 4. Cardiomegaly. 5. Small right pleural effusion. Laboratory Results WBC 5.22 10^3/uL (3.29-11.43) 07/03/23 02:41 RBC 2.67 10^6/uL (3.85-5.65) L 07/03/23 02:41 Hgb 8.40 g/dL (11.27-16.99) L 07/03/23 02:41 Hct 26.8 % (37-53) L 07/03/23 02:41 MCV 100.4 fl (82-101) 07/03/23 02:41 MCH 31.5 pg (27-33) 07/03/23 02:41 MCHC 31.3 g/dL (30-55) 07/03/23 02:41 RDW 14.6 % (12.1-15.1) 07/03/23 02:41 Plt Count 98 10^3/cmm (157-399) L 07/03/23 02:41 MPV 9.7 fL (7.4-10.4) 07/03/23 02:41 Neut % (Auto) 53.4 % 07/03/23 02:41 Lymph % (Auto) 25.9 % 07/03/23 02:41 [place] % (Auto) 15.5 % 07/03/23 02:41 Eos % (Auto) 4.2 % 07/03/23 02:41 Baso % (Auto) 0.6 % 07/03/23 02:41 Neut # (Auto) 2.79 10^3/uL (1.8-7.7) 07/03/23 02:41 Lymph # (Auto) 1.4 10^3/uL (0.8-4.8) 07/03/23 02:41 [place] # (Auto) 0.8 10^3/uL (0.2-0.9) 07/03/23 02:41 Eos # (Auto) 0.2 10^3/uL (0.0-0.8) 07/03/23 02:41 Baso # (Auto) 0.0 10^3/uL (0.0-0.1) 07/03/23 02:41 Nucleated RBC % (auto) 0 % 07/03/23 02:41 Nucleated RBCs # 0.0 /100WBC 07/03/23 02:41 PT 17.80 SECONDS (12.1-14.9) H 06/29/23 17:02 INR 1.42 (0.8-1.2) H 06/29/23 17:02 Specimen Type Arterial 06/29/23 16:49 Sample Site Brachial, left 06/29/23 16:49 ABG pH 7.35 (7.35-7.45) 06/29/23 16:49 ABG pCO2 41.9 mmHg (35-45) 06/29/23 16:49 ABG pO2 125.0 mmHg (80.0-100.0) H 06/29/23 16:49 ABG PO2/FiO2 Ratio 0 06/29/23 16:49 ABG HCO3 23.3 mmol/L (22-26) 06/29/23 16:49 ABG Base Excess -2.2 mmol/L (-2.0-2.0) L 06/29/23 16:49 Guero Test N/a 06/29/23 16:49 Hematocrit 25.0 % (42-52) L 06/29/23 16:49 Hgb O2 Saturation 97.1 % (95-100) 06/29/23 16:49 Carboxyhemoglobin 1.6 %THgb (0.4-20.1) 06/29/23 16:49 Methemoglobin 1.1 % (0.4-1.5) 06/29/23 16:49 Total Hemoglobin 8.2 g/dL (14-18) L 06/29/23 16:49 O2 Delivery Device Nc 06/29/23 16:49 O2 Liters/Min 4.0 % 06/29/23 16:49 FiO2 36.0 % 06/29/23 16:49 Stock Layer ID Amh 06/29/23 16:49 Sodium 140 mmol/L (136-145) 07/03/23 02:41 Potassium 3.9 mmol/L (3.5-5.1) 07/03/23 02:41 Chloride 98 mmol/L (98-107) 07/03/23 02:41 Carbon Dioxide 32 mmol/L (22-29) H 07/03/23 02:41 Anion Gap 13.9 (5-19) 07/03/23 02:41 BUN 48 mg/dL (8-23) H 07/03/23 02:41 Creatinine 2.4 mg/dL (0.7-1.2) H 07/03/23 02:41 GFR Calculation Not Reportable 07/03/23 02:41 Glucose 87 mg/dL (65-115) 07/03/23 02:41 Calculated Osmolality 302 mOsm/kg (285-295) H 07/03/23 02:41 Calcium 8.8 mg/dL (8.5-10.5) 07/03/23 02:41 Phosphorus 3.6 mg/dL (2.5-4.5) 06/30/23 04:15 Magnesium 2.4 mg/dL (1.7-2.3) H 06/30/23 04:15 Iron 38 ug/dL (59-158) L 07/01/23 04:31 TIBC 192 mcg/dl 07/01/23 04:31 % Saturation 19.7 % (20-50) L 07/01/23 04:31 Unsat Iron Binding 154 ug/dL (112-347) 07/01/23 04:31 Total Bilirubin 0.4 mg/dL (0.15-1.2) 07/03/23 02:41 AST 22 U/L (0-40) 07/03/23 02:41 ALT 20 U/L (0-41) 07/03/23 02:41 Alkaline Phosphatase 121 U/L (40-130) 07/03/23 02:41 Troponin T Baseline 41 ng/L (0-15) H 06/29/23 17:02 Troponin T 120 Minute 40.51 ng/L (0-15) H 06/29/23 18:39 Delta Troponin T -0.49 ABS# (0-10) L 06/29/23 18:39 Troponin T Hi Sens 6Hr 41.84 ng/L (0-15) H 06/30/23 00:00 Troponin T Hi Sens 6Hr Delta 0.84 ng/L (0-12) 06/30/23 00:00 C-Reactive Protein 8.0 mg/L (0.0-4.9) H 06/30/23 04:15 NT-Pro-B Natriuret Pep 46005 pg/mL (0-450) H 06/29/23 18:39 Total Protein 6.2 g/dL (6.6-8.7) L 07/03/23 02:41 Albumin 3.3 g/dL (3.5-5.2) L 07/03/23 02:41 Globulin 2.9 g/dL (1.3-4.6) 07/03/23 02:41 Triglycerides 58 mg/dL (0-150) 07/02/23 03:26 Cholesterol 196 mg/dL (0-200) 07/02/23 03:26 LDL Cholesterol, Calc 140 mg/dL (50-129) H 07/02/23 03:26 Total VLDL Cholesterol 12 mg/dL (0-30) 07/02/23 03:26 HDL Cholesterol 44 mg/dL (60-100) L 07/02/23 03:26 Cholesterol/HDL Ratio 4.45 mg/dL (1.0-5.00) 07/02/23 03:26 Folate 7.8 ng/mL (4.5-32.2) 07/02/23 03:26 Vitals Last Vital Signs Temp 97.9 F 07/03/23 11:30 Pulse 70 07/03/23 11:30 Resp 14 07/03/23 11:30 BP 128/60 07/03/23 11:30 Pulse Ox 100 07/03/23 11:30 O2 Del Method Nasal Cannula 07/03/23 11:30 O2 Flow Rate 3 07/03/23 07:34 Discharge Plan Discharge Patient Disposition: Home Condition: Stable Prescriptions: New metolazone 5 mg Tablet 5 mg PO DAILY PRN (Reason: Swelling/shortness of breath) Qty: 15 0RF bumetanide 2 mg tablet 2 mg PO BID Qty: 60 0RF Continued carvedilol 3.125 mg tablet 3.125 mg PO BID Qty: 180 3RF nitroglycerin [Nitrostat] 0.4 mg Tablet, Sublingual 0.4 mg SUBLINGUAL Q5M PRN (Reason: Chest Pain) Rx Instructions: do not exceed 3 doses per episode Eliquis 2.5 mg tablet 2.5 mg PO BID docusate sodium [Colace] 100 mg Capsule 100 mg PO DAILY PRN (Reason: Constipation) fluticasone propion-salmeterol [Advair Diskus] 500-50 mcg/dose blister with device 1 inh INHALATION BID albuterol sulfate 90 mcg/actuation HFA aerosol inhaler 2 inh INHALATION Q4H PRN (Reason: Shortness Of Breath) amiodarone 200 mg tablet 100 mg PO QAM potassium chloride 20 mEq tablet extended release 20 meq PO QAM Qty: 60 0RF Discontinued furosemide [Lasix] 20 mg tablet 20 mg PO QAM isosorbide mononitrate 30 mg tablet extended release 24 hr 30 mg PO QAM hydralazine 25 mg Tablet 25 mg PO BID Qty: 60 0RF Discharge Orders: Discharge Order (Routine); Ordered 07/03/23 Ordered By: Jurgen Kinsey Referrals: Cristofer Barrera MD [Primary Care Provider] - 4-7 days Discharge Diet: Cardiac Discharge Activity: Resume usual activity and Increase activity as tolerated Patient Instructions: Opioid Safety Activity Restrictions/Additional Instructions: He is to restrict fluid intake to less than 1500 cc, salt intake to less than 2 g daily. 8 was advised to check her weight daily at home. He is advised that her weight today would be his dry weight and if his body weight increases by around 5 pounds he is to take an extra dose of metolazone daily till her body weight comes down to his weight today. If he is not able to come down to his dry body weight in 1 week he is to call cardiology office for further recommendations. Patient was counseled in detail to take his medications regularly. Repeat BMP in 1 week Discharge Attestations Time Spent in Discharge Care*: greater than 30 min Specific Discharge Activities: educating patient, educating and/or supporting family/caregiver, discussing with pcp/other providers, discussing with field nurse case manager/social workers/dc planners, documenting/other paperwork and evaluating patient/reviewing data Status at Discharge: Cognitive status at discharge: cognitively intact, Behavioral status at discharge: cooperative, Functional status at discharge: uses cane/walker, Overall status at discharge: patient is back to baseline Quality Metrics Clinical Quality Measures [ No reported AMI, CVA or VTE this stay] Coding Level of Care Code 45216 Total time (in minutes) for Discharge: 60 Diagnoses 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, NYHA class 4 I50.20 Pneumonia J18.9 CKD (chronic kidney disease) stage 3, GFR 30-59 ml/min N18.30 Hyperkalemia E87.5 Cardiac cirrhosis K76.1 Muscle wasting M62.50 Protein calorie malnutrition E46 Physical deconditioning R53.81
--- NOTE | 2023-07-03 16:18 | PC.NURSE ---
Discharge Note Patient discharged to SNF via POV accompanied by DPOA. Discharge instructions reviewed with patient and/or patient representative. Mobile pharmacy medications and/or prescriptions provided. Belongings/home medications returned.
== END 2023-07-03 16:19 | disposition skilled nursing facility (03) | DRG 291 ==
LOC: ER 20:41 → CSU 21:19
PROVIDERS: Internal Medicine; Admitting Provider Internal Medicine; Emergency Provider Internal Medicine; PCP Internal Medicine; Visit Provider Student in an Organized Health Care Education/Training Program
DX: I13.0 Hypertensive heart and chronic kidney disease with heart failure and stage 1 through stage 4 chronic kidney disease, or unspecified chronic kidney disease (principal); I50.23 Acute on chronic systolic (congestive) heart failure; J18.9 Pneumonia, unspecified organism; J44.0 Chronic obstructive pulmonary disease with (acute) lower respiratory infection; E46 Unspecified protein-calorie malnutrition; N17.9 Acute kidney failure, unspecified; N18.30 Chronic kidney disease, stage 3 unspecified; E87.5 Hyperkalemia; K76.1 Chronic passive congestion of liver; Z66 Do not resuscitate; R09.02 Hypoxemia; D63.1 Anemia in chronic kidney disease; N40.1 Benign prostatic hyperplasia with lower urinary tract symptoms; E78.00 Pure hypercholesterolemia, unspecified; I48.91 Unspecified atrial fibrillation; Z86.718 Personal history of other venous thrombosis and embolism; Z85.51 Personal history of malignant neoplasm of bladder; Z79.01 Long term (current) use of anticoagulants; Z95.0 Presence of cardiac pacemaker; Z99.81 Dependence on supplemental oxygen; Z68.25 Body mass index [BMI] 25.0-25.9, adult; Z95.1 Presence of aortocoronary bypass graft; Z95.5 Presence of coronary angioplasty implant and graft; Z87.891 Personal history of nicotine dependence
CPT/HCPCS: 36415; 36600; 51702; 71045; 80048; 80053; 80061; 82746; 82805; 83540; 83550; 83735; 83880; 84100; 84484; 85025; 85610; 86140; 93005; 96365; 96366; 96367; 96372; 96376; 97110; 97116; 97163; 97530; 99285; J0696; J1940; J3420; J3490

== ENCOUNTER 2023-11-17 20:22 | Inpatient (IN) | payer OTHER, SELFPAY ==
[2023-11-17 20:23] VITALS: BP 118/64; PULSE 90; RESP 22; O2SAT 84; BMI 28.7
--- NOTE | 2023-11-17 20:24 | ECG_ITS ---
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 Measurements Intervals [place] Rate: 69 P: 0 MS: 0 QRS: -54 QRSD: 248 T: 86 QT: 543 QTc: 585 Interpretive Statements ELECTRONIC VENTRICULAR PACEMAKER PROLONGED QT INTERVAL CRITICAL TEST RESULT Compared to ECG 06/29/2023 22:38:01 Prolonged QT interval now present Electronically Signed On 11-17-2023 22:52:23 CDT by Winter Mcconnell M.D. [email or web address]
--- NOTE | 2023-11-17 20:25 | ECG_ITS ---
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 Measurements Intervals [place] Rate: 73 P: 0 KS: 0 QRS: -82 QRSD: 255 T: 115 QT: 558 QTc: 618 Interpretive Statements ELECTRONIC VENTRICULAR PACEMAKER PROLONGED QT INTERVAL CRITICAL TEST RESULT Compared to ECG 11/17/2023 20:24:17 No significant changes Electronically Signed On 11-17-2023 22:49:56 CDT by Winter Mcconnell M.D. [email or web address]
--- NOTE | 2023-11-17 20:25 | XRR_ITS ---
PROCEDURE INFORMATION: Exam: XR Chest Exam date and time: 11/17/2023 8:35 PM Age: 88 years old Clinical indication: Dyspnea and shortness of breath; Prior surgery; Surgery date: 6+ months; Surgery type: Cabg; Patient HX: Dyspnea; SOB TECHNIQUE: Imaging protocol: Radiologic exam of the chest. Views: 1 view. COMPARISON: CR XR chest 1V portable [id number] 06/29/2023 4:46 PM FINDINGS: Lungs: Complete opacification of the right hemithorax with at least a component of atelectasis. There may be an effusion as well. No evidence of pneumothorax. Left lung is grossly clear. Heart/Mediastinum: Mild rightward mediastinal deviation of the trachea. There is absence of air in the distal mainstem bronchus, which may reflect bronchial occlusion. 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 Left subclavian approach dual-chamber pacemaker. Bones/joints: No evidence of acute displaced fracture. XR/XR chest 1V portable [id number] IMPRESSION: 1. Complete opacification of the right hemithorax with likely atelectasis and effusion. There is suspected occlusion of the right mainstem bronchus. Consider correlation with CT for further detail.
--- NOTE | 2023-11-17 20:29 | ED_ITS ---
HPI - Anxiety 2 General: Chief Complaint: Shortness of Breath/Dyspnea Stated Complaint: sob Time Seen by Provider: 11/17/23 20:26 History of Present Illness: 88-year-old male presents to the emergen cy department via EMS personnel from [facility]. EMS personnel state that the [facility] staff found the patient with low oxygen saturation to the mid 80s. EMS providers provided albuterol nebulizer treatments x 2 and 4 mg Zofran. Patient does appear to be in acute distress with increased work of breathing. He does have a productive cough. Associated symptoms: Deny chest pain Review of Systems 2 General: Reports: 10 or more systems reviewed and unremarkable except in HPI and below Card: Denies: chest pain Resp: Reports: dyspnea, productive cough and wheezing PFSH ED 2 PFSH: Medical History Hyperkalemia CKD (chronic kidney disease) stage 3, GFR 30-59 ml/min New onset of congestive heart failure Bladder cancer COPD (chronic obstructive pulmonary disease) 3 L at baseline GI (gastrointestinal bleed) Anemia Thrombocytopenia Chronic shortness of breath Breath shortness Fatigue History of COPD Recurrent ventral hernia H/O deep venous thrombosis Osteoarthritis H/O cervical fracture surgical repair Bladder tumor TURBT 05/02/2020 BPH loc w urin obs/LUTS Gross hematuria Hypercholesteremia Essential (primary) hypertension Surgical History History of colonoscopy S/P excision of lipoma History of cataract extraction History of hemorrhoidectomy History of testicular surgery History of surgery on arm Status post surgical removal and fulguration of bladder neoplasm History of coronary artery bypass graft History of coronary artery stent placement Status post aortic coarctation stent placement History of mandibular surgery History of hernia repair History of back surgery x9 Family History Sister Cancer Brother Cancer Mother , AT AGE 70 Myocardial infarct Father , AT AGE 70 Alcoholism Social History Smoking and tobacco/nicotine status: former use of tobacco/nicotine Alcohol intake: current Alcohol intake frequency: holidays/special occasions only Substance/Drug Use: never Household members: spouse Housing: House Marital status: Current occupational status: retired Physical Exam 2 Narrative: EXAM NARRATIVE: Constitutional: Frail, ill-appearing, in moderate respiratory distress. Alert and oriented-to person, place, time and situation. Head, eyes, ears, nose, mouth, throat: Normocephalic, atraumatic. Pupils-equal, round, reactive to light. No scleral icterus. Normal-appearing external ears. Normal appearing nasal turbinates, no drainage. No obvious oral lesions, posterior oropharynx without erythema or exudates. Neck: Supple, trachea is midline, no lymphadenopathy, no jugular venous distension, thyromegaly, or carotid bruits. Carotid upstrokes are brisk bilaterally. Lungs: Rhonchi through the entire right lung significantly diminished right greater than left. Expiratory wheezes noted. Increased work of breathing. Tachypnea, symmetrical rise and fall of chest Cardiac: Paced cardiac rhythm, positive S1, S2. No murmurs, rubs or gallops that I can appreciate Abdomen: Soft, non-tender to palpation, normal active bowel sounds to all quadrants. No palpable masses, no organomegaly and abdominal bruits. Extremities: 2+ pulses in the upper extremities that are equal bilaterally, 2+ pulses in the lower extremities that are equal bilaterally. Non-edematous. Moves all extremities well, sensation to all extremities are noted. Skin: Warm, dry, intact. Course 2 Vital Signs: Vital signs: Vital Signs Temperature 97.6 F 11/19/23 11:25 Pulse Rate 72 11/19/23 11:25 Respiratory Rate 17 11/19/23 11:25 Blood Pressure 114/54 11/19/23 11:25 Pulse Oximetry 96 11/19/23 11:25 Oxygen Delivery Me thod Nasal Cannula 11/19/23 11:25 Oxygen Flow Rate 2 11/19/23 11:09 Fraction of Inspir ed Oxygen 50 11/18/23 08:22 MDM - Anxiety Medical Decision Making Physical exam completed and documented, I will obtain a CBC, CMP, blood cultures, procalcitonin and lactic acid, chest x-ray and a CT scan without contrast given the patient's chronic renal insufficiency. I did obtain an arterial blood gas and will place the patient on BiPAP. I have contacted the hospitalist physician to request admission to the hospital for additional evaluation treatment and care. Differential diagnosis includes community-acquired pneumonia, viral illness, acute exacerbation of chronic pulmonary disease. Twelve-lead EKG obtained at 2023 and reviewed at 2025 demonstrates a ventricular paced rhythm with a ventricular rate of 69 bpm, QRS duration 248 QTc 543 QTc 563. 21:24 ABG Arterial Blood Gas (ABG) on 11/17/2023 RESULT SUMMARY: Primary Respiratory Acidosis, Acute, with: Secondary Metabolic Alkalosis INPUTS: pH ?> 7.32 P?CO? ?> 68 mm Hg HCO?- ?> 35.7 mEq/L Sodium ?> 141 mEq/L Chloride ?> 98 mEq/L Albumin ?> 3.3 g/dL Medical Records I reviewed the patient's medical records. Lab Data I reviewed the patient's lab results. 11/19/23 04:59 11/19/23 04:[address] 11/17/23 21:07 IMPRESSION: 1. Complete atelectasis of the right lung with moderate right-sided pleural effusion. There is occlusion of the right mainstem bronchus which contains mildly complex fluid, possibly secretions. An underlying mass in the right lung would be difficult to exclude and may be re-evaluated following re-expansion. 2. Moderate pulmonary edema and trace pleural effusion on the left. 3. Cardiomegaly status post CABG and left subclavian approach dual-chamber pacemaker ICD. 4. IVC filter in place. Please assess the management of the filter. If there is no established plan for management or ongoing clinical follow-up, nonemergent interventional radiology evaluation is recommended. Chest X-Ray 11/19/23 09:01 IMPRESSION: 1. Heart is enlarged but stable when compared to the prior exam. 2. Improved right pleuroparenchymal disease. 3. Stable left pleuroparenchymal disease. Laboratory Results Specimen Type Arterial 11/17/23 21:11 Sample Site Radial, right 11/17/23 21:11 ABG pH 7.33 (7.35-7.45) L 11/17/23 21:11 ABG pCO2 68.0 mmHg (35-45) H* 11/17/23 21:11 ABG pO2 77.6 mmHg (80.0-100.0) L 11/17/23 21:11 ABG HCO3 35.7 mmol/L (22-26) H 11/17/23 21:11 ABG O2 Saturation 94.3 11/17/23 21:11 ABG Base Excess 8.2 mmol/L (-2.0-2.0) H 11/17/23 21:11 Guero Test Pos 11/17/23 21:11 A-a O2 Gradient Not Reportable 11/17/23 21:11 Hematocrit 28.7 % (42-52) L 11/17/23 21:11 Hgb O2 Saturation 92.5 % (95-100) L 11/17/23 21:11 Carboxyhemoglobin 1.8 %THgb (0.4-20.1) 11/17/23 21:11 Methemoglobin 0.1 % (0.4-1.5) L 11/17/23 21:11 Total Hemoglobin 9.4 g/dL (14-18) L 11/17/23 21:11 Sodium 141.0 mmol/L (131-143) 11/17/23 21:11 Potassium 3.8 mmol/L (3.5-5.0) 11/17/23 21:11 Glucose 136.0 mg/dL (70-115) H 11/17/23 21:11 Ionized Calcium 1.2 mmol/L (1.1-1.4) 11/17/23 21:11 O2 Delivery Device Nrb 11/17/23 21:11 O2 Liters/Min 10.0 % 11/17/23 21:11 Tipping Machine Operator ID [id number] 11/17/23 21:11 All radiology interpretation(s) finalized by discharge EKG Data EKG 1: Interpretation: Chest CT 11/17/23 21:07 IMPRESSION: 1. Complete atelectasis of the right lung with moderate right-sided pleural effusion. There is occlusion of the right mainstem bronchus which contains mildly complex fluid, possibly secretions. An underlying mass in the right lung would be difficult to exclude and may be re-evaluated following re-expansion. 2. Moderate pulmonary edema and trace pleural effusion on the left. 3. Cardiomegaly status post CABG and left subclavian approach dual-chamber pacemaker ICD. 4. IVC filter in place. Please assess the management of the filter. If there is no established plan for management or ongoing clinical follow-up, nonemergent interventional radiology evaluation is recommended. Chest X-Ray 11/19/23 09:01 IMPRESSION: 1. Heart is enlarged but stable when compared to the prior exam. 2. Improved right pleuroparenchymal disease. 3. Stable left pleuroparenchymal disease. Other EKG comments: Chest CT 11/17/23 21:07 IMPRESSION: 1. Complete atelectasis of the right lung with moderate right-sided pleural effusion. There is occlusion of the right mainstem bronchus which contains mildly complex fluid, possibly secretions. An underlying mass in the right lung would be difficult to exclude and may be re-evaluated following re-expansion. 2. Moderate pulmonary edema and trace pleural effusion on the left. 3. Cardiomegaly status post CABG and left subclavian approach dual-chamber pacemaker ICD. 4. IVC filter in place. Please assess the management of the filter. If there is no established plan for management or ongoing clinical follow-up, nonemergent interventional radiology evaluation is recommended. Chest X-Ray 11/19/23 09:01 IMPRESSION: 1. Heart is enlarged but stable when compared to the prior exam. 2. Improved right pleuroparenchymal disease. 3. Stable left pleuroparenchymal disease. Discharge Plan Discharge Patient Disposition: Admitted As Inpatient Admit Provider: Helen Lares Clinical Impression: Acute respiratory failure with hypoxemia, Pneumonia, Acute on chronic kidney failure Condition: Stable Coding Level of Care Code ED Sewing Department Supervisor for Marco Taylor
[2023-11-17 20:55] VITALS: BP 118/64; PULSE 71; RESP 17; O2SAT 95
--- NOTE | 2023-11-17 21:07 | CTR_ITS ---
PROCEDURE INFORMATION: Exam: CT Chest Without Contrast; Diagnostic Exam date and time: 11/17/2023 9:42 PM Age: 88 years old Clinical indication: Shortness of breath; Prior surgery; Surgery date: 6+ months; Surgery type: Cabg. Coronary stents. Aortic graft. Patient HX: SOB with hypoxia. Total opacification of RT hemithorax on cxr. History of chf and copd. ; Additional info: Dyspnea TECHNIQUE: Imaging protocol: Diagnostic computed tomography of the chest without contrast. Radiation optimization: All CT scans at this facility use at least one of these dose optimization techniques: automated exposure control; mA and/or kV adjustment per patient size (includes targeted exams where dose is matched to clinical indication); or iterative reconstruction. COMPARISON: CT chest wo con [id number] 06/09/2023 10:12 AM RADIATION DOSE METRICS: Total DLP (mGy-cm): 624.6 FINDINGS: Lungs: There is complete collapse of the right lung with moderate right-sided pleural effusion. There is occlusion of the right mainstem bronchus which contains mildly complex fluid, possibly secretions. An underlying mass in the right lung would be difficult to exclude and may be re-evaluated following re-expansion. Moderate pulmonary edema in the left lung with ground-glass and interlobular septal thickening. Trace left-sided pleural effusion. No pneumothorax. Heart: Moderate cardiomegaly status post left subclavian approach dual-chamber pacemaker ICD. No pericardial effusion. Coronary arteries: There are incidental dense coronary artery calcifications with involvement of the left main. Mediastinal space: Postsurgical changes of the mediastinum compatible with prior CABG. Lymph nodes: No evidence of mediastinal adenopathy. Evaluation for hilar adenopathy is limited by lack of IV contrast. Vasculature: Moderate-severe atherosclerosis without aneurysmal dilatation of the thoracic aorta. Evaluation for acute vascular injury or thrombosis is limited by lack of IV contrast. Bones/joints: No evidence of acute fracture or aggressive osseous lesion. Soft tissues: There is diffuse superficial soft tissue edema. No evidence of fluid collection or hematoma in the superficial soft tissues. Other findings: Trace-small free fluid in the upper abdomen. Partially visualized aorto bi-iliac stent graft and IVC filter. CT/CT chest wo con [id number] IMPRESSION: 1. Complete atelectasis of the right lung with moderate right-sided pleural effusion. There is occlusion of the right mainstem bronchus which contains mildly complex fluid, possibly secretions. An underlying mass in the right lung would be difficult to exclude and may be re-evaluated following re-expansion. 2. Moderate pulmonary edema and trace pleural effusion on the left. 3. Cardiomegaly status post CABG and left subclavian approach dual-chamber pacemaker ICD. 4. IVC filter in place. Please assess the management of the filter. If there is no established plan for management or ongoing clinical follow-up, nonemergent interventional radiology evaluation is recommended.
[2023-11-17 21:22] LABS: ABG PH Result 7.33 (7.35-7.45); Arterial Blood Gas Hematocrit 28.7 % (42-52); Base Excess ABG 8.2 mmol/L (-2.0-2.0); Blood Gas Allen Test Pos; Blood Gas Sample Site Radial, right; Blood Gas Sample Type Arterial; Carboxyhemoglobin 1.8 %THgb (0.4-20.1); HCO3 ABG 35.7 mmol/L (22-26); HGB O2 Sat 92.5 % (95-100); Ionized Calcium Level - ABG 1.2 mmol/L (1.1-1.4); Methemoglobin 0.1 % (0.4-1.5); Oxygen Device NRB; Oxygen Saturation ABG 94.3; PO2 ABG 77.6 mmHg (80.0-100.0); Potassium Level - ABG 3.8 mmol/L (3.5-5.0); Total Hemoglobin 9.4 g/dL (14-18)
[2023-11-17 21:30] VITALS: PULSE 94; RESP 17; O2SAT 92
[2023-11-17] MEDS: ipratropium-albuterol 3 mL Neb INHALATION (21:39)
[2023-11-17 21:40] VITALS: PULSE 94; RESP 18; O2SAT 92
--- NOTE | 2023-11-17 22:22 | P.HP_ITS ---
Providers/Chief Complaint 2 Primary Care Provider: Cristofer Barrera MD Chief Complaint: sob History of Present Illness Popeye Wilks is a 88 year old male who has chronic history of hypoxic respiratory baseline, came from skilled nursing for worsening shortness of breath and hypoxia, patient has chronic history of systolic CHF, does not want LifeVest or AICD, has a pacemaker, quality of life, poor functional status, takes diuretics for anasarca. Stating that he is from [facility], he is not exactly sure why he in the hospital but able to answer simple questions such as he is from a skilled nursing, uses 3 to 4 L of oxygen, uses a wheelchair for ambulation, eats bland diet. During my evaluation patient was falling asleep while on BiPAP. Workup in the ER revealed postobstructive pneumonia, right lung atelectasis Patient currently is on BiPAP CBC BMP is pending Most of the workup is pending He has received ceftriaxone Will use Umberto hugger to improve his hypothermia Review of Systems 2 Const: Reports: chills and change in weight Eyes: Reports: change in vision ENMT: Reports: throat pain Card: Reports: swelling of feet/ankles Resp: Reports: dyspnea GI: Denies: nausea : Denies: flank pain Medications/Allergies Home Medications Medication Instructions Recorded Confirmed Last Taken Type carvedilol 3.125 mg tablet 3.125 mg PO BID #180 tabs 05/21/22 06/29/23 06/06/23 Rx albuterol sulfate 90 mcg/actuation 2 inh inhalation Q4H PRN Shortness 05/11/23 06/29/23 Unknown History aerosol inhaler Of Breath amiodarone 200 mg tablet 100 mg PO QAM 05/11/23 06/29/23 05/11/23 History fluticasone 500 mcg-salmeterol 50 1 inh inhalation BID 05/11/23 06/29/23 Unknown History mcg/dose blistr powdr for inhalation (Advair Diskus) potassium chloride 20 mEq 20 meq PO QAM #60 tabs 05/15/23 06/29/23 06/06/23 Rx tablet,extended release apixaban 2.5 mg tablet (Eliquis) 2.5 mg PO BID 06/07/23 06/29/23 06/06/23 History docusate sodium 100 mg capsule 100 mg PO DAILY PRN Constipation 06/07/23 06/29/23 Unknown History (Colace) nitroglycerin 0.4 mg sublingual 0.4 mg sublingual Q5M PRN Chest 06/07/23 06/29/23 Unknown History tablet (Nitrostat) Pain bumetanide 2 mg tablet 2 mg PO BID #60 tabs 07/03/23 Unknown Rx metolazone 5 mg tablet 5 mg PO DAILY PRN 07/03/23 Unknown Rx Swelling/shortness of breath #15 tabs Allergies Allergy/AdvReac Type Severity Reaction Status Date / Time erythromycin base Allergy Unknown Verified 11/17/23 20:30 lorazepam [From Ativan] Allergy Unknown Verified 11/17/23 20:30 PFSH Acute 2 PFSH: Medical History Hyperkalemia CKD (chronic kidney disease) stage 3, GFR 30-59 ml/min New onset of congestive heart failure Bladder cancer COPD (chronic obstructive pulmonary disease) 3 L at baseline GI (gastrointestinal bleed) Anemia Thrombocytopenia Chronic shortness of breath Breath shortness Fatigue History of COPD Recurrent ventral hernia H/O deep venous thrombosis Osteoarthritis H/O cervical fracture surgical repair Bladder tumor TURBT 05/02/2020 BPH loc w urin obs/LUTS Gross hematuria Hypercholesteremia Essential (primary) hypertension Surgical History History of colonoscopy S/P excision of lipoma History of cataract extraction History of hemorrhoidectomy History of testicular surgery History of surgery on arm Status post surgical removal and fulguration of bladder neoplasm History of coronary artery bypass graft History of coronary artery stent placement Status post aortic coarctation stent placement History of mandibular surgery History of hernia repair History of back surgery x9 Family History Sister Cancer Brother Cancer Mother , AT AGE 70 Myocardial infarct Father , AT AGE 70 Alcoholism Social History Smoking and tobacco/nicotine status: former use of tobacco/nicotine Alcohol intake: current Alcohol intake frequency: holidays/special occasions only Substance/Drug Use: never Household members: spouse Housing: House Marital status: Current occupational status: retired Vitals/I&O/Wt Last Vital Signs Pulse 94 11/17/23 21:40 Resp 18 11/17/23 21:40 BP 118/64 11/17/23 20:55 Pulse Ox 92 11/17/23 21:40 O2 Del Method BiPAP 11/17/23 21:40 O2 Flow Rate 10 11/17/23 20:55 FiO2 65 11/17/23 21:40 Weight last 48 hrs Weight 90.718 kg Physical Exam 2 Narrative: Frail male Currently on BiPAP FiO2 65% Currently saturating well Drowsy Anasarca Currently has Umberto sung's GCS 15 Diminished right-sided breath sounds Left-sided rhonchi present Patient able to answer simple questions I do not appreciate focal exam Patient extremely drowsy and lethargic Data 11/17/23 22:34 11/17/23 22:34 A&P Assessment and plan (1) 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, NYHA class 4: (2) Protein calorie malnutrition: (3) Cardiac cirrhosis: (4) Muscle wasting: (5) CKD (chronic kidney disease) stage 3, GFR 30-59 ml/min: (6) Acute hypoxemic respiratory failure: (7) Acute respiratory failure with hypoxemia: (8) Pneumonia: Qualifiers: Pneumonia type: due to unspecified organism (9) Physical deconditioning: (10) Postobstructive pneumonia: (11) Atelectasis: Plan Acute on chronic hypoxic respiratory failure Hypoxic hypercarbic respite failure Currently on BiPAP Patient is DO NOT RESUSCITATE DO NOT INTUBATE Significant atelectasis with postobstructive pneumonia Start vancomycin and Zosyn Will request Mucomyst and chest vest 3 times a day Not a candidate for bronchoscopy Start DuoNeb Continue BiPAP Repeat ABGs Patient has chronic kidney disease: Would avoid contrast studies and nephrotoxic agents Anasarca: Systolic CHF exacerbation I will continue high-dose diuretics History of DVT S/p IVC filter He is also on Eliquis Dose of adjusted after reviewing creatinine DNR/DNI I would use speech therapy and pur?ed diet for now Considering poor functional status will discuss palliative care with his family, patient is stating that he has a but we will confirm once he is more awake and alert there is only an number of friend listed in the chart Patient uses wheelchair at [facility] Poor prognosis Patient notable for history Most information taken from the collaterals, review of previous records, Review of the record reveals that patient has chronic hypoxia required 3 to 4 L, chronic kidney disease, he is a pacemaker and a resident of skilled nursing, has had multiple admissions in the past Attestations 2 Medical Necessity Statement*: More than 2 midnights anticipated Diagnoses 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, NYHA class 4 I50.20 Protein calorie malnutrition E46 Cardiac cirrhosis K76.1 Muscle wasting M62.50 CKD (chronic kidney disease) stage 3, GFR 30-59 ml/min N18.30 Acute hypoxemic respiratory failure J96.01 Pneumonia J18.9 Pneumonia type: due to unspecified organism Physical deconditioning R53.81 Postobstructive pneumonia J18.9 Atelectasis J98.11
[2023-11-17 22:41] LABS: Basophils % 0.2 %; Hematocrit 30.6 % (37-53); Lymphocytes # 0.3 10^3/uL (0.8-4.8); Lymphocytes % 4.7 %; Mean Corpuscular HGB Conc 30.7 g/dL (30-55); Mean Corpuscular Hemoglobin 28.6 pg (27-33); Mean Platelet Volume 10.2 fL (7.4-10.4); Monocytes # 0.6 10^3/uL (0.2-0.9); Monocytes % 10.4 %; Neutrophils # 4.47 10^3/uL (1.8-7.7); Neutrophils % 84.1 %; Nucleated Red Blood Cells % 0 %; Platelet Count 61 10^3/cmm (157-399); Red Blood Count 3.29 10^6/uL (3.85-5.65); Red Cell Distribution Width 16.3 % (12.1-15.1); White Blood Count 5.31 10^3/uL (3.29-11.43)
[2023-11-17] MEDS: cefTRIAXone 2,000 MG in sodium chloride 0.9% (plus) 50 ML 100 MG IV (22:49)
[2023-11-17 22:51] VITALS: BP 117/68; PULSE 72; RESP 18; O2SAT 93
[2023-11-17 23:03] LABS: Lactic Sepsis W/Reflex 2.6 mmol/L (0.5-2.2)
[2023-11-17 23:04] LABS: Troponin(5th) Baseline 67 ng/L (0-15)
[2023-11-17 23:11] LABS: INR 1.44 (0.8-1.2)
[2023-11-17 23:18] LABS: Alanine Aminotransferase 79 U/L (0-41); Albumin Level 3.5 g/dL (3.5-5.2); Alkaline Phosphatase 75 U/L (40-130); Calcium 9.1 mg/dL (8.5-10.5); Carbon Dioxide 26 mmol/L (22-29); Chloride 90 mmol/L (98-107); Creatinine Clr Calc Pharmacy 16.6848; Glucose 133 mg/dL (65-115); NT Pro B Type Natriuretic Pept 18885 pg/mL (0-450); Osmolality Calculated 319 mOsm/kg (285-295); Sodium 136 mmol/L (136-145); Total Bilirubin 1.3 mg/dL (0.15-1.2); Total Protein 7.5 g/dL (6.6-8.7)
[2023-11-17 23:19] LABS: Anion Gap 24.3 (5-19); Aspartate Amino Transferase 108 U/L (0-40); Potassium 4.3 mmol/L (3.5-5.1)
[2023-11-17 23:20] LABS: Blood Urea Nitrogen 111 mg/dL (8-23)
[2023-11-17 23:45] VITALS: BP 133/72; PULSE 70; RESP 15; O2SAT 95
[2023-11-18] VITALS (22 sets, daily range): BP systolic 109–124; BP diastolic 52–71; PULSE 66–102; RESP 16–22; TEMP 35.9–36.9; O2SAT 93–98
[2023-11-18 00:25] LABS: Reflex Lactate Order REFLEX LACTIC ORDERD
[2023-11-18] MEDS: acetylcysteine 200 mg/mL SDV 4 mL INHALATION ×4 (01:07→19:52)
[2023-11-18] MEDS: ipratropium-albuterol 3 mL Neb INHALATION ×5 (01:10→19:52)
--- NOTE | 2023-11-18 01:16 | PC.NURSE ---
edgar sung placed on pt at this time.
[2023-11-18 01:21] LABS: Lactic Acid level (Lactate) 2.1 mmol/L (0.5-2.2)
[2023-11-18 01:22] LABS: Troponin 5 2HR 66.33 ng/L (0-15)
--- NOTE | 2023-11-18 01:27 | PC.NURSE ---
Admission assessment completed to the best of this nurse's ability. Pt will answer simple questions, but will not maintain a full conversation. No family at bed side to answer questions.
[2023-11-18 01:34] LABS: Troponin 5 2HR Delta -0.67 ABS# (0-10)
[2023-11-18] MEDS: vancomycin 1,750 MG/350 ML PIGGYBACK 233.330000000000013 MG IV (01:40)
--- NOTE | 2023-11-18 02:40 | ECG_ITS ---
[facility] Test Date: 2023-11-18 Pat Name: Popeye Wilks Department: Room: 270 Gender: Male Runway Model: : 1935 Requested By: Martinez Cooley Order Number: [id number] Emilie MD: Winter Mcconnell M.D. Measurements Intervals [place] Rate: 69 P: 16 WA: 66 QRS: -70 QRSD: 230 T: 132 QT: 541 QTc: 584 Interpretive Statements ELECTRONIC VENTRICULAR PACEMAKER PROLONGED QT INTERVAL CRITICAL TEST RESULT Compared to ECG 11/17/2023 22:38:10 No significant changes Electronically Signed On 11-18-2023 22:52:22 CDT by Winter Mcconnell M.D. [id number]
[2023-11-18 03:15] LABS: ABG PCO2 54.8 mmHg (35-45); ABG PH Result 7.42 (7.35-7.45); Arterial Blood Gas Hematocrit 24.9 % (42-52); Base Excess ABG 9.8 mmol/L (-2.0-2.0); Blood Gas Allen Test Pos; Blood Gas Sample Site Radial, right; Blood Gas Sample Type Arterial; HCO3 ABG 35.5 mmol/L (22-26); Oxygen Device BIPAP; PO2 FiO2 Ratio Arterial Blood 0
[2023-11-18] MEDS: piperacillin-tazobactam 3.375 GM in sodium chloride 0.9% (plus) 50 ML IV ×2 (03:21→15:21)
[2023-11-18 05:00] LABS: Basophils % 0.1 %; Hematocrit 25.6 % (37-53); Lymphocytes # 0.4 10^3/uL (0.8-4.8); Lymphocytes % 4.9 %; Mean Corpuscular HGB Conc 30.9 g/dL (30-55); Mean Corpuscular Hemoglobin 28.4 pg (27-33); Mean Corpuscular Volume 92.1 fl (82-101); Mean Platelet Volume 9.2 fL (7.4-10.4); Monocytes # 1.2 10^3/uL (0.2-0.9); Monocytes % 16.2 %; Neutrophils # 5.76 10^3/uL (1.8-7.7); Neutrophils % 78.3 %; Nucleated Red Blood Cells % 0 %; Platelet Count 54 10^3/cmm (157-399); Red Blood Count 2.78 10^6/uL (3.85-5.65); Red Cell Distribution Width 16.3 % (12.1-15.1); White Blood Count 7.36 10^3/uL (3.29-11.43)
[2023-11-18 05:18] LABS: Anion Gap 17.7 (5-19); Calcium 8.3 mg/dL (8.5-10.5); Carbon Dioxide 35 mmol/L (22-29); Chloride 94 mmol/L (98-107); Creatinine Clr Calc Pharmacy 15.8579; Glucose 118 mg/dL (65-115); Magnesium 2.8 mg/dL (1.7-2.3); Phosphorus 7.3 mg/dL (2.5-4.5); Potassium 3.7 mmol/L (3.5-5.1); Sodium 143 mmol/L (136-145); Troponin 5 6HR 68.34 ng/L (0-15); Troponin 5 6HR Delta 1.34 ng/L (0-12)
[2023-11-18 05:40] LABS: Blood Urea Nitrogen 118 mg/dL (8-23); Osmolality Calculated 335 mOsm/kg (285-295)
--- NOTE | 2023-11-18 07:31 | PC.PHAR ---
pt is from [facility]-rasahwn nurse from [facility] states will fax mar and tar
--- NOTE | 2023-11-18 08:07 | PC.PHAR ---
PT IS FROM [facility] 11/18/23
--- NOTE | 2023-11-18 09:10 | PC.CHAP ---
Pastoral Care Encounter/Spiritual Assessment Type of Contact [] Declined electron microscopist visit [] Patient/Family/Request visit [] Outpatient visit [] Follow-up visit [] Physician referral [] Code/Alert [x] Routine visit [] Staff referral [] Actively dying [] Patient sleeping [] Family support [] [x] Out of room [] Palliative care [] [] Receiving care in room [] Pre-surgical visit [] Trauma [] Long length of stay [] ICU visit [] Other: Relational/Emotional Strength [] Patient feels connected with others/family/visitors/staff [] Distress [] Loneliness/isolation [] Abandonment Spirituality of Patient [] Person of Latricia [] Attends Temple of their Latricia [] Believes in Prayer [] Reads Bible or Muslim materials [] There are Spiritual issues to be addressed Merchandiser Seasonal Interventions [] Prayer [] Active listening [] Non-anxious presence [] Spiritual/emotional support [] Crisis/trauma care [] Spiritual counseling [] Bereavement support [] Provided bereavement packet [] Provided Bible/devotional materials [] Provided toy/stuffed animal, coloring book to patient or family member [] Provided Communion [] Anointing/[place] [] Salvation [] Completed spiritual assessment [] Other: Impact on Illness or Injury [] Angry [] Fearful [] Anxious [] Often cries [] Exhaustion [] Unable to work [] Unable to attend taoism [] Unable to walk/stand [] Unable to read [] Unable to drive [] Unable to eat/drink [] Unable to sleep [] Unable to be with family [] Patient intubated [] Other: Summary Time spent with patient
--- NOTE | 2023-11-18 09:11 | PC.CHAP ---
Pastoral Care Encounter/Spiritual Assessment Type of Contact [] Declined cost coordinator visit [] Patient/Family/Request visit [] Outpatient visit [] Follow-up visit [] Physician referral [] Code/Alert [x] Routine visit [] Staff referral [] Actively dying [x] Patient sleeping [] Family support [] [] Out of room [] Palliative care [] [] Receiving care in room [] Pre-surgical visit [] Trauma [] Long length of stay [] ICU visit [] Other: Relational/Emotional Strength [] Patient feels connected with others/family/visitors/staff [] Distress [] Loneliness/isolation [] Abandonment Spirituality of Patient [] Person of Latricia [] Attends Rastafari of their Latricia [] Believes in Prayer [] Reads Bible or Episcopal materials [] There are Spiritual issues to be addressed [employer] Supervisor Interventions [] Prayer [] Active listening [] Non-anxious presence [] Spiritual/emotional support [] Crisis/trauma care [] Spiritual counseling [] Bereavement support [] Provided bereavement packet [] Provided Bible/devotional materials [] Provided toy/stuffed animal, coloring book to patient or family member [] Provided Communion [] Anointing/[place] [] Salvation [] Completed spiritual assessment [] Other: Impact on Illness or Injury [] Angry [] Fearful [] Anxious [] Often cries [] Exhaustion [] Unable to work [] Unable to attend yazidi [] Unable to walk/stand [] Unable to read [] Unable to drive [] Unable to eat/drink [] Unable to sleep [] Unable to be with family [] Patient intubated [] Other: Summary Time spent with patient
--- NOTE | 2023-11-18 14:02 | P.PN_ITS ---
Subjective 2 Subjective: This morning patient is slightly more awake and alert I will discontinue Bumex give him some gentle fluid hydration Creatinine worsening Clinically looks dehydrated Patient is able to follow commands Able to tell me his name, he was able to stand arms in the air as well Spoke with public customer account administrator, she is in agreement that patient may need palliative care in case he starts getting worse and not able to eat Vitals/I&O/Wt Last Vital Signs Temp 97.8 F 11/18/23 11:40 Pulse 93 11/18/23 11:46 Resp 17 11/18/23 11:40 BP 111/61 11/18/23 11:40 Pulse Ox 98 11/18/23 11:40 O2 Del Method BiPAP 11/18/23 11:40 O2 Flow Rate 4 11/18/23 11:36 FiO2 50 11/18/23 08:22 11/17/23 11/18/23 11/18/23 22:59 06:59 14:59 Intake Total 400 / 400 170 / 170 Output Total 225 / 225 Balance 175 / 175 170 / 170 Weight last 48 hrs Weight 91.989 kg Weight 91.898 kg Weight 90.718 kg Physical Exam 2 Narrative: Clinically patient showing improvement Able to communicate and follow commands Nonfocal neuroexam Mucous membranes are dry Able to follow commands nonfocal neuroexam S1, S2 Currently on BiPAP Right-sided diminished breath sounds Urinary Catheter Management: Hoffman: Cath Placed During This Visit: yes Reason for Continuing Indwelling Catheter: Other Urinary Catheter Date of Insertion: 11/17/23 Urinary Catheter Time of Insertion: 23:48 Data 11/18/23 04:43 11/18/23 04:43 Micro: Microbiology 11/17/23 22:47 Blood Culture - Preliminary Blood SPECIMEN COLLECTED 11/17/23 22:43 Blood Culture - Preliminary Blood SPECIMEN COLLECTED A&P Assessment and plan (1) Protein calorie malnutrition: (2) Cardiac cirrhosis: (3) Physical deconditioning: (4) Frailty syndrome in geriatric patient: (5) Acute hypoxemic respiratory failure: (6) Acute respiratory failure with hypoxemia: (7) Pneumonia: Qualifiers: Pneumonia type: due to unspecified organism (8) Postobstructive pneumonia: (9) Atelectasis: (10) Muscle wasting: Plan Acute hypoxic hypercapnic respite failure: Improving Remove BiPAP and let him eat pur?ed diet Will request speech therapy as well Postobstructive pneumonia whiteout right lung with atelectasis Mucomyst and chest vest physiotherapy Acute on chronic kidney disease Will do trial of gentle fluid hydration Hold off on diuretics Protein calorie malnourishment Poor p.o. intake Speech therapy recommended If patient not able to eat secondary to confusion then we will discuss goals of care with public customer account administrator for now we will do trial after removing BiPAP to see if patient is able to compensate and able to eat Patient seems to be bedbound with poor quality of life Public customer account administrator told us that there is a court hearing for guardianship after 2 weeks DNI/DNI Phosphorus and magnesium is normal lactic acid improved, pH improved on BiPAP Attestations 2 Medical Necessity Statement*: Continue medical management Diagnoses Protein calorie malnutrition E46 Cardiac cirrhosis K76.1 Physical deconditioning R53.81 Frailty syndrome in geriatric patient R54 Acute hypoxemic respiratory failure J96.01 Pneumonia J18.9 Pneumonia type: due to unspecified organism Postobstructive pneumonia J18.9 Atelectasis J98.11 Muscle wasting M62.50
[2023-11-18] MEDS: morphine IR 15 mg Tablet PO (15:14)
[2023-11-18] MEDS: sodium chloride 0.9% 1,000 ML 30 ML IV (15:21)
[2023-11-18] MEDS: carvedilol 3.125 mg Tablet PO (17:34)
[2023-11-18] MEDS: apixaban 5 mg Tablet 2.5 MG PO (17:34)
[2023-11-19] VITALS (19 sets, daily range): BP systolic 103–120; BP diastolic 54–63; PULSE 70–81; RESP 12–20; TEMP 36.3–37; O2SAT 90–99
[2023-11-19] MEDS: ipratropium-albuterol 3 mL Neb INHALATION ×5 (00:35→19:46)
[2023-11-19] MEDS: acetylcysteine 200 mg/mL SDV 4 mL INHALATION ×5 (00:35→19:45)
[2023-11-19] MEDS: piperacillin-tazobactam 3.375 GM in sodium chloride 0.9% (plus) 50 ML IV ×2 (02:03→17:48)
--- NOTE | 2023-11-19 02:04 | PC.NURSE ---
Patient became confused. Pulse ox beeping. Patient's oxygen saturation in the 80s. Patient had oxygen out of nose. Patient asks how many do you have in the kitchen. Patient educated that we are in the hospital. Patient states oh, we are? Oxygen sat came back up quickly after cannula was back on patient. Bed alarm set.
[2023-11-19 05:56] LABS: Basophils % 0.2 %; Eosinophils % 0.5 %; Hematocrit 26.5 % (37-53); Lymphocytes # 0.6 10^3/uL (0.8-4.8); Lymphocytes % 9.7 %; Mean Corpuscular HGB Conc 29.8 g/dL (30-55); Mean Corpuscular Hemoglobin 28.2 pg (27-33); Mean Corpuscular Volume 94.6 fl (82-101); Mean Platelet Volume 9.8 fL (7.4-10.4); Neutrophils # 4.46 10^3/uL (1.8-7.7); Neutrophils % 72.9 %; Nucleated Red Blood Cells % 0.5 %; Platelet Count 47 10^3/cmm (157-399); Red Cell Distribution Width 16.3 % (12.1-15.1); White Blood Count 6.11 10^3/uL (3.29-11.43)
[2023-11-19 06:11] LABS: Anion Gap 15.8 (5-19); Calcium 8.8 mg/dL (8.5-10.5); Carbon Dioxide 36 mmol/L (22-29); Chloride 91 mmol/L (98-107); Creatinine Clr Calc Pharmacy 14.9421; Glucose 101 mg/dL (65-115); Potassium 3.8 mmol/L (3.5-5.1); Sodium 139 mmol/L (136-145)
[2023-11-19 06:41] LABS: Blood Urea Nitrogen 129 mg/dL (8-23); Osmolality Calculated 330 mOsm/kg (285-295)
--- NOTE | 2023-11-19 09:01 | XRR_ITS ---
PROCEDURE INFORMATION: Exam: XR Chest Exam date and time: 11/19/2023 9:15 AM Age: 88 years old Clinical indication: Condition or disease; Lung condition and disease; Pneumonia; Prior surgery; Surgery date: 6+ months; Surgery type: Cabg, stents; Patient HX: HX of bladder cancer TECHNIQUE: Imaging protocol: Radiologic exam of the chest. Views: 1 view. Total images: 2 COMPARISON: CT chest con [id number] 11/17/2023 9:42 PM FINDINGS: Tubes, catheters and devices: A pacemaker device is present, its leads in appropriate position. Lungs: Improved right pleuroparenchymal disease. Stable left pleuroparenchymal disease. Pleural spaces: No pneumothorax. No pneumothorax. Heart/Mediastinum: Heart is enlarged but stable when compared to the prior exam. Prior coronary artery bypass grafting. Bones/joints: Osseous structures are unchanged from the prior exam. XR/XR chest 1V portable [id number] IMPRESSION: 1. Heart is enlarged but stable when compared to the prior exam. 2. Improved right pleuroparenchymal disease. 3. Stable left pleuroparenchymal disease.
[2023-11-19] MEDS: amiodarone 200 mg Tablet 100 MG PO (09:03)
[2023-11-19] MEDS: carvedilol 3.125 mg Tablet PO ×2 (09:04→17:48)
[2023-11-19] MEDS: apixaban 5 mg Tablet 2.5 MG PO ×2 (09:04→17:48)
[2023-11-19] MEDS: sennosides-docusate Tablet 1 TAB PO (09:04)
--- NOTE | 2023-11-19 09:27 | PC.CHAP ---
Pastoral Care Encounter/Spiritual Assessment Type of Contact [] Declined director medical safety visit [] Patient/Family/Request visit [] Outpatient visit [] Follow-up visit [] Physician referral [] Code/Alert [x] Routine visit [] Staff referral [] Actively dying [] Patient sleeping [] Family support [] [] Out of room [] Palliative care [] [] Receiving care in room [] Pre-surgical visit [] Trauma [] Long length of stay [] ICU visit [] Other: Relational/Emotional Strength [x] Patient feels connected with others/family/visitors/staff [] Distress [] Loneliness/isolation [] Abandonment Spirituality of Patient [x] Person of Latricia [] Attends Mandaen of their Latricia [x] Believes in Prayer [] Reads Bible or Denominational materials [] There are Spiritual issues to be addressed Gastroenterology Manager Interventions [x] Prayer [x] Active listening [] Non-anxious presence [x] Spiritual/emotional support [] Crisis/trauma care [] Spiritual counseling [] Bereavement support [] Provided bereavement packet [] Provided Bible/devotional materials [] Provided toy/stuffed animal, coloring book to patient or family member [] Provided Communion [] Anointing/[place] [] Salvation [x] Completed spiritual assessment [] Other: Impact on Illness or Injury [] Angry [] Fearful [] Anxious [] Often cries [] Exhaustion [] Unable to work [] Unable to attend gnosticism [] Unable to walk/stand [] Unable to read [] Unable to drive [] Unable to eat/drink [] Unable to sleep [] Unable to be with family [] Patient intubated [] Other: Summary Time spent with patient 5 min
[2023-11-19] MEDS: FUROsemide 10 mg/mL SDV 2mL IVP (09:35)
--- NOTE | 2023-11-19 11:50 | P.PN_ITS ---
Subjective 2 Subjective: Patient was very happy with his progress, currently on 2 L X-ray showing improvement of right-sided atelectasis Patient is starting to eat Sodium has improved as well IV fluids discontinued He was given Lasix Vitals/I&O/Wt Last Vital Signs Temp 97.6 F 11/19/23 11:25 Pulse 72 11/19/23 11:25 Resp 17 11/19/23 11:25 BP 114/54 11/19/23 11:25 Pulse Ox 96 11/19/23 11:25 O2 Del Method Nasal Cannula 11/19/23 11:25 O2 Flow Rate 2 11/19/23 11:09 FiO2 50 11/18/23 08:22 11/18/23 11/19/23 11/19/23 22:59 06:59 14:59 Intake Total 50 / 220 150 / 370 666 / 666 Output Total 600 / 600 250 / 850 Balance -550 / -380 -100 / -480 666 / 666 Weight last 48 hrs Weight 90.9 kg Weight 91.989 kg Weight 91.898 kg Weight 90.718 kg Physical Exam 2 Narrative: Signs of fluid overload Currently on 2 L GCS 15 Nonfocal neuroexam Able to answer all the questions Alert and oriented Nonfocal neuroexam Signs of third spacing Muscle wasting present Protein calorie malnourishment Urinary Catheter Management: Hoffman: Cath Placed During This Visit: yes Reason for Continuing Indwelling Catheter: Other Urinary Catheter Date of Insertion: 11/17/23 Urinary Catheter Time of Insertion: 23:48 Data 11/19/23 04:59 11/19/23 04:59 Micro: Microbiology 11/17/23 22:43 Blood Culture - Preliminary Blood Strep agalactiae - (group b) 11/17/23 22:47 Blood Culture - Preliminary Blood NEGATIVE TO DATE A&P Assessment and plan (1) CHF exacerbation: Qualifiers: Heart failure type: unspecified Qualified Code(s): I50.9 - Heart failure, unspecified (2) Systolic congestive heart failure: (3) Protein calorie malnutrition: (4) Cardiac cirrhosis: (5) Acute renal failure: (6) CKD (chronic kidney disease) stage 3, GFR 30-59 ml/min: (7) Muscle wasting: (8) Acute hypoxemic respiratory failure: (9) Acute respiratory failure with hypoxemia: (10) Postobstructive pneumonia: (11) Pneumonia: Qualifiers: Pneumonia type: due to unspecified organism (12) Atelectasis: (13) Physical deconditioning: Plan Acute hypoxic hypercarbic respite failure: Improved with use of BiPAP Currently patient is on 2 L Postobstructive pneumonia: Atelectasis right lung: Mucomyst chest vest therapy has helped him significantly currently is on 2 L off BiPAP awake and alert without any signs of encephalopathy Continue Zosyn discontinue vancomycin Acute on chronic kidney disease I will give him IV Lasix today for his active signs of fluid overload History of A-fib not in RVR continue apixaban low-dose along amiodarone DNR/DNI Patient has started to eat for aspiration precaution he is on level 5 dysphagia diet Plan to discharge him back to the [facility]itentiary in a day DVT prophylaxis covered with Alaina Albert 2 Medical Necessity Statement*: Discharge likely in a day or so to penitentiary Diagnoses CHF exacerbation I50.9 Heart failure type: unspecified Systolic congestive heart failure I50.20 Protein calorie malnutrition E46 Cardiac cirrhosis K76.1 Acute renal failure N17.9 CKD (chronic kidney disease) stage 3, GFR 30-59 ml/min N18.30 Muscle wasting M62.50 Acute hypoxemic respiratory failure J96.01 Postobstructive pneumonia J18.9 Pneumonia J18.9 Pneumonia type: due to unspecified organism Atelectasis J98.11 Physical deconditioning R53.81
[2023-11-20] VITALS (17 sets, daily range): BP systolic 102–105; BP diastolic 44–63; PULSE 68–76; RESP 14–20; TEMP 36.3–36.6; O2SAT 97–100
[2023-11-20] MEDS: acetylcysteine 200 mg/mL SDV 4 mL INHALATION ×6 (04:29→19:36)
[2023-11-20] MEDS: ipratropium-albuterol 3 mL Neb INHALATION ×6 (04:29→19:36)
[2023-11-20 04:47] LABS: ABG PH Result 7.35 (7.35-7.45); Arterial Blood Gas Hematocrit 24.4 % (42-52); Base Excess ABG 10.5 mmol/L (-2.0-2.0); Blood Gas Allen Test Pos; Blood Gas Sample Site Radial, right; Blood Gas Sample Type Arterial; HCO3 ABG 37.6 mmol/L (22-26); Oxygen Device NC
[2023-11-20 04:48] LABS: ABG PCO2 67.8 mmHg (35-45)
[2023-11-20 05:17] LABS: Basophils % 0.6 %; Eosinophils # 0.1 10^3/uL (0.0-0.8); Eosinophils % 2.7 %; Hematocrit 26.9 % (37-53); Lymphocytes # 0.9 10^3/uL (0.8-4.8); Lymphocytes % 16.4 %; Mean Corpuscular HGB Conc 29.7 g/dL (30-55); Mean Corpuscular Hemoglobin 28.4 pg (27-33); Mean Corpuscular Volume 95.4 fl (82-101); Mean Platelet Volume 11.1 fL (7.4-10.4); Monocytes # 0.7 10^3/uL (0.2-0.9); Neutrophils # 3.45 10^3/uL (1.8-7.7); Neutrophils % 65.9 %; Nucleated Red Blood Cells % 0.4 %; Platelet Count 53 10^3/cmm (157-399); Red Blood Count 2.82 10^6/uL (3.85-5.65); Red Cell Distribution Width 16.1 % (12.1-15.1); White Blood Count 5.23 10^3/uL (3.29-11.43)
[2023-11-20] MEDS: piperacillin-tazobactam 3.375 GM in sodium chloride 0.9% (plus) 50 ML IV ×2 (05:28→17:35)
[2023-11-20 05:34] LABS: Calcium 8.7 mg/dL (8.5-10.5); Carbon Dioxide 36 mmol/L (22-29); Chloride 96 mmol/L (98-107); Creatinine Clr Calc Pharmacy 16.0578; Glucose 98 mg/dL (65-115); Sodium 144 mmol/L (136-145)
[2023-11-20 05:43] LABS: Anion Gap 15.9 (5-19); Osmolality Calculated 338 mOsm/kg (285-295); Potassium 3.9 mmol/L (3.5-5.1)
[2023-11-20 05:45] LABS: Blood Urea Nitrogen 126 mg/dL (8-23)
[2023-11-20] MEDS: amiodarone 200 mg Tablet 100 MG PO (08:30)
[2023-11-20] MEDS: apixaban 5 mg Tablet 2.5 MG PO ×2 (08:30→17:35)
[2023-11-20] MEDS: sennosides-docusate Tablet 1 TAB PO (08:30)
[2023-11-20] MEDS: carvedilol 3.125 mg Tablet PO ×2 (08:30→17:35)
--- NOTE | 2023-11-20 09:58 | PC.SOCIAL ---
IMM Update Pg. 2 of IMM updated. Copy provided, copy placed in chart.
[2023-11-20 10:48] LABS: INR 1.75 (0.8-1.2)
--- NOTE | 2023-11-20 12:27 | P.PN_ITS ---
Subjective 2 Subjective: Creatinine is 3.6 Patient is well awake and alert and oriented Very happy with his progress He is happy with his care in this hospital He will get another dose of IV Lasix today Vitals/I&O/Wt Last Vital Signs Temp 97.4 F L 11/20/23 11:24 Pulse 71 11/20/23 11:24 Resp 16 11/20/23 11:24 BP 102/56 11/20/23 11:24 Pulse Ox 99 11/20/23 11:24 O2 Del Method Nasal Cannula 11/20/23 11:24 O2 Flow Rate 3 11/20/23 11:04 FiO2 40 11/20/23 04:28 11/19/23 11/20/23 11/20/23 22:59 06:59 14:59 Intake Total 50 / 836 410 / 410 Output Total 450 / 450 525 / 975 Balance -400 / 386 -525 / -139 410 / 410 Weight last 48 hrs Weight 94.529 kg Weight 90.9 kg Physical Exam 2 Narrative: Patient is able to work with PT Currently on 2 L nasal cannula Sign of fluid overload Lower extremity swelling Abdomen soft No active stridor or wheezing Breathing status has improved significantly Pleasant and cooperative Nonfocal neuroexam Able to tolerate diet S1, S2 variable Urinary Catheter Management: Hoffman: Cath Placed During This Visit: yes Reason for Continuing Indwelling Catheter: Acute Urinary Retention or Obstruction Urinary Catheter Date of Insertion: 11/17/23 Urinary Catheter Time of Insertion: 23:48 Data 11/20/23 04:57 11/20/23 04:57 Micro: Microbiology 11/17/23 22:43 Blood Culture - Final Blood Strep agalactiae - (group b)#2 A&P Assessment and plan (1) 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, NYHA class 4: (2) Protein calorie malnutrition: (3) Cardiac cirrhosis: (4) Acute renal failure: (5) CKD (chronic kidney disease) stage 3, GFR 30-59 ml/min: (6) Acute on chronic kidney failure: Qualifiers: Acute renal failure type: unspecified Chronic kidney disease stage: u nspecified stage Qualified Code(s): N17.9 - Acute kidney failure, unspecified; N18.9 - Chronic kidney disease, unspecified (7) Muscle wasting: (8) Chronic pain: Qualifiers: Chronic pain type: other chronic postprocedural pain Qualified Code(s): G89.28 - Other chronic postprocedural pain (9) Acute hypoxemic respiratory failure: (10) Postobstructive pneumonia: (11) Pneumonia: Qualifiers: Laterality: right Lung location: lower lobe of lung Pneumonia type: d ue to unspecified organism Qualified Code(s): J18.9 - Pneumonia, unspecified organism (12) Atelectasis: (13) Physical deconditioning: Plan Significant improvement in mentation Hypoxia is improving Required BiPAP overnight and nasal cannula in the morning Will give him IV Lasix today Acute on chronic kidney disease creatinine has not trended down as expected Patient has significant systolic CHF with acute exacerbation Postobstructive pneumonia getting treated with antibiotics Atelectasis improving Whiteout of lung improving as well DNR/DNI Currently on dysphagia diet Deconditioned: Protein calorie malnourishment Once creatinine starts trending down I will be able to discharge him back to his facility will also give him metolazone Attestations 2 Medical Necessity Statement*: Continue medical management Diagnoses 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, NYHA class 4 I50.20 Protein calorie malnutrition E46 Cardiac cirrhosis K76.1 Acute renal failure N17.9 CKD (chronic kidney disease) stage 3, GFR 30-59 ml/min N18.30 Acute on chronic kidney failure N17.9; N18.9 Acute renal failure type: unspecified Chronic kidney disease stage: unspecified stage Muscle wasting M62.50 Other chronic postprocedural pain G89.28 Chronic pain type: other chronic postprocedural pain Acute hypoxemic respiratory failure J96.01 Postobstructive pneumonia J18.9 Pneumonia J18.9 Laterality: right Lung location: lower lobe of lung Pneumonia type: due to unspecified organism Atelectasis J98.11 Physical deconditioning R53.81
[2023-11-20] MEDS: FUROsemide 10 mg/mL SDV 2mL 20 MG IVP (13:54)
[2023-11-20] MEDS: metOLazone 5 MG Tablet PO (13:56)
[2023-11-21] VITALS (9 sets, daily range): BP systolic 102–107; BP diastolic 48–64; PULSE 70–78; RESP 14–20; TEMP 36.4–36.6; O2SAT 96–100
[2023-11-21] MEDS: acetylcysteine 200 mg/mL SDV 4 mL INHALATION ×3 (00:02→08:30)
[2023-11-21] MEDS: ipratropium-albuterol 3 mL Neb INHALATION ×3 (00:02→08:30)
[2023-11-21] MEDS: piperacillin-tazobactam 3.375 GM in sodium chloride 0.9% (plus) 50 ML IV (05:02)
[2023-11-21 05:33] LABS: Anion Gap 16.3 (5-19); Calcium 8.5 mg/dL (8.5-10.5); Carbon Dioxide 36 mmol/L (22-29); Chloride 94 mmol/L (98-107); Creatinine Clr Calc Pharmacy 16.4072; Glucose 96 mg/dL (65-115); Potassium 3.3 mmol/L (3.5-5.1); Sodium 143 mmol/L (136-145)
[2023-11-21 05:52] LABS: Osmolality Calculated 335 mOsm/kg (285-295)
[2023-11-21 05:53] LABS: Blood Urea Nitrogen 123 mg/dL (8-23)
--- NOTE | 2023-11-21 10:47 | PM.DCS ---
Discharge Providers Date of Admission: 11/17/23 21:31 Date of Discharge: November 21, 2023 Attending Provider at Admission: Helen Lares MD Attending Provider at Discharge: Helen Lares MD Primary Care Provider: Cristofer Barrera MD Diagnoses at Discharge Discharge Diagnosis (1) 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, NYHA class 4: Status: Acute (2) Protein calorie malnutrition: Status: Acute (3) Cardiac cirrhosis: Status: Acute (4) Acute renal failure: Status: Acute (5) CKD (chronic kidney disease) stage 3, GFR 30-59 ml/min: Status: Acute (6) Acute on chronic kidney failure: Status: Acute Qualifiers: Acute renal failure type: unspecified Chronic kidney disease stage: unspecified stage Qualified Code(s): N17.9 - Acute kidney failure, unspecified; N18.9 - Chronic kidney disease, unspecified (7) Muscle wasting: Status: Acute (8) Chronic pain: Status: Acute Qualifiers: Chronic pain type: other chronic postprocedural pain Qualified Code(s): G89.28 - Other chronic postprocedural pain (9) Acute hypoxemic respiratory failure: Status: Acute (10) Postobstructive pneumonia: Status: Acute (11) Pneumonia: Status: Acute Qualifiers: Laterality: right Lung location: lower lobe of lung Pneumonia type: due to unspecified organism Qualified Code(s): J18.9 - Pneumonia, unspecified organism (12) Atelectasis: Status: Acute (13) Physical deconditioning: Status: Acute Reason for Visit Reason for Visit: sob Hospital Course Hospital Course 88-year-old male with history of systolic CHF, has refused LifeVest and AICD, poor functional status, resident of [facility], presented with confusion and shortness of breath he was diagnosed with right lung atelectasis, postobstructive pneumonia, hypoxic hypercarbic resp failure, his mentation improved with use of BiPAP, Mucomyst, DuoNeb, chest vest radiotherapy 3 times a day significantly, he was able to eat on his own, signs of dehydration improved however he showed signs of worsening of kidney function, he remained in congestive heart failure with fluid overloaded state, he was given IV diuretics along metolazone. [facility] He may benefit from BiPAP at nighttime with settings 12/6 FiO2 35%. Patient is at risk of worsening of kidney function along underlying functional status. If he shows further signs of worsening public field administrator as well aware and willing to go with palliative care. Patient has court hearing for guardianship with public field administrator in next 1 week. Right now patient has good mentation, able to eat on his own, happy with his progress. He is DNR/DNI. Physical Exam Narrative: Signs of fluid overload present Awake and alert Sitting in recliner Currently on 2 L Lower 70 edema Abdomen soft Nonfocal neuroexam Able to comprehend and answer questions appropriately Urinary Catheter Management: Hoffman: Cath Placed During This Visit: yes Reason for Continuing Indwelling Catheter: Acute Urinary Retention or Obstruction Urinary Catheter Date of Insertion: 11/17/23 Urinary Catheter Time of Insertion: 23:48 Discharge Data Studies Completed and Pending Completed Studies During Hospitalization Category Date Time Status CT chest wo con [id number] Stat Cat Scan 11/17/23 21:07 Completed XR chest 1V portable [id number] Routine Exams 11/19/23 09:01 Completed XR chest 1V portable [id number] Stat Exams 11/17/23 20:25 Completed Pending at discharge Category Date Time Status Blood Culture Stat Lab 11/17/23 22:47 Results Radiology Impressions Chest CT 11/17/23 21:07 IMPRESSION: 1. Complete atelectasis of the right lung with moderate right-sided pleural effusion. There is occlusion of the right mainstem bronchus which contains mildly complex fluid, possibly secretions. An underlying mass in the right lung would be difficult to exclude and may be re-evaluated following re-expansion. 2. Moderate pulmonary edema and trace pleural effusion on the left. 3. Cardiomegaly status post CABG and left subclavian approach dual-chamber pacemaker ICD. 4. IVC filter in place. Please assess the management of the filter. If there is no established plan for management or ongoing clinical follow-up, nonemergent interventional radiology evaluation is recommended. Chest X-Ray 11/19/23 09:01 IMPRESSION: 1. Heart is enlarged but stable when compared to the prior exam. 2. Improved right pleuroparenchymal disease. 3. Stable left pleuroparenchymal disease. Laboratory Results WBC 5.23 10^3/uL (3.29-11.43) 11/20/23 04:57 RBC 2.82 10^6/uL (3.85-5.65) L 11/20/23 04:57 Hgb 8.00 g/dL (11.27-16.99) L 11/20/23 04:57 Hct 26.9 % (37-53) L 11/20/23 04:57 MCV 95.4 fl (82-101) 11/20/23 04:57 MCH 28.4 pg (27-33) 11/20/23 04:57 MCHC 29.7 g/dL (30-55) L 11/20/23 04:57 RDW 16.1 % (12.1-15.1) H 11/20/23 04:57 Plt Count 53 10^3/cmm (157-399) L 11/20/23 04:57 MPV 11.1 fL (7.4-10.4) H 11/20/23 04:57 Neut % (Auto) 65.9 % 11/20/23 04:57 Lymph % (Auto) 16.4 % 11/20/23 04:57 Desha % (Auto) 14.0 % 11/20/23 04:57 Eos % (Auto) 2.7 % 11/20/23 04:57 Baso % (Auto) 0.6 % 11/20/23 04:57 Neut # (Auto) 3.45 10^3/uL (1.8-7.7) 11/20/23 04:57 Lymph # (Auto) 0.9 10^3/uL (0.8-4.8) 11/20/23 04:57 Desha # (Auto) 0.7 10^3/uL (0.2-0.9) 11/20/23 04:57 Eos # (Auto) 0.1 10^3/uL (0.0-0.8) 11/20/23 04:57 Baso # (Auto) 0.0 10^3/uL (0.0-0.1) 11/20/23 04:57 Nucleated RBC % (auto) 0.4 % 11/20/23 04:57 Nucleated RBCs # 0.0 /100WBC 11/20/23 04:57 PT 21.10 SECONDS (12.1-14.9) H 11/20/23 10:29 INR 1.75 (0.8-1.2) H 11/20/23 10:29 Specimen Type Arterial 11/20/23 04:00 Sample Site Radial, right 11/20/23 04:00 ABG pH 7.35 (7.35-7.45) 11/20/23 04:00 ABG pCO2 67.8 mmHg (35-45) H* 11/20/23 04:00 ABG pO2 184.0 mmHg (80.0-100.0) H 11/20/23 04:00 ABG PO2/FiO2 Ratio 0 11/18/23 03:04 ABG HCO3 37.6 mmol/L (22-26) H 11/20/23 04:00 ABG O2 Saturation 94.3 11/17/23 21:11 ABG Base Excess 10.5 mmol/L (-2.0-2.0) H 11/20/23 04:00 Guero Test Pos 11/20/23 04:00 A-a O2 Gradient Not Reportable 11/17/23 21:11 Hematocrit 24.4 % (42-52) L 11/20/23 04:00 Hgb O2 Saturation 92.5 % (95-100) L 11/17/23 21:11 Carboxyhemoglobin 1.8 %THgb (0.4-20.1) 11/17/23 21:11 Methemoglobin 0.1 % (0.4-1.5) L 11/17/23 21:11 Total Hemoglobin 9.4 g/dL (14-18) L 11/17/23 21:11 Sodium 141.0 mmol/L (131-143) 11/17/23 21:11 Potassium 3.8 mmol/L (3.5-5.0) 11/17/23 21:11 Glucose 136.0 mg/dL (70-115) H 11/17/23 21:11 Ionized Calcium 1.2 mmol/L (1.1-1.4) 11/17/23 21:11 O2 Delivery Device Nc 11/20/23 04:00 O2 Liters/Min 3.0 % 11/20/23 04:00 FiO2 50.0 % 11/18/23 03:04 PEEP 10.0 cmH20 11/18/23 03:04 Verifier Operator ID [email or web address] 11/20/23 04:00 Sodium 143 mmol/L (136-145) 11/21/23 04:30 Potassium 3.3 mmol/L (3.5-5.1) L 11/21/23 04:30 Chloride 94 mmol/L (98-107) L 11/21/23 04:30 Carbon Dioxide 36 mmol/L (22-29) H 11/21/23 04:30 Anion Gap 16.3 (5-19) 11/21/23 04:30 BUN 123 mg/dL (8-23) H* 11/21/23 04:30 Creatinine 3.6 mg/dL (0.7-1.2) H 11/21/23 04:30 GFR Calculation Not Reportable 11/21/23 04:30 Glucose 96 mg/dL (65-115) 11/21/23 04:30 Calculated Osmolality 335 mOsm/kg (285-295) H 11/21/23 04:30 Lactic Acid 2.6 mmol/L (0.5-2.2) H 11/17/23 22:34 Lactic Acid (Sepsis) 2.1 mmol/L (0.5-2.2) 11/18/23 00:42 Calcium 8.5 mg/dL (8.5-10.5) 11/21/23 04:30 Phosphorus 7.3 mg/dL (2.5-4.5) H 11/18/23 04:43 Magnesium 2.8 mg/dL (1.7-2.3) H 11/18/23 04:43 Total Bilirubin 1.3 mg/dL (0.15-1.2) H 11/17/23 22:34 AST 108 U/L (0-40) H 11/17/23 22:34 ALT 79 U/L (0-41) H 11/17/23 22:34 Alkaline Phosphatase 75 U/L (40-130) 11/17/23 22:34 Troponin T Baseline 67 ng/L (0-15) H 11/17/23 22:34 Troponin T 120 Minute 66.33 ng/L (0-15) H 11/18/23 00:42 Delta Troponin T -0.67 ABS# (0-10) L 11/18/23 00:42 Troponin T Hi Sens 6Hr 68.34 ng/L (0-15) H 11/18/23 04:43 Troponin T Hi Sens 6Hr Delta 1.34 ng/L (0-12) 04/29/24 04:43 NT-Pro-B Natriuret Pep 42275 pg/mL (0-450) H 11/17/23 22:34 Total Protein 7.5 g/dL (6.6-8.7) 11/17/23 22:34 Albumin 3.5 g/dL (3.5-5.2) 11/17/23 22:34 Globulin 4.0 g/dL (1.3-4.6) 11/17/23 22:34 Vitals Last Vital Signs Temp 97.8 F 11/21/23 07:56 Pulse 70 11/21/23 08:46 Resp 16 11/21/23 08:46 BP 102/64 11/21/23 07:56 Pulse Ox 96 11/21/23 08:46 O2 Del Method Nasal Cannula 11/21/23 08:46 O2 Flow Rate 2 11/21/23 08:46 FiO2 40 11/21/23 03:12 Discharge Plan Discharge Patient Disposition: Xfer SNF Condition: Stable Prescriptions: New Eliquis 5 mg Tablet 2.5 mg PO BID Qty: 60 0RF amoxicillin-pot clavulanate 875-125 mg tablet 1 tab PO BID Qty: 10 0RF doxycycline hyclate 100 mg tablet 100 mg PO BID 10 Days Qty: 20 0RF Continued carvedilol 3.125 mg tablet 3.125 mg PO BID Qty: 180 3RF nitroglycerin [Nitrostat] 0.4 mg Tablet, Sublingual 0.4 mg SUBLINGUAL Q5M PRN (Reason: Chest Pain) Rx Instructions: do not exceed 3 doses per episode docusate sodium [Colace] 100 mg Capsule 100 mg PO DAILY PRN (Reason: Constipation) metolazone 5 mg Tablet 5 mg PO DAILY PRN (Reason: Swelling/shortness of breath) Qty: 15 0RF fluticasone propion-salmeterol [Advair Diskus] 500-50 mcg/dose blister with device 1 inh INHALATION BID albuterol sulfate 90 mcg/actuation HFA aerosol inhaler 2 inh INHALATION Q4H PRN (Reason: Shortness Of Breath) amiodarone 200 mg tablet 100 mg PO QAM potassium chloride 20 mEq tablet extended release 20 meq PO QAM Qty: 60 0RF citalopram 10 mg tablet 10 mg PO DAILY risperidone 0.5 mg tablet 0.5 mg PO BID bumetanide 2 mg tablet 2 mg PO BID Qty: 60 0RF Discontinued isosorbide mononitrate 30 mg tablet extended release 24 hr 30 mg PO DAILY hydralazine 25 mg tablet 25 mg PO BID Discharge Orders: Discharge Order (Routine); Ordered 11/21/23 Ordered By: Helen Lares Referrals: [facility] [Outside] Cristofer Barrera MD [Primary Care Provider] - Discharge Diet: Cardiac Discharge Activity: Increase activity as tolerated Patient Instructions: Opioid Safety Discharge Attestations Time Spent in Discharge Care*: greater than 30 min Status at Discharge: Cognitive status at discharge: cognitively intact, Behavioral status at discharge: cooperative, Quality Metrics Clinical Quality Measures [ No reported AMI, CVA or VTE this stay] Coding Level of Care Code Acute Code for Chg Fwd Diagnoses 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, NYHA class 4 I50.20 Protein calorie malnutrition E46 Cardiac cirrhosis K76.1 Acute renal failure N17.9 CKD (chronic kidney disease) stage 3, GFR 30-59 ml/min N18.30 Acute on chronic kidney failure N17.9; N18.9 Acute renal failure type: unspecified Chronic kidney disease stage: unspecified stage Muscle wasting M62.50 Other chronic postprocedural pain G89.28 Chronic pain type: other chronic postprocedural pain Acute hypoxemic respiratory failure J96.01 Postobstructive pneumonia J18.9 Pneumonia J18.9 Laterality: right Lung location: lower lobe of lung Pneumonia type: due to unspecified organism Atelectasis J98.11 Physical deconditioning R53.81
[2023-11-21] MEDS: sennosides-docusate Tablet 1 TAB PO (11:26)
[2023-11-21] MEDS: carvedilol 3.125 mg Tablet PO (11:26)
[2023-11-21] MEDS: amiodarone 200 mg Tablet 100 MG PO (11:26)
[2023-11-21] MEDS: metOLazone 5 MG Tablet PO (11:27)
[2023-11-21] MEDS: FUROsemide 10 mg/mL SDV 2mL 20 MG IVP (11:27)
[2023-11-21] MEDS: apixaban 5 mg Tablet 2.5 MG PO (11:27)
[2023-11-21 13:42] LABS: SARS Covid-2 Antigen negative (Negative)
== END 2023-11-21 15:05 | disposition skilled nursing facility (03) | DRG 189 ==
LOC: ER 22:07 → MEDSURG 23:29
PROVIDERS: Admitting Provider Internal Medicine; Emergency Provider Internal Medicine; PCP Internal Medicine; Visit Provider Internal Medicine
DX: J96.02 Acute respiratory failure with hypercapnia (principal); J18.9 Pneumonia, unspecified organism; I50.23 Acute on chronic systolic (congestive) heart failure; J98.11 Atelectasis; N17.9 Acute kidney failure, unspecified; E46 Unspecified protein-calorie malnutrition; I13.0 Hypertensive heart and chronic kidney disease with heart failure and stage 1 through stage 4 chronic kidney disease, or unspecified chronic kidney disease; J96.01 Acute respiratory failure with hypoxia; Z87.891 Personal history of nicotine dependence; Z95.0 Presence of cardiac pacemaker; I48.91 Unspecified atrial fibrillation; E86.0 Dehydration; Z99.81 Dependence on supplemental oxygen; Z66 Do not resuscitate; R68.0 Hypothermia, not associated with low environmental temperature; N18.30 Chronic kidney disease, stage 3 unspecified; M62.50 Muscle wasting and atrophy, not elsewhere classified, unspecified site; G89.29 Other chronic pain; R53.81 Other malaise; Z79.01 Long term (current) use of anticoagulants
CPT/HCPCS: 36415; 36600; 51702; 71045; 71250; 80048; 80051; 80053; 82330; 82803; 82805; 83605; 83735; 83880; 84100; 84484; 85025; 85610; 87040; 87077; 87150; 87186; 87205; 87426; 92526; 92610; 93005; 94640; 94660; 94669; 96365; 97110; 97161; 97167; 97530; 97535; 99285; J0696; J1940; J2543; J3372; J7030; J7608